=== PATIENT | male | born 1970 | race Caucasian/White ===

== ENCOUNTER 2017-06-24 19:37 | Emergency (ER) | payer BC ==
[~2017-06-24] VITALS: Ht 177.8 cm; Wt 104.3 kg
[~2017-06-24 19:37] MED LIST: ASPI81TA28 PO; CETI10TA84 PO; CYAN100T6 PO; IBUP-1050 PO; MISCCAP80 PO; MULT-610 PO
[2017-06-24 19:41] VITALS: TEMP 36.8; Ht 177.8 cm; Wt 104.3 kg
[2017-06-24 20:24] VITALS: O2SAT 98
[2017-06-24 20:47] LABS: BASO % 0.4 %; BASO ABS # 0.04 K/uL (0-0.2); EOS % 1.5 %; EOS ABS # 0.14 K/uL (0-0.5); HEMATOCRIT 44.9 % (42-52); HEMOGLOBIN 16.3 g/dL (14.0-18.0); IG# 0.03 K/uL (0.00-0.02); LYMPH % 32.8 %; LYMPH ABS # 3.09 K/uL (1.2-3.4); MEAN CORPUSCULAR HEMOGLOBIN 30.9 pg (25-34); MEAN CORPUSCULAR HGB CONC 36.3 g/dl (32-36); MEAN PLATELET VOLUME 9.1 fL (7.4-10.4); MONO ABS # 0.85 K/uL (0.11-0.59); NEUT ABS # 5.26 K/uL (1.4-6.5); PLATELET COUNT 244 K/uL (130-400); RED CELL DISTRIBUTION WIDTH CV 12.6 % (11.5-14.5); RED CELL DISTRIBUTION WIDTH SD 38.6 fL (36.4-46.3); WHITE BLOOD COUNT 9.41 K/uL (4.8-10.8)
[2017-06-24] MEDS ORDERED: MELA3TAB12 PO (20:56)
[2017-06-24 20:59] LABS: ALBUMIN 4.2 gm/dl (3.4-5.0); ALT/SGPT 43 U/L (12-78); BLOOD UREA NITROGEN 16 mg/dl (7-18); CALCIUM 9.1 mg/dl (8.5-10.1); CARBON DIOXIDE 26 mmol/L (21-32); CREATININE 1.16 mg/dl (0.60-1.40); GLUCOSE 96 mg/dl (70-99); POTASSIUM 3.6 mmol/L (3.5-5.1); SODIUM 137 mmol/L (136-145)
--- NOTE | 2017-06-24 21:04 | DIAGNOSTIC IMAGING REPORT ---
CHEST ONE VIEW PORTABLE CLINICAL HISTORY: 46 years-old Male presenting with loud murmur, dizziness, htn. TECHNIQUE: Portable upright AP view of the chest was obtained. COMPARISON: None. FINDINGS: Cardiomediastinal silhouette normal. Mildly low lung volumes with hypoventilatory changes. No focal opacity. No pleural effusion or pneumothorax. Osseous structures normal. Upper abdomen normal. IMPRESSION: 1. Mildly low lung volumes. Otherwise no acute cardiopulmonary disease. Electronically signed by: Miquel Raygoza M.D. 06/24/2017 9:03 PM Dictated Date/Time: 06/24/2017 9:02 PM
[2017-06-24 21:10] LABS: ALKALINE PHOSPHATASE 80 U/L (45-117); AST/SGOT 22 U/L (15-37); CKMB 1.5 ng/ml (0.5-3.6); TOTAL PROTEIN 8.3 gm/dl (6.4-8.2)
[2017-06-24] MEDS ORDERED: ACETAMINOPHEN 500 MG TAB PO STA (21:21)
--- NOTE | 2017-06-24 21:43 | DIAGNOSTIC IMAGING REPORT ---
HEAD WITHOUT CONTRAST (CT) CLINICAL HISTORY: 46 years-old Male presenting with headache, hypertension. TECHNIQUE: Multidetector CT imaging of the head was performed without the use of intravenous contrast. IV contrast: None. A dose lowering technique was used consistent with the principles of ALARA (as low as reasonably achievable). COMPARISON: 02/12/2015. CT DOSE (mGy.cm): The estimated cumulative dose is 537.48 mGy.cm. FINDINGS: Tire Changer Aircraft topogram: Unremarkable. Ventricles and sulci normal in size. Brain parenchyma normal in appearance with preserved bob-white differentiation. No mass effect or midline shift. No hemorrhage or acute territorial infarct. No extra-axial fluid collection. Paranasal sinuses and mastoid air cells clear. Calvarium intact. IMPRESSION: 1. No acute intracranial abnormality. Electronically signed by: Miquel Raygoza M.D. 06/24/2017 9:41 PM Dictated Date/Time: 06/24/2017 9:39 PM
[2017-06-24] MEDS ORDERED: OPTIRAY 320 IV PRN (22:15)
--- NOTE | 2017-06-24 22:21 | DIAGNOSTIC IMAGING REPORT ---
CHEST COMBO ANGIOGRAPHY CLINICAL HISTORY: 46 years-old Male presenting with ^Headache, murmur, htn, clinical concern for dissection. TECHNIQUE: Multidetector CT angiography of the chest was performed before and after the administration of intravenous contrast. 3-D volumetric and/or maximum intensity projection (MIP) images were subsequently reconstructed for review. IV contrast: 116 mL of Optiray 320. A dose lowering technique was used consistent with the principles of ALARA (as low as reasonably achievable). COMPARISON: Chest x-ray performed earlier the same day. CT DOSE (mGy.cm): The estimated cumulative dose is 1482.26 mGy.cm. FINDINGS: Medical Data Analyst topogram: Unremarkable. Vasculature: The study is adequate for assessment of the aorta. Precontrast imaging demonstrates no evidence of intramural hematoma. Postcontrast imaging demonstrates no evidence of dissection, penetrating ulcer, or aneurysm. Allowing for timing of the contrast bolus, no gross evidence of a filling defect within the pulmonary arteries to suggest embolus. Main pulmonary artery is not enlarged. No flattening of the interventricular septum. No intracardiac filling defect. No reflux of contrast into the hepatic veins. Remaining chest: On soft tissue windows, normal thyroid and thoracic inlet. No axillary, supraclavicular, hilar, or mediastinal lymphadenopathy. Normal heart size. Aortic valve calcification. No pericardial or pleural effusion. Upper abdomen normal. On lung windows, no focal infiltrate or nodule. Airways patent. On bone windows, normal osseous structures. IMPRESSION: 1. No evidence of acute aortic injury. No acute intrathoracic pathology. Electronically signed by: Miquel Raygoza M.D. 06/24/2017 10:19 PM Dictated Date/Time: 06/24/2017 10:15 PM
--- NOTE | 2017-06-24 22:59 | EMERGENCY ROOM VISIT NOTE ---
History First contact with patient: 19:47 Chief Complaint: HYPERTENSION Stated Complaint: HEADACHES,BP 183/108 History of Present Illness The patient is a 46 year old male who presents to the Emergency Room via private vehicle accompanied by female with complaints of "headaches, elevated blood pressure at 183/108". The patient states that for the past 2-3 weeks he has been experiencing headaches, intermittent palpitations, blurred vision, dizziness, and ear pressure. There is also associated weight gain, fatigue, stressors, and irritability. He has history of A. fib, 2014, but notes that nothing at that time was added to his medication regimen. He denies any eye pain or shortness of breath. No ringing in his ears, confusion, snoring or weakness. He states that sometimes there is intermittent relief with Motrin and sleep. Today he had 4 ibuprofen, and 2 Excedrin Migraine. Headache is in the frontal and temporal regions. He rates the pain as a 7/10. He was concerned because earlier today he checked his blood pressure and it was 183/ 108. Review of Systems A complete 10-point Review of Systems was discussed with the patient, with pertinent positives and negatives listed in the History of Present Illness. All remaining Review of Systems questions can be considered negative unless otherwise specified. 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 Current/Historical Medications Scheduled PRN Ibuprofen (Advil), 600-800 MG PO PRN UD PRN for Pain Melatonin-Pyridoxine (Melatonin), 5 MG PO HS PRN for Sleep Physical Exam Vital Signs Date Time Temp Pulse Resp B/P (MAP) Pulse Ox O2 Delivery O2 Flow Rate FiO2 06/24/17 23:09 50 18 148/75 96 Room Air 06/24/17 22:12 60 16 148/83 96 Room Air 06/24/17 20:59 53 16 140/79 96 Room Air 06/24/17 20:24 98 Room Air 06/24/17 20:11 67 06/24/17 19:56 62 16 156/102 98 Room Air 06/24/17 19:41 36.8 71 20 169/87 97 Room Air Physical Exam VITAL SIGNS - Vital signs and nursing notes were reviewed. Stable. Hypertensive. GENERAL - 46-year-old male appearing his stated age who is in no acute distress. Communicates well with provider and answers questions appropriately. SKIN - Without rashes. No petechial rashes. HEAD - NC/AT. EYES - PERRL with EOMI bilaterally. Sclera anicteric. EARS - No deformities of external structures noted on gross examination bilaterally. NOSE - Midline and without cyanosis. No epistaxis or purulent drainage noted. MOUTH/OROPHARYNX - Without perioral cyanosis. NECK - Neck with FROM. Supple to palpation. No nuchal rigidity. LUNGS - Chest wall symmetric without accessory muscle use, intercostals retractions, or central cyanosis. Normal vesicular breath sounds CTA B/L. No wheezes, rales, or rhonchi appreciated. CARDIAC - RRR with S1/S2. Loud systolic murmur noted. EXTREMITIES - No clubbing or peripheral cyanosis. No pretibial edema present. + 5/5 strength noted in UE/LE bilaterally. NEUROLOGIC - Cranial nerves II through XII grossly intact. Sensory intact to light touch throughout. PSYCH - A&O, and cooperates fully with examiner. Pt is very pleasant and interacts well with examiner. Medical Decision & Procedures ER Provider Diagnostic Interpretation: HEAD WITHOUT CONTRAST (CT) CLINICAL HISTORY: 46 years-old Male presenting with headache, hypertension. TECHNIQUE: Multidetector CT imaging of the head was performed without the use of intravenous contrast. IV contrast: None. A dose lowering technique was used consistent with the principles of ALARA (as low as reasonably achievable). COMPARISON: 02/12/2015. CT DOSE (mGy.cm): The estimated cumulative dose is 537.48 mGy.cm. 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 Ventricles and sulci normal in size. Brain parenchyma normal in appearance with preserved bob-white differentiation. No mass effect or midline shift. No hemorrhage or acute territorial infarct. No extra-axial fluid collection. Paranasal sinuses and mastoid air cells clear. Calvarium intact. IMPRESSION: 1. No acute intracranial abnormality. Electronically signed by: Miquel Raygoza M.D. 06/24/2017 9:41 PM Dictated Date/Time: 06/24/2017 9:39 PM CHEST ONE VIEW PORTABLE CLINICAL HISTORY: 46 years-old Male presenting with loud murmur, dizziness, htn. TECHNIQUE: Portable upright AP view of the chest was obtained. COMPARISON: None. FINDINGS: Cardiomediastinal silhouette normal. Mildly low lung volumes with hypoventilatory changes. No focal opacity. No pleural effusion or pneumothorax. Osseous structures normal. Upper abdomen normal. IMPRESSION: 1. Mildly low lung volumes. Otherwise no acute cardiopulmonary disease. Electronically signed by: Miquel Raygoza M.D. 06/24/2017 9:03 PM Dictated Date/Time: 06/24/2017 9:02 PM CHEST COMBO ANGIOGRAPHY CLINICAL HISTORY: 46 years-old Male presenting with ^Headache, murmur, htn, clinical concern for dissection. TECHNIQUE: Multidetector CT angiography of the chest was performed before and after the administration of intravenous contrast. 3-D volumetric and/or maximum intensity projection (MIP) images were subsequently reconstructed for review. IV contrast: 116 mL of Optiray 320. A dose lowering technique was used consistent with the principles of ALARA (as low as reasonably achievable). COMPARISON: Chest x-ray performed earlier the same day. CT DOSE (mGy.cm): The estimated cumulative dose is 1482.26 mGy.cm. 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 Vasculature: The study is adequate for assessment of the aorta. Precontrast imaging demonstrates no evidence of intramural hematoma. Postcontrast imaging demonstrates no evidence of dissection, penetrating ulcer, or aneurysm. Allowing for timing of the contrast bolus, no gross evidence of a filling defect within the pulmonary arteries to suggest embolus. Main pulmonary artery is not enlarged. No flattening of the interventricular septum. No intracardiac filling defect. No reflux of contrast into the hepatic veins. Remaining chest: On soft tissue windows, normal thyroid and thoracic inlet. No axillary, supraclavicular, hilar, or mediastinal lymphadenopathy. Normal heart size. Aortic valve calcification. No pericardial or pleural effusion. Upper abdomen normal. On lung windows, no focal infiltrate or nodule. Airways patent. On bone windows, normal osseous structures. IMPRESSION: 1. No evidence of acute aortic injury. No acute intrathoracic pathology. Electronically signed by: Miquel Raygoza M.D. 06/24/2017 10:19 PM Dictated Date/Time: 06/24/2017 10:15 PM Laboratory Results 06/24/17 19:50 Red Blood Count 5.28, Mean Corpuscular Volume 85.0, Mean Corpuscular Hemoglobin 30.9, Mean Corpuscular Hemoglobin Concent 36.3, Mean Platelet Volume 9.1, Neutrophils (%) (Auto) 56.0, Lymphocytes (%) (Auto) 32.8, Monocytes (%) (Auto) 9.0, Eosinophils (%) (Auto) 1.5, Basophils (%) (Auto) 0.4, Neutrophils # (Auto) 5.26, Lymphocytes # (Auto) 3.09, Monocytes # (Auto) 0.85, Eosinophils # (Auto) 0.14, Basophils # (Auto) 0.04 06/24/17 19:50 Test 06/24/17 19:50 White Blood Count 9.41 K/uL (4.8-10.8) Red Blood Count 5.28 M/uL (4.7-6.1) Hemoglobin 16.3 g/dL (14.0-18.0) Hematocrit 44.9 % (42-52) Mean Corpuscular Volume 85.0 fL (80-100) Mean Corpuscular Hemoglobin 30.9 pg (25-34) Mean Corpuscular Hemoglobin Concent 36.3 g/dl (32-36) Platelet Count 244 K/uL (130-400) Mean Platelet Volume 9.1 fL (7.4-10.4) Neutrophils (%) (Auto) 56.0 % Lymphocytes (%) (Auto) 32.8 % Monocytes (%) (Auto) 9.0 % Eosinophils (%) (Auto) 1.5 % Basophils (%) (Auto) 0.4 % Neutrophils # (Auto) 5.26 K/uL (1.4-6.5) Lymphocytes # (Auto) 3.09 K/uL (1.2-3.4) Monocytes # (Auto) 0.85 K/uL (0.11-0.59) Eosinophils # (Auto) 0.14 K/uL (0-0.5) Basophils # (Auto) 0.04 K/uL (0-0.2) RDW Standard Deviation 38.6 fL (36.4-46.3) RDW Coefficient of Variation 12.6 % (11.5-14.5) Immature Granulocyte % (Auto) 0.3 % Immature Granulocyte # (Auto) 0.03 K/uL (0.00-0.02) Anion Gap 7.0 mmol/L (3-11) Est Creatinine Clear Calc Drug Dose 95.2 ml/min Estimated GFR () 86.4 Estimated GFR (Non- 74.6 BUN/Creatinine Ratio 13.5 (10-20) Calcium Level 9.1 mg/dl (8.5-10.1) Total Bilirubin 0.6 mg/dl (0.2-1) Aspartate Amino Transf (AST/SGOT) 22 U/L (15-37) Alanine Aminotransferase (ALT/SGPT) 43 U/L (12-78) Alkaline Phosphatase 80 U/L (45-117) Total Creatine Kinase 180 U/L (39-308) Creatine Kinase MB 1.5 ng/ml (0.5-3.6) Creatine Kinase MB Ratio 0.8 (0-3.0) Troponin I < 0.015 ng/ml (0-0.045) Total Protein 8.3 gm/dl (6.4-8.2) Albumin 4.2 gm/dl (3.4-5.0) Globulin 4.1 gm/dl (2.5-4.0) Albumin/Globulin Ratio 1.0 (0.9-2) Thyroid Stimulating Hormone (TSH) 1.780 uIu/ml (0.300-4.500) Lyme Disease IgG Antibody NEG (NEG) Lyme Disease IgM Antibody NEG (NEG) Medications Administered Medications (Trade) Dose Ordered Sig/Quentin Route Start Time Stop Time Status Last Admin Dose Admin Acetaminophen (Tylenol Tab) 500 mg NOW STAT PO 06/24/17 21:21 06/24/17 21:22 DC 06/24/17 21:21 500 MG Medical Decision Patient was seen and evaluated as above. He presents to us today with headaches , elevated blood pressure. After obtaining a thorough history and physical examination the above work up was performed. Bedside EKG was performed and reveals normal sinus rhythm, rate of 60 bpm, and per my interpretation does reveal T-wave inversion in lead III, without evidence of ectopy or ischemic change. Chest x-ray reveals a questionable slightly wide mediastinum. Head CT was obtained secondary to his headache and hypertension. Without medication, the blood pressure improved. Case was discussed with the attending physician, decision was made to obtain a CTA of his chest given the chest x-ray potential widened mediastinum, as well as his presentation. There is calcification of the aortic valve, and paired with his physical exam revealing a loud systolic murmur do recommend further evaluation in the outpatient setting. I did enlist the help of our case management to help the patient get outpatient follow-up with the family doctor. I informed the patient upon hearing this murmur, which the patient notes was identified previously but not worked up. I informed him that it echo may be beneficial in the outpatient setting. It is important to note that there is no chest pain or shortness of breath. No evidence of A. fib upon my evaluation. No consent leukocytosis or anemia. No concerning metabolic abnormality. Lyme testing negative. He was given Tylenol and his headache improved. He appears stable for outpatient management and at this time I will not initiate hypertensive meds as he has improved well on his own. These may be initiated in the outpatient setting if warranted. The patient was educated upon management, had questions answered prior to discharge, and was discharged home in good condition. In the evaluation and treatment of this patient, the following differential diagnoses were considered: Migraine Headache, Intracranial Hemorrhage, Subdural Hematoma, Subarachnoid Hemorrhage, Cerebral Aneurysm, Temporal/Giant Cell Arteritis, Tension Headache, Meningitis, Encephalitis, or Hydrocephalus. Impression Primary Impression: Headache Additional Impression: Heart murmur Departure Information Dispostion Home / Self-Care Condition GOOD Referrals No Doctor, Assigned (PCP) Patient Instructions [facility] Additional Instructions You have been treated in the Emergency Department your headache, elevated blood pressure and identified heart murmur. For pain control, you can use the following [id number] medicines: - Regular strength (325mg/tab) Tylenol (acetaminophen) 1-2 tabs every 4-6 hours as needed. Do not exceed 12 tablets in a 24 hour period. Avoid taking more than 3 grams (3000 mg) of Tylenol per day. This includes any other sources of acetaminophen you may take on a regular basis. - Regular strength (200 mg/tab) Advil (ibuprofen) 1-2 tabs every 4-6 hours as needed. Do not exceed a dose of 3200 mg per day. Drink plenty of water and stay well hydrated. You should receive a phone call regarding a family doctor follow-up. If you do not receive a phone call by the end of the week please call back here at and ask for a rifle case repairer. Return to the emergency department if your symptoms persist despite treatment plan outlined above or if the following symptoms occur: increased fevers, chills , worsening nausea/vomiting, blood in your stool or urine, worsening headaches, or any new/ concerning symptoms Problem Qualifiers
[2017-06-24 23:09] VITALS: BP 148/75; PULSE 50; O2SAT 96
== END 2017-06-24 23:10 | disposition home or self-care (01) ==
LOC: C.EDB 19:39 → C.EDA 23:10
DX: R51 Headache (principal); R01.1 Cardiac murmur, unspecified; I70.0 Atherosclerosis of aorta; R00.2 Palpitations; R42 Dizziness and giddiness; H53.8 Other visual disturbances; H93.8X9 Other specified disorders of ear, unspecified ear; R03.0 Elevated blood-pressure reading, without diagnosis of hypertension; Z82.49 Family history of ischemic heart disease and other diseases of the circulatory system

== ENCOUNTER 2020-01-08 15:12 | Inpatient (IN) ==
--- OUTSIDE RECORDS SUMMARY | 2020-01-08 15:16 | External Medical Summary | Continuity of Care Document ---
:1970 Author Name Juan Jose Mueller Address Unavailable Unavailable , Care Team Providers Name Role Phone NonMNPG M.DBelle Unavailable [email or web address] Ginny DALEY M.D. Unavailable Unavailable Unavailable Unavailable Unavailable Problems Depression with anxiety (300.4) (F41.8) Chronic sinusitis (473.9) (J32.9) Allergies and Adverse Reactions Zoloft TABS (Allergy) Reaction: Headache Medications Medications not documented Procedures History of Inguinal Hernia Repair Status : Completed History of Sinus Surgery Status: Complet ed Immunizations Immunizations not documented Family History Mother Family history of myocardial infarction (V17.3) (Z82.49) Sta tus: Active Father Family history of myocardial infarction (V17.3) (Z82.49) Sta tus: Active Family history of diabetes mellitus (V18.0) (Z83.3) Status: Active Social History - Smoking Status Never smoked tobacco Plan of Treatment Planned Observations Planned Goals not documented Results No Known Results Results not documented
--- OUTSIDE RECORDS SUMMARY | 2020-01-08 15:16 | External Medical Summary | Continuity of Care Document ---
:1970 Author Name Juan Jose Mueller Address Unavailable Unavailable , Care Team Providers Name Role Phone NonMNPG M.DBelle Unavailable [email or web address] Ginny DALEY M.D. Unavailable Unavailable Unavailable Unavailable Unavailable Problems Chronic sinusitis (473.9) (J32.9) Depression with anxiety (300.4) (F41.8) Allergies and Adverse Reactions Zoloft TABS (Allergy) [...]
[2020-01-08] MEDS ORDERED: ONDANSETRON INJ 2 MG/ML 2 ML VIAL IV STA (15:41)
[2020-01-08] MEDS ORDERED: SODIUM CHLORIDE 0.9% 1000ML 1,000 ML IV SCH (15:45)
[2020-01-08] MEDS: fentaNYL citrate 100 MCG/2 ML VIAL IV PRN ×3 (16:13→20:20)
[2020-01-08] MEDS ORDERED: dilTIAZem HCl 5 MG/ML 5 ML VIAL IV STA ×2 (16:14→18:42)
[2020-01-08 16:19] LABS: Basophils # (auto) 0.03 K/uL (0-0.2); Basophils % (auto) 0.3 %; Eosinophils # (auto) 0.02 K/uL (0-0.5); Eosinophils % (auto) 0.2 %; Hematocrit (blood only) 44.2 % (42-52); Hemoglobin 15.2 g/dL (14.0-18.0); Immature Granulocytes # (auto) 0.04 K/uL (0.00-0.02); Immature Granulocytes % (auto) 0.4 %; Lymphocytes # (auto) 1.05 K/uL (1.2-3.4); Lymphocytes % (auto) 9.2 %; Mean Corpuscular Hemoglobin 30.2 pg (25-34); Mean Corpuscular Hgb Conc 34.4 g/dL (32-36); Mean Corpuscular Volume 87.9 fL (80-100); Mean Platelet Volume 9.1 fL (7.4-10.4); Monocytes # (auto) 1.16 K/uL (0.11-0.59); Monocytes % (auto) 10.2 %; Neutrophils # (auto) 9.12 K/uL (1.4-6.5); Neutrophils % (auto) 79.7 %; Platelet Count 301 K/uL (130-400); RDW Coefficient of Variation 12.9 % (11.5-14.5); Red Blood Count 5.03 M/uL (4.7-6.1); White Blood Count 11.42 K/uL (4.8-10.8)
[2020-01-08 16:30] LABS: Partial Thromboplastin Ratio 1.1; Partial Thromboplastin Time 30.2 Seconds (21.0-31.0); Prothrombin Time 10.9 Seconds (9.0-12.0)
--- NOTE | 2020-01-08 16:35 | Emergency Department Note ---
Impression & Plan Atrial fibrillation with RVR, Postoperative abscess ED Provider Note NAME: BENIGNO BERMUDEZ AGE: 49 SEX: M : 1970 ARRIVES VIA: Walk-In INFORMANT: Patient, ED PROVIDER(S): Jacobo Baron DO CHIEF COMPLAINT: Scrotal pain HPI: The patient is a 49-year-old male who is one-month status post scrotal surgery. The patient was playing softball when he had a sharp pull in his right groin. He suffered a very significant rupture of a blood vessel with resultant hematoma formation in his right groin and his right hemiscrotum. This was treated surgically at [facility]. He had a drain which was removed recently. He was having significant improvement of his symptoms until the last 48 hours when he started having very severe pain with walking. He states that he feels the pain is neurologic and feels like "a pinched nerve" in his right groin. He feels pain that goes through his perineum into his rectum. He denies any rectal bleeding or fevers. He denies having any lower extremity weakness but has significant pain with walking especially when he puts weight on his right leg. The patient denies any recent trauma. The patient denies having any dysuria or frequency. He has noticed some palpitations and has a history of paroxysmal atrial fibrillation. The patient states that he has been compliant with his outpatient medication regimen. ROS: See above HPI for pertinent positives & negatives. A total of 10 systems reviewed and were otherwise negative. PAST MEDICAL HISTORY: See Below PAST SURGICAL HISTORY: See Below FAMILY HISTORY: See Below SOCIAL HISTORY: See Below HOME MEDICATIONS: See Below ALLERGIES: See Below VITALS: See Below PHYSICAL EXAMINATION: GENERAL: The patient is awake and alert. He is very anxious appearing and appears to be in significant pain. EYES: The conjunctivae are clear. The pupils are round and reactive. EARS, NOSE, MOUTH AND THROAT: The nose is without any evidence of any deformity. Mucous membranes are moist. Tongue is midline. NECK: The neck is nontender and supple. RESPIRATORY: Normal respiratory effort is noted there is no evidence of wheezing rhonchi or rales CARDIOVASCULAR: Tachycardic and irregular rate was noted to auscultation. Systolic murmur was suggested. GASTROINTESTINAL: The abdomen is soft. Abdomen is nontender. : There is significant tenderness in the right groin as well as the right femoral vascular bundle. Pulses are symmetric in both groins. There is induration in the right inguinal region with tenderness in the right testicle. There is a postoperative drain site noted in the right hemiscrotum. No drainage or erythema was noted. Testicles appear to be descended bilaterally. Cremasteric reflex was very weak on the right side. The skin over the perineum was soft and nontender. BACK: No midline tenderness or or step-off noted range of motion in flexion extension as well as rotation no signs of muscle spasm noted MUSCULOSKELETAL/EXTREMITIES: There is no evidence of gross deformity full range of motion is noted in the hips and shoulders. SKIN: There is no obvious evidence of any rash. There are no petechiae, pallor or cyanosis noted. NEUROLOGIC: Patient is awake alert and oriented x3 strength is symmetric patellar reflexes are 2+ bilaterally MEDICAL DECISION MAKING: The patient is a 49-year-old male who presented to the emergency department for an evaluation of postoperative pain. The patient had recent surgery for evacuation of a hematoma in his right groin and right hemiscrotum. The drain was removed at the beginning of this month. He started having decreased drainage from the area last . The patient presented with severe pain especially with any ambulation. Physical exam revealed significant induration and pain at the right groin. I discussed the patient's laboratory and radiographic studies with him. He was found to be in A. fib with RVR as well as an area of possible postoperative abscess. I discussed his case with on-call urology as well as the on-call general surgical group. I also discussed his case with the [facility]ist. Likely patient require further medical management and then surgical intervention when he is medically cleared. The patient was reevaluated multiple times. Triage Nursing notes reviewed. Prior medical records reviewed Vital Signs: reviewed and remarkable for tachycardia and hypertension. Differential diagnosis: Cellulitis, abscess, MRSA infection, DVT, necrotizing fasciitis, dermatitis, drug eruption, allergic reaction, postoperative infection, postoperative pain, injury to adjacent structures as well as other pathologies. ER treatment provided: See below Diagnostics interpreted by me: ECG: EKG was obtained in the emergency department. My interpretation is atrial fibrillation at [address] depressions were noted. There were no PVCs. This was compared to a tracing from July 172018. Atrial fibrillation has replaced normal sinus rhythm compared to the earlier tracing. Cardiac Monitoring: An order was placed for continuous cardiac monitoring. The monitor shows a rate of 150 bpm with atrial fibrillation rhythm. Laboratory studies: As stated above and show below. Imaging studies: See below Consultation(s): 1919: I discussed this case with Dr. Gonzalez who is covering for urology. 1944: I discussed this case with Foreign Ortega who is on-call for general surgery. They will evaluate the patient in the emergency department for further management and disposition. 1950: [facility] hospitalist was notified about the patient ED COURSE: Procedures: none PDMP:reviewed and no issues Critical Care: I have personally spent greater than 55 minutes of critical care time in the direct management of this patient. This includes bedside care, interpretation of diagnostic studies, and testing, discussion with consultants, patient, and family members, and other required patient management activities. This 55 minutes is in excess of all separately billable procedures. Past Med/Surg History Medical History Atrial fibrillation History of deviated nasal septum Hypertension Surgical History H/O cardiac catheterization History of inguinal hernia repair Social History Smoking Status: Never smoker Hx Alcohol Use: Yes Alcohol type: beer Hx Substance Use: No Preferred Language: Burmese Communication Ability: Effective Guard Manager Required: No Beliefs That Will Affect Care: None marital status: Single Current Living Situation: Alone Other Information That Helps Us Care for You: No Feels Safe at Home: Yes Allergies Allergies Allergy/AdvReac Type Severity Reaction Status Date / Time No Known Allergies Allergy Verified 01/08/20 16:30 Home Meds Home Medications Medication Instructions Recorded Confirmed ascorbic acid (vitamin C) [Vitamin 1,000 mg PO DAILY 07/17/18 01/08/20 C] aspirin 81 mg PO DAILY 07/17/18 01/08/20 atorvastatin 20 mg PO DAILY 07/17/18 01/08/20 cholecalciferol (vitamin D3) 1,000 unit PO DAILY 07/17/18 01/08/20 [Vitamin D3] magnesium oxide 400 mg PO DAILY 07/17/18 01/08/20 metoprolol succinate 50 mg PO DAILY 07/17/18 01/08/20 multivitamin 1 tab PO DAILY 07/17/18 01/08/20 lisinopril 20 mg PO DAILY 01/08/20 01/08/20 Results & Data (ED) Vital Signs Vital Signs - 24 hr 01/08/20 15:17 01/08/20 16:15 01/08/20 16:17 Temperature 36.9 C Temperature Source Oral Pulse Rate 98 H 151 H 161 H Pulse Rate [Apical] Pulse Rate from SpO2 Sensor 170 H 143 H Respiratory Rate 18 17 21 Blood Pressure 104/84 121/95 Blood Pressure [Left Arm] Blood Pressure Mean 90 102 Blood Pressure Mean [Left Arm] Pulse Oximetry 96 95 95 Oxygen Delivery Method Room Air Sepsis Recent Fever Within 48 Hours No Sepsis New/Unexplained Change in Mental Status No Sepsis Action Taken by Nursing No Action Required 01/08/20 16:30 01/08/20 16:31 01/08/20 16:34 Temperature Temperature Source Pulse Rate 124 H 128 H 125 H Pulse Rate [Apical] Pulse Rate from SpO2 Sensor 126 H 132 H 130 H Respiratory Rate 23 30 H 27 H Blood Pressure 144/114 H 116/76 Blood Pressure [Left Arm] Blood Pressure Mean 119 87 Blood Pressure Mean [Left Arm] Pulse Oximetry 93 95 96 Oxygen Delivery Method Sepsis Recent Fever Within 48 Hours Sepsis New/Unexplained Change in Mental Status Sepsis Action Taken by Nursing 01/08/20 16:45 01/08/20 16:46 01/08/20 16:54 Temperature Temperature Source Pulse Rate 122 H 140 H Pulse Rate [Apical] 133 H Pulse Rate from SpO2 Sensor 113 H 112 H Respiratory Rate 29 H 26 H 18 Blood Pressure 110/91 Blood Pressure [Left Arm] 110/91 Blood Pressure Mean 96 Blood Pressure Mean [Left Arm] 97 Pulse Oximetry 94 95 96 Oxygen Delivery Method Sepsis Recent Fever Within 48 Hours Sepsis New/Unexplained Change in Mental Status Sepsis Action Taken by Nursing 01/08/20 17:00 01/08/20 17:01 01/08/20 17:04 Temperature Temperature Source Pulse Rate 140 H 124 H 133 H Pulse Rate [Apical] Pulse Rate from SpO2 Sensor 158 H 139 H 135 H Respiratory Rate 30 H 18 26 H Blood Pressure 85/66 L 128/108 H Blood Pressure [Left Arm] Blood Pressure Mean 79 113 Blood Pressure Mean [Left Arm] Pulse Oximetry 97 97 94 Oxygen Delivery Method Sepsis Recent Fever Within 48 Hours Sepsis New/Unexplained Change in Mental Status Sepsis Action Taken by Nursing 01/08/20 17:10 01/08/20 17:15 01/08/20 17:16 Temperature Temperature Source Pulse Rate 134 H 148 H 140 H Pulse Rate [Apical] Pulse Rate from SpO2 Sensor 137 H 166 H 126 H Respiratory Rate 18 28 H 21 Blood Pressure 130/100 130/90 Blood Pressure [Left Arm] Blood Pressure Mean 109 109 Blood Pressure Mean [Left Arm] Pulse Oximetry 96 97 97 Oxygen Delivery Method Sepsis Recent Fever Within 48 Hours Sepsis New/Unexplained Change in Mental Status Sepsis Action Taken by Nursing 01/08/20 17:55 01/08/20 17:57 01/08/20 18:00 Temperature Temperature Source Pulse Rate 165 H 154 H 167 H Pulse Rate [Apical] Pulse Rate from SpO2 Sensor 164 H 153 H Respiratory Rate 45 H 23 21 Blood Pressure 125/105 H Blood Pressure [Left Arm] Blood Pressure Mean 108 Blood Pressure Mean [Left Arm] Pulse Oximetry 98 98 Oxygen Delivery Method Sepsis Recent Fever Within 48 Hours Sepsis New/Unexplained Change in Mental Status Sepsis Action Taken by Nursing 01/08/20 18:41 01/08/20 18:42 01/08/20 18:45 Temperature Temperature Source Pulse Rate 149 H 161 H 153 H Pulse Rate [Apical] Pulse Rate from SpO2 Sensor 160 H 158 H 148 H Respiratory Rate 15 31 H 22 Blood Pressure 132/97 113/89 Blood Pressure [Left Arm] Blood Pressure Mean 122 97 Blood Pressure Mean [Left Arm] Pulse Oximetry 97 96 97 Oxygen Delivery Method Sepsis Recent Fever Within 48 Hours Sepsis New/Unexplained Change in Mental Status Sepsis Action Taken by Nursing 01/08/20 18:46 01/08/20 19:00 01/08/20 19:01 Temperature Temperature Source Pulse Rate 154 H 134 H 153 H Pulse Rate [Apical] Pulse Rate from SpO2 Sensor 138 H 143 H 150 H Respiratory Rate 17 19 22 Blood Pressure 121/86 Blood Pressure [Left Arm] Blood Pressure Mean 107 Blood Pressure Mean [Left Arm] Pulse Oximetry 96 97 97 Oxygen Delivery Method Sepsis Recent Fever Within 48 Hours Sepsis New/Unexplained Change in Mental Status Sepsis Action Taken by Nursing 01/08/20 19:15 01/08/20 19:16 01/08/20 19:30 Temperature Temperature Source Pulse Rate 125 H 128 H 147 H Pulse Rate [Apical] Pulse Rate from SpO2 Sensor 125 H 131 H 166 H Respiratory Rate 37 H 21 27 H Blood Pressure 150/100 H 123/102 H Blood Pressure [Left Arm] Blood Pressure Mean 109 106 Blood Pressure Mean [Left Arm] Pulse Oximetry 97 97 97 Oxygen Delivery Method Sepsis Recent Fever Within 48 Hours Sepsis New/Unexplained Change in Mental Status Sepsis Action Taken by Nursing 01/08/20 19:31 01/08/20 19:45 01/08/20 19:46 Temperature Temperature Source Pulse Rate 145 H 176 H 161 H Pulse Rate [Apical] Pulse Rate from SpO2 Sensor 135 H 176 H 168 H Respiratory Rate 22 23 19 Blood Pressure 132/90 Blood Pressure [Left Arm] Blood Pressure Mean 97 Blood Pressure Mean [Left Arm] Pulse Oximetry 98 96 95 Oxygen Delivery Method Sepsis Recent Fever Within 48 Hours Sepsis New/Unexplained Change in Mental Status Sepsis Action Taken by Nursing 01/08/20 20:00 01/08/20 20:01 01/08/20 20:15 Temperature Temperature Source Pulse Rate 144 H 149 H 181 H Pulse Rate [Apical] Pulse Rate from SpO2 Sensor 153 H 161 H 178 H Respiratory Rate 22 22 22 Blood Pressure 145/103 H Blood Pressure [Left Arm] Blood Pressure Mean 136 Blood Pressure Mean [Left Arm] Pulse Oximetry 97 96 97 Oxygen Delivery Method Sepsis Recent Fever Within 48 Hours Sepsis New/Unexplained Change in Mental Status Sepsis Action Taken by Nursing 01/08/20 20:16 01/08/20 20:30 01/08/20 20:31 Temperature Temperature Source Pulse Rate 149 H 144 H 125 H Pulse Rate [Apical] Pulse Rate from SpO2 Sensor 141 H 141 H 137 H Respiratory Rate 22 21 21 Blood Pressure 132/66 Blood Pressure [Left Arm] Blood Pressure Mean 113 Blood Pressure Mean [Left Arm] Pulse Oximetry 97 95 96 Oxygen Delivery Method Sepsis Recent Fever Within 48 Hours Sepsis New/Unexplained Change in Mental Status Sepsis Action Taken by Nursing 01/08/20 20:45 01/08/20 20:46 01/08/20 21:00 Temperature Temperature Source Pulse Rate 137 H 136 H 140 H Pulse Rate [Apical] Pulse Rate from SpO2 Sensor 132 H 135 H 125 H Respiratory Rate 22 19 22 Blood Pressure 133/109 H Blood Pressure [Left Arm] Blood Pressure Mean 122 Blood Pressure Mean [Left Arm] Pulse Oximetry 95 95 97 Oxygen Delivery Method Sepsis Recent Fever Within 48 Hours Sepsis New/Unexplained Change in Mental Status Sepsis Action Taken by Nursing 01/08/20 21:01 Temperature Temperature Source Pulse Rate 130 H Pulse Rate [Apical] Pulse Rate from SpO2 Sensor 137 H Respiratory Rate 19 Blood Pressure 135/75 Blood Pressure [Left Arm] Blood Pressure Mean 99 Blood Pressure Mean [Left Arm] Pulse Oximetry 95 Oxygen Delivery Method Sepsis Recent Fever Within 48 Hours Sepsis New/Unexplained Change in Mental Status Sepsis Action Taken by [facility] Medications Current Medication List: was personally reviewed by me Laboratory Data Attestation: I reviewed the patient's lab results. Result diagrams: 01/09/20 04:51 01/09/20 04:51 Lab Results 01/08/20 01/08/20 01/08/20 Range/Units 16:07 16:07 16:07 WBC 11.42 H (4.8-10.8) K/uL RBC 5.03 (4.7-6.1) M/uL Hgb 15.2 (14.0-18.0) g/dL Hct 44.2 (42-52) % MCV 87.9 (80-100) fL MCH 30.2 (25-34) pg MCHC 34.4 (32-36) g/dL RDW Std Deviation 41.0 (36.4-46.3) fL RDW Coeff of Solomon 12.9 (11.5-14.5) % Plt Count 301 (130-400) K/uL MPV 9.1 (7.4-10.4) fL Immature Gran % (Auto) 0.4 % Neut % (Auto) 79.7 % Lymph % (Auto) 9.2 % [place] % (Auto) 10.2 % Eos % (Auto) 0.2 % Baso % (Auto) 0.3 % Neut # (Auto) 9.12 H (1.4-6.5) K/uL Lymph # (Auto) 1.05 L (1.2-3.4) K/uL [place] # (Auto) 1.16 H (0.11-0.59) K/uL Eos # (Auto) 0.02 (0-0.5) K/uL Baso # (Auto) 0.03 (0-0.2) K/uL Immature Gran # (Auto) 0.04 H (0.00-0.02) K/uL ESR 47 H (0-14) mm/hr PT 10.9 (9.0-12.0) Seconds INR 1.0 (0.9-1.1) APTT 30.2 (21.0-31.0) Seconds PTT Ratio 1.1 Sodium (136-145) mmol/L Potassium (3.5-5.1) mmol/L Chloride (98-107) mmol/L Carbon Dioxide (21-32) mmol/L Anion Gap (3-11) BUN (7-18) mg/dl Creatinine (0.6-1.4) mg/dl Est Cr Clr Drug Dosing ml/min Est GFR ( Amer) Est GFR (Non-Af Amer) BUN/Creatinine Ratio (10-20) Glucose (70-99) mg/dl Lactate (0.4-2.0) mmol/L Calcium (8.5-10.1) mg/dl Magnesium (1.8-2.4) mg/dl Total Bilirubin (0.2-1) mg/dl AST (15-37) U/L ALT (12-78) U/L Alkaline Phosphatase (45-117) U/L Troponin I (0-0.045) ng/ml C-Reactive Protein (0-0.29) mg/dl Total Protein (6.4-8.2) gm/dl Albumin (3.4-5.0) gm/dl Globulin (2.5-4.0) gm/dl Albumin/Globulin Ratio (0.9-2) Lipase (73-393) U/L Procalcitonin (0-0.5) ng/ml TSH (0.300-4.500) uIu/ml Urine Color Urine Appearance (Clear) Urine pH (4.5-7.5) Ur Specific [place] (1.000-1.030) Urine Protein (Negative) Urine Glucose (UA) (Negative) Urine Ketones (Negative) Urine Blood (Negative) Urine Nitrite (Negative) Urine Bilirubin (Negative) Urine Urobilinogen (Negative) Ur Leukocyte Esterase (Negative) Urine WBC (Auto) (0-5) /hpf Urine RBC (Auto) (0-4) /hpf U Hyaline Cast (Auto) (0-5) /lpf U Epithel Cells (Auto) (0-5) /lpf Urine Bacteria (Auto) (Negative) COVID-19 Eval Order SARS-CoV-2, RNA, NAAT (NEGATIVE) 09/19/20 09/19/20 09/19/20 Range/Units 16:07 16:07 16:48 WBC (4.8-10.8) K/uL RBC (4.7-6.1) M/uL Hgb (14.0-18.0) g/dL Hct (42-52) % MCV (80-100) fL MCH (25-34) pg MCHC (32-36) g/dL RDW Std Deviation (36.4-46.3) fL RDW Coeff of Solomon (11.5-14.5) % Plt Count (130-400) K/uL MPV (7.4-10.4) fL Immature Gran % (Auto) % Neut % (Auto) % Lymph % (Auto) % [place] % (Auto) % Eos % (Auto) % Baso % (Auto) % Neut # (Auto) (1.4-6.5) K/uL Lymph # (Auto) (1.2-3.4) K/uL [place] # (Auto) (0.11-0.59) K/uL Eos # (Auto) (0-0.5) K/uL Baso # (Auto) (0-0.2) K/uL Immature Gran # (Auto) (0.00-0.02) K/uL ESR (0-14) mm/hr PT (9.0-12.0) Seconds INR (0.9-1.1) APTT (21.0-31.0) Seconds PTT Ratio Sodium 137 (136-145) mmol/L Potassium 3.9 (3.5-5.1) mmol/L Chloride 102 (98-107) mmol/L Carbon Dioxide 24 (21-32) mmol/L Anion Gap 10.0 (3-11) BUN 16 (7-18) mg/dl Creatinine 1.06 (0.6-1.4) mg/dl Est Cr Clr Drug Dosing 102.6 ml/min Est GFR ( Amer) 94.4 Est GFR (Non-Af Amer) 81.4 BUN/Creatinine Ratio 14.7 (10-20) Glucose 98 (70-99) mg/dl Lactate (0.4-2.0) mmol/L Calcium 10.0 (8.5-10.1) mg/dl Magnesium 2.1 (1.8-2.4) mg/dl Total Bilirubin 1.4 H (0.2-1) mg/dl AST 18 (15-37) U/L ALT 35 (12-78) U/L Alkaline Phosphatase 114 (45-117) U/L Troponin I < 0.015 (0-0.045) ng/ml C-Reactive Protein 9.74 H (0-0.29) mg/dl Total Protein 8.7 H (6.4-8.2) gm/dl Albumin 3.8 (3.4-5.0) gm/dl Globulin 4.9 H (2.5-4.0) gm/dl Albumin/Globulin Ratio 0.8 L (0.9-2) Lipase 53 L (73-393) U/L Procalcitonin 0.11 (0-0.5) ng/ml TSH 1.120 (0.300-4.500) uIu/ml Urine Color Urine Appearance (Clear) Urine pH (4.5-7.5) Ur Specific [place] (1.000-1.030) Urine Protein (Negative) Urine Glucose (UA) (Negative) Urine Ketones (Negative) Urine Blood (Negative) Urine Nitrite (Negative) Urine Bilirubin (Negative) Urine Urobilinogen (Negative) Ur Leukocyte Esterase (Negative) Urine WBC (Auto) (0-5) /hpf Urine RBC (Auto) (0-4) /hpf U Hyaline Cast (Auto) (0-5) /lpf U Epithel Cells (Auto) (0-5) /lpf Urine Bacteria (Auto) (Negative) COVID-19 Eval Order Covid19 IDNow [facility] SARS-CoV-2, RNA, NAAT (NEGATIVE) 01/08/20 01/08/20 01/08/20 Range/Units 16:48 16:49 19:00 WBC (4.8-10.8) K/uL RBC (4.7-6.1) M/uL Hgb (14.0-18.0) g/dL Hct (42-52) % MCV (80-100) fL MCH (25-34) pg MCHC (32-36) g/dL RDW Std Deviation (36.4-46.3) fL RDW Coeff of Solomon (11.5-14.5) % Plt Count (130-400) K/uL MPV (7.4-10.4) fL Immature Gran % (Auto) % Neut % (Auto) % Lymph % (Auto) % [place] % (Auto) % Eos % (Auto) % Baso % (Auto) % Neut # (Auto) (1.4-6.5) K/uL Lymph # (Auto) (1.2-3.4) K/uL [place] # (Auto) (0.11-0.59) K/uL Eos # (Auto) (0-0.5) K/uL Baso # (Auto) (0-0.2) K/uL Immature Gran # (Auto) (0.00-0.02) K/uL ESR (0-14) mm/hr PT (9.0-12.0) Seconds INR (0.9-1.1) APTT (21.0-31.0) Seconds PTT Ratio Sodium (136-145) mmol/L Potassium (3.5-5.1) mmol/L Chloride (98-107) mmol/L Carbon Dioxide (21-32) mmol/L Anion Gap (3-11) BUN (7-18) mg/dl Creatinine (0.6-1.4) mg/dl Est Cr Clr Drug Dosing ml/min Est GFR ( Amer) Est GFR (Non-Af Amer) BUN/Creatinine Ratio (10-20) Glucose (70-99) mg/dl Lactate 1.2 (0.4-2.0) mmol/L Calcium (8.5-10.1) mg/dl Magnesium (1.8-2.4) mg/dl Total Bilirubin (0.2-1) mg/dl AST (15-37) U/L ALT (12-78) U/L Alkaline Phosphatase (45-117) U/L Troponin I (0-0.045) ng/ml C-Reactive Protein (0-0.29) mg/dl Total Protein (6.4-8.2) gm/dl Albumin (3.4-5.0) gm/dl Globulin (2.5-4.0) gm/dl Albumin/Globulin Ratio (0.9-2) Lipase (73-393) U/L Procalcitonin (0-0.5) ng/ml TSH (0.300-4.500) uIu/ml Urine Color Yellow Urine Appearance Clear (Clear) Urine pH 6.0 (4.5-7.5) Ur Specific [place] 1.045 H (1.000-1.030) Urine Protein Negative (Negative) Urine Glucose (UA) Negative (Negative) Urine Ketones 1+ H (Negative) Urine Blood Trace H (Negative) Urine Nitrite Negative (Negative) Urine Bilirubin Negative (Negative) Urine Urobilinogen Negative (Negative) Ur Leukocyte Esterase Negative (Negative) Urine WBC (Auto) 1-5 (0-5) /hpf Urine RBC (Auto) 0-4 (0-4) /hpf U Hyaline Cast (Auto) 0 (0-5) /lpf U Epithel Cells (Auto) 0-5 (0-5) /lpf Urine Bacteria (Auto) Negative (Negative) COVID-19 Eval Order SARS-CoV-2, RNA, NAAT NEGATIVE (NEGATIVE) Administered Medications Acetaminophen (Acetaminophen 325 Mg Tab) 650 mg PO Q4H PRN PRN Reason: Pain or Fever Stop: 02/07/20 21:58 Last Admin: 01/09/20 11:08 Dose: 650 mg Documented by: [id number] Admin: 01/08/20 23:10 Dose: 650 mg Documented by: [id number] Ascorbic Acid (Ascorbic Acid 500 Mg Tab) 1,000 mg PO DAILY [facility] Stop: 02/08/20 08:59 Last Admin: 01/09/20 08:11 Dose: 1,000 mg Documented by: [id number] Aspirin (Aspirin 81 Mg Ectab) 81 mg PO DAILY [facility] Stop: 02/08/20 08:59 Last Admin: 01/09/20 08:11 Dose: 81 mg Documented by: [id number] Atorvastatin Calcium (Atorvastatin 20 Mg Tab) 20 mg PO DAILY [facility] Stop: 02/08/20 08:59 Last Admin: 01/09/20 08:11 Dose: 20 mg Documented by: [id number] Hydromorphone HCl (Hydromorphone Inj 1 Mg/Ml Syringe) 1 mg IV Q3H PRN PRN Reason: Pain Stop: 01/22/20 21:58 Last Admin: 01/09/20 06:14 Dose: 1 mg Documented by: [id number] Sodium Chloride (Nss 1000ml) 1,000 mls @ 125 mls/hr IV .Q8H [facility] Stop: 02/07/20 21:58 Last Admin: 01/09/20 11:34 Dose: 125 mls/hr Documented by: [id number] Infusion: 01/09/20 07:00 Dose: 125 mls/hr Documented by: [id number] Admin: 01/08/20 23:00 Dose: 125 mls/hr Documented by: [id number] Piperacillin Sod/Tazobactam (Sod 3.375 gm/ Dextrose) 115 mls @ 28.75 mls/hr IV Q8H [facility]; Protocol Stop: 01/19/20 05:59 Last Admin: 01/09/20 13:17 Dose: 28.8 mls/hr Documented by: [id number] Infusion: 01/09/20 10:15 Dose: 0 mls/hr Documented by: [id number] Admin: 01/09/20 06:15 Dose: 28.8 mls/hr Documented by: [id number] Magnesium Oxide (Magnesium Oxide 400 Mg Tab) 400 mg PO DAILY [facility] Stop: 02/08/20 08:59 Last Admin: 01/09/20 08:11 Dose: 400 mg Documented by: [id number] Metoprolol Tartrate (Metoprolol Tartrate 1 Mg/Ml Vial) 5 mg IV Q6 PRN PRN Reason: Tachycardia Stop: 02/07/20 21:58 Last Admin: 01/09/20 00:09 Dose: 5 mg Documented by: [id number] Multivitamins (Multivitamin Tab) 1 tab PO DAILY [facility] Stop: 02/08/20 08:59 Last Admin: 01/09/20 08:11 Dose: 1 tab Documented by: [id number] Vitamin D (Cholecalciferol 1,000 Units 25 Mcg Tab) 1,000 units PO DAILY [facility] Stop: 02/08/20 08:59 Last Admin: 01/09/20 08:12 Dose: 1,000 units Documented by: [id number] Discontinued Medications Diltiazem HCl (Diltiazem Hcl 5 Mg/Ml 5 Ml Vial) 10 mg IV NOW STA Stop: 01/08/20 16:15 Last Admin: 01/08/20 16:34 Dose: 10 mg Documented by: [id number] Cosigned by: [id number] Diltiazem HCl (Diltiazem Hcl 5 Mg/Ml 5 Ml Vial) 10 mg IV NOW STA Stop: 01/08/20 18:43 Last Admin: 01/08/20 18:45 Dose: 10 mg Documented by: [id number] Cosigned by: [id number] Diltiazem HCl (Diltiazem Hcl 5 Mg/Ml 5 Ml Vial) Confirm Administered Dose 25 mg IV .STK-MED ONE Stop: 01/08/20 18:45 Last Admin: 01/08/20 19:51 Dose: Not Given Documented by: [id number] Fentanyl Citrate (Fentanyl Citrate 100 Mcg/2 Ml Vial) 50 mcg IV Q15M PRN PRN Reason: Pain Stop: 01/22/20 15:40 Last Admin: 01/08/20 20:20 Dose: 50 mcg Documented by: [id number] Admin: 01/08/20 18:05 Dose: 50 mcg Documented by: [id number] Admin: 01/08/20 16:13 Dose: 50 mcg Documented by: [id number] Sodium Chloride (Nss 1000ml) 1,000 mls @ 999 mls/hr IV .Q1H1M [facility]NA Stop: 01/08/20 16:45 Last Infusion: 01/08/20 17:30 Dose: 0 mls/hr Documented by: [id number] Admin: 01/08/20 16:14 Dose: 999 mls/hr Documented by: [id number] Sodium Chloride (Nss 1000ml) 1,000 mls @ 999 mls/hr IV .Q1H1M ONE Stop: 01/08/20 18:23 Last Infusion: 01/08/20 18:35 Dose: 0 mls/hr Documented by: [id number] Admin: 01/08/20 17:34 Dose: 999 mls/hr Documented by: [id number] Ceftriaxone Sodium (Rocephin) 1,000 mg in 50 mls @ 100 mls/hr IV NOW STA Stop: 01/08/20 18:14 Last Infusion: 01/08/20 22:48 Dose: 0 mls/hr Documented by: [id number] Admin: 01/08/20 18:45 Dose: 100 mls/hr Documented by: [id number] Vancomycin HCl 2,250 mg/ (Sodium Chloride) 545 mls @ 200 mls/hr IV NOW ONE Stop: 01/08/20 20:28 Last Infusion: 01/08/20 22:49 Dose: 0 mls/hr Documented by: [id number] Admin: 01/08/20 19:00 Dose: 200 mls/hr Documented by: [id number] Sodium Chloride (Nss 1000ml) 1,000 mls @ 999 mls/hr IV .Q1H1M ONE Stop: 01/08/20 19:42 Last Infusion: 01/08/20 19:50 Dose: 0 mls/hr Documented by: [id number] Admin: 01/08/20 18:45 Dose: 999 mls/hr Documented by: [id number] Diltiazem HCl 125 mg/ Dextrose 125 mls @ 5 mls/hr IV .Q24H LANA; Protocol Stop: 02/07/20 19:29 Last Titration: 01/08/20 22:57 Dose: 0 mg/hr, 0 mls/hr Documented by: [id number] Cosigned by: [id number] Titration: 01/08/20 20:20 Dose: 15 mg/hr, 15 mls/hr Documented by: [id number] Cosigned by: [id number] Titration: 01/08/20 19:57 Dose: 10 mg/hr, 10 mls/hr Documented by: [id number] Cosigned by: [id number] Admin: 01/08/20 19:45 Dose: 5 mg/hr, 5 mls/hr Documented by: [id number] Cosigned by: [id number] Piperacillin Sod/Tazobactam (Sod 4.5 gm/ Dextrose) 120 mls @ 240 mls/hr IV TODAY@0000 LANA; Protocol Stop: 01/09/20 00:29 Last Infusion: 01/09/20 01:06 Dose: 0 mls/hr Documented by: [id number] Admin: 01/08/20 23:51 Dose: 240 mls/hr Documented by: [id number] Vancomycin HCl 1,500 mg/ (Sodium Chloride) 530 mls @ 200 mls/hr IV Q12H LANA Stop: 01/19/20 05:59 Last Infusion: 01/09/20 08:54 Dose: 0 mls/hr Documented by: [id number] Admin: 01/09/20 06:15 Dose: 200 mls/hr Documented by: [id number] Sodium Chloride (Nss) 500 mls @ 500 mls/hr IV .Q1H LANA Stop: 01/09/20 02:14 Last Infusion: 01/09/20 03:46 Dose: 0 mls/hr Documented by: [id number] Admin: 01/09/20 01:29 Dose: 500 mls/hr Documented by: [id number] Ioversol (Ioversol 100ml) 94 ml IV ONCE ONE Stop: 01/08/20 17:46 Last Admin: 01/08/20 17:45 Dose: 94 ml Documented by: [id number] Lidocaine HCl (Lidocaine Hcl 1% 20 Ml Vial) Confirm Administered Dose 20 ml .ROUTE .STK-MED ONE Stop: 01/09/20 10:09 Last Admin: 01/09/20 11:04 Dose: Not Given Documented by: [id number] Lisinopril (Lisinopril 20 Mg Tab) 20 mg PO DAILY LANA Stop: 02/08/20 08:59 Last Admin: 01/09/20 08:11 Dose: 20 mg Documented by: [id number] Metoprolol Succinate (Metoprolol Succ 50mg Ext Rel Tab) 50 mg PO DAILY LANA Stop: 02/08/20 08:59 Last Admin: 01/09/20 08:11 Dose: 50 mg Documented by: [id number] Metoprolol Tartrate (Metoprolol Tartrate 25 Mg Tab) 25 mg PO NOW STA Stop: 01/08/20 22:00 Last Admin: 01/08/20 23:01 Dose: 25 mg Documented by: [id number] Metoprolol Tartrate (Metoprolol Tartrate 1 Mg/Ml Vial) 2.5 mg IV NOW STA Stop: 01/09/20 01:16 Last Admin: 01/09/20 01:28 Dose: 2.5 mg Documented by: [id number] Metoprolol Tartrate (Metoprolol Tartrate 1 Mg/Ml Vial) 2.5 mg IV NOW STA Stop: 01/09/20 04:02 Last Admin: 01/09/20 04:16 Dose: 2.5 mg Documented by: [id number] Metoprolol Tartrate (Metoprolol Tartrate 25 Mg Tab) 25 mg PO NOW ONE Stop: 01/09/20 11:39 Last Admin: 01/09/20 12:09 Dose: 25 mg Documented by: [id number] Miscellaneous (Stat Iv Infusion Titration Per Protocol) 1 ea N/A NOW STA Stop: 01/08/20 19:23 Last Admin: 01/08/20 19:51 Dose: 1 ea Documented by: [id number] Ondansetron HCl (Ondansetron Inj 2 Mg/Ml 2 Ml Vial) 4 mg IV NOW STA Stop: 01/08/20 15:42 Last Admin: 01/08/20 16:13 Dose: 4 mg Documented by: [id number] Imaging Data Radiologist's Impression: CT SCAN OF THE ABDOMEN AND PELVIS WITH IV CONTRAST CLINICAL HISTORY: Pelvic and groin pain. Reported history of unspecified recent surgery. COMPARISON STUDY: No priors. TECHNIQUE: Following the IV administration of 94 cc of Optiray 320, CT scan of the abdomen and pelvis is performed from the lung bases to the proximal femora. Images are reviewed in the axial, sagittal, and coronal planes. IV contrast was administered without complication. A dose lowering technique was utilized adh ering to the principles of ALARA. CT DOSE: 1119.69 mGy.cm FINDINGS: Lung bases: The heart is normal in size and without pericardial effusion. The lung bases are clear. There is a small hiatal hernia. Liver: The contrast-enhanced liver is normal in size, contour, and attenuation. There is no intrahepatic biliary ductal dilatation. The hepatic veins and portal veins are patent. Gallbladder: Unremarkable. Spleen: Normal in size and attenuation. Pancreas: Mildly atrophic and grossly unremarkable. Adrenal glands: Unremarkable. Kidneys: The contrast enhanced kidneys demonstrate mild cortical atrophy and are without hydronephrosis. The kidneys enhance symmetrically. Abdominal vasculature: The abdominal aorta is normal in course and caliber. Bowel: There is no bowel obstruction. Scattered colonic diverticula are seen without CT evidence of acute diverticulitis. The appendix is well-visualized and normal. Peritoneum: There is no intraperitoneal free air or abdominal ascites. There is a fat-containing umbilical hernia. There is soft tissue inflammation identified in the right inguinal region extending towards the right scrotum. No deep soft tissue gas is identified in the perineum. There is an organized fluid collection identified just anterior to the right aspect of the pubic symphysis on image #442. This measures 3.3 x 3.1 x 2.6 cm. Tiny foci of gas are noted within this collection. Mild inflammatory change is suggested in the right adductor compartment. Scrotal wall thickening is noted. The testes are grossly unremarkable but not well evaluated by CT. Lymphadenopathy: None. Pelvic viscera: The bladder, prostate, and seminal vesicles are normal as visualized. Skeletal structures: There is mild lumbosacral spondylosis. No lytic or blastic lesions are seen. IMPRESSION: 1. There is inflammatory change identified in the right groin which extends towards the right hemiscrotum. Correlate clinically for evidence of cellulitis. No deep soft tissue gas is identified in the perineal tissues. 2. There is a small organized fluid collection in this region located anterior and to the right of the pubic symphysis. Small foci of gas are seen within this collection. Although this could represent a seroma or liquefied hematoma, findings are more suspicious for a small abscess. 3. Scrotal wall thickening is noted. 4. The abdominal viscera is normal in appearance. 5. Additional findings as above. ACT 112: Negative or not required by law. Electronically signed by: Earnest Benitez M.D. 01/08/2020 6:25 PM Dictated: 01/08/201810 Transcribed: 01/08/201810 SINGLE VIEW CHEST CLINICAL HISTORY: Palpitations. FINDINGS: An AP, portable, upright chest radiograph is compared to study dated 07/17/2018. Correlation is made with chest CT dated 06/24/2017. The examination is degraded by portable technique and apical lordotic positioning. The heart is enl arged. The pulmonary vasculature is noncongested. There is bibasilar atelectasis. The lungs and pleural spaces are otherwise clear. No pneumothorax is seen. The bony thorax is grossly intact. IMPRESSION: Cardiomegaly with no acute cardiopulmonary abnormality. ACT 112: Negative or not required by law. Electronically signed by: Earnest Benitez M.D. 01/08/2020 7:01 PM Dictated: 01/08/201899 Transcribed: 01/08/201899 ULTRASOUND RIGHT LOWER EXTREMITY VENOUS CLINICAL HISTORY: Right leg/groin pain. COMPARISON STUDY: No priors. TECHNIQUE: Real-time, grayscale, and color Doppler sonography of the deep veins of the right lower extremity was performed from the inguinal crease to the calf. Compression and augmentation were utilized. FINDINGS: There is no sonographic evidence of deep venous thrombosis identified in the right lower extremity. The common femoral, superficial femoral, and popliteal veins are patent and normally compressible. The greater saphenous vein and the profunda femoris vein at the junction with the common femoral vein are clear. The visualized calf veins are patent. IMPRESSION: There is no sonographic evidence of deep venous thrombosis identified in the right lower extremity. ACT 112: Negative or not required by law. Electronically signed by: Earnest Benitez M.D. 01/08/2020 6:45 PM Dictated: 01/08/201844 Transcribed: 01/08/201844 ULTRASOUND TESTES AND SCROTUM CLINICAL HISTORY: Postoperative right groin pain. COMPARISON STUDY: Pelvic CT performed the same day 01/08/2020. TECHNIQUE: Real-time, grayscale, and color Doppler sonography of the testes and scrotum is performed. Images are reviewed in the transverse and longitudinal pl anes. FINDINGS: The testes are normal in size and homogeneous in echotexture. The right testis measures 4.1 x 2.1 x 2.9 cm and the left testis measures 4.3 x 2.1 x 2.9 cm. No intratesticular mass is seen. Testicular blood flow is normal and symmetric. Normal Doppler waveforms are identified in both testes. The epididymal heads are normal in appearance. The right epididymal head measures 1.2 cm in length and the left epididymal head measures 1.0 cm in length. A 4 mm epididymal head cyst is noted on the left. No varicocele or hydrocele is seen. Scrotal wall edema is noted on the right. IMPRESSION: 1. Unremarkable sonographic appearance of the testes. 2. Scrotal wall edema is seen on the right. ACT 112: Negative or not required by law. Electronically signed by: Earnest Benitez M.D. 01/08/2020 6:49 PM Dictated: 01/08/201847 Transcribed: 01/08/201847 Blood Pressure Blood Pressure Findings: Elevated blood pressure Blood Pressure Disposition: further management by hospitalist Discharge Plan Visit Data Chief Complaint: Leg Injury/Pain Stated Complaint: POST SCROTUM SURGERY- PAIN GOING INTO LEGS ED Provider: Jacobo Baron Discharge Problem: Atrial fibrillation with RVR, Postoperative abscess Patient Disposition: Admitted As Inpatient Condition: Good Discharge Instructions Interventions: ED Discharge Assessment Last Done: 01/08/20 21:34
[2020-01-08 16:41] LABS: Alanine Aminotransferase 35 U/L (12-78); Albumin Level 3.8 gm/dl (3.4-5.0); Aspartate Aminotransferase 18 U/L (15-37); BUN Creatinine Ratio 14.7 (10-20); Blood Urea Nitrogen 16 mg/dl (7-18); C Reactive Protein 9.74 mg/dl (0-0.29); Carbon Dioxide 24 mmol/L (21-32); Chloride 102 mmol/L (98-107); Creatinine Clr Calc Pharmacy 102.6 ml/min; Est GFR (African American) 94.4; Est GFR (Non-African American) 81.4; Glucose 98 mg/dl (70-99); Lipase 53 U/L (73-393); Magnesium 2.1 mg/dl (1.8-2.4); Potassium 3.9 mmol/L (3.5-5.1); Sodium 137 mmol/L (136-145)
[2020-01-08 16:49] LABS: Albumin Globulin Ratio 0.8 (0.9-2); Alkaline Phosphatase 114 U/L (45-117); Bilirubin,Total 1.4 mg/dl (0.2-1); Globulin 4.9 gm/dl (2.5-4.0); Total Protein 8.7 gm/dl (6.4-8.2); Troponin I < 0.015 ng/ml (0-0.045)
[2020-01-08] MEDS ORDERED: SODIUM CHLORIDE 0.9% 1000ML 1,000 ML IV ONE ×2 (17:23→18:42)
[2020-01-08] MEDS ORDERED: VANCOMYCIN CONSULT ACTIVE PRN (17:45)
[2020-01-08] MEDS ORDERED: cefTRIAXone SODIUM 1,000 MG/50 ML BAG IV STA (17:45)
[2020-01-08] MEDS ORDERED: VANCOMYCIN HCL 2,250 MG in SODIUM CHLORIDE 0.9% 500 ML IV ONE (17:45)
[2020-01-08] MEDS ORDERED: IOVERSOL 100ml IV ONE (17:45)
--- NOTE | 2020-01-08 18:26 | CT Scan Report ---
CT SCAN OF THE ABDOMEN AND PELVIS WITH IV CONTRAST CLINICAL HISTORY: Pelvic and groin pain. Reported history of unspecified recent surgery. COMPARISON STUDY: No priors. TECHNIQUE: Following the IV administration of 94 cc of Optiray 320, CT scan of the abdomen and pelvi s is performed from the lung bases to the proximal femora. Images are reviewed in the axial, sagittal , and coronal planes. IV contrast was administered without complication. A dose lowering technique wa s utilized adhering to the principles of ALARA. CT DOSE: 1119.69 mGy.cm FINDINGS: Lung bases: The heart is normal in size and without pericardial effusion. The lung bases are clear. T here is a small hiatal hernia. Liver: The contrast-enhanced liver is normal in size, contour, and attenuation. There is no intrahepa tic biliary ductal dilatation. The hepatic veins and portal veins are patent. Gallbladder: Unremarkable. Spleen: Normal in size and attenuation. Pancreas: Mildly atrophic and grossly unremarkable. Adrenal glands: Unremarkable. Kidneys: The contrast enhanced kidneys demonstrate mild cortical atrophy and are without hydronephros is. The kidneys enhance symmetrically. Abdominal vasculature: The abdominal aorta is normal in course and caliber. Bowel: There is no bowel obstruction. Scattered colonic diverticula are seen without CT evidence of a cute diverticulitis. The appendix is well-visualized and normal. Peritoneum: There is no intraperitoneal free air or abdominal ascites. There is a fat-containing umbi lical hernia. There is soft tissue inflammation identified in the right inguinal region extending tow ards the right scrotum. No deep soft tissue gas is identified in the perineum. There is an organized fluid collection identified just anterior to the right aspect of the pubic symphysis on image #442. T his measures 3.3 x 3.1 x 2.6 cm. Tiny foci of gas are noted within this collection. Mild inflammatory change is suggested in the right adductor compartment. Scrotal wall thickening is noted. The testes are grossly unremarkable but not well evaluated by CT. Lymphadenopathy: None. Pelvic viscera: The bladder, prostate, and seminal vesicles are normal as visualized. Skeletal structures: There is mild lumbosacral spondylosis. No lytic or blastic lesions are seen. IMPRESSION: 1. There is inflammatory change identified in the right groin which extends towards the right hemiscr otum. Correlate clinically for evidence of cellulitis. No deep soft tissue gas is identified in the p erineal tissues. 2. There is a small organized fluid collection in this region located anterior and to the right of th e pubic symphysis. Small foci of gas are seen within this collection. Although this could represent a seroma or liquefied hematoma, findings are more suspicious for a small abscess. 3. Scrotal wall thickening is noted. 4. The abdominal viscera is normal in appearance. 5. Additional findings as above. ACT 112: Negative or not required by law. Electronically signed by: Earnest Benitez M.D. 01/08/2020 6:25 PM
[2020-01-08] MEDS ORDERED: dilTIAZem HCl 5 MG/ML 5 ML VIAL IV ONE (18:44)
--- NOTE | 2020-01-08 18:46 | Ultrasound Report ---
ULTRASOUND RIGHT LOWER EXTREMITY VENOUS CLINICAL HISTORY: Right leg/groin pain. COMPARISON STUDY: No priors. TECHNIQUE: Real-time, grayscale, and color Doppler sonography of the deep veins of the right lower ex tremity was performed from the inguinal crease to the calf. Compression and augmentation were utilize d. FINDINGS: There is no sonographic evidence of deep venous thrombosis identified in the right lower ex tremity. The common femoral, superficial femoral, and popliteal veins are patent and normally stefany sible. The greater saphenous vein and the profunda femoris vein at the junction with the common femor al vein are clear. The visualized calf veins are patent. IMPRESSION: There is no sonographic evidence of deep venous thrombosis identified in the right lower extremity. ACT 112: Negative or not required by law. Electronically signed by: Earnest Benitez M.D. 01/08/2020 6:45 PM
--- NOTE | 2020-01-08 18:51 | Ultrasound Report ---
ULTRASOUND TESTES AND SCROTUM CLINICAL HISTORY: Postoperative right groin pain. COMPARISON STUDY: Pelvic CT performed the same day 01/08/2020. TECHNIQUE: Real-time, grayscale, and color Doppler sonography of the testes and scrotum is performed. Images are reviewed in the transverse and longitudinal planes. FINDINGS: The testes are normal in size and homogeneous in echotexture. The right testis measures 4.1 x 2.1 x 2 .9 cm and the left testis measures 4.3 x 2.1 x 2.9 cm. No intratesticular mass is seen. Testicular bl ood flow is normal and symmetric. Normal Doppler waveforms are identified in both testes. The epididymal heads are normal in appearance. The right epididymal head measures 1.2 cm in length an d the left epididymal head measures 1.0 cm in length. A 4 mm epididymal head cyst is noted on the lef t. No varicocele or hydrocele is seen. Scrotal wall edema is noted on the right. IMPRESSION: 1. Unremarkable sonographic appearance of the testes. 2. Scrotal wall edema is seen on the right. ACT 112: Negative or not required by law. Electronically signed by: Earnest Benitez M.D. 01/08/2020 6:49 PM
--- NOTE | 2020-01-08 19:03 | XRay Report ---
SINGLE VIEW CHEST CLINICAL HISTORY: Palpitations. FINDINGS: An AP, portable, upright chest radiograph is compared to study dated 07/17/2018. Correlation is made with chest CT dated 06/24/2017. The examination is degraded by portable technique and apical l ordotic positioning. The heart is enlarged. The pulmonary vasculature is noncongested. There is bibas ilar atelectasis. The lungs and pleural spaces are otherwise clear. No pneumothorax is seen. The bony thorax is grossly intact. IMPRESSION: Cardiomegaly with no acute cardiopulmonary abnormality. ACT 112: Negative or not required by law. Electronically signed by: Earnest Benitez M.D. 01/08/2020 7:01 PM
[2020-01-08 19:19] LABS: Appearance Urine Clear (Clear); Bacteria Urine Automated Negative (Negative); Bilirubin Urine Negative (Negative); Blood Urine Trace (Negative); Cast Urine Automated 0 /lpf (0-5); Color Urine Yellow; Epithelial Cell Urine Auto 0-5 /lpf (0-5); Glucose Urine UA Negative (Negative); Ketones Urine 1+ (Negative); Leukocyte Esterase Urine Negative (Negative); Nitrite Urine Negative (Negative); Protein Urine Negative (Negative); RBC Urine Automated 0-4 /hpf (0-4); Specific Gravity Urine 1.045 (1.000-1.030); Urobilinogen Urine Negative (Negative)
[2020-01-08] MEDS ORDERED: STAT IV Infusion **Titration per Protocol STA (19:22)
[2020-01-08] MEDS ORDERED: dilTIAZem HCL 125 MG in DEXTROSE 5% 100 ML IV SCH (19:30)
--- NOTE | 2020-01-08 20:42 | Surgery Consultation ---
Date of Consultation January 08, 2020 Assessment & Plan (1) Postoperative abscess: -broad spectrum antibiotics have been initiated---rocephin and vancomycin -the treating ED physician has discussed case with urology who has requested general surgery evaluate as well: -urologist to discuss with general surgery attending in the AM about best course of action to drain -will make npo at midnight in the event surgery is to be performed tomorrow -will order COVID test -prior to any surgery, pt. will need his cardiac status optimized: -cardizem has been started to control afib -will defer this issue tp medical services -it would be preferable to hold any anticoagulation until after abscess is addressed History of Present Illness History of Present Illness 49 year old male presented to [facility] ED due to worsening right groin pain. The pt. notes that about 3 weeks ago he was running and felt a "pop" in his right groin. He was seen by Dr. Pineda William in [place] and had a surgical drainage of a scrotal hematoma. He notes he had a drain that was removed on . He states he was not on any antibiotics. Concerning the initial injury, he denies any cuts, abrasions, bites, or trauma to this area. He was doing well until earlier today he noted worsening pain in his right scrotum/groin region. No radiation of pain. No palliative factors. It is worse with movement. He denies fevers, shakes, chills, or dysuria. No N/V or abdominal pain. In the ED, he had a CT scan that showed a 3 x 3 x 2 cm fluid collection near the right pubic symphysis. he was afebrile and had a leukocytosis of 11K. Broad spectrum antibiotics have been started in the ED. Of note, he had a hx. of afib for which he takes metoprolol. He does not take any anticoagulants. He was noted to be rapid a-fib and had had a cardizem drip started in the ED. He notes a hx. of a congenital bicuspid aortic valve, and notes he had a cardiac cath in 2019 where he was told his aortic valve gradient was not severe, and he had no CAD. He denies exertional or resting angina or syncopal episodes. He does admit to some LARA which has been stable for several years. At the time of my exam he was in no distress. Allergies Allergy/AdvReac Type Severity Reaction Status Date / Time No Known Allergies Allergy Verified 01/08/20 16:30 Home Medications Home Medications Medication Instructions Recorded Confirmed Type ascorbic acid (vitamin C) [Vitamin 1,000 mg PO DAILY 07/17/18 01/08/20 History C] aspirin 81 mg PO DAILY 07/17/18 01/08/20 History atorvastatin 20 mg PO DAILY 07/17/18 01/08/20 History cholecalciferol (vitamin D3) 1,000 unit PO DAILY 07/17/18 01/08/20 History [Vitamin D3] magnesium oxide 400 mg PO DAILY 07/17/18 01/08/20 History metoprolol succinate 50 mg PO DAILY 07/17/18 01/08/20 History multivitamin 1 tab PO DAILY 07/17/18 01/08/20 History lisinopril 20 mg PO DAILY 01/08/20 01/08/20 History Patient History Medical History Atrial fibrillation History of deviated nasal septum Hypertension Surgical History H/O cardiac catheterization History of inguinal hernia repair Social History Smoking Status: Never smoker Preferred Language: [place] Feels Safe at Home: Yes Review of Systems Constitutional: no fever and no chills Eyes: no diplopia Ear, Nose, Mouth, Throat: no ear pain Respiratory: + dyspnea on exertion; no cough Cardiovascular: no chest pain and no syncope Gastrointestinal: no abdominal pain, no nausea and no vomiting Genitourinary: + genital pain and + scrotal swelling; no dysuria Musculoskeletal: no back pain Integumentary: no rash Neurologic: no localized weakness Physical Exam Physical Exam: scrotum/groin examined--there is some erythema of the right hemiscrotum. A healed incision is noted on the scrotum. No purulent drainage noted at the time of my exam. No extension of erythema to perineal or rectal area noted. No crepitus was palpable in the soft tissue. Constitutional: well developed and well nourished; no acute distress Eyes: no conjunctival abnormality ENMT: Ears: no hearing impairment Neck: trachea midline Respiratory: normal respiratory effort, lungs clear to auscultation Cardiovascular: Rate/Rhythm: + tachycardic and + irregularly irregular Heart Sounds: + murmur Gastrointestinal (Abdomen): Percussion/Palpation: abdomen soft; abdomen nontender Musculoskeletal: no calf pain Skin: no rashes, warm and dry Neurologic: moves all extremities Psychiatric: A+Ox3, euthymic affect Results & Data ([facility]) Vital Signs (Past 12 Hours) Vital Signs Temp Pulse Pulse Resp BP BP Pulse Ox 01/08/20 19:46 161 H 19 95 01/08/20 19:45 176 H 23 132/90 96 01/08/20 19:31 145 H 22 98 01/08/20 19:30 147 H 27 H 123/102 H 97 01/08/20 19:16 128 H 21 97 01/08/20 19:15 125 H 37 H 150/100 H 97 01/08/20 19:01 153 H 22 121/86 97 01/08/20 19:00 134 H 19 97 01/08/20 18:46 154 H 17 96 01/08/20 18:45 153 H 22 113/89 97 01/08/20 18:42 161 H 31 H 132/97 96 01/08/20 18:41 149 H 15 97 01/08/20 18:00 167 H 21 98 01/08/20 17:57 154 H 23 125/105 H 98 01/08/20 17:55 165 H 45 H 01/08/20 17:16 140 H 21 97 01/08/20 17:15 148 H 28 H 130/90 97 01/08/20 17:10 134 H 18 130/100 96 01/08/20 17:04 133 H 26 H 128/108 H 94 01/08/20 17:01 124 H 18 97 01/08/20 17:00 140 H 30 H 85/66 L 97 01/08/20 16:54 133 H 18 110/91 96 01/08/20 16:46 140 H 26 H 95 01/08/20 16:45 122 H 29 H 110/91 94 01/08/20 16:34 125 H 27 H 116/76 96 01/08/20 16:31 128 H 30 H 95 01/08/20 16:30 124 H 23 144/114 H 93 01/08/20 16:17 161 H 21 95 01/08/20 16:15 151 H 17 121/95 95 01/08/20 15:17 36.9 C 98 H 18 104/84 96 PG Care Time/CCT Total # of Minutes Spent Total Time Spent with Patient: Total time spent is greater than 50% in coordination of care (as documented) at patient's floor/unit and/or counseling patient: Coding Level of Care Code 25433 Inpt Consult Level 5 Diagnoses Postoperative abscess T81.49XA
[2020-01-08] MEDS ORDERED: ONDANSETRON INJ 2 MG/ML 2 ML VIAL IV PRN (21:59)
[2020-01-08] MEDS ORDERED: METOPROLOL TARTRATE 25 MG TAB PO STA (21:59)
[2020-01-08] MEDS ORDERED: NITROGLYCERIN SL 0.4 MG/TAB TAB SL PRN (21:59)
[2020-01-08] MEDS ORDERED: PIPERACILL/TAZOBAC CONSULT ACTIVE PRN (21:59)
[2020-01-08] MEDS ORDERED: POLYETHYLENE (MIRALAX) 17 GM PACK PO PRN (21:59)
--- NOTE | 2020-01-08 22:39 | History and Physical Report ---
DATE OF ADMISSION: 01/08/2020 CHIEF COMPLAINT: Right groin and scrotal pain. 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 The patient recently in December 12 while he was playing softball, he had a sharp pull in his right groin and a significant rupture of the blood vessels with a resultant hematoma formation on right groin and right hemiscrotum. It was surgically treated in [facility] in December 15 with a catheter in place, catheter and drain was taken out on 12/21/2019 and then he was doing good. In the last 2 weeks,his symptoms are much improved and swelling has gone down, was ambulating okay, but yesterday morning when he woke up, he had severe pain in his right groin region and when he tried to walk, and any weight on the leg, he was having severe excruciating pain shooting in the region to the rectal region and it was not getting better, so he came to the ER today. In the ER was found in rapid AFib. He has a white count 11.4. ESR of 47. His COVID test in the ER was negative and the imaging studies shows small organized fluid collection in the region located anterior and to the right of the pubic symphysis, possible seroma versus hematoma versus small abscess. ER consulted surgery and urology. The patient was initially started on Rocephin and vancomycin in the ER, urology and surgery is going to decide plan of action in the a.m. The patient was started on Cardizem drip in the ER. Currently, says when he is resting, the pain is okay, but when he moves, the pain is severe. Denies any other complaints. Denies any headache, no dizziness, no blurred vision, no earache, no runny nose, no sore throat, once in a while he gets cough, no difficulty swallowing. His appetite has been down since yesterday from the pain. Whenever he has severe pain, he feels short of breath. Denies any chest pain, no nausea, no vomiting. Last bowel movement was couple of days ago. He is micturating fine. No hematuria. No swelling in the lower extremities. ALLERGIES: POLLEN. PAST MEDICAL HISTORY: As mentioned above. PAST SURGICAL HISTORY: Left heart catheterization, recent surgery for left groin hematoma. MEDICATIONS: The patient has vitamin C 1000 mg p.o. daily, aspirin 81 mg p.o. daily, atorvastatin 20 mg p.o. daily, vitamin D 1000 units p.o. daily, lisinopril 20 mg p.o. daily, magnesium oxide 400 mg p.o. daily, Toprol-XL 50 mg p.o. daily, multivitamin 1 tablet p.o. daily. FAMILY HISTORY: Father had CAD, Mother had a fib SOCIAL HISTORY: Single. No smoking. Alcohol occasional. No drug use. REVIEW OF SYMPTOMS: As per HPI. Rest of the review of symptoms negative. PHYSICAL EXAMINATION: GENERAL: The patient is of moderate build, not in acute distress. VITAL SIGNS: Temperature 36.9, pulse 130s-160s, respiratory rate 19, blood pressure 132/90, oxygen 95% on room air. HEENT: No pallor. Pupils equal, round, and reactive to light. NECK: Supple, no neck masses. CARDIOVASCULAR: S1, S2 heard. Tachycardia, irregular rhythm. No murmurs. RESPIRATORY SYSTEM: Normal AP diameter. No accessory muscle use. No wheezing, no crackles. ABDOMEN: Soft, bowel sounds present, nontender. No distention. GENITOURINARY: Right groin and right scrotal region is swollen, erythematous and somewhat tender. CENTRAL NERVOUS SYSTEM: Cranial nerves II through XII grossly intact, nonfocal. EXTREMITIES: No edema, no erythema. LABORATORY DATA: WBC 11.4, hemoglobin 15.2, hematocrit 44.2, platelets 301, PT 10.9, INR 1, APTT 30.2. PTT 1.1. Sodium 137, potassium 3.9, chloride 102, bicarbonate 24, BUN 16, creatinine 1.06, serum glucose 98, lactate 1.2, calcium 10, magnesium 2.1, total bilirubin 1.4, AST 18, ALT 35, alkaline phosphatase 114. Troponin I less than 0.015, C-reactive protein 9.7. Lipase 53. Procalcitonin 0.1. TSH 1.1. Urinalysis, +1 ketones. COVID-19, SARS-CoV-2 RNA negative. IMAGING: CT abdomen and pelvis with IV contrast shows inflammatory changes identified in the right groin which extends towards the right hemiscrotum, no deep soft tissue gas is identified in the perineal tissues, organized fluid collection in the region located anterior and to the right of the pubic symphysis, small foci of gas was seen with this collection, although this could represent seroma or liquid hematoma, findings are most suspicious for a small abscess, scrotal wall thickening is noted. Abdominal viscera is normal in appearance. Chest x-ray: Cardiomegaly with no acute cardiopulmonary abnormalities. Venous Doppler, on the right lower extremity, no DVT. Scrotum ultrasound unremarkable sonographic appearance of the testes, scrotal wall edema seen in the right. EKG: AFib with rate of 161. ASSESSMENT AND PLAN: 1. This is a 49-year-old male who recently on 12/13/2019 while playing softball has pulled his right groin and developed a severe hematoma in the right groin region and had surgical drainage of scrotal hematoma and a drain was placed on 12/16/2019 and the drain was removed on 12/21/2019, comes back again with severe pain in the right groin and scrotal region. Imaging studies shows possible postop abscess in the anterior and to the right of the pubic symphysis. Empiric antibiotics, vancomycin and Zosyn. mild leukocytosis. Plan for procedure in a.m., n.p.o. after midnight. Surgery and Urology consulted. Pain control with IV Dilaudid p.r.n., IV fluids. Closely monitor in the tele floor. 2. Rapid atrial fibrillation. The patient has history of paroxysmal atrial fibrillation, followed with cardiology, on Toprol-XL and aspirin. CHADS2-VASc score is 1. We will hold aspirin for procedure tomorrow, was getting Cardizem in the ER. We will place him on IV Lopressor p.r.n. and will give extra dose of Lopressor 25mg po now and continue his home Toprol-XL. He is supposed to get an echocardiogram, we will order echocardiogram in the hospital. Initial troponin negative. will follow repeat troponin. Consult cardiology for further recommendations and closely monitor in the telemetry floor. 3. History of obstructive sleep apnea. cpap q hs 4. History of hyperlipidemia. Continue statin. 5. History of hypertension. Continue his lisinopril and Lopressor. We will monitor the blood pressure. 6. History of bicuspid aortic valve, moderate aortic stenosis. We will follow the repeat echo and follow with cardiology.On fluids. Will monitor for volume overload. 7. Deep venous thrombosis prophylaxis, sequential compression devices for now. 8. Disposition: Closely monitor in the tele floor. Level 1 full code. Expect to discharge home and follow with his family doctor. MAR
[2020-01-08] MEDS: SODIUM CHLORIDE 0.9% 1000ML 1,000 ML IV SCH (23:00)
[2020-01-08] MEDS: ACETAMINOPHEN 325 MG TAB PO PRN (23:10)
[2020-01-09] MEDS ORDERED: PIPERACILLIN/TAZOBACTAM 4.5 GM in DEXTROSE 5% 100 ML IV SCH
[2020-01-09] MEDS: METOPROLOL TARTRATE 1 MG/ML VIAL IV PRN ×2 (00:09→22:57)
[2020-01-09] MEDS ORDERED: METOPROLOL TARTRATE 1 MG/ML VIAL IV STA ×2 (01:15→04:01)
[2020-01-09] MEDS ORDERED: SODIUM CHLORIDE 0.9% 500 ML IV SCH (01:15)
[2020-01-09 05:20] LABS: Basophils # (auto) 0.03 K/uL (0-0.2); Basophils % (auto) 0.4 %; Eosinophils # (auto) 0.01 K/uL (0-0.5); Eosinophils % (auto) 0.1 %; Hematocrit (blood only) 38.3 % (42-52); Hemoglobin 12.9 g/dL (14.0-18.0); Immature Granulocytes # (auto) 0.02 K/uL (0.00-0.02); Immature Granulocytes % (auto) 0.3 %; Lymphocytes # (auto) 1.46 K/uL (1.2-3.4); Lymphocytes % (auto) 19.3 %; Mean Corpuscular Hemoglobin 30.1 pg (25-34); Mean Corpuscular Hgb Conc 33.7 g/dL (32-36); Mean Corpuscular Volume 89.3 fL (80-100); Mean Platelet Volume 9.1 fL (7.4-10.4); Monocytes % (auto) 11.9 %; Neutrophils # (auto) 5.15 K/uL (1.4-6.5); Platelet Count 250 K/uL (130-400); RDW Coefficient of Variation 13.1 % (11.5-14.5); RDW Standard Deviation 42.4 fL (36.4-46.3); Red Blood Count 4.29 M/uL (4.7-6.1); White Blood Count 7.57 K/uL (4.8-10.8)
[2020-01-09 05:49] LABS: BUN Creatinine Ratio 13.5 (10-20); Blood Urea Nitrogen 12 mg/dl (7-18); Calcium 8.4 mg/dl (8.5-10.1); Carbon Dioxide 25 mmol/L (21-32); Chloride 109 mmol/L (98-107); Creatinine Clr Calc Pharmacy 119.5 ml/min; Est GFR (African American) 113.5; Est GFR (Non-African American) 97.9; Glucose 101 mg/dl (70-99); Sodium 139 mmol/L (136-145)
[2020-01-09 05:56] LABS: Troponin I < 0.015 ng/ml (0-0.045)
[2020-01-09] MEDS ORDERED: VANCOMYCIN HCL 1,500 MG in SODIUM CHLORIDE 0.9% 500 ML IV SCH (06:00)
[2020-01-09] MEDS: HYDROmorphone INJ 1 MG/ML SYRINGE IV PRN ×2 (06:14→19:48)
[2020-01-09] MEDS: PIPERACILLIN/TAZOBACTAM 3.375 GM in DEXTROSE 5% 100 ML IV SCH ×3 (06:15→21:40)
[2020-01-09] MEDS: MAGNESIUM OXIDE 400 MG TAB PO SCH (08:11)
[2020-01-09] MEDS: ATORVASTATIN 20 MG TAB PO SCH (08:11)
[2020-01-09] MEDS: ASCORBIC ACID 500 MG TAB PO SCH (08:11)
[2020-01-09] MEDS: MULTIVITAMIN TAB PO SCH (08:11)
[2020-01-09] MEDS: CHOLECALCIFEROL 1,000 UNITS 25 MCG TAB PO SCH (08:12)
[2020-01-09] MEDS ORDERED: lisinopriL 20 MG TAB PO SCH (09:00)
[2020-01-09] MEDS ORDERED: METOPROLOL SUCC 50MG EXT REL TAB PO SCH (09:00)
[2020-01-09] MEDS ORDERED: ASPIRIN 81 MG ECTAB PO SCH (09:00)
--- NOTE | 2020-01-09 09:15 | Surgery Progress Note ---
Date of Service January 09, 2020 Assessment & Plan (1) Postoperative abscess: The small fluid collection seen on imaging probably is a very small abscess. I think primarily it is a cellulitis of the scrotum. Some of that fluid is also probably residual blood from his original hematoma. My opinion would be IV antibiotics converted to oral prior to discharge. I will defer to urology regarding the need for a take back to the operating room however my opinion for now would be IV antibiotics for a period to see how he does. His white blood cell count and clinical symptoms are already improving and there is some external drainage already. Admission and Anticipated Discharge Date Admission Date: January 08, 2020 Subjective Patient seen. He is already starting to feel better. He feels as though he had a fever break last night in the middle the night. Still having right sided scrotal pain but this appears to have improved for him. Physical Exam Physical Exam: Alert no acute distress Abdomen is soft nontender. There is no erythema or tenderness in his right groin On the right side of the scrotum there is a fair amount of soft tissue edema. There is mild erythema. There is a small amount of serosanguineous type of drainage. There is mild tenderness over the right side of his scrotum although his right testicle itself does not appear to be tender. Results & Data ([facility]) Vital Signs (Past 12 Hours) Vital Signs Temp Pulse Pulse Pulse Resp BP BP 01/09/20 07:40 37.2 C 114 H 22 111/65 01/09/20 04:29 37 C 118 H 18 115/79 01/09/20 04:16 128 H 01/09/20 01:28 137 H 01/09/20 00:09 125 H 106/72 01/08/20 23:16 38.6 C H 114 H 18 124/77 01/08/20 22:05 111 H 18 01/08/20 22:01 39.4 C H 137 H 134/83 01/08/20 21:31 123 H 22 01/08/20 21:30 137 H 20 124/85 01/08/20 21:16 136 H 22 01/08/20 21:15 149 H 20 137/95 Pulse Ox 01/09/20 07:40 94 01/09/20 04:29 96 01/09/20 04:16 01/09/20 01:28 01/09/20 00:09 01/08/20 23:16 94 01/08/20 22:05 97 01/08/20 22:01 97 01/08/20 21:31 94 01/08/20 21:30 95 01/08/20 21:16 95 01/08/20 21:15 95 PG Care Time/CCT Total # of Minutes Spent Total Time Spent with Patient: Total time spent is greater than 50% in coordination of care (as documented) at patient's floor/unit and/or counseling patient: Coding Level of Care Code 42650 Subseq Hosp Care Lvl 2 Diagnoses Postoperative abscess T81.49XA
--- NOTE | 2020-01-09 09:25 | Pharmacy Report ---
Pharmacy Abx Initial Consult - Date of Service January 09, 2020 - Pharmacy Dosing Scope Date of Consult: 01/07: Dr. Haley Pharmacy is consulted to initiate vancomycin/zosyn IV/PO dosing therapy, order appropriate labs and adjust drug dose/frequency. - Subjective The patient is a 49 year old M admitted on 01/08/20 21:02. - Objective Height: 5 ft 10 in Weight: 110.7 kg Vital Signs (Past 12hrs): Vital Signs Temp Pulse Pulse Pulse Resp BP BP 01/09/20 07:40 37.2 C 114 H 22 111/65 01/09/20 04:29 37 C 118 H 18 115/79 01/09/20 04:16 128 H 01/09/20 01:28 137 H 01/09/20 00:09 125 H 106/72 01/08/20 23:16 38.6 C H 114 H 18 124/77 01/08/20 22:05 111 H 18 01/08/20 22:01 39.4 C H 137 H 134/83 01/08/20 21:31 123 H 22 01/08/20 21:30 137 H 20 124/85 01/08/20 21:16 136 H 22 Pulse Ox 01/09/20 07:40 94 01/09/20 04:29 96 01/09/20 04:16 01/09/20 01:28 01/09/20 00:09 01/08/20 23:16 94 01/08/20 22:05 97 01/08/20 22:01 97 01/08/20 21:31 94 01/08/20 21:30 95 01/08/20 21:16 95 Lab Results (24hrs): Laboratory Tests (24 Hours) 01/09/20 01/09/20 01/08/20 04:51 04:51 16:07 WBC 7.57 Neut # (Auto) 5.15 ESR Creatinine 0.91 Est Cr Clr Drug Dosing 119.5 C-Reactive Protein Procalcitonin 0.11 01/08/20 01/08/20 01/08/20 16:07 16:07 16:07 WBC 11.42 H Neut # (Auto) 9.12 H ESR 47 H Creatinine 1.06 Est Cr Clr Drug Dosing 102.6 C-Reactive Protein 9.74 H Procalcitonin Micro Results: 01/08/20 16:07 Aerobic Blood Culture - Pending Blood Anaerobic Blood Culture - Pending 01/08/20 16:49 Aerobic Blood Culture - Pending Blood Anaerobic Blood Culture - Pending - Assessment & Plan Assessment 49 year old male admitted with postop abscess. Hx of right groin injury resulting in hematoma (11/2019) which was surgically treated. Presenting to ED with severe pain in groin. CT had shown fluid collection in pubic area. Surgery/urology consulted to discuss possible drainage. Plan Vancomycin IV * Received loading dose of 2250 mg x 1 (~20 mg/kg) * Started on vancomycin 1500 mg (~14 mg/kg) iv q 12 hrs - Scr continuing to improve further today therefore adjusted frequency to Q10hr based upon kinetics. Patient is not candidate for AUC vancomycin nomogram dosing d/t weight >100 kg, therefore will utilize estimated kinetics to establish dosing * Estimated kinetics: t1/2 ~8 hrs, ke~0.09, CrCl >100 ml/min * Will plan to obtain level prior to the 1200 dose on 01/09 to ensure therapeutic. Could target level ~10-15 mcg/ml if successful with drainage of area Piperacillin/tazobactam * 3.375 gm iv q 8 hrs - appropriate / patient's BMI borderline for dosage increase, continue same dosing for now. Pharmacy will continue to follow and will adjust dose/frequency as necessary. Thank you.
[2020-01-09] MEDS ORDERED: XYLOCAINE 1%/SOD BICARB 20 ML VIAL INFIL ONE (10:07)
[2020-01-09] MEDS ORDERED: LIDOCAINE HCL 1% 20 ML VIAL ONE (10:08)
[2020-01-09] MEDS ORDERED: LIDOCAINE HCL 1% 20 ML VIAL INFIL ONE (10:25)
--- NOTE | 2020-01-09 10:36 | Urology Consultation ---
Date of Consultation January 09, 2020 Assessment & Plan (1) Postoperative abscess: Patient with an area of drainage in the right groin/scrotum. I expressed some cloudy drainage from the area with pressure. Based on the CT I felt that I should explore the area. Because of his current cardiac condition, I felt that a bedside drainage would be better than undergoing general anesthetic. I explained the risks of bleeding, infection, and damage to structure as well as the risk of needing a larger procedure in the future. I injected the area with 1% lidocaine. I then maybe a small stab incision at the small hole which was already draining. He has a very large open cavity -- I could pass the entire Q-tip up to the pubic area. There was no loculation or further drainage. I completed this x 2. I then passed a culture swab. I packed the small incision with a 1/4" packing to keep it open. Continue abx. Wound culture pending. Urology to examine again tomorrow. Present on Admission?: Yes History of Present Illness Reason for Consultation: Patient who has a recent history of surgery at the end of November for a scrotal hematoma. He had an evacauation and a drain placed. The drain was removed on 12/21/19. He reports that he was doing well until Friday he can some pain and swelling. He also had some drainage from the prior drain site. He had a CT today showing a small abscess at the right pubic symphsis. There was a small amount of air on the CT. He has been on IV abx overnight and feels a bit better. No fevers. No SOB, CP. He has been in rapid a fib since admission. Cardiology is seeing him and will likely start anticoagulation at some point pending our plans. General surgery had seen him this AM and recommended IV abx as the area began to spontaneously drain. Attending Physician: Nahum Hillman MD Allergies Allergy/AdvReac Type Severity Reaction Status Date / Time No Known Allergies Allergy Verified 01/08/20 16:30 Home Medications Home Medications Medication Instructions Recorded Confirmed Type ascorbic acid (vitamin C) [Vitamin 1,000 mg PO DAILY 07/17/18 01/08/20 History C] aspirin 81 mg PO DAILY 07/17/18 01/08/20 History atorvastatin 20 mg PO DAILY 07/17/18 01/08/20 History cholecalciferol (vitamin D3) 1,000 unit PO DAILY 07/17/18 01/08/20 History [Vitamin D3] magnesium oxide 400 mg PO DAILY 07/17/18 01/08/20 History metoprolol succinate 50 mg PO DAILY 07/17/18 01/08/20 History multivitamin 1 tab PO DAILY 07/17/18 01/08/20 History lisinopril 20 mg PO DAILY 01/08/20 01/08/20 History Patient History Medical History Atrial fibrillation History of deviated nasal septum Hypertension Surgical History H/O cardiac catheterization History of inguinal hernia repair Social History Smoking Status: Never smoker Hx Alcohol Use: Yes Alcohol type: beer Hx Substance Use: No Preferred Language: French Communication Ability: Effective Compliance Attorney Required: No Beliefs That Will Affect Care: None Current Living Situation: Alone Other Information That Helps Us Care for You: No Feels Safe at Home: Yes Review of Systems Review of Systems: All systems reviewed & are unremarkable except as noted in HPI & below Physical Exam Physical Exam: soft NT, ND right scrotum with skin thickening drainage from upper scrotum on the right/groin - cloudy. Not peggy pus firmness over the cord and pubic area ext without edema nonlabored breathing Results & Data ([facility]) Vital Signs (Past 12 Hours) Vital Signs Temp Pulse Pulse Pulse Resp BP BP 01/09/20 07:40 37.2 C 114 H 22 111/65 01/09/20 04:29 37 C 118 H 18 115/79 01/09/20 04:16 128 H 01/09/20 01:28 137 H 01/09/20 00:09 125 H 106/72 01/08/20 23:16 38.6 C H 114 H 18 124/77 Pulse Ox 01/09/20 07:40 94 01/09/20 04:29 96 01/09/20 04:16 01/09/20 01:28 01/09/20 00:09 01/08/20 23:16 94 PG Care Time/CCT Total # of Minutes Spent Total Time Spent with Patient: Total time spent is greater than 50% in coordination of care (as documented) at patient's floor/unit and/or counseling patient: Coding Level of Care Code 62473 Inpt Consult Level 5 History Detailed Exam Expanded Problem Focused Medical Decision Making High Complexity Diagnoses Postoperative abscess T81.49XA Time Spent (min) 20
--- NOTE | 2020-01-09 11:06 | Electrocardiogram Report ---
Test Reason : Blood Pressure : / mmHG Vent. Rate : 129 BPM Atrial Rate : 156 BPM P-R Int : 000 ms QRS Dur : 088 ms QT Int : 268 ms P-R-T Axes : 000 016 004 degrees QTc Int : 392 ms Atrial fibrillation with rapid ventricular response Abnormal ECG When compared with ECG of 08-JAN-2020 16:08, (unconfirmed) No significant change was found Confirmed by Vance Enriquez ([id number]) on 01/09/2020 11:05:49 AM Referred By: REFERRED SELF Confirmed By:Tapan Enriquez
[2020-01-09] MEDS: ACETAMINOPHEN 325 MG TAB PO PRN (11:08)
--- NOTE | 2020-01-09 11:11 | Electrocardiogram Report ---
Test Reason : Blood Pressure : / mmHG Vent. Rate : 161 BPM Atrial Rate : 127 BPM P-R Int : 000 ms QRS Dur : 086 ms QT Int : 300 ms P-R-T Axes : 000 -08 -04 degrees QTc Int : 491 ms Poor data quality, interpretation may be adversely affected Atrial fibrillation vs atrial flutter with rapid ventricular response Abnormal ECG When compared with ECG of 17-JUL-2018 22:55, Atrial fibrillation has replaced Sinus rhythm Vent. rate has increased BY 92 BPM Confirmed by Vance Enriquez ([id number]) on 01/09/2020 11:11:08 AM Referred By: REFERRED SELF Confirmed By:Tapan Enriquez
--- NOTE | 2020-01-09 11:24 | Cardiology Consultation ---
Date of Consultation January 09, 2020 Assessment & Plan (1) Atrial fibrillation with RVR: Patient is a 49-year-old male with history as outlined with notable congenitally bicuspid aortic valve with moderate to borderline severe aortic stenosis, past paroxysmal atrial fibrillation presents now with severe pain and discomfort in association with recent surgical abscess. On examination patient unaware of is found to be in atrial fibrillation with elevated ventricular spots likely being driven by underlying pain and illness. Patient's chads vas 2 score of 1 with contraindications to anticoagulation currently. Normal coronaries by prior cardiac catheterization and preserved LV systolic function Patient asymptomatic other than with presenting issues right groin pain and discomfort likely driving recurrence of atrial fibrillation and elevated rates Recommendations: Increase beta-sherin therapy. Will increase metoprolol succinate to 50 mg twice daily with an additional 25 mg metoprolol tartrate now. Will reduce lisinopril to 10 mg p.o. per day to allow changes Would not initiate anticoagulation No contraindications to surgery if needed (2) Congenital bicuspid aortic valve: Echocardiogram confirms findings this morning as well as evidence of moderate to borderline severe aortic stenosis though limited by rapid rate Agree with blood cultures and treatment as above. No contraindications to surgery. Was playing softball 1 month ago (3) Postoperative abscess: (4) Hypertension: History of Present Illness Reason for Consultation: Atrial fibrillation with elevated ventricular response rate Requesting Physician: Dr. Hillman Attending Physician: Nahum Hillman MD History of Present Illness 49-year-old male whose ongoing and past cardiac issues include 1. Paroxysmal atrial fibrillation identified March 2018 2. Congenitally bicuspid aortic valve with moderate to borderline severe aortic stenosis 3. Hypertension 4. Obstructive sleep apnea on CPAP 5. Normal coronary arteries by coronary angiography 06/01/2018 Patient presents now with recent complicated clinical course. He suffered a traumatic right inguinal hematoma and underwent surgical drainage on 12/16/2019. Was noted to be in atrial fibrillation during the procedure but spontaneously converted to sinus rhythm when seen in examination date post procedure Patient presents now complaining of severe right groin pain with evidence of possible abscess. On presentation was found to be in atrial fibrillation with elevated ventricular response rate. Patient clinically unaware. He denies any chest pains worsening shortness of breath orthopnea. Patient was febrile last night. Has been taking medications as prescribed. No bleeding issues except for drainage at site of surgical site Patient febrile overnight and currently on antibiotics, blood cultures pending Allergies Allergy/AdvReac Type Severity Reaction Status Date / Time No Known Allergies Allergy Verified 01/08/20 16:30 Home Medications Home Medications Medication Instructions Recorded Confirmed Type ascorbic acid (vitamin C) [Vitamin 1,000 mg PO DAILY 07/17/18 01/08/20 History C] aspirin 81 mg PO DAILY 07/17/18 01/08/20 History atorvastatin 20 mg PO DAILY 07/17/18 01/08/20 History cholecalciferol (vitamin D3) 1,000 unit PO DAILY 07/17/18 01/08/20 History [Vitamin D3] magnesium oxide 400 mg PO DAILY 07/17/18 01/08/20 History metoprolol succinate 50 mg PO DAILY 07/17/18 01/08/20 History multivitamin 1 tab PO DAILY 07/17/18 01/08/20 History lisinopril 20 mg PO DAILY 01/08/20 01/08/20 History Patient History Medical History Atrial fibrillation History of deviated nasal septum Hypertension Surgical History H/O cardiac catheterization History of inguinal hernia repair Social History Smoking Status: Never smoker Hx Alcohol Use: Yes Alcohol type: beer Hx Substance Use: No Preferred Language: [place]an Communication Ability: Effective Cafeteria Supervisor Required: No Beliefs That Will Affect Care: None Current Living Situation: Alone Other Information That Helps Us Care for You: No Feels Safe at Home: Yes Review of Systems Review of Systems: All systems reviewed & are unremarkable except as noted in HPI & below Physical Exam Constitutional: WD/WN, vitals as above Eyes: PERRL, conjunctivae normal, anicteric sclerae ENMT: external ear and nose normal, oropharynx normal Neck: trachea midline, no thyromegaly Respiratory: normal respiratory effort, lungs clear to auscultation Cardiovascular: Rate/Rhythm: + tachycardic and + irregularly irregular Heart Sounds: normal S1 and + murmur (Grade 2/6 to 3/6 harsh systolic murmur, no diastolic murmur); + abnormal S2 (Diminished S2) and no gallop Palpation: normal PMI Vessels: normal carotid upstroke and radial pulses present; no JVD and no carotid bruit Extremities: no edema Gastrointestinal (Abdomen): normal bowel sounds, soft, nontender, no hepatosplenomegaly Musculoskeletal: no cyanosis or clubbing, extremities motor strength 5/5 Skin: no rashes, warm and dry Neurologic: PERRL, EOMI, accommodation nl, no face palsy, no dysarthria Psychiatric: A+Ox3, euthymic affect Genitourinary: + edema Results & Data ([facility]) Vital Signs (Past 12 Hours) Vital Signs Temp Pulse Pulse Pulse Resp BP BP 01/09/20 07:40 37.2 C 114 H 22 111/65 01/09/20 04:29 37 C 118 H 18 115/79 01/09/20 04:16 128 H 01/09/20 01:28 137 H 01/09/20 00:09 125 H 106/72 Pulse Ox 01/09/20 07:40 94 01/09/20 04:29 96 01/09/20 04:16 01/09/20 01:28 01/09/20 00:09
[2020-01-09] MEDS: SODIUM CHLORIDE 0.9% 1000ML 1,000 ML IV SCH ×2 (11:34→19:49)
[2020-01-09] MEDS ORDERED: METOPROLOL TARTRATE 25 MG TAB PO ONE (11:38)
--- NOTE | 2020-01-09 14:34 | Hospitalist Progress Note ---
Date of Service January 09, 2020 Assessment & Plan (1) Atrial fibrillation with RVR: History of PAF. [id number] = 1. Managed with aspirin + metoprolol. Presented with recurrent AF with RVR. Cardiology consulted. (2) Congenital bicuspid aortic valve: Follow-up per Cardiology. (3) Hypertension: Continue metoprolol and lisinopril. Follow and titrate Rx. (4) Postoperative abscess: Seen by Urology; bedside I&D performed. Wound culture pending. Continue IV antibiotic therapy with vancomycin and piperacillin / tazobactam. (5) DVT prophylaxis: SCD's. Ambulate. (6) Discharge planning issues: Anticipated discharge to home. Family Medicine follow-up with Dr. Armenta. Cardiology follow-up with Dr. Chávez. Surgical follow-up with Dr. William in [place]. Admission and Anticipated Discharge Date Admission Date: January 08, 2020 Subjective Recheck for inguinal fluid collection and PAF. Patient seen in their room around 1400. Urology performed I&D of fluid collection right groin at bedside. Having some postop discomfort. Experiencing fever and sweats. Persistent AF with rapid rate. No chest pain or SOB. Review of Systems: Constitutional- + fever. Cardiac- no chest pain. Pulmonary- no cough or SOB. GI- constipated; no nausea, vomiting, diarrhea, melena, hematochezia. - no urinary symptoms. Otherwise, as noted above. Physical Exam Constitutional: no acute distress Respiratory: no respiratory distress Auscultation: lungs clear to auscultation bilaterally Cardiovascular: Rate/Rhythm: + irregularly irregular Heart Sounds: + murmur (III/ systolic murmur at base) Vessels: no JVD Extremities: no calf tenderness and no edema Gastrointestinal (Abdomen): normal bowel sounds, soft, nontender, no hepatosplenomegaly Skin: diaphoretic Psychiatric: Orientation: alert and oriented x 3 Results & Data Results & Data ([facility]) Vital Signs (Past 12 Hours) Vital Signs Temp Pulse Pulse Pulse Resp BP Pulse Ox 01/09/20 13:59 123 H 01/09/20 10:58 39.3 C H 120 H 17 135/83 94 01/09/20 07:40 37.2 C 114 H 22 111/65 94 01/09/20 04:29 37 C 118 H 18 115/79 96 01/09/20 04:16 128 H Laboratory Results Laboratory Results - last 24 hr 01/08/20 01/08/20 01/08/20 16:07 16:07 16:07 WBC 11.42 H RBC 5.03 Hgb 15.2 Hct 44.2 MCV 87.9 MCH 30.2 MCHC 34.4 RDW Std Deviation 41.0 RDW Coeff of Solomon 12.9 Plt Count 301 MPV 9.1 Immature Gran % (Auto) 0.4 Neut % (Auto) 79.7 Lymph % (Auto) 9.2 [place] % (Auto) 10.2 Eos % (Auto) 0.2 Baso % (Auto) 0.3 Neut # (Auto) 9.12 H Lymph # (Auto) 1.05 L [place] # (Auto) 1.16 H Eos # (Auto) 0.02 Baso # (Auto) 0.03 Immature Gran # (Auto) 0.04 H ESR 47 H PT 10.9 INR 1.0 APTT 30.2 PTT Ratio 1.1 Sodium Potassium Chloride Carbon Dioxide Anion Gap BUN Creatinine Est Cr Clr Drug Dosing Est GFR ( Amer) Est GFR (Non-Af Amer) BUN/Creatinine Ratio Glucose Lactate Calcium Magnesium Total Bilirubin AST ALT Alkaline Phosphatase Troponin I C-Reactive Protein Total Protein Albumin Globulin Albumin/Globulin Ratio Lipase Procalcitonin TSH Urine Color Urine Appearance Urine pH Ur Specific [place] Urine Protein Urine Glucose (UA) Urine Ketones Urine Blood Urine Nitrite Urine Bilirubin Urine Urobilinogen Ur Leukocyte Esterase Urine WBC (Auto) Urine RBC (Auto) U Hyaline Cast (Auto) U Epithel Cells (Auto) Urine Bacteria (Auto) COVID-19 Eval Order SARS-CoV-2, RNA, NAAT 01/08/20 01/08/20 01/08/20 16:07 16:07 16:48 WBC RBC Hgb Hct MCV MCH MCHC RDW Std Deviation RDW Coeff of Solomon Plt Count MPV Immature Gran % (Auto) Neut % (Auto) Lymph % (Auto) [place] % (Auto) Eos % (Auto) Baso % (Auto) Neut # (Auto) Lymph # (Auto) [place] # (Auto) Eos # (Auto) Baso # (Auto) Immature Gran # (Auto) ESR PT INR APTT PTT Ratio Sodium 137 Potassium 3.9 Chloride 102 Carbon Dioxide 24 Anion Gap 10.0 BUN 16 Creatinine 1.06 Est Cr Clr Drug Dosing 102.6 Est GFR ( Amer) 94.4 Est GFR (Non-Af Amer) 81.4 BUN/Creatinine Ratio 14.7 Glucose 98 Lactate Calcium 10.0 Magnesium 2.1 Total Bilirubin 1.4 H AST 18 ALT 35 Alkaline Phosphatase 114 Troponin I < 0.015 C-Reactive Protein 9.74 H Total Protein 8.7 H Albumin 3.8 Globulin 4.9 H Albumin/Globulin Ratio 0.8 L Lipase 53 L Procalcitonin 0.11 TSH 1.120 Urine Color Urine Appearance Urine pH Ur Specific [place] Urine Protein Urine Glucose (UA) Urine Ketones Urine Blood Urine Nitrite Urine Bilirubin Urine Urobilinogen Ur Leukocyte Esterase Urine WBC (Auto) Urine RBC (Auto) U Hyaline Cast (Auto) U Epithel Cells (Auto) Urine Bacteria (Auto) COVID-19 Eval Order Covid19 [facility]Now [facility] SARS-CoV-2, RNA, NAAT 01/08/20 01/08/20 01/08/20 16:48 16:49 19:00 WBC RBC Hgb Hct MCV MCH MCHC RDW Std Deviation RDW Coeff of Solomon Plt Count MPV Immature Gran % (Auto) Neut % (Auto) Lymph % (Auto) [place] % (Auto) Eos % (Auto) Baso % (Auto) Neut # (Auto) Lymph # (Auto) [place] # (Auto) Eos # (Auto) Baso # (Auto) Immature Gran # (Auto) ESR PT INR APTT PTT Ratio Sodium Potassium Chloride Carbon Dioxide Anion Gap BUN Creatinine Est Cr Clr Drug Dosing Est GFR ( Amer) Est GFR (Non-Af Amer) BUN/Creatinine Ratio Glucose Lactate 1.2 Calcium Magnesium Total Bilirubin AST ALT Alkaline Phosphatase Troponin I C-Reactive Protein Total Protein Albumin Globulin Albumin/Globulin Ratio Lipase Procalcitonin TSH Urine Color Yellow Urine Appearance Clear Urine pH 6.0 Ur Specific [place] 1.045 H Urine Protein Negative Urine Glucose (UA) Negative Urine Ketones 1+ H Urine Blood Trace H Urine Nitrite Negative Urine Bilirubin Negative Urine Urobilinogen Negative Ur Leukocyte Esterase Negative Urine WBC (Auto) 1-5 Urine RBC (Auto) 0-4 U Hyaline Cast (Auto) 0 U Epithel Cells (Auto) 0-5 Urine Bacteria (Auto) Negative COVID-19 Eval Order SARS-CoV-2, RNA, NAAT NEGATIVE 01/09/20 01/09/20 04:51 04:51 WBC 7.57 RBC 4.29 L Hgb 12.9 L Hct 38.3 L MCV 89.3 MCH 30.1 MCHC 33.7 RDW Std Deviation 42.4 RDW Coeff of Solomon 13.1 Plt Count 250 MPV 9.1 Immature Gran % (Auto) 0.3 Neut % (Auto) 68.0 Lymph % (Auto) 19.3 [place] % (Auto) 11.9 Eos % (Auto) 0.1 Baso % (Auto) 0.4 Neut # (Auto) 5.15 Lymph # (Auto) 1.46 [place] # (Auto) 0.90 H Eos # (Auto) 0.01 Baso # (Auto) 0.03 Immature Gran # (Auto) 0.02 ESR PT INR APTT PTT Ratio Sodium 139 Potassium 4.0 Chloride 109 H Carbon Dioxide 25 Anion Gap 5.0 BUN 12 Creatinine 0.91 Est Cr Clr Drug Dosing 119.5 Est GFR ( Amer) 113.5 Est GFR (Non-Af Amer) 97.9 BUN/Creatinine Ratio 13.5 Glucose 101 H Lactate Calcium 8.4 L D Magnesium 2.0 Total Bilirubin AST ALT Alkaline Phosphatase Troponin I < 0.015 C-Reactive Protein Total Protein Albumin Globulin Albumin/Globulin Ratio Lipase Procalcitonin TSH Urine Color Urine Appearance Urine pH Ur Specific [place] Urine Protein Urine Glucose (UA) Urine Ketones Urine Blood Urine Nitrite Urine Bilirubin Urine Urobilinogen Ur Leukocyte Esterase Urine WBC (Auto) Urine RBC (Auto) U Hyaline Cast (Auto) U Epithel Cells (Auto) Urine Bacteria (Auto) COVID-19 Eval Order SARS-CoV-2, RNA, NAAT
[2020-01-09] MEDS ORDERED: POLYETHYLENE (MIRALAX) 17 GM PACK PO ONE (14:35)
[2020-01-09] MEDS ORDERED: POLYETHYLENE (MIRALAX) 17 GM PACK PO PRN ×2 (14:35)
[2020-01-09] MEDS: VANCOMYCIN HCL 1,500 MG in SODIUM CHLORIDE 0.9% 500 ML IV SCH (16:52)
[2020-01-09] MEDS: ACETAMINOPHEN 500 MG TAB PO PRN (19:48)
[2020-01-09] MEDS: METOPROLOL SUCC 50MG EXT REL TAB PO SCH (19:49)
[2020-01-10] MEDS: VANCOMYCIN HCL 1,500 MG in SODIUM CHLORIDE 0.9% 500 ML IV SCH ×3 (02:24→21:45)
[2020-01-10] MEDS: METOPROLOL TARTRATE 1 MG/ML VIAL IV PRN (04:58)
[2020-01-10] MEDS: PIPERACILLIN/TAZOBACTAM 3.375 GM in DEXTROSE 5% 100 ML IV SCH ×3 (05:48→21:46)
[2020-01-10] MEDS: HYDROmorphone INJ 1 MG/ML SYRINGE IV PRN ×2 (07:53→17:32)
[2020-01-10] MEDS: SODIUM CHLORIDE 0.9% 1000ML 1,000 ML IV SCH ×3 (07:54→13:00)
[2020-01-10] MEDS: ATORVASTATIN 20 MG TAB PO SCH (07:55)
[2020-01-10] MEDS: MAGNESIUM OXIDE 400 MG TAB PO SCH (07:56)
[2020-01-10] MEDS: CHOLECALCIFEROL 1,000 UNITS 25 MCG TAB PO SCH (07:56)
[2020-01-10] MEDS: MULTIVITAMIN TAB PO SCH (07:56)
[2020-01-10] MEDS: ASCORBIC ACID 500 MG TAB PO SCH (07:57)
[2020-01-10] MEDS: lisinopriL 10 MG TAB PO SCH (07:58)
[2020-01-10] MEDS: METOPROLOL SUCC 50MG EXT REL TAB PO SCH (07:59)
--- NOTE | 2020-01-10 08:38 | Surgery Progress Note ---
Date of Service January 10, 2020 Assessment & Plan (1) Postoperative abscess: doing well continue current treatment. wound probed by urology yesterday. will sign off. please call if any questions/concerns. Admission and Anticipated Discharge Date Admission Date: January 08, 2020 Subjective pt seen. feeling better. no new complaints. Physical Exam Physical Exam: alert. nad wound looks about the same. some increased drainage. Results & Data ([facility]) Vital Signs (Past 12 Hours) Vital Signs Temp Pulse Pulse Resp BP BP Pulse Ox 01/10/20 07:50 37.2 C 125 H 18 122/79 96 01/10/20 04:58 151 H 113/83 01/10/20 03:48 37.1 C 110 H 16 133/93 97 01/10/20 03:28 107 H 20 95 01/10/20 00:02 36.9 C 114 H 18 120/76 97 01/09/20 22:57 130 H 108/61 01/09/20 21:20 110 H PG Care Time/CCT Total # of Minutes Spent Total Time Spent with Patient: Total time spent is greater than 50% in coordination of care (as documented) at patient's floor/unit and/or counseling patient: Coding Level of Care Code 15068 Subseq Hosp Care Lvl 2 Diagnoses Postoperative abscess T81.49XA
--- NOTE | 2020-01-10 09:36 | Electrocardiogram Report ---
Test Reason : Blood Pressure : / mmHG Vent. Rate : 132 BPM Atrial Rate : 000 BPM P-R Int : 000 ms QRS Dur : 084 ms QT Int : 268 ms P-R-T Axes : 000 015 009 degrees QTc Int : 397 ms Atrial fibrillation with rapid ventricular response Abnormal ECG When compared with ECG of 09-JAN-2020 06:26, No significant change was found Confirmed by Roberth Solomon ([id number]) on 01/10/2020 9:35:31 AM Referred By: REFERRED SELF Confirmed By:Roberth Solomon
--- NOTE | 2020-01-10 11:17 | Cardiology Progress Note ---
Date of Service January 10, 2020 Assessment & Plan (1) Atrial fibrillation with RVR: Patient is a 49-year-old male with history as outlined with notable congenitally bicuspid aortic valve with moderate to borderline severe aortic stenosis, past paroxysmal atrial fibrillation presents now with severe pain and discomfort in association with recent surgical abscess. On examination patient unaware of is found to be in atrial fibrillation with elevated ventricular spots likely being driven by underlying pain and illness. Patient's chads vas 2 score of 1 with contraindications to anticoagulation currently. Normal coronaries by prior cardiac catheterization and preserved LV systolic function Patient asymptomatic other than with presenting issues right groin pain and discomfort likely driving recurrence of atrial fibrillation and elevated rates Recommendations: As patient is expected to be in hospital for at least additional days we will add sotalol to her regimen discontinuing metoprolol with hopes of better rate control and possible conversion to sinus rhythm. Atrial fibrillation in the past has been paroxysmal and may potentially convert versus aid in management in the future. Daily EKGs will be ordered Would avoid any antibiotics/medications that prolong QT interval (2) Congenital bicuspid aortic valve: Echocardiogram confirms findings this morning as well as evidence of moderate to borderline severe aortic stenosis though limited by rapid rate Agree with blood cultures and treatment as above. No contraindications to surgery. Was playing softball 1 month ago (3) Postoperative abscess: (4) Hypertension: Admission and Anticipated Discharge Date Admission Date: January 08, 2020 Subjective Patient seen and examined, chart, medications, telemetry reviewed Mild right groin pain. Patient not aware of atrial fibrillation though rates remain persistently elevated. No dizziness or lightheadedness. No chest pains or shortness of breath. No orthopnea. Blood cultures negative to date Physical Exam Constitutional: WD/WN, vitals as above Eyes: PERRL, conjunctivae normal, anicteric sclerae ENMT: external ear and nose normal, oropharynx normal Neck: trachea midline, no thyromegaly Respiratory: normal respiratory effort, lungs clear to auscultation Cardiovascular: Rate/Rhythm: + tachycardic and + irregularly irregular Heart Sounds: normal S1 and + murmur (Grade 2/6 to 3/6 harsh systolic murmur, no diastolic murmur); + abnormal S2 (Diminished S2) and no gallop Palpation: normal PMI Vessels: normal carotid upstroke and radial pulses present; no JVD and no carotid bruit Extremities: no edema Gastrointestinal (Abdomen): normal bowel sounds, soft, nontender, no hepato splenomegaly Musculoskeletal: no cyanosis or clubbing, extremities motor strength 5/5 Skin: no rashes, warm and dry Neurologic: PERRL, EOMI, accommodation nl, no face palsy, no dysarthria Psychiatric: A+Ox3, euthymic affect Genitourinary: + edema Results & Data ([facility]) Vital Signs (Past 12 Hours) Vital Signs Temp Pulse Pulse Resp BP BP Pulse Ox 01/10/20 07:50 37.2 C 125 H 18 122/79 96 01/10/20 04:58 151 H 113/83 01/10/20 03:48 37.1 C 110 H 16 133/93 97 01/10/20 03:28 107 H 20 95 01/10/20 00:02 36.9 C 114 H 18 120/76 97
[2020-01-10] MEDS ORDERED: VANCOMYCIN TROUGH ONE (11:30)
[2020-01-10 11:39] LABS: Basophils # (auto) 0.04 K/uL (0-0.2); Basophils % (auto) 0.5 %; Eosinophils # (auto) 0.13 K/uL (0-0.5); Eosinophils % (auto) 1.6 %; Hematocrit (blood only) 39.7 % (42-52); Hemoglobin 13.2 g/dL (14.0-18.0); Immature Granulocytes # (auto) 0.01 K/uL (0.00-0.02); Immature Granulocytes % (auto) 0.1 %; Lymphocytes # (auto) 1.57 K/uL (1.2-3.4); Lymphocytes % (auto) 19.9 %; Mean Corpuscular Hemoglobin 29.5 pg (25-34); Mean Corpuscular Hgb Conc 33.2 g/dL (32-36); Mean Corpuscular Volume 88.8 fL (80-100); Mean Platelet Volume 9.2 fL (7.4-10.4); Monocytes # (auto) 1.24 K/uL (0.11-0.59); Monocytes % (auto) 15.7 %; Neutrophils % (auto) 62.2 %; Platelet Count 229 K/uL (130-400); RDW Standard Deviation 42.1 fL (36.4-46.3); Red Blood Count 4.47 M/uL (4.7-6.1); White Blood Count 7.89 K/uL (4.8-10.8)
[2020-01-10 12:04] LABS: BUN Creatinine Ratio 12.1 (10-20); Calcium 8.6 mg/dl (8.5-10.1); Creatinine Clr Calc Pharmacy 122.5 ml/min; Est GFR (Non-African American) 99.2; Potassium 3.9 mmol/L (3.5-5.1)
[2020-01-10] MEDS: SOTALOL HCL 80 MG TAB PO SCH ×2 (12:32→21:45)
[2020-01-10] MEDS: ACETAMINOPHEN 500 MG TAB PO PRN (12:54)
[2020-01-10] MEDS ORDERED: POTASSIUM CHLORIDE 20 MEQ TABCR PO ONE (16:10)
--- NOTE | 2020-01-10 22:55 | Hospitalist Progress Note ---
Date of Service January 10, 2020 Assessment & Plan (1) Atrial fibrillation with RVR: History of PAF. [id number] = 1. Managed with aspirin + metoprolol. Presented with recurrent AF with RVR. Cardiology consulted. Being started on sotalol. Avoid meds that may cause QT prolongation, including quinolones. (2) Congenital bicuspid aortic valve: Follow-up per Cardiology. (3) Hypertension: Being transitioned from metoprolol to sotalol for AF. Continue lisinopril. Follow and titrate Rx. (4) Postoperative abscess: Seen by Urology; bedside I&D performed. Receiving IV antibiotic therapy with vancomycin and piperacillin / tazobactam. Wound culture growing few group B beta strep and few gram neg bacilli. Should be able to DC vancomycin. Need to avoid quinolones because of sotalol therapy. Continue piperacillin / tazo pending ID of gram neg bacilli. (5) DVT prophylaxis: SCD's. Ambulate. (6) Discharge planning issues: Anticipated discharge to home. Family Medicine follow-up with Dr. Armenta. Cardiology follow-up with Dr. Chávez. Surgical follow-up with Dr. William in [place]. Admission and Anticipated Discharge Date Admission Date: January 08, 2020 Subjective Recheck for inguinal fluid collection and PAF. Patient seen in their room around 1140. Persistent AF with rapid rate. No chest pain or SOB. Less groin discomfort. T max 38.4 last evening. Review of Systems: Constitutional- + fever. Cardiac- no chest pain. Pulmonary- no cough or SOB. GI- constipated; no nausea, vomiting, diarrhea, melena, hematochezia. - no urinary symptoms. Otherwise, as noted above. Physical Exam Constitutional: no acute distress Respiratory: no respiratory distress Auscultation: lungs clear to auscultation bilaterally Cardiovascular: Rate/Rhythm: + irregularly irregular Heart Sounds: + murmur (III/ systolic murmur at base) Vessels: no JVD Extremities: no calf tenderness and no edema Gastrointestinal (Abdomen): normal bowel sounds, soft, nontender, no hepatosplenomegaly Psychiatric: Orientation: alert and oriented x 3 Results & Data Results & Data ([facility]) Vital Signs (Past 12 Hours) Vital Signs Temp Pulse Resp BP Pulse Ox 01/10/20 19:27 37.0 C 114 H 21 111/74 97 09/21/20 15:16 36.8 C 101 H 130/90 96 01/10/20 11:33 36.6 C 143 H 18 120/85 97 Laboratory Results 01/10/20 11:21 01/10/20 11:21 Microbiology 01/08/20 16:49 Blood Aerobic Blood Culture - Preliminary No growth in Aerobic bottle after 48 hours. 01/08/20 16:49 Blood Anaerobic Blood Culture - Final 01/08/20 16:07 Blood Aerobic Blood Culture - Preliminary No growth in Aerobic bottle after 48 hours. 01/08/20 16:07 Blood Anaerobic Blood Culture - Preliminary No growth in Anaerobic bottle after 48 hours. 01/09/20 10:20 Groin Gram Stain - Final 01/09/20 10:20 Groin Deep Wound Culture - Preliminary Gram negative bacilli Group B Beta Strep
[2020-01-11] MEDS: PIPERACILLIN/TAZOBACTAM 3.375 GM in DEXTROSE 5% 100 ML IV SCH ×3 (05:38→23:20)
[2020-01-11] MEDS: HYDROmorphone INJ 1 MG/ML SYRINGE IV PRN (05:38)
[2020-01-11 06:20] LABS: Creatinine Clr Calc Pharmacy 122.5 ml/min; Est GFR (Non-African American) 99.2
[2020-01-11] MEDS: MULTIVITAMIN TAB PO SCH (08:48)
[2020-01-11] MEDS: ASCORBIC ACID 500 MG TAB PO SCH (08:48)
[2020-01-11] MEDS: SOTALOL HCL 80 MG TAB PO SCH ×2 (08:48→20:22)
[2020-01-11] MEDS: lisinopriL 10 MG TAB PO SCH (08:49)
[2020-01-11] MEDS: ATORVASTATIN 20 MG TAB PO SCH (08:49)
[2020-01-11] MEDS: MAGNESIUM OXIDE 400 MG TAB PO SCH (08:49)
[2020-01-11] MEDS: ACETAMINOPHEN 500 MG TAB PO PRN ×2 (08:54→23:37)
[2020-01-11] MEDS: CHOLECALCIFEROL 1,000 UNITS 25 MCG TAB PO SCH (10:37)
--- NOTE | 2020-01-11 11:27 | Cardiology Progress Note ---
Date of Service January 11, 2020 Assessment & Plan (1) Atrial fibrillation with RVR: Patient is a 49-year-old male with history as outlined with notable congenitally bicuspid aortic valve with moderate to borderline severe aortic stenosis, past paroxysmal atrial fibrillation presents now with severe pain and discomfort in association with recent surgical abscess. On examination patient unaware of is found to be in atrial fibrillation with elevated ventricular spots likely being driven by underlying pain and illness. Patient's chads vas 2 score of 1 with contraindications to anticoagulation currently. Normal coronaries by prior cardiac catheterization and preserved LV systolic function Patient asymptomatic other than with presenting issues right groin pain and discomfort likely driving recurrence of atrial fibrillation and elevated rates Recommendations: Continue sotalol as ordered. QT without prolongation. Patient clinically improving after treatment of underlying infectious process. Maintain telemetry at least additional 24-hour (2) Congenital bicuspid aortic valve: Echocardiogram confirms findings this morning as well as evidence of moderate to borderline severe aortic stenosis though limited by rapid rate Agree with blood cultures and treatment as above. No contraindications to surgery. Was playing softball 1 month ago (3) Postoperative abscess: (4) Hypertension: Admission and Anticipated Discharge Date Admission Date: January 08, 2020 Subjective Patient seen and examined, chart, medications, telemetry reviewed. Patient feels improved this morning. Afebrile over the last 24 hours. No chest pains or discomfort. Heart rates are elevated but trending towards better rate control. No QT prolongation on EKG. Fluid resuscitation stopped and patient now spontaneously diuresis Physical Exam Constitutional: WD/WN, vitals as above Eyes: PERRL, conjunctivae normal, anicteric sclerae ENMT: external ear and nose normal, oropharynx normal Neck: trachea midline, no thyromegaly Respiratory: normal respiratory effort, lungs clear to auscultation Cardiovascular: Rate/Rhythm: + tachycardic and + irregularly irregular Heart Sounds: normal S1 and + murmur (Grade 2/6 to 3/6 harsh systolic murmur, no diastolic murmur); + abnormal S2 (Diminished S2) and no gallop Palpation: normal PMI Vessels: normal carotid upstroke and radial pulses present; no JVD and no carotid bruit Extremities: no edema Gastrointestinal (Abdomen): normal bowel sounds, soft, nontender, no hepatos plenomegaly Musculoskeletal: no cyanosis or clubbing, extremities motor strength 5/5 Skin: no rashes, warm and dry Neurologic: PERRL, EOMI, accommodation nl, no face palsy, no dysarthria Psychiatric: A+Ox3, euthymic affect Genitourinary: + edema Results & Data ([facility]) Vital Signs (Past 12 Hours) Vital Signs Temp Pulse Pulse Resp BP Pulse Ox 01/11/20 08:48 66 124/66 01/11/20 07:42 36.6 C 120 H 86 18 93/57 L 96 01/11/20 03:46 37 C 120 H 18 129/85 96 01/11/20 01:03 112 H 01/10/20 23:28 36.7 C 109 H 18 128/71 98 Laboratory Results Laboratory Results - last 24 hr 01/10/20 01/10/20 01/10/20 11:21 11:21 11:21 WBC 7.89 RBC 4.47 L Hgb 13.2 L Hct 39.7 L MCV 88.8 MCH 29.5 MCHC 33.2 RDW Std Deviation 42.1 RDW Coeff of Solomon 13.0 Plt Count 229 MPV 9.2 Immature Gran % (Auto) 0.1 Neut % (Auto) 62.2 Lymph % (Auto) 19.9 [place] % (Auto) 15.7 Eos % (Auto) 1.6 Baso % (Auto) 0.5 Neut # (Auto) 4.90 Lymph # (Auto) 1.57 [place] # (Auto) 1.24 H Eos # (Auto) 0.13 Baso # (Auto) 0.04 Immature Gran # (Auto) 0.01 Sodium 139 Potassium 3.9 Chloride 105 Carbon Dioxide 27 Anion Gap 7.0 BUN 11 Creatinine 0.90 Est Cr Clr Drug Dosing 122.5 Est GFR ( Amer) 115.0 Est GFR (Non-Af Amer) 99.2 BUN/Creatinine Ratio 12.1 Glucose 98 Calcium 8.6 Vancomycin Trough 9.5 01/11/20 05:42 WBC RBC Hgb Hct MCV MCH MCHC RDW Std Deviation RDW Coeff of Solomon Plt Count MPV Immature Gran % (Auto) Neut % (Auto) Lymph % (Auto) [place] % (Auto) Eos % (Auto) Baso % (Auto) Neut # (Auto) Lymph # (Auto) [place] # (Auto) Eos # (Auto) Baso # (Auto) Immature Gran # (Auto) Sodium Potassium Chloride Carbon Dioxide Anion Gap BUN Creatinine 0.90 Est Cr Clr Drug Dosing 122.5 Est GFR ( Amer) 115.0 Est GFR (Non-Af Amer) 99.2 BUN/Creatinine Ratio Glucose Calcium Vancomycin Trough
--- NOTE | 2020-01-11 12:52 | Urology Progress Note ---
Date of Service January 11, 2020 Assessment & Plan (1) Scrotal abscess: Small scrotal abscess after evacuation of a large scrotal hematoma several weeks ago Gradually making progress Currently afebrile, heart rate gradually improving Packing replaced today, wound appears healthy and clean We will consult wound care service to begin wound care teaching Likely stable for discharge home when he feels comfortable with wound care and he is hemodynamically stable Admission and Anticipated Discharge Date Admission Date: January 08, 2020 Subjective 49-year-old gentleman who underwent a scrotal/inguinal exploration for hematoma in [place] several weeks ago He presented back to the emergency room about that knee this weekend and was found to have a small scrotal abscess He underwent I&D at the bedside over the weekend with a packing left in place He reports that he subjectively is improving but gradually He is still not particularly ambulatory secondary to discomfort He has been having diarrhea secondary to the antibiotics He has been hemodynamically stable without fevers now for 2 days Review of Systems Review of Systems: All systems reviewed & are unremarkable except as noted in HPI & below Physical Exam Physical Exam: Scrotal wall without erythema, minimal induration, no warmth No discharge from the incision A iodoform gauze packing was in place, I removed this packing and replaced it with a simple gauze wet-to-dry dressing soaked in a dilute Betadine and saline solution Inspection after removal of the packing revealed a healthy-appearing wound Depth of this wound is approximately 2 cm Constitutional: well developed and well nourished Respiratory: no respiratory distress Cardiovascular: Extremities: no pedal edema Gastrointestinal (Abdomen): Inspection/Auscultation: abdomen normal to inspection Results & Data ([facility]) Vital Signs (Past 12 Hours) Vital Signs Temp Pulse Pulse Resp BP Pulse Ox 01/11/20 11:36 36.5 C 100 H 18 96/71 L 97 01/11/20 08:48 66 124/66 01/11/20 07:42 36.6 C 120 H 86 18 93/57 L 96 01/11/20 03:46 37 C 120 H 18 129/85 96 01/11/20 01:03 112 H PG Care Time/CCT Total # of Minutes Spent Total Time Spent with Patient: Total time spent is greater than 50% in coordination of care (as documented) at patient's floor/unit and/or counseling patient: Coding Level of Care Code 46538 Subseq Hosp Care Lvl 2 Diagnoses Scrotal abscess N49.2
--- NOTE | 2020-01-11 14:50 | Hospitalist Progress Note ---
Date of Service January 11, 2020 Assessment & Plan (1) Atrial fibrillation with RVR: Atrial fibrillation with RVR History of paroxysmal atrial fibrillation H/O congenital bicuspid aortic valve--moderate to severe aortic stenosis [id number] = 1. Previously on Aspirin and Metoprolol. Appreciate Cardiology Input Continue Sotalol Avoid other QT prolonging medications. Needs follow-up with cardiology upon discharge (2) Congenital bicuspid aortic valve: Follows with Cardiology (3) Hypertension: Continue lisinopril Also on Sotalol Monitor (4) Postoperative abscess: Scrotal Abscess Recent evacuation of large scrotal hematoma S/P I&D Wound Culture: E.Coli, Group B beta Strep Blood Culture: No growth to date Appreciate Urology Input Continue IV Zosyn Titrate Abx as able Continue wound care (5) DVT prophylaxis: SCD's Ambulate. (6) Discharge planning issues: Anticipated discharge to home. Family Medicine follow-up with Dr. Armenta. Cardiology follow-up with Dr. Chávez. Surgical follow-up with Dr. William in [place]. Admission and Anticipated Discharge Date Admission Date: January 08, 2020 Subjective Patient is seen and examined at bedside Right groin wound pain is better Denies chest pain, shortness of breath, dizziness, nausea, abdominal pain Heart rate is better Offers no other complaints Review of Systems Review of Systems: All systems reviewed & are unremarkable except as noted in HPI & below Physical Exam Physical Exam: Physical Exam: Vitals signs as noted above General Appearance:Moderately built and nourished, no apparent distress Head: normocephalic, Atraumatic Eyes: normal inspection, EOMI Neck: supple, Trachea midline Respiratory/Chest: Normal breath sounds, CTA Cardiovascular: Irregularly Irregular, + systolic murmur Abdomen/GI:Soft, Non tender, Bowel sounds present : Right groin/scrotal wound Extremities/Musculoskelatal:normal inspection, no edema Neurologic/Psych:AAOX3, grossly no focal neurological deficits Skin: normal color, warm Results & Data Results & Data ([facility]) Vital Signs (Past 12 Hours) Vital Signs Temp Pulse Pulse Resp BP Pulse Ox 01/11/20 11:36 36.5 C 100 H 18 96/71 L 97 01/11/20 08:48 66 124/66 01/11/20 07:42 36.6 C 120 H 86 18 93/57 L 96 01/11/20 03:46 37 C 120 H 18 129/85 96 Laboratory Results [facility] 01/11/20 05:42 Creatinine 0.90
[2020-01-11] MEDS: LACTOBACILLUS ACIDOPHILUS (FLORANEX) TAB PO SCH ×2 (17:19→20:22)
[2020-01-11] MEDS ORDERED: POTASSIUM CHLORIDE 20 MEQ TABCR PO ONE (17:33)
[2020-01-11] MEDS: METOPROLOL TARTRATE 1 MG/ML VIAL IV PRN (18:00)
[2020-01-11] MEDS ORDERED: MoRPHine SULFATE 2 MG/ML CARP IV PRN (18:31)
[2020-01-11] MEDS: OXYCODONE/ACETAMINOPHEN 5mg/325mg TAB PO PRN (18:40)
[2020-01-12] MEDS: OXYCODONE/ACETAMINOPHEN 5mg/325mg TAB PO PRN ×2 (05:01→09:29)
[2020-01-12] MEDS: PIPERACILLIN/TAZOBACTAM 3.375 GM in DEXTROSE 5% 100 ML IV SCH (05:58)
[2020-01-12 08:14] LABS: BUN Creatinine Ratio 17.5 (10-20); Calcium 8.8 mg/dl (8.5-10.1); Creatinine Clr Calc Pharmacy 114.9 ml/min; Est GFR (African American) 105.1; Est GFR (Non-African American) 90.7; Potassium 3.8 mmol/L (3.5-5.1)
[2020-01-12 08:15] LABS: Magnesium 2.2 mg/dl (1.8-2.4)
[2020-01-12] MEDS: LACTOBACILLUS ACIDOPHILUS (FLORANEX) TAB PO SCH ×4 (08:43→20:46)
[2020-01-12] MEDS: MAGNESIUM OXIDE 400 MG TAB PO SCH (08:43)
[2020-01-12] MEDS: ATORVASTATIN 20 MG TAB PO SCH (08:43)
[2020-01-12] MEDS: CHOLECALCIFEROL 1,000 UNITS 25 MCG TAB PO SCH (08:43)
[2020-01-12] MEDS: ASCORBIC ACID 500 MG TAB PO SCH (08:43)
[2020-01-12] MEDS: MULTIVITAMIN TAB PO SCH (08:44)
[2020-01-12] MEDS: lisinopriL 10 MG TAB PO SCH (08:44)
[2020-01-12] MEDS: SOTALOL HCL 80 MG TAB PO SCH ×2 (09:29→20:47)
[2020-01-12] MEDS: CEFDINIR 300 MG CAP PO SCH ×2 (09:29→20:45)
--- NOTE | 2020-01-12 13:46 | Electrocardiogram Report ---
Test Reason : Blood Pressure : / mmHG Vent. Rate : 120 BPM Atrial Rate : 000 BPM P-R Int : 000 ms QRS Dur : 086 ms QT Int : 290 ms P-R-T Axes : 000 010 010 degrees QTc Int : 409 ms Atrial fibrillation with rapid ventricular response Abnormal ECG When compared with ECG of 10-JAN-2020 06:27, No significant change was found Confirmed by Roberth Solomon ([id number]) on 01/12/2020 1:46:41 PM Referred By: REFERRED SELF Confirmed By:Roberth Solomon
--- NOTE | 2020-01-12 14:05 | Electrocardiogram Report ---
Test Reason : Blood Pressure : / mmHG Vent. Rate : 110 BPM Atrial Rate : 000 BPM P-R Int : 000 ms QRS Dur : 078 ms QT Int : 350 ms P-R-T Axes : 000 -05 -08 degrees QTc Int : 473 ms Atrial fibrillation with rapid ventricular response Abnormal ECG When compared with ECG of 10-JAN-2020 15:08, (unconfirmed) No significant change Confirmed by Roberth Solomon ([id number]) on 01/12/2020 2:05:21 PM Referred By: REFERRED SELF Confirmed By:Roberth Solomon
--- NOTE | 2020-01-12 15:24 | Cardiology Progress Note ---
Date of Service January 12, 2020 Assessment & Plan (1) Atrial fibrillation with RVR: Patient is a 49-year-old male with history as outlined with notable congenitally bicuspid aortic valve with moderate to borderline severe aortic stenosis, past paroxysmal atrial fibrillation presents now with severe pain and discomfort in association with recent surgical abscess. On examination patient unaware of is found to be in atrial fibrillation with elevated ventricular spots likely being driven by underlying pain and illness. Patient's chads vas 2 score of 1 with contraindications to anticoagulation currently. Normal coronaries by prior cardiac catheterization and preserved LV systolic function Patient asymptomatic other than with presenting issues right groin pain and discomfort likely driving recurrence of atrial fibrillation and elevated rates Recommendations: Continue sotalol as ordered. QT without prolongation. Patient with spontaneous conversion to sinus rhythm without further rhythm breaks. We will continue current medications on discharge stable from cardiac standpoint at this point time though underlying other issues need to be addressed. Will need to continue to avoid QT prolonging medications. (2) Congenital bicuspid aortic valve: Blood cultures negative. We will repeat echocardiogram now that heart rate is controlled to reassess aortic valve velocity (3) Postoperative abscess: (4) Hypertension: Admission and Anticipated Discharge Date Admission Date: January 08, 2020 Subjective Patient seen and examined, chart, medications, telemetry reviewed. Patient ambulatory in the hallway today though using walker due to hip discomfort and right groin pain. No dizziness or lightheadedness. Spontaneously converted to sinus rhythm last evening and has remained in sinus since. Tolerating sotalol well with no QT prolongation Physical Exam Constitutional: WD/WN, vitals as above Eyes: PERRL, conjunctivae normal, anicteric sclerae ENMT: external ear and nose normal, oropharynx normal Neck: trachea midline, no thyromegaly Respiratory: normal respiratory effort, lungs clear to auscultation Cardiovascular: Rate/Rhythm: + tachycardic and + irregularly irregular Heart Sounds: normal S1 and + murmur (Grade 2/6 to 3/6 harsh systolic murmur, no diastolic murmur); + abnormal S2 (Diminished S2) and no gallop Palpation: normal PMI Vessels: normal carotid upstroke and radial pulses present; no JVD and no carotid bruit Extremities: no edema Gastrointestinal (Abdomen): normal bowel sounds, soft, nontender, no hepatosplenomegaly Musculoskeletal: no cyanosis or clubbing, extremities motor strength 5/5 Skin: no rashes, warm and dry Neurologic: PERRL, EOMI, accommodation nl, no face palsy, no dysarthria Psychiatric: A+Ox3, euthymic affect Genitourinary: + edema Results & Data ([facility]) Vital Signs (Past 12 Hours) Vital Signs Temp Pulse Pulse Resp BP Pulse Ox 01/12/20 11:01 36.6 C 66 20 110/69 96 01/12/20 09:30 68 108/70 01/12/20 08:45 59 L 01/12/20 07:17 36.4 C L 59 L 18 102/61 96 01/12/20 03:49 36.4 C L 57 L 16 89/53 L 95
--- NOTE | 2020-01-12 16:41 | Hospitalist Progress Note ---
Date of Service January 12, 2020 Assessment & Plan (1) Atrial fibrillation with RVR: Atrial fibrillation with RVR History of paroxysmal atrial fibrillation H/O congenital bicuspid aortic valve--moderate to severe aortic stenosis [id number] = 1. Previously on Aspirin and Metoprolol. Spontaneously converted to sinus Appreciate Cardiology Input Continue Sotalol Avoid other QT prolonging medications. Needs follow-up with cardiology upon discharge Monitor daily EKG for QTC Continue current medications For repeat echo to reassess aortic valve velocity today (2) Congenital bicuspid aortic valve: Follows with Cardiology (3) Hypertension: Continue lisinopril Also on Sotalol Monitor (4) Postoperative abscess: Scrotal Abscess Recent evacuation of large scrotal hematoma S/P I&D Wound Culture: E.Coli, Group B beta Strep Blood Culture: No growth to date Appreciate Urology Input Continue IV Zosyn>>>Transition to Omnicef Continue wound care (5) DVT prophylaxis: SCD's Ambulate. (6) Discharge planning issues: Anticipated discharge to home. Family Medicine follow-up with Dr. Armenta. Cardiology follow-up with Dr. Chávez. Surgical follow-up with Dr. William in [place]. Admission and Anticipated Discharge Date Admission Date: January 08, 2020 Subjective Patient is seen and examined at bedside Converted to sinus yesterday Reports right groin pain predominantly with ambulation Denies chest pain, shortness of breath, dizziness, nausea, abdominal pain Offers no other complaints Plan for repeat echo today Review of Systems Review of Systems: All systems reviewed & are unremarkable except as noted in HPI & below Physical Exam Physical Exam: Physical Exam: Vitals signs as noted above General Appearance:Moderately built and nourished, no apparent distress Head: normocephalic, Atraumatic Eyes: normal inspection, EOMI Neck: supple, Trachea midline Respiratory/Chest: Normal breath sounds, CTA Cardiovascular: S1, S2, + systolic murmur Abdomen/GI:Soft, Non tender, Bowel sounds present : Right groin/scrotal wound Extremities/Musculoskelatal:normal inspection, no edema Neurologic/Psych:AAOX3, grossly no focal neurological deficits Skin: normal color, warm Results & Data Results & Data ([facility]) Vital Signs (Past 12 Hours) Vital Signs Temp Pulse Pulse Resp BP BP Pulse Ox 01/12/20 15:53 36.6 C 65 18 112/73 100 01/12/20 15:46 67 01/12/20 11:01 36.6 C 66 20 110/69 96 01/12/20 09:30 68 108/70 01/12/20 08:45 59 L 01/12/20 07:17 36.4 C L 59 L 18 102/61 96 Laboratory Results [facility] 01/12/20 07:01 Sodium 140 Potassium 3.8 Chloride 107 Carbon Dioxide 27 BUN 17 D Creatinine 0.97 Glucose 98 Calcium 8.8
[2020-01-12] MEDS: ACETAMINOPHEN 500 MG TAB PO PRN (18:16)
[2020-01-13] MEDS: ACETAMINOPHEN 500 MG TAB PO PRN ×2 (05:56→12:38)
[2020-01-13 07:22] LABS: BUN Creatinine Ratio 16.3 (10-20); Creatinine Clr Calc Pharmacy 127.6 ml/min; Est GFR (African American) 117.2; Est GFR (Non-African American) 101.1; Magnesium 2.1 mg/dl (1.8-2.4); Potassium 3.9 mmol/L (3.5-5.1)
[2020-01-13] MEDS: SOTALOL HCL 80 MG TAB PO SCH (08:25)
[2020-01-13] MEDS: LACTOBACILLUS ACIDOPHILUS (FLORANEX) TAB PO SCH ×2 (08:26→12:31)
[2020-01-13] MEDS: ASCORBIC ACID 500 MG TAB PO SCH (08:26)
[2020-01-13] MEDS: MULTIVITAMIN TAB PO SCH (08:26)
[2020-01-13] MEDS: CEFDINIR 300 MG CAP PO SCH (08:26)
[2020-01-13] MEDS: MAGNESIUM OXIDE 400 MG TAB PO SCH (08:26)
[2020-01-13] MEDS: CHOLECALCIFEROL 1,000 UNITS 25 MCG TAB PO SCH (08:26)
[2020-01-13] MEDS: lisinopriL 10 MG TAB PO SCH (08:27)
[2020-01-13] MEDS: ATORVASTATIN 20 MG TAB PO SCH (08:27)
--- NOTE | 2020-01-13 13:21 | Urology Progress Note ---
Date of Service January 13, 2020 Assessment & Plan (1) Scrotal abscess: Overall, his wound seems to be healing appropriately He has home nursing arranged alreadyI think this is more than adequate from a wound care standpoint I anticipate continued recovery of his mobility over the next 1 to 2 weeks as inflammation decreases Overall I think is doing well enough for discharge home Admission and Anticipated Discharge Date Admission Date: January 08, 2020 Subjective Continues to make progress from a scrotal standpoint He is more ambulatory although still moving slowly He was seen by wound care yesterday who started the process of teaching about a pack his wound He also has home nursing arranged for after discharge Afebrile, vital signs stable Review of Systems Review of Systems: All systems reviewed & are unremarkable except as noted in HPI & below Physical Exam Physical Exam: Scrotal incision is clean, no discharge, no erythema, minimal edema Dressing came out last night after a shower and I replaced the dressing and packed it todayapproximately 1/2 cm in depth, packed with an iodoform gauze strip Constitutional: well developed and well nourished Respiratory: no respiratory distress Cardiovascular: Extremities: no pedal edema Gastrointestinal (Abdomen): Inspection/Auscultation: abdomen normal to inspection Results & Data ([facility]) Vital Signs (Past 12 Hours) Vital Signs Temp Pulse Resp BP Pulse Ox 01/13/20 11:16 37.0 C 61 19 121/79 97 01/13/20 07:22 36.7 C 62 18 124/78 95 01/13/20 03:30 36.8 C 67 16 120/77 96 PG Care Time/CCT Total # of Minutes Spent Total Time Spent with Patient: Total time spent is greater than 50% in coordination of care (as documented) at patient's floor/unit and/or counseling patient: Coding Level of Care Code 10412 Subseq Hosp Care Lvl 2 Diagnoses Scrotal abscess N49.2
--- NOTE | 2020-01-13 13:36 | Hospitalist Progress Note ---
Date of Service January 13, 2020 Assessment & Plan (1) Atrial fibrillation with RVR: Atrial fibrillation with RVR History of paroxysmal atrial fibrillation H/O congenital bicuspid aortic valve--moderate to severe aortic stenosis [id number] = 1. Previously on Aspirin and Metoprolol. Spontaneously converted to sinus Appreciate Cardiology Input Continue Sotalol 80 mg BID Avoid other QT prolonging medications. Needs follow-up with cardiology upon discharge Monitor daily EKG for QTC No plan to restart aspirin upon discharge Needs follow-up with cardiology upon discharge (2) Congenital bicuspid aortic valve: Follows with Cardiology (3) Hypertension: Continue lisinopril Also on Sotalol Monitor (4) Postoperative abscess: Scrotal Abscess Recent evacuation of large scrotal hematoma S/P I&D Wound Culture: E.Coli, Group B beta Strep Blood Culture: No growth to date Appreciate Urology Input Continue IV Zosyn>>>Transition to Omnicef Continue wound care (5) DVT prophylaxis: SCD's Ambulate. (6) Discharge planning issues: Anticipated discharge to home. Family Medicine follow-up with Dr. Armenta. Cardiology follow-up with Dr. Chávez. Surgical follow-up with Dr. William in [place]. Admission and Anticipated Discharge Date Admission Date: January 08, 2020 Subjective Patient is seen and examined at bedside Continues to be in sinus rhythm Discussed with cardiology today No new complaints Right groin pain continues to improve Denies chest pain, SOB, dizziness, nausea, abdominal pain Offers no other complaints Review of Systems Review of Systems: All systems reviewed & are unremarkable except as noted in HPI & below Physical Exam Physical Exam: Physical Exam: Vitals signs as noted above General Appearance:Moderately built and nourished, no apparent distress Head: normocephalic, Atraumatic Eyes: normal inspection, EOMI Neck: supple, Trachea midline Respiratory/Chest: Normal breath sounds, CTA Cardiovascular: S1, S2, + systolic murmur Abdomen/GI:Soft, Non tender, Bowel sounds present : Right groin/scrotal wound Extremities/Musculoskelatal:normal inspection, no edema Neurologic/Psych:AAOX3, grossly no focal neurological deficits Skin: normal color, warm Results & Data Results & Data ([facility]) Vital Signs (Past 12 Hours) Vital Signs Temp Pulse Resp BP Pulse Ox 01/13/20 11:16 37.0 C 61 19 121/79 97 01/13/20 07:22 36.7 C 62 18 124/78 95 01/13/20 03:30 36.8 C 67 16 120/77 96 Laboratory Results [facility] 01/13/20 06:39 Sodium 139 Potassium 3.9 Chloride 107 Carbon Dioxide 26 BUN 14 Creatinine 0.86 Glucose 97 Calcium 9.0
--- NOTE | 2020-01-13 13:55 | Discharge Summary ---
Date of Service January 13, 2020 Admission HPI Per Admitting Provider CHIEF COMPLAINT: Right groin and scrotal pain. 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 The patient recently in December 12 while he was playing softball, he had a sharp pull in his right groin and a significant rupture of the blood vessels with a resultant hematoma formation on right groin and right hemiscrotum. It was surgically treated in [facility] in December 15 with a catheter in place, catheter and drain was taken out on 12/21/2019 and then he was doing good. In the last 2 weeks,his symptoms are much improved and swelling has gone down, was ambulating okay, but yesterday morning when he woke up, he had severe pain in his right groin region and when he tried to walk, and any weight on the leg, he was having severe excruciating pain shooting in the region to the rectal region and it was not getting better, so he came to the ER today. In the ER was found in rapid AFib. He has a white count 11.4. ESR of 47. His COVID test in the ER was negative and the imaging studies shows small organized fluid collection in the region located anterior and to the right of the pubic symphysis, possible seroma versus hematoma versus small abscess. ER consulted surgery and urology. The patient was initially started on Rocephin and vancomycin in the ER, urology and surgery is going to decide plan of action in the a.m. The patient was started on Cardizem drip in the ER. Currently, says when he is resting, the pain is okay, but when he moves, the pain is severe. Denies any other complaints. Denies any headache, no dizziness, no blurred vision, no earache, no runny nose, no sore throat, once in a while he gets cough, no difficulty swallowing. His appetite has been down since yesterday from the pain. Whenever he has severe pain, he feels short of breath. Denies any chest pain, no nausea, no vomiting. Last bowel movement was couple of days ago. He is micturating fine. No hematuria. No swelling in the lower extremities. Admission Exam Per Admitting Provider PHYSICAL EXAMINATION: GENERAL: The patient is of moderate build, not in acute distress. VITAL SIGNS: Temperature 36.9, pulse 130s-160s, respiratory rate 19, blood pressure 132/90, oxygen 95% on room air. HEENT: No pallor. Pupils equal, round, and reactive to light. NECK: Supple, no neck masses. CARDIOVASCULAR: S1, S2 heard. Tachycardia, irregular rhythm. No murmurs. RESPIRATORY SYSTEM: Normal AP diameter. No accessory muscle use. No wheezing, no crackles. ABDOMEN: Soft, bowel sounds present, nontender. No distention. GENITOURINARY: Right groin and right scrotal region is swollen, erythematous and somewhat tender. CENTRAL NERVOUS SYSTEM: Cranial nerves II through XII grossly intact, nonfocal. EXTREMITIES: No edema, no erythema. Principal Diagnosis Atrial fibrillation with RVR Scrotal Abscess Discharge Data Allergies Allergy/AdvReac Type Severity Reaction Status Date / Time No Known Allergies Allergy Verified 01/08/20 16:30 Consultations 01/08/20 19:40 Consult General Surgery Stat Consult Urology Stat ED Decision to Admit Stat 01/08/20 21:59 Consult Case Management - Discharge Planning Routine 01/09/20 08:00 Consult Cardiology Routine Procedures Performed CT ABD: Lung bases: The heart is normal in size and without pericardial effusion. The lung bases are clear. There is a small hiatal hernia. Liver: The contrast-enhanced liver is normal in size, contour, and attenuation. There is no intrahepatic biliary ductal dilatation. The hepatic veins and portal veins are patent. Gallbladder: Unremarkable. Spleen: Normal in size and attenuation. Pancreas: Mildly atrophic and grossly unremarkable. Adrenal glands: Unremarkable. Kidneys: The contrast enhanced kidneys demonstrate mild cortical atrophy and are without hydronephrosis. The kidneys enhance symmetrically. Abdominal vasculature: The abdominal aorta is normal in course and caliber. Bowel: There is no bowel obstruction. Scattered colonic diverticula are seen without CT evidence of acute diverticulitis. The appendix is well-visualized and normal. Peritoneum: There is no intraperitoneal free air or abdominal ascites. There is a fat-containing umbilical hernia. There is soft tissue inflammation identified in the right inguinal region extending towards the right scrotum. No deep soft tissue gas is identified in the perineum. There is an organized fluid collection identified just anterior to the right aspect of the pubic symphysis on image #[id number]. This measures 3.3 x 3.1 x 2.6 cm. Tiny foci of gas are noted within this collection. Mild inflammatory change is suggested in the right adductor compartment. Scrotal wall thickening is noted. The testes are grossly unremarkable but not well evaluated by CT. Lymphadenopathy: None. Pelvic viscera: The bladder, prostate, and seminal vesicles are normal as visualized. Skeletal structures: There is mild lumbosacral spondylosis. No lytic or blastic lesions are seen. CXR: Cardiomegaly with no acute cardiopulmonary abnormality. Venous Doppler: There is no sonographic evidence of deep venous thrombosis identified in the right lower extremity. Scrotal USD: Unremarkable sonographic appearance of the testes. Scrotal wall edema is seen on the right. Ordered Studies 01/08/20 15:41 US scrotum/testicle Stat US venous doppler LE RT Stat 01/08/20 17:21 CT abd pelvis IV con only Stat Hospital Course (1) Atrial fibrillation with RVR: Atrial fibrillation with RVR History of paroxysmal atrial fibrillation H/O congenital bicuspid aortic valve--moderate to severe aortic stenosis [id number] = 1. Previously on Aspirin and Metoprolol. Spontaneously converted to sinus Appreciate Cardiology Input Continue Sotalol 80 mg BID Avoid other QT prolonging medications. Needs follow-up with cardiology upon discharge Monitor daily EKG for QTC No plan to restart aspirin upon discharge Needs follow-up with cardiology upon discharge (2) Congenital bicuspid aortic valve: Follows with Cardiology (3) Hypertension: Continue lisinopril Also on Sotalol Monitor (4) Postoperative abscess: Scrotal Abscess Recent evacuation of large scrotal hematoma S/P I&D Wound Culture: E.Coli, Group B beta Strep Blood Culture: No growth to date Appreciate Urology Input Continue IV Zosyn>>>Transition to Omnicef Continue wound care (5) DVT prophylaxis: SCD's Ambulate. (6) Discharge planning issues: Anticipated discharge to home. Family Medicine follow-up with Dr. Armenta. Cardiology follow-up with Dr. Chávez. Surgical follow-up with Dr. William in [place]. Total Time Total Time Spent Total Time Spent (In Minutes): 41 minutes Total Time Includes: Examination of the Patient, Discharge Planning, Medication Reconciliation, Communication With Other Providers and Other Discharge Plan Discharge Items Patient Disposition: Home - Home Health Services Reason For Visit: RIGHT GROIN PAIN Discharge Diagnosis: Atrial fibrillation with RVR Scrotal Abscess Condition on Discharge: Good Activity: Per Instructions section Exercise/Sports: Gradually increase as tolerated Non-emergency contact: Primary Care Provider, Surgeon and Insurance Territory Manager Call non-emergency contact if: you have any medication questions, your symptoms worsen, your pain is not controlled, your pain is worsening, your pain is unusual for you, your pain is concerning for you, you have a fever, your wound has increased redness, your wound has increased drainage and your wound pain has increased Follow-up/Referrals: Jeff Armenta MD [Primary Care Provider] - 01/18/20 11:20 am (Date & Time 01/18/2020 11:20 AM Provider Jeff Armenta MD [facility] ) Diet: Heart Healthy Addtl Attending Provider Instructions: Follow-up with your primary care physician Dr. Armenta on January 18, 2020 at 11:20 AM Follow-up with your office engineer Dr. Chávez in 2 weeks Follow up with your Surgeon as recommended by your surgeon Complete the antibiotic course (Omnicef) for 7 more days Your final blood cultures are pending at the time of discharge. Follow-up with your physician for results. Seek immediate medical attention if your symptoms reoccur or worsen Pending Studies at Discharge: Yes Studies:: Blood Cultures Stand-Alone Forms: My [facility], Work/School Release (Inpt), Smoking Cessation Medications and DC Order Prescriptions: New sotalol 80 mg Tablet 80 mg PO BID 30 Days Qty: 60 RF: 0 oxycodone-acetaminophen [Percocet] 5-325 mg Tablet 1 tab PO Q8H PRN (Reason: pain) Qty: 10 RF: 0 cefdinir 300 mg Capsule 300 mg PO BID Qty: 14 RF: 0 Lactobacillus acidoph-L.bulgar [Floranex] 1 million cell Tablet 4 tab PO QIDM Qty: 80 RF: 0 Continued atorvastatin 20 mg Tablet 20 mg PO DAILY RF: 0 multivitamin Tablet 1 tab PO DAILY RF: 0 magnesium oxide 400 mg magnesium Tablet 400 mg PO DAILY RF: 0 cholecalciferol (vitamin D3) [Vitamin D3] 1,000 unit Tablet,Chewable 1,000 unit PO DAILY RF: 0 ascorbic acid (vitamin C) [Vitamin C] 500 mg Tablet,Chewable 1,000 mg PO DAILY RF: 0 Changed lisinopril 20 mg tablet 10 mg PO DAILY Qty: 0 RF: 0 Discontinued aspirin 81 mg Tablet,Delayed Release (Dr/Ec) 81 mg PO DAILY RF: 0 metoprolol succinate 50 mg Tablet Extended Release 24 Hr 50 mg PO DAILY RF: 0 Discharge Orders: Discharge Order (Routine); Ordered 01/13/20 Ordered By: Jaime Vale/Other Patient Handouts: AFL/Afib, Stroke Prevent Live W Atrial Fib, Understanding Atrial Fibrillation Admission Data Admit Date/Time: 01/08/20 21:02 Attending Provider: Jaime Herrera Admit Provider: Seth Haley Primary Care Provider: Jeff Armenta Other Providers: Michael Conti ; Josiane Gonzalez ; Seth Haley ; Melo Fulton ; [facility] Other Interventions: Discharge Summary Assessment (RN) Last Done: 01/13/20 14:04
--- NOTE | 2020-01-13 14:57 | Cardiology Progress Note ---
Date of Service January 13, 2020 Assessment & Plan (1) Paroxysmal atrial fibrillation: Maintaining sinus rhythm on sotalol. Would continue sotalol (2) Scrotal abscess: Blood cultures negative this admission (3) Congenital bicuspid aortic valve: Echocardiogram reflects borderline severe to severe aortic stenosis. Lisinopril decreased to 10 mg/day this admission. Outpatient cardiology follow-up to be arranged Admission and Anticipated Discharge Date Admission Date: January 08, 2020 Subjective Patient seen and examined, chart, medications, telemetry reviewed. Feels well overnight. No worsening shortness of breath chest pains or dizziness. Remains in sinus rhythm Physical Exam Constitutional: WD/WN, vitals as above Eyes: PERRL, conjunctivae normal, anicteric sclerae ENMT: external ear and nose normal, oropharynx normal Neck: trachea midline, no thyromegaly Respiratory: normal respiratory effort, lungs clear to auscultation Cardiovascular: Rate/Rhythm: regular rate and regular rhythm Heart Sounds: normal S1 and + murmur (Harsh grade 3/6 systolic murmur no diastolic murmur); + abnormal S2 (Diminished S2) and no gallop Palpation: normal PMI Vessels: normal carotid upstroke and radial pulses present; no JVD and no carotid bruit Extremities: no edema Gastrointestinal (Abdomen): normal bowel sounds, soft, nontender, no hepatosplenomegaly Musculoskeletal: no cyanosis or clubbing, extremities motor strength 5/5 Skin: no rashes, warm and dry Neurologic: PERRL, EOMI, accommodation nl, no face palsy, no dysarthria Psychiatric: A+Ox3, euthymic affect Results & Data ([facility]) Vital Signs (Past 12 Hours) Vital Signs Temp Pulse Resp BP Pulse Ox 01/13/20 11:16 37.0 C 61 19 121/79 97 01/13/20 07:22 36.7 C 62 18 124/78 95 01/13/20 03:30 36.8 C 67 16 120/77 96 Laboratory Results Laboratory Results - last 24 hr 01/13/20 06:39 Sodium 139 Potassium 3.9 Chloride 107 Carbon Dioxide 26 Anion Gap 6.0 BUN 14 Creatinine 0.86 Est Cr Clr Drug Dosing 127.6 Est GFR ( Amer) 117.2 Est GFR (Non-Af Amer) 101.1 BUN/Creatinine Ratio 16.3 Glucose 97 Calcium 9.0 Magnesium 2.1
--- NOTE | 2020-01-14 12:09 | Electrocardiogram Report ---
Test Reason : Blood Pressure : / mmHG Vent. Rate : 058 BPM Atrial Rate : 058 BPM P-R Int : 150 ms QRS Dur : 088 ms QT Int : 454 ms P-R-T Axes : 040 023 026 degrees QTc Int : 445 ms Sinus bradycardia Otherwise normal ECG When compared with ECG of 11-JAN-2020 08:06, (unconfirmed) Sinus rhythm has replaced Atrial fibrillation Vent. rate has decreased BY 52 BPM Nonspecific T wave abnormality has replaced inverted T waves in Inferior leads Confirmed by Roberth Solomon ([id number]) on 01/14/2020 12:09:05 PM Referred By: REFERRED SELF Confirmed By:Roberth Solomon
--- NOTE | 2020-01-14 12:36 | Electrocardiogram Report ---
Test Reason : Blood Pressure : / mmHG Vent. Rate : 066 BPM Atrial Rate : 066 BPM P-R Int : 148 ms QRS Dur : 084 ms QT Int : 426 ms P-R-T Axes : 037 030 042 degrees QTc Int : 446 ms Normal sinus rhythm Normal ECG When compared with ECG of 12-JAN-2020 11:45, (unconfirmed) No significant change was found Confirmed by Roberth Solomon ([id number]) on 01/14/2020 12:36:23 PM Referred By: REFERRED SELF Confirmed By:Roberth Solomon
== END 2020-01-13 15:19 | disposition home health service (06) | DRG 857 ==
LOC: ED 15:12 → SUATTDRO 21:02 → 2S 21:02
DX: I10 Essential (primary) hypertension; Z79.82 Long term (current) use of aspirin; Q23.1 Congenital insufficiency of aortic valve; N49.2 Inflammatory disorders of scrotum; T81.49XA Infection following a procedure, other surgical site, initial encounter; E78.5 Hyperlipidemia, unspecified; I48.0 Paroxysmal atrial fibrillation; G47.33 Obstructive sleep apnea (adult) (pediatric)

== ENCOUNTER 2023-10-09 13:07 | Inpatient (IN) ==
--- NOTE | 2023-10-09 13:50 | Emergency Department Note ---
History of Present Illness General Chief complaint: Leg Injury/Pain Stated complaint: PAIN IN L LEG, WORSENED SINCE FRIDAY Time Seen by Provider: 10/09/23 13:28 History of Present Illness This is a 53-year-old male that presents to the emergency department via private vehicle with complaints of "left thigh pain". The patient states that late July of this year he was seen at [facility] for evaluation of left leg pain that ultimately was from an arterial clot. Patient notes he was admitted for 4 days receiving IV heparin and discharged home on oral Eliquis. Not long after he began with pain on the other side, being out in the right ankle. He states that he then return for further assessment and was found to have a DVT on the right side. He states that he was then transitioned to Lovenox x 39 days and then back to Eliquis. He has been Eliquis now for a few weeks and the doing well. Then, he notes that this past Friday, he developed left thigh pain. He notes that his just below the left groin area. He denies any known trauma or injury but perhaps thought it was secondary to some yard work. He was seen here on Friday for evaluation of the left thigh pain. Then yesterday while working outside he developed some shortness of breath and pain in his chest. He took some pain medicine and noted some improvement. The pain in the left leg continues today. No chest pain or shortness of breath today. Left leg pain made worse by standing from a sitting position and with certain movement. Home Medications Medication Instructions Recorded Confirmed Type Golry Probiotic 1 tab PO DAILY 10/09/23 10/09/23 History acetaminophen 500 mg tablet 1,000 mg PO Q6H PRN Pain 10/09/23 10/09/23 History (Tylenol Extra Strength) amoxicillin 500 mg capsule 2,000 mg PO UD 10/09/23 10/09/23 History apixaban 5 mg tablet (Eliquis) 5 mg PO BID 10/09/23 10/09/23 History ascorbic acid (vitamin C) 500 mg 1,000 mg PO 2XWK 10/09/23 10/09/23 History tablet (Vitamin C) aspirin 81 mg tablet,delayed 81 mg PO DAILY 10/09/23 10/09/23 History release atorvastatin 40 mg tablet 40 mg PO HS 10/09/23 10/09/23 History metoprolol succinate 100 mg 100 mg PO DAILY 10/09/23 10/09/23 History tablet,extended release 24 hr multivitamin 1 tab PO DAILY 10/09/23 10/09/23 History Allergies Allergy/AdvReac Type Severity Reaction Status Date / Time No Known Allergies Allergy Verified 10/09/23 17:36 Past Med/Surg History Problem List (Updated 10/10/23 @ 07:37 by Zoltan Iniguez PA-C) History of heart valve replacement (Acute) AVR w/ 25mm Anglin Inspiris valve, Ligation left atrial appendage with clip on 06/21/20 @ [facility] Arterial occlusion (Acute) DVT of leg (deep venous thrombosis) Elevated troponin (Acute) Acute pain of left thigh (Acute) Scrotal abscess Postoperative abscess (Acute) Atrial fibrillation with RVR (Acute) Wrist fracture (Acute) Radial head fracture (Acute) Nasal bone fractures (Acute) Paroxysmal atrial fibrillation s/p sync. DCCV (failed to convert on 07/24/20 ... startedon Amiodarone Congenital bicuspid aortic valve s/p AVR and RAUL clip 07/18/2020 Hypertension Medical History DVT of leg (deep venous thrombosis) Arterial embolism and thrombosis of lower extremity History of deviated nasal septum Atrial fibrillation Surgical History History of heart valve replacement AVR w/ 25mm Anglin Inspiris valve, Ligation left atrial appendage with clip on 06/21/20 @ [facility] H/O cardiac catheterization History of inguinal hernia repair Family History Other No pertinent family history Social History Smoking Status: Never smoker Second Hand Exposure: No; Do You Dip or Chew Tobacco: No; Tobacco Cessation Education Requested by Patient: No Hx Alcohol Use: Yes Alcohol type: beer Hx Substance Use: No Preferred Language: Dominican Communication Ability: Effective Tailor Fitter Required: No Beliefs That Will Affect Care: None marital status: Single Current Living Situation: Significant Other 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 Other Information That Helps Us Care for You: No Feels Safe at Home: Yes Safety Concerns: Feels Safe At This Time Assistive Devices: Glasses Review of Systems A total of 10 systems reviewed and were otherwise negative Physical Exam Vital Signs Vital Signs - 24 hr 10/09/23 13:19 10/09/23 14:45 10/09/23 15:07 Temperature 36.9 C Temperature Source Temporal Artery Scan Pulse Rate 87 79 Pulse Rate from SpO2 Sensor 79 Pulse Rhythm Regular Pulse Strength Normal Respiratory Rate 18 20 Respiratory Effort / Characteristics Non-Labored Respiratory Depth Normal Respiratory Pattern Regular Blood Pressure 147/100 H 121/73 Blood Pressure Mean 115 89 Blood Pressure Position Sitting Pulse Oximetry 98 95 98 Oxygen Delivery Method Room Air Room Air Sepsis Recent Fever Within 48 Hours No Sepsis New/Unexplained Change in Mental Status No Sepsis Action Taken by Nursing No Action Required 10/09/23 16:18 10/09/23 17:24 10/09/23 18:03 Temperature Temperature Source Pulse Rate 74 71 70 Pulse Rate from SpO2 Sensor 74 71 71 Pulse Rhythm Pulse Strength Respiratory Rate 16 24 21 Respiratory Effort / Characteristics Respiratory Depth Respiratory Pattern Blood Pressure 117/75 128/79 Blood Pressure Mean 89 95 Blood Pressure Position Pulse Oximetry 96 95 96 Oxygen Delivery Method Sepsis Recent Fever Within 48 Hours Sepsis New/Unexplained Change in Mental Status Sepsis Action Taken by Nursing 10/09/23 18:30 Temperature Temperature Source Pulse Rate 69 Pulse Rate from SpO2 Sensor 68 Pulse Rhythm Pulse Strength Respiratory Rate 17 Respiratory Effort / Characteristics Respiratory Depth Respiratory Pattern Blood Pressure Blood Pressure Mean Blood Pressure Position Pulse Oximetry 96 Oxygen Delivery Method Sepsis Recent Fever Within 48 Hours Sepsis New/Unexplained Change in Mental Status Sepsis Action Taken by Nursing VITAL SIGNS - Vital signs and nursing notes were reviewed. Stable and afebrile. GENERAL -53-year-old male appearing his stated age who is in no acute distress. Communicates well with provider and answers questions appropriately. SKIN - Without rashes. No meningeal or petechial rash. Skin overlying the left leg is unremarkable. HEAD - NC/AT. EYES - PERRL with EOMI bilaterally. Sclera anicteric. MOUTH/OROPHARYNX - Without perioral cyanosis. Buccal mucosa pink and moist and without leukoplakia. Tongue midline with equal elevation of palate bilaterally. No tonsillar hypertrophy, erythema, or exudates noted. Good dentition noted. NECK - Neck with FROM. No nuchal rigidity. LUNGS - Chest wall symmetric without accessory muscle use, intercostals retractions, or central cyanosis. Normal vesicular breath sounds CTA B/L. No wheezes, rales, or rhonchi appreciated. CARDIAC - RRR ABDOMEN - Abdominal contour normal without pulsations or visible masses. BS normoactive all four quadrants. No tenderness, palpable masses, hepatosplenomegaly, or ascites noted. EXTREMITIES - No clubbing or peripheral cyanosis. Bilateral lower extremities are appropriately warm and well-perfused. Bilateral dorsalis pedis pulses within normal limits bilat. +5/5 strength noted in UE/LE bilaterally. No mottling or discoloration. No coolness appreciated or abnormal temperature to the lower extremities. Lower extremities are without abnormality to inspection. Patient is able to stand and axial load. Full active range of motion of the lower extremities. NEUROLOGIC - Cranial nerves grossly intact. PSYCH - A&O, and cooperates fully with examiner. Pt is very pleasant and interacts well with examiner. Course Administered Medications Atorvastatin Calcium (Atorvastatin 40 Mg Tab) 40 mg PO HS LANA Stop: 11/08/23 21:11 Last Admin: 10/09/23 22:00 Dose: 40 mg Documented By: NORMAN Heparin Sodium/Dextrose (Heparin Sodium/Dextrose) 25,000 units in 500 mls @ 28 mls/hr IV .[id number] LANA; Protocol Stop: 11/08/23 18:59 Last Titration: 10/10/23 04:10 Dose: 1,400 units/hr, 28 mls/hr Documented By: NORMAN Co-signed By: DANIEL Titration: 10/10/23 03:10 Dose: 0 units/hr, 0 mls/hr Documented By: NORMAN Co-signed By: DANIEL Admin: 10/09/23 19:55 Dose: 1,600 units/hr, 32 mls/hr Documented By: Co-signed By: NRB Discontinued Medications Acetaminophen (Acetaminophen 325 Mg Tab) 650 mg PO NOW STA Stop: 10/09/23 14:40 Last Admin: 10/09/23 15:32 Dose: 650 mg Documented By: HS Acetaminophen (Acetaminophen 500 Mg Tab) Confirm Administered Dose 1,000 mg .ROUTE .STK-MED ONE Stop: 10/09/23 21:18 Last Admin: 10/09/23 21:18 Dose: 1,000 mg Documented By: NORMAN Ioversol (Optiray 320 125ml) 119 ml IV ONCE ONE Stop: 10/09/23 15:11 Last Admin: 10/09/23 15:04 Dose: 119 ml Documented By: ALDO Medical Decision Making Laboratory Data 10/10/23 02:05 10/10/23 02:05 Lab Results 10/09/23 10/09/23 10/09/23 Range/Units 14:00 14:05 16:14 WBC 11.56 H (4.8-10.8) K/ul RBC 4.51 L (4.70-6.10) M/uL Hgb 13.0 L (14.0-18.0) g/dl Hct 38.7 L (42.0-52.0) % MCV 85.8 (80.0-100.0) fL MCH 28.8 (25.0-34.0) pg MCHC 33.6 (32.0-36.0) g/dL RDW Std Deviation 41.0 (36.4-46.3) fL RDW Coeff of Solomon 13.2 (11.5-14.5) % Plt Count 251 (130-400) K/uL MPV 8.9 L (9.4-12.4) fL Immature Gran % (Auto) 0.4 % Neut % (Auto) 70.8 % Lymph % (Auto) 19.2 % [place] % (Auto) 8.6 % Eos % (Auto) 0.6 % Baso % (Auto) 0.4 % Neut # (Auto) 8.18 H (1.40-6.50) K/uL Lymph # (Auto) 2.22 (1.20-3.40) K/uL [place] # (Auto) 0.99 H (0.11-0.59) K/uL Eos # (Auto) 0.07 (0.00-0.50) K/uL Baso # (Auto) 0.05 (0.00-0.20) K/uL Immature Gran # (Auto) 0.05 (0.01-0.20) K/uL PT 10.9 (9.0-12.0) Seconds INR 1.0 (0.9-1.1) APTT 31 (21-31) Seconds PTT Ratio 1.2 Sodium 135 L (136-145) mmol/L Potassium 3.7 (3.5-5.1) mmol/L Chloride 102 (98-107) mmol/L Carbon Dioxide 26 (21-32) mmol/L Anion Gap 7 (3-11) BUN 16 (6-23) mg/dl Creatinine 0.94 (0.6-1.4) mg/dl Est Cr Clr Drug Dosing Not Reportable Est GFR ( Amer) 106.1 ml/min Est GFR (Non-Af Amer) 91.6 ml/min BUN/Creatinine Ratio 17.0 (10-20) Glucose 121 H (70-99(Fasting)) mg/dl Lactate 1.0 (0.4-2.0) mmol/L Calcium 9.7 (8.6-10.3) mg/dl Magnesium 2.0 (1.7-2.4) mg/dl Total Bilirubin 1.0 (0.2-1.0) mg/dl AST 17 (13-39) U/L ALT 17 (7-52) U/L Alkaline Phosphatase 85 (34-104) U/L Total Creatine Kinase 93 (30-223) U/L Troponin I High Sens 242.5 H* 321.7 H* D (0-20) pg/ml Total Protein 7.8 (6.0-8.3) gm/dl Albumin 4.1 (3.4-5.0) gm/dl Globulin 3.7 (2.5-4.0) gm/dl Albumin/Globulin Ratio 1.1 (0.9-2) Procalcitonin 0.08 (0-0.5) ng/ml TSH 1.230 (0.300-4.500) uIu/ml 10/09/23 Range/Units 18:13 WBC (4.8-10.8) K/ul RBC (4.70-6.10) M/uL Hgb (14.0-18.0) g/dl Hct (42.0-52.0) % MCV (80.0-100.0) fL MCH (25.0-34.0) pg MCHC (32.0-36.0) g/dL RDW Std Deviation (36.4-46.3) fL RDW Coeff of Solomon (11.5-14.5) % Plt Count (130-400) K/uL MPV (9.4-12.4) fL Immature Gran % (Auto) % Neut % (Auto) % Lymph % (Auto) % [place] % (Auto) % Eos % (Auto) % Baso % (Auto) % Neut # (Auto) (1.40-6.50) K/uL Lymph # (Auto) (1.20-3.40) K/uL [place] # (Auto) (0.11-0.59) K/uL Eos # (Auto) (0.00-0.50) K/uL Baso # (Auto) (0.00-0.20) K/uL Immature Gran # (Auto) (0.01-0.20) K/uL PT (9.0-12.0) Seconds INR (0.9-1.1) APTT (21-31) Seconds PTT Ratio Sodium (136-145) mmol/L Potassium (3.5-5.1) mmol/L Chloride (98-107) mmol/L Carbon Dioxide (21-32) mmol/L Anion Gap (3-11) BUN (6-23) mg/dl Creatinine (0.6-1.4) mg/dl Est Cr Clr Drug Dosing Est GFR ( Amer) ml/min Est GFR (Non-Af Amer) ml/min BUN/Creatinine Ratio (10-20) Glucose (70-99(Fasting)) mg/dl Lactate (0.4-2.0) mmol/L Calcium (8.6-10.3) mg/dl Magnesium (1.7-2.4) mg/dl Total Bilirubin (0.2-1.0) mg/dl AST (13-39) U/L ALT (7-52) U/L Alkaline Phosphatase (34-104) U/L Total Creatine Kinase (30-223) U/L Troponin I High Sens 344.3 H* (0-20) pg/ml Total Protein (6.0-8.3) gm/dl Albumin (3.4-5.0) gm/dl Globulin (2.5-4.0) gm/dl Albumin/Globulin Ratio (0.9-2) Procalcitonin (0-0.5) ng/ml TSH (0.300-4.500) uIu/ml Imaging Data Radiologist's Impression: Chest CTA 10/09/23 13:45 CT angio chest PE protocol CT DOSE: 2392.47 mGy.cm HISTORY: 53 years-old Male with chest pain, hx of DVT. Acute chest pain TECHNIQUE: Multiple CTA images of the chest were obtained after the intravenous administration of 119 ml Optiray. Coronal and sagittal MIPS were obtained from the axial data set and were submitted for review. All measurements were obtained according to NASCET criteria. A dose lowering technique was utilized adhering to the principles of ALARA. COMPARISON: CT abdomen and pelvis of same day, CTA chest 06/24/2017 FINDINGS: CTA: Mild cardiomegaly. Median sternotomy. Atrial appendage occlusion device. Aortic valvular prosthesis. No thoracic aortic aneurysm or dissection. No pulmonary emboli identified. The segmental and subsegmental branches are suboptimally evaluated secondary to respiratory motion. CT CHEST: Unremarkable thyroid. No lymphadenopathy. No pneumothorax, pleural effusion, airspace consolidation or pulmonary edema. No suspicious pulmonary nodules or masses. No acute upper abdominal abnormality. Central airways are patent. Likely benign 2 mm fissural nodule at the right lung on image 120. Unremarkable soft tissues. No acute fracture. IMPRESSION: 1. Unremarkable CTA of the chest. No pulmonary emboli identified. 2. No pleural effusion or airspace consolidation. ACT 112: Negative or not required by law. The above report was generated using voice recognition software. It may contain grammatical, syntax or spelling errors. Electronically signed by: Jovon Hirsch M.D. 10/09/2023 3:46 PM Duplex Scan Lower Extremity Artery 10/09/23 13:48 ULTRASOUND LEFT LOWER EXTREMITY ARTERIAL CLINICAL HISTORY: Left leg pain. History of arterial clot. COMPARISON STUDY: No priors. TECHNIQUE: Real-time grayscale and color Doppler sonography of the arteries of the left lower extremity is performed from the inguinal crease to the foot. FINDINGS: No significant atherosclerotic plaque is identified throughout the arteries of the left lower extremity. There are triphasic arterial waveforms in the common femoral artery with velocities measuring up to 130 cm/s. The profunda femoris artery is patent with velocities measuring up to 69 cm/s. There are triphasic waveforms throughout the superficial, femoral and popliteal arteries. Velocities in the superficial femoral artery measure up to 119 cm/s and velocities in the popliteal artery measure up to 61 cm per second. The anterior tibial artery is patent with triphasic arterial waveforms and velocities measuring up to 102 cm/s. The dorsalis pedis artery is patent with velocities measuring up to 120 cm/s. There are blunted arterial waveforms in the peroneal and posterior tibial arteries. Velocities in the posterior tibial artery measure up to 25 cm per second and velocities in the peroneal artery measure up to 26 cm per second. There may be a focal vessel occlusion within the left peroneal artery. IMPRESSION: 1. There are significantly dampened arterial waveforms in the calf within the posterior tibial and peroneal arteries, likely representing vascular compromise. There may be focal occlusion within the mid left peroneal artery. 2. The remaining arteries of the left lower extremity are patent with normal arterial waveforms. Dictated: 10/09/2023 5:34 PM Transcribed: 10/09/2023 5:46 PM Serg [id number] [email or web address] Electronically signed by: Earnest Benitez M.D. 10/09/2023 6:00 PM Venous Doppler Study 10/09/23 13:48 ULTRASOUND LEFT LOWER EXTREMITY VENOUS CLINICAL HISTORY: Left leg pain. History of recent DVT. COMPARISON STUDY: Left lower extremity venous ultrasound dated 10/07/2023. TECHNIQUE: Real-time, grayscale, and color Doppler sonography of the deep veins of the left lower extremity was performed from the inguinal crease to the calf. Compression and augmentation were utilized. FINDINGS: There is no sonographic evidence of deep venous thrombosis identified in the left lower extremity. The common femoral, superficial femoral, and popliteal veins are patent and normally compressible. The greater saphenous vein and the profunda femoris vein at the junction with the common femoral vein are clear. The visualized calf veins are patent. IMPRESSION: There is no sonographic evidence of deep venous thrombosis identified in the left lower extremity. ACT 112: Negative or not required by law. Electronically signed by: Earnest Benitez M.D. 10/09/2023 5:[address] 10/09/23 14:17 CT VENOGRAM OF THE ABDOMEN AND PELVIS CLINICAL HISTORY: Atypical chest pain. Dyspnea. The venous thrombosis. Groin/thigh pain. COMPARISON STUDY: Abdominal CT dated 01/08/2020. TECHNIQUE: Following the IV administration of 119 cc of Optiray 320, CT venogram of the abdomen and pelvis is performed from the lung bases to the proximal femora. Images are reviewed in the axial, sagittal, and coronal planes. IV contrast was administered without complication. A dose lowering technique was utilized adhering to the principles of ALARA. FINDINGS: Lung bases: The patient is status post midline sternotomy and aortic valve surgery. The heart is enlarged and without pericardial effusion. The lung bases are clear. A small hiatal hernia is noted. Liver: The contrast-enhanced liver is normal in size, contour, and attenuation. There is no intrahepatic biliary ductal dilatation. The hepatic veins and portal veins are patent. Gallbladder: Unremarkable. Spleen: Normal in size and attenuation. Pancreas: Unremarkable. Adrenal glands: Unremarkable. Kidneys: The contrast enhanced kidneys are normal in size and without hydronephrosis. The kidneys enhance and excrete symmetrically. Abdominal vasculature: The abdominal aorta is normal in course and caliber. The inferior vena cava and iliac veins are patent. There is no evidence of deep venous thrombosis in the abdomen or pelvis. Bowel: The small bowel and colon are normal in course and caliber. The appendix is well-visualized and normal. Peritoneum: There is no intraperitoneal free air or abdominal ascites. There is a fat-containing umbilical hernia. Lymphadenopathy: None. Pelvic viscera: The bladder, prostate, and seminal vesicles are normal as visualized. Skeletal structures: No lytic or blastic lesions are seen. IMPRESSION: 1. No acute infectious or inflammatory findings are identified in the abdomen or pelvis. 2. There is no evidence of deep venous thrombosis in the inferior vena cava or iliac veins. 3. Cardiomegaly. 4. Additional findings as above. ACT 112: Negative or not required by law. Electronically signed by: Earnest Benitez M.D. 10/09/2023 3:31 PM MDM Narrative Patient was seen and evaluated as above in room b12. Review was performed of nursing notes and vital signs. I did review pertinent previous visits and patient history. After obtaining a thorough history and physical examination the above work up was performed. Patient presents to us today for evaluation of left medial upper leg pain as well as chest pain/shortness of breath that occurred yesterday. The chest pain and shortness of breath has not occurred at all today and was only yesterday. However the left leg pain does persist. Patient's medical history has been recently complicated by diagnosis of arterial clot in the left leg as well as DVT in the right leg. Currently on oral Eliquis and has not missed any doses. Options of care were discussed with the patient. IV access was established and labs were drawn. EKG was performed. This reveals sinus rhythm with first- degree AV block at a rate of 77 bpm. QTc 436. QRS 94. No ST elevation. CT angio of the chest was performed as well as CT abdomen/pelvis as a venogram. These were ordered after reviewing patient's symptoms and desired imaging with radiologist. Labs reveal leukocytosis 11.56. Minor anemia noted with hemoglobin at 13.0. Coags normal. Mild hyponatremia 135. No evidence of kidney or liver failure. Hyperglycemia 121. Troponin initially elevated at to 42.5. TSH reveals euthyroid state. Procalcitonin 0.08. Lactate is within normal limits. CPK within normal limits. Second troponin returned and was elevated at 321. Patient again denies any active chest pain or any chest pain/shortness of breath since his time here in the ED. Blood culture pending. Ultrasound venous and arterial study currently pending of the left leg at this time. I do believe that further evaluation and management is warranted in the inpatient setting. Case discussed with the hospitalist service, Cheyenne Walsh PA-C. I also discussed the presentation noting the troponin elevation with the on-call jira administrator, Dr. Fleming at 5:34 recommendation is to also have hematology weigh in on recommendations in regard anticoagulation noting the patient's rather complicated course recently with arterial clot, DVT and now elevated troponin. Cardiology will also be consulted by the medicine service and see the patient during his stay. I did speak with Cheyenne Walsh PA-C of the [facility] hospitalist service to update on cardiology recommendations. She notes that her team will facilitate hematology consultation. Please refer to further documentation regarding his stay. Ultrasounds resulted. DVT negative. US arterial study on LLE is with significant dampened arterial waveforms in the calf within the posterior tibial and peroneal arteries, likely representing vascular compromise. There may be focal occlusion within the mid left peroneal artery. Patient upon repeat assessment is with a clinically well-perfused left and right lower extremity. He denies any calf pain that initially caused him to present to [facility] when he was initially diagnosed with the left lower extremity occlusion in early July. This arterial US finding of the LLE appears quite similar to the study performed in [place] in late July and noting absence of pain in the L calf, normal lactate, and similar US finding, I suspect this is not acute. No evidence of ischemic limb acutely at this time. I discussed today's findings with the patient. I answered all of his questions. Case was discussed with the attending physician. GCS: 15 In the evaluation and treatment of this patient the following differential diagnoses were entertained: Cellulitis, DVT, arterial clot, dissection, rhabdomyolysis, hernia, IVC clot, ND, PE, among others Impression & Plan Elevated troponin, History of heart valve replacement, Acute pain of left thigh, Arterial occlusion Discharge Plan Visit Data Chief Complaint: Leg Injury/Pain Stated Complaint: PAIN IN L LEG, WORSENED SINCE FRIDAY ED Provider: Randi Minaya ED Midlevel Provider: Zoltan Iniguez Discharge Problem: Elevated troponin, History of heart valve replacement, Acute pain of left thigh, Arterial occlusion Patient Disposition: Admitted As Inpatient Condition: Good Discharge Instructions Interventions: ED Discharge Assessment Last Done: 10/09/23 20:46
[2023-10-09 14:23] LABS: Basophils # (auto) 0.05 K/uL (0.00-0.20); Basophils % (auto) 0.4 %; Eosinophils # (auto) 0.07 K/uL (0.00-0.50); Eosinophils % (auto) 0.6 %; Hematocrit (blood only) 38.7 % (42.0-52.0); Immature Granulocytes # (auto) 0.05 K/uL (0.01-0.20); Immature Granulocytes % (auto) 0.4 %; Lymphocytes # (auto) 2.22 K/uL (1.20-3.40); Lymphocytes % (auto) 19.2 %; Mean Corpuscular Hemoglobin 28.8 pg (25.0-34.0); Mean Corpuscular Hgb Conc 33.6 g/dL (32.0-36.0); Mean Corpuscular Volume 85.8 fL (80.0-100.0); Mean Platelet Volume 8.9 fL (9.4-12.4); Monocytes # (auto) 0.99 K/uL (0.11-0.59); Monocytes % (auto) 8.6 %; Neutrophils # (auto) 8.18 K/uL (1.40-6.50); Neutrophils % (auto) 70.8 %; Platelet Count 251 K/uL (130-400); RDW Coefficient of Variation 13.2 % (11.5-14.5); Red Blood Count 4.51 M/uL (4.70-6.10); White Blood Count 11.56 K/ul (4.8-10.8)
[2023-10-09 14:41] LABS: Alanine Aminotransferase 17 U/L (7-52); Albumin Globulin Ratio 1.1 (0.9-2); Albumin Level 4.1 gm/dl (3.4-5.0); Alkaline Phosphatase 85 U/L (34-104); Anion Gap 7 (3-11); Aspartate Aminotransferase 17 U/L (13-39); Blood Urea Nitrogen 16 mg/dl (6-23); Calcium 9.7 mg/dl (8.6-10.3); Carbon Dioxide 26 mmol/L (21-32); Chloride 102 mmol/L (98-107); Creatine Kinase 93 U/L (30-223); Est GFR (African American) 106.1 ml/min; Est GFR (Non-African American) 91.6 ml/min; Globulin 3.7 gm/dl (2.5-4.0); Glucose 121 mg/dl (70-99(Fasting)); Potassium 3.7 mmol/L (3.5-5.1); Sodium 135 mmol/L (136-145); Total Protein 7.8 gm/dl (6.0-8.3)
[2023-10-09 14:51] LABS: Troponin I High Sensitivity 242.5 pg/ml (0-20)
[2023-10-09 14:53] LABS: Partial Thromboplastin Ratio 1.2; Partial Thromboplastin Time 31 Seconds (21-31); Prothrombin Time 10.9 Seconds (9.0-12.0)
[2023-10-09] MEDS: OPTIRAY 320 125ml IV ONE (15:04)
[2023-10-09] MEDS: ACETAMINOPHEN 325 MG TAB PO STA (15:32)
--- NOTE | 2023-10-09 15:32 | CT Scan Report ---
CT VENOGRAM OF THE ABDOMEN AND PELVIS CLINICAL HISTORY: Atypical chest pain. Dyspnea. The venous thrombosis. Groin/thigh pain. COMPARISON STUDY: Abdominal CT dated 01/08/2020. TECHNIQUE: Following the IV administration of 119 cc of Optiray 320, CT venogram of the abdomen and pelvis is performed from the lung bases to the proximal femora. Images are reviewed in the axial, sag ittal, and coronal planes. IV contrast was administered without complication. A dose lowering techniq ue was utilized adhering to the principles of ALARA. FINDINGS: Lung bases: The patient is status post midline sternotomy and aortic valve surgery. The heart is enla rged and without pericardial effusion. The lung bases are clear. A small hiatal hernia is noted. Liver: The contrast-enhanced liver is normal in size, contour, and attenuation. There is no intrahepa tic biliary ductal dilatation. The hepatic veins and portal veins are patent. Gallbladder: Unremarkable. Spleen: Normal in size and attenuation. Pancreas: Unremarkable. Adrenal glands: Unremarkable. Kidneys: The contrast enhanced kidneys are normal in size and without hydronephrosis. The kidneys enh ance and excrete symmetrically. Abdominal vasculature: The abdominal aorta is normal in course and caliber. The inferior vena cava an d iliac veins are patent. There is no evidence of deep venous thrombosis in the abdomen or pelvis. Bowel: The small bowel and colon are normal in course and caliber. The appendix is well-visualized a nd normal. Peritoneum: There is no intraperitoneal free air or abdominal ascites. There is a fat-containing umbi lical hernia. Lymphadenopathy: None. Pelvic viscera: The bladder, prostate, and seminal vesicles are normal as visualized. Skeletal structures: No lytic or blastic lesions are seen. IMPRESSION: 1. No acute infectious or inflammatory findings are identified in the abdomen or pelvis. 2. There is no evidence of deep venous thrombosis in the inferior vena cava or iliac veins. 3. Cardiomegaly. 4. Additional findings as above. ACT 112: Negative or not required by law. Electronically signed by: Earnest Benitez M.D. 10/09/2023 3:31 PM
--- NOTE | 2023-10-09 15:47 | CT Scan Report ---
CT angio chest PE protocol CT DOSE: 2392.47 mGy.cm HISTORY: 53 years-old Male with chest pain, hx of DVT. Acute chest pain TECHNIQUE: Multiple CTA images of the chest were obtained after the intravenous administration of 119 ml Optiray. Coronal and sagittal MIPS were obtained from the axial data set and were submitted for review. All measurements were obtained according to NASCET criteria. A dose lowering technique was u tilized adhering to the principles of ALARA. COMPARISON: CT abdomen and pelvis of same day, CTA chest 06/24/2017 FINDINGS: CTA: Mild cardiomegaly. Median sternotomy. Atrial appendage occlusion device. Aortic valvular prosthesis. No thoracic aortic aneurysm or dissection. No pulmonary emboli identified. The segmental and subsegme ntal branches are suboptimally evaluated secondary to respiratory motion. CT CHEST: Unremarkable thyroid. No lymphadenopathy. No pneumothorax, pleural effusion, airspace consolidation o r pulmonary edema. No suspicious pulmonary nodules or masses. No acute upper abdominal abnormality. C entral airways are patent. Likely benign 2 mm fissural nodule at the right lung on image 120. Unremar kable soft tissues. No acute fracture. IMPRESSION: 1. Unremarkable CTA of the chest. No pulmonary emboli identified. 2. No pleural effusion or airspace consolidation. ACT 112: Negative or not required by law. The above report was generated using voice recognition software. It may contain grammatical, syntax o r spelling errors. Electronically signed by: Jovon Hirsch M.D. 10/09/2023 3:46 PM
--- NOTE | 2023-10-09 17:10 | History & Physical Report ---
Date of Service October 09, 2023 Assessment & Plan (1) Acute pain of left thigh: (2) Arterial occlusion: (3) DVT of leg (deep venous thrombosis): (4) Elevated troponin: (5) Paroxysmal atrial fibrillation: (6) Hypertension: (7) History of heart valve replacement: Plan This is a 53yo M with a PMH of persistent atrial fibrillation s/p ablation, history of bicuspid aortic valve replacement at [facility] 2020, HTN, HLD, recent hospitalizations at [facility] for LLE arterial clot and RLE DVT in July of this year presents with L groin/medical thigh pain x 5 days. 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 ? Eliquis treatment failure so transitioned to SQ Lovenox by heme, vasc surgery Transitioned back to Eliquis on 09/21 by [facility] vascular service Presenting today with L medial thigh pain - LLE well perfused, pulses intact, lactate WNL, no signs of infection or acute ischemic limb LLE venous doppler without evidence of DVT LLE arterial doppler with significantly dampened arterial waveforms in the calf within the posterior tibial and peroneal arteries, likely representing vascular compromise. There may be focal occlusion within the mid left peroneal artery Per discussion with ED, faxed records from [facility] with similar read from July admission (will have copy uploaded into EMR) CT venogram with no acute infectious or inflammatory findings are identified in the abdomen or pelvis.There is no evidence of deep venous thrombosis in the inferior vena cava or iliac veins Transitioned to IV heparin in case intervention needed or Eliquis failure Consulted vacular surgery - attempted to discuss Consult [facility] anticoagulation recs given complicated hx of arterial clot, DVT on eliquis and now elevated troponin Pain control, vascular checks Elevated troponin Chest pain Episode of CP yesterday that has not recurred, no acute EKG changes HS troponin 242.5 -> 321.7 -> 344.3 Holding eliquis, transitioned to IV heparin Considered PE- unremarkable CTA of the chest. No pulmonary emboli identified Trend troponin, tele Continue aspirin, statin, Toprol History of bicuspid aortic valve replacement at [facility] 2020 Atrial fibrillation S/p ablation, surgical clipping of left atrial appendage Continue Toprol DVT Ppx: IV heparin Code status: FULL PCP: Geovany Dispo: Admitted to PCU Patient seen in collaboration with Dr. Herrera. Please see addendum. I spent a total of 80 minutes coordinating, documenting, and providing care for this patient excluding time spent in the performance of separately billed services. History of Present Illness Chief Complaint: leg pain Primary Care Provider: Jeff Armenta MD This is a 53yo M with a PMH of persistent atrial fibrillation s/p ablation, history of bicuspid aortic valve replacement at [facility] 2020, HTN, HLD, GASTON, recent hospitalizations at [facility] for LLE arterial clot and RLE DVT in July of this year presents with L groin/medical thigh pain x 5 days. Does not have pain at rest but with any exertion or bending, he feels a jolt of pain to that area. No numbness or tingling. Low grade fever last night. Feels similar to the aching, jolt-like pain of L arterial clot in calf diagnosed during July 2023 admission to [facility] discharged on Eliquis. Five days later, patient developed pain and swelling in R ankle and had an outpatient venous doppler that showed RLE DVT and was readmitted to [facility]. Was transitioned from Eliquis to SQ Lovenox, which he continued for 39 days until he was transitioned back to Eliquis on 09/21. In addition to L groin/thigh pain, developed chest tightness and SOB yesterday when staining his deck that lasted for a few minutes and then resolved with rest. Has not recurred since. No chills, headache, palpitations, N/V, and pain, dysuria, diarrhea or constipation. History of cracked tooth at the end of last month awaiting dental implant surgery. Was seen in ED on 2 days ago and had a negative venous doppler. Concern for muscular etiology and has been icing without any relief. 2D echo from July 2023 with EF 60 to 65%, mildly increased LV wall thickness, no LV thrombus detected. Allergies Allergy/AdvReac Type Severity Reaction Status Date / Time No Known Allergies Allergy Verified 10/09/23 17:36 Home Medications Medication Instructions Recorded Confirmed Type Glory Probiotic 1 tab PO DAILY 10/09/23 10/09/23 History acetaminophen 500 mg tablet 1,000 mg PO Q6H PRN Pain 10/09/23 10/09/23 History (Tylenol Extra Strength) amoxicillin 500 mg capsule 2,000 mg PO UD 10/09/23 10/09/23 History apixaban 5 mg tablet (Eliquis) 5 mg PO BID 10/09/23 10/09/23 History ascorbic acid (vitamin C) 500 mg 1,000 mg PO 2XWK 10/09/23 10/09/23 History tablet (Vitamin C) aspirin 81 mg tablet,delayed 81 mg PO DAILY 10/09/23 10/09/23 History release atorvastatin 40 mg tablet 40 mg PO HS 10/09/23 10/09/23 History metoprolol succinate 100 mg 100 mg PO DAILY 10/09/23 10/09/23 History tablet,extended release 24 hr multivitamin 1 tab PO DAILY 10/09/23 10/09/23 History Past Med/Surg History Problem List (Updated 10/09/23 @ 19:55 by Cheyenne Walsh PA-C) History of heart valve replacement AVR w/ 25mm Anglin Inspiris valve, Ligation left atrial appendage with clip on 06/21/20 @ [facility] Arterial occlusion DVT of leg (deep venous thrombosis) Acute pain of left lower extremity (Acute) Elevated troponin (Acute) Acute pain of left thigh (Acute) Scrotal abscess Postoperative abscess (Acute) Atrial fibrillation with RVR (Acute) Wrist fracture (Acute) Radial head fracture (Acute) Nasal bone fractures (Acute) Paroxysmal atrial fibrillation s/p sync. DCCV (failed to convert on 07/24/20 ... startedon Amiodarone Congenital bicuspid aortic valve s/p AVR and RAUL clip 07/18/2020 Hypertension Medical History DVT of leg (deep venous thrombosis) Arterial embolism and thrombosis of lower extremity History of deviated nasal septum Atrial fibrillation Surgical History History of heart valve replacement AVR w/ 25mm Anglin Inspiris valve, Ligation left atrial appendage with clip on 06/21/20 @ [facility] H/O cardiac catheterization History of inguinal hernia repair Family History Other No pertinent family history Social History Smoking Status: Never smoker Second Hand Exposure: No; Do You Dip or Chew Tobacco: No; Hx Alcohol Use: Yes Alcohol type: beer Hx Substance Use: No Preferred Language: Romanian Communication Ability: Effective Master Electrician Required: No Beliefs That Will Affect Care: None marital status: Single Current Living Situation: Alone 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 Physical Exam Physical Exam: Please see Dr. Herrera's addendum for physical exam. Results & Data Results & Data Vital Signs (Past 12 Hours) Vital Signs Temp Pulse Resp BP Pulse Ox O2 Del Method 10/09/23 15:07 98 Room Air 10/09/23 14:45 79 20 121/73 95 10/09/23 13:19 36.9 C 87 18 147/100 H 98 Room Air Laboratory Results Short CBC 10/09/23 Range/Units 14:00 WBC 11.56 H (4.8-10.8) K/ul Hgb 13.0 L (14.0-18.0) g/dl Hct 38.7 L (42.0-52.0) % Plt Count 251 (130-400) K/uL BMP 10/09/23 14:00 Sodium 135 L Potassium 3.7 Chloride 102 Carbon Dioxide 26 BUN 16 Creatinine 0.94 Glucose 121 H Calcium 9.7 Cardiac Enzymes 10/09/23 Range/Units 14:00 Total Creatine Kinase 93 (30-223) U/L Liver Function 10/09/23 Range/Units 14:00 Total Bilirubin 1.0 (0.2-1.0) mg/dl AST 17 (13-39) U/L ALT 17 (7-52) U/L Alkaline Phosphatase 85 (34-104) U/L Albumin 4.1 (3.4-5.0) gm/dl Diagnostic Findings Chest CTA 10/09/23 13:45 CT angio chest PE protocol CT DOSE: 2392.47 mGy.cm HISTORY: 53 years-old Male with chest pain, hx of DVT. Acute chest pain TECHNIQUE: Multiple CTA images of the chest were obtained after the intravenous administration of 119 ml Optiray. Coronal and sagittal MIPS were obtained from the axial data set and were submitted for review. All measurements were obtained according to NASCET criteria. A dose lowering technique was utilized adhering to the principles of ALARA. COMPARISON: CT abdomen and pelvis of same day, CTA chest 06/24/2017 FINDINGS: CTA: Mild cardiomegaly. Median sternotomy. Atrial appendage occlusion device. Aortic valvular prosthesis. No thoracic aortic aneurysm or dissection. No pulmonary emboli identified. The segmental and subsegmental branches are suboptimally evaluated secondary to respiratory motion. CT CHEST: Unremarkable thyroid. No lymphadenopathy. No pneumothorax, pleural effusion, airspace consolidation or pulmonary edema. No suspicious pulmonary nodules or masses. No acute upper abdominal abnormality. Central airways are patent. Likely benign 2 mm fissural nodule at the right lung on image 120. Unremarkable soft tissues. No acute fracture. IMPRESSION: 1. Unremarkable CTA of the chest. No pulmonary emboli identified. 2. No pleural effusion or airspace consolidation. ACT 112: Negative or not required by law. The above report was generated using voice recognition software. It may contain grammatical, syntax or spelling errors. Electronically signed by: Jovon Hirsch M.D. 10/09/2023 3:46 PM Duplex Scan Lower Extremity Artery 10/09/23 13:48 ULTRASOUND LEFT LOWER EXTREMITY ARTERIAL CLINICAL HISTORY: Left leg pain. History of arterial clot. COMPARISON STUDY: No priors. TECHNIQUE: Real-time grayscale and color Doppler sonography of the arteries of the left lower extremity is performed from the inguinal crease to the foot. FINDINGS: No significant atherosclerotic plaque is identified throughout the arteries of the left lower extremity. There are triphasic arterial waveforms in the common femoral artery with velocities measuring up to 130 cm/s. The profunda femoris artery is patent with velocities measuring up to 69 cm/s. There are triphasic waveforms throughout the superficial, femoral and popliteal arteries. Velocities in the superficial femoral artery measure up to 119 cm/s and velocities in the popliteal artery measure up to 61 cm per second. The anterior tibial artery is patent with triphasic arterial waveforms and velocities measuring up to 102 cm/s. The dorsalis pedis artery is patent with velocities measuring up to 120 cm/s. There are blunted arterial waveforms in the peroneal and posterior tibial arteries. Velocities in the posterior tibial artery measure up to 25 cm per second and velocities in the peroneal artery measure up to 26 cm per second. There may be a focal vessel occlusion within the left peroneal artery. IMPRESSION: 1. There are significantly dampened arterial waveforms in the calf within the posterior tibial and peroneal arteries, likely representing vascular compromise. There may be focal occlusion within the mid left peroneal artery. 2. The remaining arteries of the left lower extremity are patent with normal arterial waveforms. Dictated: 10/09/2023 5:34 PM Transcribed: 10/09/2023 5:46 PM Serg [id number] Electronically signed by: Earnest Benitez M.D. 10/09/2023 6:00 PM Venous Doppler Study 10/09/23 13:48 ULTRASOUND LEFT LOWER EXTREMITY VENOUS CLINICAL HISTORY: Left leg pain. History of recent DVT. COMPARISON STUDY: Left lower extremity venous ultrasound dated 10/07/2023. TECHNIQUE: Real-time, grayscale, and color Doppler sonography of the deep veins of the left lower extremity was performed from the inguinal crease to the calf. Compression and augmentation were utilized. FINDINGS: There is no sonographic evidence of deep venous thrombosis identified in the left lower extremity. The common femoral, superficial femoral, and popliteal veins are patent and normally compressible. The greater saphenous vein and the profunda femoris vein at the junction with the common femoral vein are clear. The visualized calf veins are patent. IMPRESSION: There is no sonographic evidence of deep venous thrombosis identified in the left lower extremity. ACT 112: Negative or not required by law. Electronically signed by: Earnest Benitez M.D. 10/09/2023 5:[address] 10/09/23 14:17 CT VENOGRAM OF THE ABDOMEN AND PELVIS CLINICAL HISTORY: Atypical chest pain. Dyspnea. The venous thrombosis. Groin/thigh pain. COMPARISON STUDY: Abdominal CT dated 01/08/2020. TECHNIQUE: Following the IV administration of 119 cc of Optiray 320, CT venogram of the abdomen and pelvis is performed from the lung bases to the proximal femora. Images are reviewed in the axial, sagittal, and coronal planes. IV contrast was administered without complication. A dose lowering technique was utilized adhering to the principles of ALARA. FINDINGS: Lung bases: The patient is status post midline sternotomy and aortic valve surgery. The heart is enlarged and without pericardial effusion. The lung bases are clear. A small hiatal hernia is noted. Liver: The contrast-enhanced liver is normal in size, contour, and attenuation. There is no intrahepatic biliary ductal dilatation. The hepatic veins and portal veins are patent. Gallbladder: Unremarkable. Spleen: Normal in size and attenuation. Pancreas: Unremarkable. Adrenal glands: Unremarkable. Kidneys: The contrast enhanced kidneys are normal in size and without hydronephrosis. The kidneys enhance and excrete symmetrically. Abdominal vasculature: The abdominal aorta is normal in course and caliber. The inferior vena cava and iliac veins are patent. There is no evidence of deep venous thrombosis in the abdomen or pelvis. Bowel: The small bowel and colon are normal in course and caliber. The appendix is well-visualized and normal. Peritoneum: There is no intraperitoneal free air or abdominal ascites. There is a fat-containing umbilical hernia. Lymphadenopathy: None. Pelvic viscera: The bladder, prostate, and seminal vesicles are normal as visualized. Skeletal structures: No lytic or blastic lesions are seen. IMPRESSION: 1. No acute infectious or inflammatory findings are identified in the abdomen or pelvis. 2. There is no evidence of deep venous thrombosis in the inferior vena cava or iliac veins. 3. Cardiomegaly. 4. Additional findings as above. ACT 112: Negative or not required by law. Electronically signed by: Earnest Benitez M.D. 10/09/2023 3:31 PM ECG Additional Comments: EKG reviewed- sinus rhythm with first-degree AV block at a rate of 77 bpm Supervising Physician Co-Signing Physician Notes Patient is a 53-year-old male with history of paroxysmal atrial fibrillation S/P ablation, hypertension, bicuspid aortic valve S/P replacement in 2020, hyperlipidemia, GASTON, H/O DVT, left lower extremity arterial clot on anticoagulation with Eliquis and other medical problems presents with history of worsening left medial thigh pain associated with difficulty with ambulation since 5 days duration. Denies any trauma, numbness or tingling, weakness. He has been taking Eliquis regularly. He also reports transient chest pain associated with dyspnea yesterday and currently his chest pain-free. Please review HPI for complete details of presentation. I personally reviewed blood work and imaging studies. EKG showed no signs of acute ischemia. CTA showed no PE, unremarkable. Physical Exam: Vitals signs as noted above General Appearance:Well built and nourished, no apparent distress Head: normocephalic, Atraumatic Eyes: normal inspection, EOMI Neck: supple, Trachea midline Respiratory/Chest: Normal breath sounds, CTA, No accessory muscle use Cardiovascular: S1, S2, No murmur Abdomen/GI:Soft, Non tender, Bowel sounds present Extremities/Musculoskeletal:normal inspection, no edema, Left medial thigh tender, no erythema, no swelling Neurologic/Psych:AAOX3, grossly no focal neurological deficits Skin: normal color, warm Left thigh pain ambulatory dysfunction Suspicious focal occlusion of mid left peroneal artery H/O DVT, left posterior tibial and peroneal artery occlusion in July 2023 Mild leukocytosis, hyponatremia Elevated troponin--rule out ACS Given valvular heart disease, ? Embolic phenomenon Hold Eliquis, start on IV heparin Obtain records from [facility] Check blood cultures Obtain resting echo Cardiology, vascular surgery consulted Will consider antibiotics if develops any signs of infection Obtain CT leg to rule out any musculoskeletal etiology If patient notes any signs of acute ischemia, will likely need thrombectomy ED physician discussed with [facility], imaging studies similar to ones in July Continue aspirin, statin, metoprolol Update lipid panel Fall precautions I personally interviewed and examined at bedside. Patient's care is coordinated with Cheyenne Walsh PA-C. I have reviewed the advanced practitioner's documentation, and I agree with plan of care. Please refer to the documentation above for details of patient's presentation and for discussion of other issues. I spent a total of45 minutes coordinating, documenting, and providing care for this patient excluding time spent in the performance of separately billed services.
--- NOTE | 2023-10-09 17:35 | Ultrasound Report ---
ULTRASOUND LEFT LOWER EXTREMITY VENOUS CLINICAL HISTORY: Left leg pain. History of recent DVT. COMPARISON STUDY: Left lower extremity venous ultrasound dated 10/07/2023. TECHNIQUE: Real-time, grayscale, and color Doppler sonography of the deep veins of the left lower ext remity was performed from the inguinal crease to the calf. Compression and augmentation were utilized . FINDINGS: There is no sonographic evidence of deep venous thrombosis identified in the left lower ext remity. The common femoral, superficial femoral, and popliteal veins are patent and normally compress ible. The greater saphenous vein and the profunda femoris vein at the junction with the common femora l vein are clear. The visualized calf veins are patent. IMPRESSION: There is no sonographic evidence of deep venous thrombosis identified in the left lower e xtremity. ACT 112: Negative or not required by law. Electronically signed by: Earnest Benitez M.D. 10/09/2023 5:33 PM
--- NOTE | 2023-10-09 18:02 | Ultrasound Report ---
ULTRASOUND LEFT LOWER EXTREMITY ARTERIAL CLINICAL HISTORY: Left leg pain. History of arterial clot. COMPARISON STUDY: No priors. TECHNIQUE: Real-time grayscale and color Doppler sonography of the arteries of the left lower extremi ty is performed from the inguinal crease to the foot. FINDINGS: No significant atherosclerotic plaque is identified throughout the arteries of the left low er extremity. There are triphasic arterial waveforms in the common femoral artery with velocities tianna suring up to 130 cm/s. The profunda femoris artery is patent with velocities measuring up to 69 cm/s. There are triphasic waveforms throughout the superficial, femoral and popliteal arteries. Velocities in the superficial femoral artery measure up to 119 cm/s and velocities in the popliteal artery analilia ure up to 61 cm per second. The anterior tibial artery is patent with triphasic arterial waveforms an d velocities measuring up to 102 cm/s. The dorsalis pedis artery is patent with velocities measuring up to 120 cm/s. There are blunted arterial waveforms in the peroneal and posterior tibial arteries. V elocities in the posterior tibial artery measure up to 25 cm per second and velocities in the peronea l artery measure up to 26 cm per second. There may be a focal vessel occlusion within the left perone al artery. IMPRESSION: 1. There are significantly dampened arterial waveforms in the calf within the posterior tibial and pe roneal arteries, likely representing vascular compromise. There may be focal occlusion within the mid left peroneal artery. 2. The remaining arteries of the left lower extremity are patent with normal arterial waveforms. Dictated: 10/09/2023 5:34 PM Transcribed: 10/09/2023 5:46 PM Serg [id number] [email or web address] Electronically signed by: Earnest Benitez M.D. 10/09/2023 6:00 PM
[2023-10-09] MEDS ORDERED: Heparin IV Adult Wt-Based Standard *NO* INITIAL Bolus Protocol IV SCH (18:46)
[2023-10-09] MEDS: HEPARIN SODIUM/DEXTROSE 25,000 UNITS/500 ML BAG IV SCH (19:55)
[2023-10-09] MEDS ORDERED: ACETAMINOPHEN 500 MG TAB PO PRN (21:12)
[2023-10-09] MEDS ORDERED: ONDANSETRON INJ 2 MG/ML 2 ML VIAL IV PRN (21:12)
[2023-10-09] MEDS ORDERED: POLYETHYLENE (MIRALAX) 17 GM PACK PO PRN (21:12)
[2023-10-09] MEDS: ACETAMINOPHEN 500 MG TAB ONE (21:18)
[2023-10-09] MEDS: ATORVASTATIN 40 MG TAB PO SCH (22:00)
--- NOTE | 2023-10-10 00:14 | CT Scan Report ---
Exam(s): CT EXTREMITY LEFT LOWER Without Contrast EXAM: CT Left Lower Extremity Without Intravenous Contrast CLINICAL HISTORY: Reason for exam: medial thigh pain. TECHNIQUE: Axial computed tomography images of the left lower extremity without intravenous contrast. CTDI is 24.91 mGy and DLP is 1218.08 mGy-cm. Automated exposure control was utilized for the study. A dose lowering technique was utilized adhering to the principles of ALARA. COMPARISON: No relevant prior studies available. FINDINGS: Bones/joints: The osseous structures appear intact and normally aligned. No acute fracture or dislocation is seen. Minimal narrowing and osteophytosis of the hip joints consistent with early osteoarthritic changes. Soft tissues: Unremarkable. Vasculature: Mild diffuse arterial calcification. Small amount of edema in the medial upper thigh. This is most closely associated with the adductor musculature and deep femoral artery and vein but is nonspecific. IMPRESSION: Small amount of edema in the medial upper thigh. This is most closely associated with the adductor musculature and deep femoral artery and vein but is nonspecific. No abnormal fluid collection is seen. Electronically signed by: Rudolph Walsh MD 10/10/23 00:13 AM
[2023-10-10 02:28] LABS: Hematocrit (blood only) 38.1 % (42.0-52.0); Hemoglobin 12.6 g/dl (14.0-18.0); Mean Corpuscular Hemoglobin 28.8 pg (25.0-34.0); Mean Corpuscular Hgb Conc 33.1 g/dL (32.0-36.0); Mean Corpuscular Volume 87.2 fL (80.0-100.0); Mean Platelet Volume 8.7 fL (9.4-12.4); Platelet Count 226 K/uL (130-400); RDW Coefficient of Variation 13.1 % (11.5-14.5); RDW Standard Deviation 41.7 fL (36.4-46.3); Red Blood Count 4.37 M/uL (4.70-6.10)
[2023-10-10 02:44] LABS: Calcium 9.1 mg/dl (8.6-10.3); Chol HDL Ratio 4.4 (0-5); Est GFR (African American) 114.5 ml/min; Est GFR (Non-African American) 98.8 ml/min; Magnesium 2.1 mg/dl (1.7-2.4); Potassium 3.6 mmol/L (3.5-5.1)
[2023-10-10 03:11] LABS: ANTI-Xa, UFH(UnfractionatedHep 0.88 IU/ml (0.3-0.7)
[2023-10-10 08:03] LABS: Estimated Average Glucose 111 mg/dl; Hemoglobin A1C 5.5 % (4.5-5.6)
[2023-10-10] MEDS: ASPIRIN 81 MG ECTAB PO SCH (08:19)
[2023-10-10] MEDS: METOPROLOL SUCC 50MG EXT REL TAB PO SCH (08:19)
[2023-10-10] MEDS: MULTIVITAMIN TAB PO SCH (08:20)
[2023-10-10] MEDS: ACETAMINOPHEN 500 MG TAB PO PRN (08:29)
--- NOTE | 2023-10-10 08:44 | Cardiology Consultation ---
Date of Consultation October 10, 2023 Assessment & Plan (1) Arterial occlusion: (2) DVT of leg (deep venous thrombosis): (3) Paroxysmal atrial fibrillation: (4) Hypertension: (5) Congenital bicuspid aortic valve: Plan Assessment: 53 year-old male with recent hospitalization x2 to [facility] for both arterial occlusion and DVT presents to the ED fro 5 days or worsening groin/thigh pain. Cardiology asked to see in regards to his prior cardiac history of elevated troponin. Plan: 1. Acute pain of left thigh 2.Arterial occlusion -Unchanged when compared with prior vascular study from [facility]. patient has remained compliant on his Eliquis. -No signs of circulatory compromise at this time as extremity is warm to the touch. Positive pulses and motor sensation. Concerns over his ongoing pain. -Vascular is on consult, will await their assessment and recommendations. -Continue Heparin gtt at this time. -Discussed with patient concern of his recurrent clotting process and possible etiologies. He is following with Hematology with no significant findings thus far in his testing. -Patient does endorse recent broken tooth with some mild discomfort. He also endorses history of intermittent fevers/chills in the absence of any acute URI symptoms, recent negative lyme testing and no overt signs of infection. -Concern given his history of aortic valve replacement and unexplained fevers. blood cultures pending -Will plan for MARLENA today to exclude any vegetation or concern for embolic process. 3. DVT of leg -Endorses recent travel just following hospitalization with recent start of Eliquis which may have been a contributing factor. -Continue heparin gtt at this time 4. Elevated troponin -In the setting of a clotting process. -EKG with no acute ST-T wave changes. -No chest pain or angina-like symptoms. -Resting 2D echo show normal LVEF and no wall motion abnormalities 5. Paroxysmal A-fib -s/p PVI ablation. Remains SR with 1st degree AVB on telemetry -Continue Toprol xl -Eliquis on hold in favor or staring heparin gtt 6. Hypertension -Controlled. -Continue Toprol xl 7. History of bicuspid aortic valve 8. History of bioprosthetic AVR -Echo demonstrates normal function of valve -Concern for patients ongoing clotting concerns. -Also of note is his recent broken tooth, awaiting intervention -Unexplained recurrent fevers and chills. -NPO for MARLENA today, further recommendations as appropriate Case has been discussed with Dr. Fleming. Further recommendations regarding plan of care as per his assessment. I spent a total of 40 minutes on the date of service in preparation, delivery, documentation of the care provided to the patient excluding any time spent in the performance of separately billed services. LE Thomas [facility] Cardiology [facility] Supervising Physician Co-Signing Physician Notes I have personally performed a history and physical examination on the patient. I have reviewed the advance practitioner's documentation, and I agree with, and take responsibility for the plan of care. 53-year-old male present to the emergency department with acute right lower extremity groin discomfort. History of lower extremity arterial and venous thrombosis previously treated with subcutaneous Lovenox and Eliquis. Reports episode of chest discomfort on Friday while performing yard work. High- sensitivity troponin mildly elevated on admission. No ischemic ECG changes or regional wall motion abnormalities on echocardiogram. No recurrent thrombosis per repeat imaging. I discussed my concerns regarding possible valvular thrombosis/embolization given history of lower extremity arterial thrombosis. Patient notes intermittent dental issues (cracked molar and dental pain) since April 2023. Also reports intermittent fevers. Recommend blood cultures x 2 and transesophageal echocardiogram to exclude vegetation/valvular thrombus. Patient agreeable to proceed. With recent exertional chest discomfort and elevated troponin I have concerns regarding possible coronary thrombosis/acute coronary syndrome. Recommend cardiac catheterization on 10/14/2023. Patient agreeable. Await input from vascular surgery and hematology. I spent a total of 50 minutes on the date of service in preparation, delivery, and documentation of the care provided to this patient, excluding any time spent in the performance of separately billed services. History of Present Illness Reason for Consultation: Elevated troponin, recent arterial clot Requesting Physician: Cindi hospitalist Attending Physician: Guerrero West MD History of Present Illness HPI: Patient is a 53 year-old male with PMHx significant for severe congenital bicuspid aortic valve stenosis s/p aortic valve replacement (bioprothetic valve), Atrial fibrillation s/p pulmonary vein isolation, HTN, dyslipidemia, Recent hospitalization at [facility] for LLE arterial clot and RLE DVT in July 2023 that presented to the ED with Left groin/medial thigh herrmann x5 days Patient had been hospitalized for a Left posterior and peroneal artery occlusion in July 2023, discharged on Eliquis only to return 5 days later for a RLE DVT. This was considered an eliquis treatment failure and he was initially transitioned to SQ Lovenox, and now back to Eliquis on 09/21 as per [facility] Vascular service. Initial assessment of LLE demonstrates that it is well perfused, +pulses/motor sensation, Lactate level normal, No obvious signs of infection or acute ischemic limb. LLE venous doppler without evidence of DVT LLE arterial doppler with significantly dampened arterial waveforms in the calf within the posterior tibial and peroneal arteries, likely representing vascular compromise. There may be focal occlusion within the mid left peroneal artery. Records from July from [facility] demonstrate a similar read. CT venogram with no acute infectious or inflammatory findings are identified in the abdomen or pelvis.There is no evidence of deep venous thrombosis in the inferior vena cava or iliac veins Vascular surgery consulted Hematology consulted. Current on Heparin gtt. EKG demonstrates SR with 1st degree AVB Rate 77bpm Chest CTA IMPRESSION: 1. Unremarkable CTA of the chest. No pulmonary emboli identified. 2. No pleural effusion or airspace consolidation. HS Troponin 242.5/321/7/344.3/173.7 Blood cultures pending Currently NPO Patient is resting comfortably in bed at time of my exam. Endorses a dull deep thigh ache of his left upper thigh/groin area. Denies any chest pain, pressure, palpitations, no shortness of breath, no PND, no presyncope or syncope. patient denies any recent acute illnesses; however, reports that he has been having intermittent fevers for the past few months. Most recent was 2 days ago, which he woke in a pool of sweat. patient also endorses a recent broken tooth (left molar) and has been evaluated by oral surgery. Unfortunately, given his recent clotting issues, they have asked to hold off until things are stabilized due to use of the blood thinners. Allergies Allergy/AdvReac Type Severity Reaction Status Date / Time No Known Allergies Allergy Verified 10/09/23 17:36 Home Medications Medication Instructions Recorded Confirmed Type Glory Probiotic 1 tab PO DAILY 10/09/23 10/09/23 History acetaminophen 500 mg tablet 1,000 mg PO Q6H PRN Pain 10/09/23 10/09/23 History (Tylenol Extra Strength) amoxicillin 500 mg capsule 2,000 mg PO UD 10/09/23 10/09/23 History apixaban 5 mg tablet (Eliquis) 5 mg PO BID 10/09/23 10/09/23 History ascorbic acid (vitamin C) 500 mg 1,000 mg PO 2XWK 10/09/23 10/09/23 History tablet (Vitamin C) aspirin 81 mg tablet,delayed 81 mg PO DAILY 10/09/23 10/09/23 History release atorvastatin 40 mg tablet 40 mg PO HS 10/09/23 10/09/23 History metoprolol succinate 100 mg 100 mg PO DAILY 10/09/23 10/09/23 History tablet,extended release 24 hr multivitamin 1 tab PO DAILY 10/09/23 10/09/23 History Patient History Medical History (Updated 10/10/23 @ 10:53 by Robert Nogueira MD) Encounter for pre-operative examination Obesity Elevated troponin Acute pain of left thigh DVT of leg (deep venous thrombosis) Arterial embolism and thrombosis of lower extremity History of deviated nasal septum Atrial fibrillation Surgical History History of heart valve replacement AVR w/ 25mm Anglin Inspiris valve, Ligation left atrial appendage with clip on 06/21/20 @ [facility] [place] H/O cardiac catheterization History of inguinal hernia repair Family History Other No pertinent family history Social History Smoking Status: Never smoker Second Hand Exposure: No; Do You Dip or Chew Tobacco: No; Tobacco Cessation Education Requested by Patient: No Hx Alcohol Use: Yes Alcohol type: beer Hx Substance Use: No Preferred Language: Sri Lankan Communication Ability: Effective Feed Crusher Operator Required: No Beliefs That Will Affect Care: None marital status: Single Current Living Situation: Significant 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 Other Information That Helps Us Care for You: No Feels Safe at Home: Yes Safety Concerns: Feels Safe At This Time Assistive Devices: CPAP Review of Systems Review of Systems: All systems reviewed & are unremarkable except as noted in HPI & below Physical Exam Constitutional: well developed and well nourished; no acute distress and not ill appearing Neck: normal visual inspection and trachea midline Respiratory: normal respiratory effort, lungs clear to auscultation no cough Auscultation: no crackles, no rales, no rhonchi and no wheezes Cardiovascular: Rate/Rhythm: regular rate and regular rhythm Heart Sounds: normal S1, normal S2 and + murmur (+I/ systolic) Vessels: no JVD Extremities: no edema Skin: no rashes, warm and dry Psychiatric: A+Ox3, euthymic affect Results & Data Vital Signs (Past 12 Hours) Vital Signs Temp Pulse Pulse Resp BP BP Pulse Ox 10/10/23 08:25 36.3 C L 74 20 145/91 H 96 10/10/23 03:00 36.9 C 66 18 117/56 L 96 10/09/23 22:09 36.9 C 73 18 139/80 95 10/09/23 21:58 72 10/09/23 21:05 80 10/09/23 21:00 10/09/23 21:00 36.9 C 77 18 139/80 97 O2 Del Method 10/10/23 08:25 Room Air 10/10/23 03:00 Room Air 10/09/23 22:09 Room Air 10/09/23 21:58 10/09/23 21:05 10/09/23 21:00 Room Air 10/09/23 21:00 Room Air Laboratory Results Cardiac Enzymes 10/09/23 10/09/23 10/09/23 Range/Units 14:00 16:14 18:13 AST 17 (13-39) U/L Troponin I High Sens 242.5 H* 321.7 H* D 344.3 H* (0-20) pg/ml 10/10/23 Range/Units 08:04 AST (13-39) U/L Troponin I High Sens 173.7 H* D (0-20) pg/ml Coagulation 10/09/23 Range/Units 14:00 PT 10.9 (9.0-12.0) Seconds APTT 31 (21-31) Seconds Lipids 10/10/23 Range/Units 02:05 Triglycerides 134 (0-150) mg/dl Cholesterol 145 (0-200) mg/dl HDL Cholesterol 33 mg/dl Cholesterol/HDL Ratio 4.4 (0-5) CBC 10/09/23 10/10/23 Range/Units 14:00 02:05 WBC 11.56 H 10.10 (4.8-10.8) K/ul RBC 4.51 L 4.37 L (4.70-6.10) M/uL Hgb 13.0 L 12.6 L (14.0-18.0) g/dl Hct 38.7 L 38.1 L (42.0-52.0) % Plt Count 251 226 (130-400) K/uL Neut # (Auto) 8.18 H (1.40-6.50) K/uL Lymph # (Auto) 2.22 (1.20-3.40) K/uL [place] # (Auto) 0.99 H (0.11-0.59) K/uL Eos # (Auto) 0.07 (0.00-0.50) K/uL Baso # (Auto) 0.05 (0.00-0.20) K/uL Comprehensive Metabolic Panel 10/09/23 10/10/23 Range/Units 14:00 02:05 Sodium 135 L 135 L (136-145) mmol/L Potassium 3.7 3.6 (3.5-5.1) mmol/L Chloride 102 103 (98-107) mmol/L Carbon Dioxide 26 25 (21-32) mmol/L BUN 16 17 (6-23) mg/dl Creatinine 0.94 0.85 (0.6-1.4) mg/dl Glucose 121 H 115 H (70-99(Fasting)) mg/dl Calcium 9.7 9.1 (8.6-10.3) mg/dl AST 17 (13-39) U/L ALT 17 (7-52) U/L Alkaline Phosphatase 85 (34-104) U/L Total Protein 7.8 (6.0-8.3) gm/dl Albumin 4.1 (3.4-5.0) gm/dl Intake and Output 10/09/23 10/10/23 10/10/23 22:59 06:59 14:59 Intake Total 232 / 232 240.333 / 240.333 Balance 232 / 232 240.333 / 240.333 Intake: IV 232 / 232 240.333 / 240.333 Heparin Sodium/Dextrose 25,000 232 / 232 240.333 / 240.333 units In 500 ml @ 1,400 UNITS/ HR 28 mls/hr IV .[id number] [facility] Rx #:[id number] Other: Other Intake Source NPO # Unmeasured Voids 1 Weight 109.316 kg 109.316 kg Weight Measurement Method Built in [facility] Patient Weight 10/11/23 06:59 Weight 109.316 kg Diagnostic Findings Echocardiogram 10/10/23 LVEF systolic function normal LVEF 60-65% bioprosthetic aortic valve normal gradient Mild mitral regurgitation
[2023-10-10 09:05] LABS: Troponin I High Sensitivity 173.7 pg/ml (0-20)
[2023-10-10 09:18] LABS: C Reactive Protein 8.25 mg/dl (0-0.5)
--- NOTE | 2023-10-10 09:24 | Oncology Consultation ---
Date of Consultation October 10, 2023 Assessment & Plan (1) Arterial occlusion: (2) DVT of leg (deep venous thrombosis): (3) Acute pain of left thigh: (4) Atrial fibrillation with RVR: Plan -Discussed my thoughts with him. Although LLE US was negative for DVT, recommend switching to Coumadin for multiple reasons. He has complicated history of venous and arterial clots and presented with symptoms despite being on Eliquis, also initial VTE diagnosis was made while he was on Eliquis which would also indicate eliquis failure. Recommend switching to Coumadin. Patent agreed with this plan I will plan to see him outpatient if he has not had hypercoagulable workup. Thanks for this consult. Will sign off at this time. Please feel free to call if you have any questions History of Present Illness Reason for Consultation: Anticoagulation recommendations Attending Physician: Guerrero West MD History of Present Illness 53 year old with atrial fibrillation s/p ablation, history of bicuspid aortic valve replacement at [facility] 2020, HTN, HLD, GASTON, recent hospitalizations at [facility] for LLE arterial clot and RLE DVT in on anticoagulation with eliquis presented with L groin/thigh pain for 5 days. Pain similar to when he was diagnosed with Left arterial clot in July 2023 .At that time he was discharged on Eliquis. Five days later, patient developed pain and swelling in R ankle and had an outpatient venous doppler that showed RLE DVT and was readmitted to [facility]. Was transitioned from Eliquis to SQ Lovenox, which he continued for 39 days until he was transitioned back to Eliquis on 09/22/2023. Presented to the ER with L thigh pain, chest pain and SOB. CTA Chest was negative for PE, LLE US doppler negative for DVT and left arterial US revealed significantly dampened arterial waveforms in the calf within the posterior tibial and peroneal arteries, likely representing vascular compromise, There may be focal occlusion within the mid left peroneal artery. I did not see patient in person but discussed with him over the phone. States that he is feeling better since he was started on therapeutic heparin. Pain seems to have improved. No family history of thrombophilia. Not sure if he has had thrombophilia workup Allergies Allergy/AdvReac Type Severity Reaction Status Date / Time No Known Allergies Allergy Verified 10/09/23 17:36 Home Medications Medication Instructions Recorded Confirmed Type Glory Probiotic 1 tab PO DAILY 10/09/23 10/09/23 History acetaminophen 500 mg tablet 1,000 mg PO Q6H PRN Pain 10/09/23 10/09/23 History (Tylenol Extra Strength) amoxicillin 500 mg capsule 2,000 mg PO UD 10/09/23 10/09/23 History apixaban 5 mg tablet (Eliquis) 5 mg PO BID 10/09/23 10/09/23 History ascorbic acid (vitamin C) 500 mg 1,000 mg PO 2XWK 10/09/23 10/09/23 History tablet (Vitamin C) aspirin 81 mg tablet,delayed 81 mg PO DAILY 10/09/23 10/09/23 History release atorvastatin 40 mg tablet 40 mg PO HS 10/09/23 10/09/23 History metoprolol succinate 100 mg 100 mg PO DAILY 10/09/23 10/09/23 History tablet,extended release 24 hr multivitamin 1 tab PO DAILY 10/09/23 10/09/23 History Patient History Medical History DVT of leg (deep venous thrombosis) Arterial embolism and thrombosis of lower extremity History of deviated nasal septum Atrial fibrillation Surgical History History of heart valve replacement AVR w/ 25mm Anglin Inspiris valve, Ligation left atrial appendage with clip on 06/21/20 @ [facility] H/O cardiac catheterization History of inguinal hernia repair Family History Other No pertinent family history Social History Smoking Status: Never smoker Second Hand Exposure: No; Do You Dip or Chew Tobacco: No; Tobacco Cessation Education Requested by Patient: No Hx Alcohol Use: Yes Alcohol type: beer Hx Substance Use: No Preferred Language: [place] Islander Communication Ability: Effective Die Maintenance Required: No Beliefs That Will Affect Care: None marital status: Single Current Living Situation: Significant Other current occupation: [employer] Other Information That Helps Us Care for You: No Feels Safe at Home: Yes Safety Concerns: Feels Safe At This Time Assistive Devices: Glasses Results & Data Vital Signs (Past 12 Hours) Vital Signs Temp Pulse Pulse Resp BP BP Pulse Ox 10/10/23 08:25 36.3 C L 74 20 145/91 H 96 10/10/23 03:00 36.9 C 66 18 117/56 L 96 10/09/23 22:09 36.9 C 73 18 139/80 95 10/09/23 21:58 72 O2 Del Method 10/10/23 08:25 Room Air 10/10/23 03:00 Room Air 10/09/23 22:09 Room Air 10/09/23 21:58
[2023-10-10] MEDS: ASCORBIC ACID 500 MG TAB PO SCH (09:55)
--- NOTE | 2023-10-10 10:22 | Hospitalist Progress Note ---
Date of Service October 10, 2023 Assessment & Plan (1) Acute pain of left thigh: (2) Arterial occlusion: (3) DVT of leg (deep venous thrombosis): (4) Elevated troponin: (5) Paroxysmal atrial fibrillation: (6) Hypertension: (7) History of heart valve replacement: Plan This is a 53yo M with a PMH of persistent atrial fibrillation s/p ablation, history of bicuspid aortic valve replacement at [facility] 2020, HTN, HLD, recent hospitalizations at [facility] for LLE arterial clot and RLE DVT in July of this year presents with L groin/medical thigh pain x 5 days. 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 for 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 ? Eliquis treatment failure so transitioned to SQ Lovenox by heme, vasc surgery Transitioned back to Eliquis on 09/21 by [facility] vascular service Presenting today with L medial thigh pain - LLE well perfused, pulses intact, lactate WNL, no signs of infection or acute ischemic limb LLE venous doppler without evidence of DVT LLE arterial doppler with significantly dampened arterial waveforms in the calf within the posterior tibial and peroneal arteries, likely representing vascular compromise. There may be focal occlusion within the mid left peroneal artery Per discussion with ED, faxed records from [facility] with similar read from July admission (will have copy uploaded into EMR) CT venogram with no acute infectious or inflammatory findings are identified in the abdomen or pelvis.There is no evidence of deep venous thrombosis in the inferior vena cava or iliac veins Transitioned to IV heparin in case intervention needed or Eliquis failure Consulted vacular surgery - attempted to discuss Consult [facility] for fci anticoagulation recs given complicated hx of arterial clot, DVT on eliquis and now elevated troponin -> per hematology - failed eliquis and so recommend coumadin Pain control, vascular checks Elevated troponin Chest pain Episode of CP yesterday that has not recurred, no acute EKG changes HS troponin 242.5 -> 321.7 -> 344.3 Holding eliquis, transitioned to IV heparin Considered PE- unremarkable CTA of the chest. No pulmonary emboli identified Trend troponin, tele Continue aspirin, statin, Toprol Cardiology consulted - echo obtained , as below LV systolic function is normal. LVEF 60 to 65%. LV wall motion is abnormal. There is a bioprosthetic aortic valve. The gradient is normal for this prosthetic aortic valve. Bioprosthetic leaflets are not well-visualized. There is mild mitral regurg. Plan for MARLENA History of bicuspid aortic valve replacement at [facility] 2020 Atrial fibrillation S/p ablation, surgical clipping of left atrial appendage Continue Toprol DVT Ppx: IV heparin Code status: FULL PCP: Dr. Armenta Dispo: PCU Admission and Anticipated Discharge Date Admission Date: October 09, 2023 Subjective Pt seen in follow up of L thigh pain, hx of arterial clot Currently on IV heparin (seem pt has failed Eliquis) Cardiology, hematology and vasc. surgery consulted Currently laying in bed in NAD, continues to have left upper thigh discomfort Currently no fever, chills, chest pain, shortness of breath but reportedly had fevers prior per heme - plan to switch to coumadin per cardiology - plan for MARLENA Review of Systems Review of Systems: All systems reviewed & are unremarkable except as noted in Subjective Physical Exam Physical Exam: General Appearance:Well built and nourished, no apparent distress Head: normocephalic, Atraumatic Eyes: normal inspection, EOMI Neck: supple Respiratory/Chest: Normal breath sounds, CTA, No accessory muscle use Cardiovascular: S1, S2, No murmur Abdomen/GI:Soft, Non tender, Bowel sounds present Extremities/Musculoskeletal:normal inspection, no edema, Left medial thigh tender, no erythema, no swelling Neurologic/Psych:AAOX3, grossly no focal neurological deficits Skin: normal color, warm Results & Data Results & Data Vital Signs (Past 12 Hours) Vital Signs Temp Pulse Resp BP BP Pulse Ox O2 Del Method 10/10/23 08:25 36.3 C L 74 20 145/91 H 96 Room Air 10/10/23 03:00 36.9 C 66 18 117/56 L 96 Room Air Laboratory Results 10/10/23 10/10/23 10/09/23 Range/Units 08:04 02:05 18:13 WBC 10.10 (4.8-10.8) K/ul RBC 4.37 L (4.70-6.10) M/uL Hgb 12.6 L (14.0-18.0) g/dl Hct 38.1 L (42.0-52.0) % MCV 87.2 (80.0-100.0) fL MCH 28.8 (25.0-34.0) pg MCHC 33.1 (32.0-36.0) g/dL RDW Std Deviation 41.7 (36.4-46.3) fL RDW Coeff of Solomon 13.1 (11.5-14.5) % Plt Count 226 (130-400) K/uL MPV 8.7 L (9.4-12.4) fL Immature Gran % (Auto) % Neut % (Auto) % Lymph % (Auto) % [place] % (Auto) % Eos % (Auto) % Baso % (Auto) % Neut # (Auto) (1.40-6.50) K/uL Lymph # (Auto) (1.20-3.40) K/uL [place] # (Auto) (0.11-0.59) K/uL Eos # (Auto) (0.00-0.50) K/uL Baso # (Auto) (0.00-0.20) K/uL Immature Gran # (Auto) (0.01-0.20) K/uL PT (9.0-12.0) Seconds INR (0.9-1.1) APTT (21-31) Seconds PTT Ratio Heparin Anti-Xa, Unfract 0.88 H* (0.3-0.7) IU/ml Sodium 135 L (136-145) mmol/L Potassium 3.6 (3.5-5.1) mmol/L Chloride 103 (98-107) mmol/L Carbon Dioxide 25 (21-32) mmol/L Anion Gap 7 (3-11) BUN 17 (6-23) mg/dl Creatinine 0.85 (0.6-1.4) mg/dl Est Cr Clr Drug Dosing 123.0 Est GFR ( Amer) 114.5 ml/min Est GFR (Non-Af Amer) 98.8 ml/min BUN/Creatinine Ratio 20.0 (10-20) Glucose 115 H (70-99(Fasting)) mg/dl Estimat Average Glucose 111 mg/dl Hemoglobin A1c 5.5 (4.5-5.6) % Lactate (0.4-2.0) mmol/L Calcium 9.1 (8.6-10.3) mg/dl Magnesium 2.1 (1.7-2.4) mg/dl Total Bilirubin (0.2-1.0) mg/dl AST (13-39) U/L ALT (7-52) U/L Alkaline Phosphatase (34-104) U/L Total Creatine Kinase (30-223) U/L Troponin I High Sens 173.7 H* D 344.3 H* (0-20) pg/ml C-Reactive Protein 8.25 H (0-0.5) mg/dl Total Protein (6.0-8.3) gm/dl Albumin (3.4-5.0) gm/dl Globulin (2.5-4.0) gm/dl Albumin/Globulin Ratio (0.9-2) Triglycerides 134 (0-150) mg/dl Cholesterol 145 (0-200) mg/dl LDL Cholesterol, Calc 85 mg/dl VLDL Cholesterol, Calc 27 (0-30) mg/dl HDL Cholesterol 33 mg/dl Cholesterol/HDL Ratio 4.4 (0-5) Procalcitonin (0-0.5) ng/ml TSH (0.300-4.500) uIu/ml 10/09/23 10/09/23 10/09/23 Range/Units 16:14 14:05 14:00 WBC 11.56 H (4.8-10.8) K/ul RBC 4.51 L (4.70-6.10) M/uL Hgb 13.0 L (14.0-18.0) g/dl Hct 38.7 L (42.0-52.0) % MCV 85.8 (80.0-100.0) fL MCH 28.8 (25.0-34.0) pg MCHC 33.6 (32.0-36.0) g/dL RDW Std Deviation 41.0 (36.4-46.3) fL RDW Coeff of Solomon 13.2 (11.5-14.5) % Plt Count 251 (130-400) K/uL MPV 8.9 L (9.4-12.4) fL Immature Gran % (Auto) 0.4 % Neut % (Auto) 70.8 % Lymph % (Auto) 19.2 % [place] % (Auto) 8.6 % Eos % (Auto) 0.6 % Baso % (Auto) 0.4 % Neut # (Auto) 8.18 H (1.40-6.50) K/uL Lymph # (Auto) 2.22 (1.20-3.40) K/uL [place] # (Auto) 0.99 H (0.11-0.59) K/uL Eos # (Auto) 0.07 (0.00-0.50) K/uL Baso # (Auto) 0.05 (0.00-0.20) K/uL Immature Gran # (Auto) 0.05 (0.01-0.20) K/uL PT 10.9 (9.0-12.0) Seconds INR 1.0 (0.9-1.1) APTT 31 (21-31) Seconds PTT Ratio 1.2 Heparin Anti-Xa, Unfract (0.3-0.7) IU/ml Sodium 135 L (136-145) mmol/L Potassium 3.7 (3.5-5.1) mmol/L Chloride 102 (98-107) mmol/L Carbon Dioxide 26 (21-32) mmol/L Anion Gap 7 (3-11) BUN 16 (6-23) mg/dl Creatinine 0.94 (0.6-1.4) mg/dl Est Cr Clr Drug Dosing Not Reportable Est GFR ( Amer) 106.1 ml/min Est GFR (Non-Af Amer) 91.6 ml/min BUN/Creatinine Ratio 17.0 (10-20) Glucose 121 H (70-99(Fasting)) mg/dl Estimat Average Glucose mg/dl Hemoglobin A1c (4.5-5.6) % Lactate 1.0 (0.4-2.0) mmol/L Calcium 9.7 (8.6-10.3) mg/dl Magnesium 2.0 (1.7-2.4) mg/dl Total Bilirubin 1.0 (0.2-1.0) mg/dl AST 17 (13-39) U/L ALT 17 (7-52) U/L Alkaline Phosphatase 85 (34-104) U/L Total Creatine Kinase 93 (30-223) U/L Troponin I High Sens 321.7 H* D 242.5 H* (0-20) pg/ml C-Reactive Protein (0-0.5) mg/dl Total Protein 7.8 (6.0-8.3) gm/dl Albumin 4.1 (3.4-5.0) gm/dl Globulin 3.7 (2.5-4.0) gm/dl Albumin/Globulin Ratio 1.1 (0.9-2) Triglycerides (0-150) mg/dl Cholesterol (0-200) mg/dl LDL Cholesterol, Calc mg/dl VLDL Cholesterol, Calc (0-30) mg/dl HDL Cholesterol mg/dl Cholesterol/HDL Ratio (0-5) Procalcitonin 0.08 (0-0.5) ng/ml TSH 1.230 (0.300-4.500) uIu/ml Medications Administered Current Inpatient Medications Acetaminophen (Acetaminophen 500 Mg Tab) 1,000 mg PO Q6H PRN PRN Reason: Pain Stop: 11/08/23 21:11 Last Admin: 10/10/23 08:29 Dose: 1,000 mg Ascorbic Acid (Ascorbic Acid 500 Mg Tab) 1,000 mg PO MoFr@0900 [facility] Stop: 11/09/23 08:59 Last Admin: 10/10/23 09:55 Dose: Not Given Aspirin (Aspirin 81 Mg Ectab) 81 mg PO DAILY [facility] Stop: 11/09/23 08:59 Last Admin: 10/10/23 08:19 Dose: 81 mg Atorvastatin Calcium (Atorvastatin 40 Mg Tab) 40 mg PO HS [facility] Stop: 11/08/23 21:11 Last Admin: 10/09/23 22:00 Dose: 40 mg Heparin Sodium/Dextrose (Heparin Sodium/Dextrose) 25,000 units in 500 mls @ 28 mls/hr IV .[id number] [facility]; Protocol Stop: 11/08/23 18:59 Last Titration: 10/10/23 08:07 Dose: 1,400 units/hr, 28 mls/hr Metoprolol Succinate (Metoprolol Succ 50mg Ext Rel Tab) 100 mg PO DAILY [facility] Stop: 11/09/23 08:59 Last Admin: 10/10/23 08:19 Dose: 100 mg Multivitamins (Multivitamin Tab) 1 tab PO DAILY [facility] Stop: 11/09/23 08:59 Last Admin: 10/10/23 08:20 Dose: 1 tab Ondansetron HCl (Ondansetron Inj 2 Mg/Ml 2 Ml Vial) 4 mg IV Q6H PRN PRN Reason: Nausea Stop: 11/08/23 21:11 Oxycodone HCl (Oxycodone Hcl Ir 5 Mg Tab (Immediate Release)) 5 mg PO Q6H PRN PRN Reason: Severe Pain (Scale 7, 8, 9,10) Stop: 10/23/23 18:47 Polyethylene Glycol (Polyethylene (Miralax) 17 Gm Pack) 17 gm PO DAILY PRN PRN Reason: Constipation Stop: 11/08/23 21:11
--- NOTE | 2023-10-10 10:53 | Anesthesiology Consultation ---
Date of Service October 10, 2023 Assessment & Plan (1) Encounter for pre-operative examination: Chart Review Chart Review: Acceptable Risk for Surgery and Patient NOT seen in Pre Admission Testing Consults Requested none History Surgery Operation Date: 10/10/23 11:15 Proposed Procedures p Trans-Esophageal Echo - Ilya Fleming DO Height/Weight Height: 5 ft 10 in Weight: 109.316 kg Allergies Allergy/AdvReac Type Severity Reaction Status Date / Time No Known Allergies Allergy Verified 10/09/23 17:36 Medications Home Medications Medication Instructions Recorded Confirmed Last Taken Glory Probiotic 1 tab PO DAILY 10/09/23 10/09/23 Unknown acetaminophen 500 mg tablet 1,000 mg PO Q6H PRN Pain 10/09/23 10/09/23 Unknown (Tylenol Extra Strength) amoxicillin 500 mg capsule 2,000 mg PO UD 10/09/23 10/09/23 Unknown apixaban 5 mg tablet (Eliquis) 5 mg PO BID 10/09/23 10/09/23 Unknown ascorbic acid (vitamin C) 500 mg 1,000 mg PO 2XWK 10/09/23 10/09/23 Unknown tablet (Vitamin C) aspirin 81 mg tablet,delayed 81 mg PO DAILY 10/09/23 10/09/23 Unknown release atorvastatin 40 mg tablet 40 mg PO HS 10/09/23 10/09/23 Unknown metoprolol succinate 100 mg 100 mg PO DAILY 10/09/23 10/09/23 Unknown tablet,extended release 24 hr multivitamin 1 tab PO DAILY 10/09/23 10/09/23 Unknown Active Medications Generic Name Dose Route Start Last Admin Trade Name Freq PRN Reason Stop Dose Admin Acetaminophen 1,000 mg 10/09/23 21:12 10/10/23 08:29 Acetaminophen 500 Mg Tab PO 11/08/23 21:11 1,000 mg Q6H PRN Administration Pain Ascorbic Acid 1,000 mg 10/10/23 09:00 10/10/23 09:55 Ascorbic Acid 500 Mg Tab PO 11/09/23 08:59 Not Given MoFr@0900 [facility] Aspirin 81 mg 10/10/23 09:00 10/10/23 08:19 Aspirin 81 Mg Ectab PO 11/09/23 08:59 81 mg DAILY [facility] Administration Atorvastatin Calcium 40 mg 10/09/23 21:12 10/09/23 22:00 Atorvastatin 40 Mg Tab PO 11/08/23 21:11 40 mg HS LANA Administration Heparin Sodium/Dextrose 25,000 units in 500 mls @ 28 mls/hr 10/09/23 19:00 10/10/23 08:07 Heparin Sodium/Dextrose IV 11/08/23 18:59 1,400 units/hr .[id number] LANA 28 mls/hr Titration Protocol 1,400 UNITS/HR Metoprolol Succinate 100 mg 10/10/23 09:00 10/10/23 08:19 Metoprolol Succ 50mg Ext Rel Tab PO 11/09/23 08:59 100 mg DAILY [facility]NA Administration Multivitamins 1 tab 10/10/23 09:00 10/10/23 08:20 Multivitamin Tab PO 11/09/23 08:59 1 tab DAILY [facility]NA Administration Past Medical History Medical History (Updated 10/10/23 @ 10:53 by Robert Nogueira MD) Encounter for pre-operative examination Obesity Elevated troponin Acute pain of left thigh DVT of leg (deep venous thrombosis) Arterial embolism and thrombosis of lower extremity History of deviated nasal septum Atrial fibrillation Past Family History Family History Other No pertinent family history Past Surgical History Surgical History History of heart valve replacement AVR w/ 25mm Anglin Inspiris valve, Ligation left atrial appendage with clip on 06/21/20 @ [facility] [place] H/O cardiac catheterization History of inguinal hernia repair Social History Smoking Status: Never smoker Do You Dip or Chew Tobacco: No Hx Alcohol Use: Yes Alcohol type: beer alcohol intake frequency: holidays/special occasions only Hx Substance Use: No substance use type: does not use Physical Exam Vital Signs Last Vital Signs Temp 36.3 C L 10/10/23 08:25 Pulse 74 10/10/23 08:25 Resp 20 10/10/23 08:25 BP 145/91 H 10/10/23 08:25 Pulse Ox 96 10/10/23 08:25 O2 Del Method Room Air 10/10/23 08:25 Testing Laboratory Results 10/10/23 02:05 10/10/23 02:05 PT 10.9 Seconds (9.0-12.0) 10/09/23 14:00 INR 1.0 (0.9-1.1) 10/09/23 14:00 APTT 31 Seconds (21-31) 10/09/23 14:00 Hemoglobin A1c 5.5 % (4.5-5.6) 10/10/23 02:05 Electrocardiogram Date: 10/09/23 HR 77. Sinus rhythm with 1st degree A-V block Otherwise normal ECG When compared with ECG of 13-JAN-2020 06:52, OH interval has increased Echocardiogram Date: 10/10/23 TTE. LV systolic function is normal. LV EF 60-65% LV wall motion is normal. There is a bioprosthetic aortic valve. Gradient is normal for this prosthetic aortic valve. Bioprosthetic leaflets are not well visualized. Mild Mitral regurg
--- NOTE | 2023-10-10 10:53 | Electrocardiogram Report ---
Test Reason : Blood Pressure : / mmHG Vent. Rate : 077 BPM Atrial Rate : 077 BPM P-R Int : 236 ms QRS Dur : 094 ms QT Int : 386 ms P-R-T Axes : 022 004 021 degrees QTc Int : 436 ms Sinus rhythm with 1st degree A-V block Otherwise normal ECG When compared with ECG of 13-JAN-2020 06:52, ID interval has increased Confirmed by Jacobo Lopes ([id number]) on 10/10/2023 10:52:52 AM Referred By: REFERRED SELF Confirmed By:Jacobo Lopes
[2023-10-10 11:39] LABS: ANTI-Xa, UFH(UnfractionatedHep 0.55 IU/ml (0.3-0.7)
--- NOTE | 2023-10-10 11:59 | Anesthesiology Progress Note ---
Date of Service October 10, 2023 Anesthesia Post Procedure Vital Signs Vital Signs: Temp Pulse Pulse Resp BP BP BP 10/10/23 11:10 73 14 144/95 H 10/10/23 08:25 36.3 C L 74 20 145/91 H 10/10/23 08:00 70 10/10/23 03:00 36.9 C 66 18 117/56 L 10/09/23 22:09 36.9 C 73 18 139/80 10/09/23 21:58 72 10/09/23 21:05 80 10/09/23 21:00 10/09/23 21:00 36.9 C 77 18 139/80 10/09/23 19:59 80 20 123/74 10/09/23 18:30 69 17 10/09/23 18:03 70 21 128/79 10/09/23 17:24 71 24 10/09/23 16:18 74 16 117/75 10/09/23 15:07 10/09/23 14:45 79 20 121/73 10/09/23 13:19 36.9 C 87 18 147/100 H Pulse Ox O2 Del Method 10/10/23 11:10 98 Room Air 10/10/23 08:25 96 Room Air 10/10/23 08:00 10/10/23 03:00 96 Room Air 10/09/23 22:09 95 Room Air 10/09/23 21:58 10/09/23 21:05 10/09/23 21:00 Room Air 10/09/23 21:00 97 Room Air 10/09/23 19:59 97 Room Air 10/09/23 18:30 96 10/09/23 18:03 96 10/09/23 17:24 95 10/09/23 16:18 96 10/09/23 15:07 98 Room Air 10/09/23 14:45 95 10/09/23 13:19 98 Room Air Pain Intensity Left Groin: Pain Intensity: 8 Transfer of Care Handoff Completed per policy Notes Mental Status: alert / awake / arousable and participated in evaluation Patient Amnestic to Procedure: Yes Nausea / Vomiting: adequately controlled Pain: adequately controlled Airway Patency, RR, SpO2: stable & adequate BP & HR: stable & adequate Hydration State: stable & adequate Anesthetic Complications: no major complications apparent and Pt Satisfied with anesthetic care
[2023-10-10] MEDS: PROPOFOL IV EMULSION 10 MG/ML 20 ML VIAL IV ONE ×3 (12:51→12:54)
[2023-10-10] MEDS: BENZOCAINE/TETRACAIN/BUTAM 50 APPLN/5 GM CAN EXT ONE (12:52)
[2023-10-11 03:04] LABS: A calco-baum cmplx NotReported Not Detected (NotDetected); Bact fragilis Not Reported Not Detected (NotDetected); Blood Culture Id Panel See PCR Comment (NotDetected); C auris Not Reported Not Detected (NotDetected); Calbicans Not Reported Not Detected (NotDetected); Candida glabrata Not Reported Not Detected (NotDetected); Candida krusei Not Reported Not Detected (NotDetected); Cneoformans/gatti Not Reported Not Detected (NotDetected); Cparapsilosis Not Reported Not Detected (NotDetected); E cloacae compx Not Reported Not Detected (NotDetected); Efaecalis Not Reported Not Detected (NotDetected); Efaecium Not Reported Not Detected (NotDetected); Enterobacterales Not Reported Not Detected (NotDetected); Escherichia coli Not Reported Not Detected (NotDetected); H influenzae Not Reported Not Detected (NotDetected); K aerogenes Not Reported Not Detected (NotDetected); Koxytoca Not Reported Not Detected (NotDetected); Kpneumoniae grp Not Reported Not Detected (NotDetected); Lmonocyt Not Reported Not Detected (NotDetected); N meningitidis Not Reported Not Detected (NotDetected); P aeruginosa Not Reported Not Detected (NotDetected); Proteus spp Not Reported Not Detected (NotDetected); Salmonella spp Not Reported Not Detected (NotDetected); Smarcescens Not Reported Not Detected (NotDetected); Staph lugdunensis Not Reported Not Detected (NotDetected); Staph spp. Not Reported DETECTED (NotDetected); Staphaureus Not Reported Not Detected (NotDetected); Staphepi Not Reported DETECTED (NotDetected); Staphylococcus spp. DETECTED (NotDetected); Stenmaltophilia Not Reported Not Detected (NotDetected); Strep agal(GrpB) Not Reported Not Detected (NotDetected); Strep pneum Not Reported Not Detected (NotDetected); Strep pyog (GrpA) Not Reported Not Detected (NotDetected); Strep spp Not Reported Not Detected (NotDetected); mecAC Resistant Gene Not Detected (NotDetected)
[2023-10-11 03:37] LABS: Staphylococcus epidermidis DETECTED (NotDetected)
--- NOTE | 2023-10-11 04:10 | Communication Note ---
Date of Service: October 11, 2023 Made aware by RN of abnormal blood cultures result Gram-negative bacilli, Gram-positive cocci clusters 2 bottles (PCR MRSA not detected; staph species, staff epidermidis detected) AP Gram-negative bacteremia/Gram-positive bacteremia History of bioprosthetic AVR Follow final cultures Cefepime ID consult
[2023-10-11] MEDS: CEFEPIME 2,000 MG in SYRINGE 0 ML IV SCH (04:22)
[2023-10-11 04:58] LABS: Appearance Urine Clear (Clear); Bilirubin Urine Negative (Negative); Blood Urine Negative (Negative); Color Urine Yellow; Glucose Urine UA Negative (Negative); Ketones Urine Negative (Negative); Leukocyte Esterase Urine Negative (Negative); Nitrite Urine Negative (Negative); Protein Urine Negative (Negative); Urobilinogen Urine Negative (Negative); pH Urine 5.5 (4.5-7.5)
[2023-10-11 06:22] LABS: Hematocrit (blood only) 37.8 % (42.0-52.0); Hemoglobin 12.7 g/dl (14.0-18.0); Mean Corpuscular Hemoglobin 28.8 pg (25.0-34.0); Mean Corpuscular Hgb Conc 33.6 g/dL (32.0-36.0); Mean Corpuscular Volume 85.7 fL (80.0-100.0); Platelet Count 250 K/uL (130-400); RDW Standard Deviation 40.3 fL (36.4-46.3); Red Blood Count 4.41 M/uL (4.70-6.10); White Blood Count 8.92 K/ul (4.8-10.8)
[2023-10-11 06:36] LABS: Calcium 9.5 mg/dl (8.6-10.3); Creatinine Clr Calc Pharmacy 123.7 ml/min; Est GFR (African American) 114.5 ml/min; Est GFR (Non-African American) 98.8 ml/min; Phosphorus 4.1 mg/dl (2.5-4.9)
[2023-10-11 06:38] LABS: ANTI-Xa, UFH(UnfractionatedHep 0.49 IU/ml (0.3-0.7)
[2023-10-11] MEDS ORDERED: VANCOMYCIN CONSULT ACTIVE PRN (07:40)
--- NOTE | 2023-10-11 07:48 | Hospitalist Progress Note ---
Date of Service October 11, 2023 Assessment & Plan (1) Acute pain of left thigh: (2) Arterial occlusion: (3) DVT of leg (deep venous thrombosis): (4) Elevated troponin: (5) Paroxysmal atrial fibrillation: (6) Hypertension: (7) History of heart valve replacement: Plan This is a 53yo M with a PMH of persistent atrial fibrillation s/p ablation, history of bicuspid aortic valve replacement at [facility] 2020, HTN, HLD, recent hospitalizations at [facility] for LLE arterial clot and RLE DVT in July of this year presents with L groin/medical thigh pain x 5 days. Bacteremia History of bicuspid aortic valve replacement at [facility] 2020 Acute pain of left thigh Blood cultx (10/08) - posit for GNB and GP cocci in clusters received 1 dose of cefepime overnight will cont. w/ vanco + zosyn for now repeat blood cultx hx of cracked molar (tooth)- since end of 2022 and hx of intermittent fevers also hx of post-op abscess R groin in 2019 MARLENA obtained by cardiology (10/09) -LV systolic function is normal. LVEF 60 to 65%. There is a bioprosthetic aortic valve. Bioprosthetic leaflets are thin and move normally. No prosthetic valve stenosis or regurg. There is no aortic valvular vegetation. The mitral valve anatomy is normal. There is mild mitral regurg. There is mild tricuspid regurg. Doppler findings do not suggest pulmonary hypertension. 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 ? Eliquis treatment failure so transitioned to SQ Lovenox by heme, vasc surgery Transitioned back to Eliquis on 09/21 by [facility] vascular [facility] Presenting now with L medial thigh pain - LLE well perfused, pulses intact, lactate WNL, no signs of infection or acute ischemic limb LLE venous doppler without evidence of DVT LLE arterial doppler with significantly dampened arterial waveforms in the calf within the posterior tibial and peroneal arteries, likely representing vascular compromise. There may be focal occlusion within the mid left peroneal artery ED faxed records from [facility] with similar read from July admission (will have copy uploaded into EMR) CT venogram with no acute infectious or inflammatory findings are identified in the abdomen or pelvis.There is no evidence of deep venous thrombosis in the inferior vena cava or iliac veins Transitioned to IV heparin in case intervention needed or Eliquis failure Consulted vacular surgery - not available until Friday -> Yesterday I contacted [facility] vascular - they did not have all the images to review but they had arterial doppler - from that they don't believe pt's thigh pain is due to arterial compromise Pt is now found bacteremic, has hx of R groin hematoma and post op abscess in 2019 - no other recent surgeries or interventions Consult heme for intermediate anticoagulation recs given complicated hx of arterial clot, DVT on eliquis and now elevated troponin -> per hematology - failed eliquis and so recommend coumadin Pain control, vascular checks Elevated troponin Chest pain Episode of CP yesterday that has not recurred, no acute EKG changes HS troponin 242.5 -> 321.7 -> 344.3 Holding eliquis, transitioned to IV heparin Considered PE- unremarkable CTA of the chest. No pulmonary emboli identified Trend troponin, tele Continue aspirin, statin, Toprol Cardiology consulted - echo obtained , as below LV systolic function is normal. LVEF 60 to 65%. LV wall motion is abnormal. There is a bioprosthetic aortic valve. The gradient is normal for this prosthetic aortic valve. Bioprosthetic leaflets are not well-visualized. There is mild mitral regurg. MARLENA also obtained , as above - seems without vegetation Planned for possible LHC on Friday - as pt is now found bacteremic, may need to postpone the procedure Atrial fibrillation S/p ablation, surgical clipping of left atrial appendage Continue Toprol DVT Ppx: IV heparin Code status: FULL PCP: Dr. Armenta Dispo: PCU Admission and Anticipated Discharge Date Admission Date: October 09, 2023 Subjective Pt seen in follow up of L thigh pain, hx of arterial clot Currently on IV heparin (seem pt has failed Eliquis) Cardiology, hematology and vasc. surgery consulted Overnight blood cultx posit for GNB and GP cocci in clusters - abx started and blood cultx repeated MARLENA obtained yesterday - seems to be without vegetation Yesterday I contacted [facility] vascular - they did not have all the images to review but they had arterial doppler - from that they don't believe pt's thigh pain is due to arterial compromise Currently laying in bed in NAD, continues to have left upper thigh discomfort Currently no fever, chills, chest pain, shortness of breath but reportedly had fevers prior per heme - plan to switch to coumadin per cardiology - poss. plan for LHC, however as pt is now bacteremic - will likely postpone ID consulted Review of Systems Review of Systems: All systems reviewed & are unremarkable except as noted in Subjective Physical Exam Physical Exam: General Appearance:Well built and nourished, no apparent distress Head: normocephalic, Atraumatic Eyes: normal inspection, EOMI Neck: supple Respiratory/Chest: Normal breath sounds, CTA, No accessory muscle use Cardiovascular: S1, S2, No murmur Abdomen/GI:Soft, Non tender, Bowel sounds present Extremities/Musculoskeletal:normal inspection, no edema, Left medial thigh tender, no erythema, no swelling Neurologic/Psych:AAOX3, grossly no focal neurological deficits Skin: normal color, warm Results & Data Results & Data Vital Signs (Past 12 Hours) Vital Signs Temp Pulse Pulse Resp BP Pulse Ox Pulse Ox 10/11/23 07:16 36.3 C L 82 17 125/79 95 10/11/23 04:06 36.5 C 67 18 130/81 97 10/11/23 00:11 36.7 C 73 18 134/82 93 10/10/23 22:00 75 10/10/23 21:12 97 10/10/23 19:50 37.1 C 76 18 149/95 H 96 O2 Del Method O2 Del Method 10/11/23 07:16 Room Air 10/11/23 04:06 Room Air 10/11/23 00:11 Room Air 10/10/23 22:00 10/10/23 21:12 Room Air 10/10/23 19:50 Room Air Laboratory Results 10/11/23 10/11/23 10/10/23 Range/Units 05:52 04:15 09:57 WBC 8.92 (4.8-10.8) K/ul RBC 4.41 L (4.70-6.10) M/uL Hgb 12.7 L (14.0-18.0) g/dl Hct 37.8 L (42.0-52.0) % MCV 85.7 (80.0-100.0) fL MCH 28.8 (25.0-34.0) pg MCHC 33.6 (32.0-36.0) g/dL RDW Std Deviation 40.3 (36.4-46.3) fL RDW Coeff of Solomon 13.0 (11.5-14.5) % Plt Count 250 (130-400) K/uL MPV 9.0 L (9.4-12.4) fL Heparin Anti-Xa, Unfract 0.49 0.55 (0.3-0.7) IU/ml Sodium 137 (136-145) mmol/L Potassium 4.0 (3.5-5.1) mmol/L Chloride 105 (98-107) mmol/L Carbon Dioxide 25 (21-32) mmol/L Anion Gap 7 (3-11) BUN 17 (6-23) mg/dl Creatinine 0.85 (0.6-1.4) mg/dl Est Cr Clr Drug Dosing 123.7 ml/min Est GFR ( Amer) 114.5 ml/min Est GFR (Non-Af Amer) 98.8 ml/min BUN/Creatinine Ratio 20.0 (10-20) Glucose 114 H (70-99(Fasting)) mg/dl Estimat Average Glucose mg/dl Hemoglobin A1c (4.5-5.6) % Calcium 9.5 (8.6-10.3) mg/dl Phosphorus 4.1 (2.5-4.9) mg/dl Magnesium 2.0 (1.7-2.4) mg/dl Troponin I High Sens (0-20) pg/ml C-Reactive Protein (0-0.5) mg/dl Urine Color Yellow Urine Appearance Clear (Clear) Urine pH 5.5 (4.5-7.5) Ur Specific Pennington 1.020 (1.000-1.030) Urine Protein Negative (Negative) Urine Glucose (UA) Negative (Negative) Urine Ketones Negative (Negative) Urine Blood Negative (Negative) Urine Nitrite Negative (Negative) Urine Bilirubin Negative (Negative) Urine Urobilinogen Negative (Negative) Ur Leukocyte Esterase Negative (Negative) Staphylococcus sp PCR (NotDetected) mecA/C-Methicil Resis Gene (NotDetected) Staph epidermidis (PCR) (NotDetected) Bld Cult ID Panel PCR (NotDetected) 10/10/23 10/10/23 10/09/23 Range/Units 08:04 02:05 16:14 WBC (4.8-10.8) K/ul RBC (4.70-6.10) M/uL Hgb (14.0-18.0) g/dl Hct (42.0-52.0) % MCV (80.0-100.0) fL MCH (25.0-34.0) pg MCHC (32.0-36.0) g/dL RDW Std Deviation (36.4-46.3) fL RDW Coeff of Solomon (11.5-14.5) % Plt Count (130-400) K/uL MPV (9.4-12.4) fL Heparin Anti-Xa, Unfract (0.3-0.7) IU/ml Sodium (136-145) mmol/L Potassium (3.5-5.1) mmol/L Chloride (98-107) mmol/L Carbon Dioxide (21-32) mmol/L Anion Gap (3-11) BUN (6-23) mg/dl Creatinine (0.6-1.4) mg/dl Est Cr Clr Drug Dosing ml/min Est GFR ( Amer) ml/min Est GFR (Non-Af Amer) ml/min BUN/Creatinine Ratio (10-20) Glucose (70-99(Fasting)) mg/dl Estimat Average Glucose 111 mg/dl Hemoglobin A1c 5.5 (4.5-5.6) % Calcium (8.6-10.3) mg/dl Phosphorus (2.5-4.9) mg/dl Magnesium (1.7-2.4) mg/dl Troponin I High Sens 173.7 H* D (0-20) pg/ml C-Reactive Protein 8.25 H (0-0.5) mg/dl Urine Color Urine Appearance (Clear) Urine pH (4.5-7.5) Ur Specific [place] (1.000-1.030) Urine Protein (Negative) Urine Glucose (UA) (Negative) Urine Ketones (Negative) Urine Blood (Negative) Urine Nitrite (Negative) Urine Bilirubin (Negative) Urine Urobilinogen (Negative) Ur Leukocyte Esterase (Negative) Staphylococcus sp PCR DETECTED A (NotDetected) mecA/C-Methicil Resis Gene Not Detected (NotDetected) Staph epidermidis (PCR) DETECTED A (NotDetected) Bld Cult ID Panel PCR See PCR Comment (NotDetected) Medications Administered Current Inpatient Medications Acetaminophen (Acetaminophen 500 Mg Tab) 1,000 mg PO Q6H PRN PRN Reason: Pain Stop: 11/08/23 21:11 Last Admin: 10/10/23 18:37 Dose: 1,000 mg Ascorbic Acid (Ascorbic Acid 500 Mg Tab) 1,000 mg PO MoFr@0900 LANA Stop: 11/09/23 08:59 Last Admin: 10/10/23 09:55 Dose: Not Given Aspirin (Aspirin 81 Mg Ectab) 81 mg PO DAILY [facility] Stop: 11/09/23 08:59 Last Admin: 10/10/23 08:19 Dose: 81 mg Atorvastatin Calcium (Atorvastatin 40 Mg Tab) 40 mg PO HS [facility] Stop: 11/08/23 21:11 Last Admin: 10/10/23 19:53 Dose: 40 mg Heparin Sodium/Dextrose (Heparin Sodium/Dextrose) 25,000 units in 500 mls @ 28 mls/hr IV .[id number] [facility]; Protocol Stop: 11/08/23 18:59 Last Titration: 10/11/23 07:02 Dose: 1,400 units/hr, 28 mls/hr Vancomycin HCl 2,500 mg/ (Sodium Chloride) 550 mls @ 180 mls/hr IV ONE STA Stop: 10/11/23 10:43 Piperacillin Sod/Tazobactam (Sod 4.5 gm/ Dextrose) 100 mls @ 200 mls/hr IV NOW ONE; Protocol Stop: 10/11/23 08:14 Metoprolol Succinate (Metoprolol Succ 50mg Ext Rel Tab) 100 mg PO DAILY [facility] Stop: 11/09/23 08:59 Last Admin: 10/10/23 08:19 Dose: 100 mg Miscellaneous (Stop Order - Heparin Drip) 1 each N/A 0600 ONE Stop: 10/13/23 06:01 Miscellaneous Information (Vancomycin Consult Active) 1 each N/A UD PRN PRN Reason: Consult Stop: 11/10/23 07:39 Multivitamins (Multivitamin Tab) 1 tab PO DAILY [facility] Stop: 11/09/23 08:59 Last Admin: 10/10/23 08:20 Dose: 1 tab Ondansetron HCl (Ondansetron Inj 2 Mg/Ml 2 Ml Vial) 4 mg IV Q6H PRN PRN Reason: Nausea Stop: 11/08/23 21:11 Oxycodone HCl (Oxycodone Hcl Ir 5 Mg Tab (Immediate Release)) 5 mg PO Q6H PRN PRN Reason: Severe Pain (Scale 7, 8, 9,10) Stop: 10/23/23 18:47 Polyethylene Glycol (Polyethylene (Miralax) 17 Gm Pack) 17 gm PO DAILY PRN PRN Reason: Constipation Stop: 11/08/23 21:11
[2023-10-11] MEDS: PIPER/TAZO 4.5g in D5W MINI-B 100 ML IV ONE (08:30)
--- NOTE | 2023-10-11 08:46 | Cardiology Progress Note ---
Date of Service October 11, 2023 Assessment & Plan (1) Arterial occlusion: (2) Paroxysmal atrial fibrillation: (3) Congenital bicuspid aortic valve: (4) History of heart valve replacement: (5) Acute pain of left thigh: (6) Elevated troponin: (7) DVT of leg (deep venous thrombosis): Plan 1. Bacteremia 2. L thigh pain 3. Elevated troponin 4. DVT 5. Bicuspid aortic valve -s/p bioprosthetic AVR 2020 6. Paroxysmal AFIB -failed DCCV, s/p PVI ablation 7. Hx arterial occlusion 8. HTN 9. Broken tooth/poor dentition -Patient with newly found bacteremia per cultures today with gram negative and gram positive cocci in clusters. -Started broad spectrum ABX. ID consulted. -History of recent arterial occlusion/DVT -Vasc studies unchanged. Vascular consulted. -Continue heparin drip -Hematology recommends OP hypercoagulable work-up. Transition to coumadin. -Further work-up of L thigh pain per primary team -Elevated troponin -Troponin has trended down. EKG without acute changes -Patient remains chest pain free -Scheduled for cardiac catheterization on 10/13/2023 to evaluate for coronary thrombosis. -In light of recently positive blood cultures, may need to hold off until adequately treated with ABX. -Bioprosthetic AVR -MARLENA negative yesterday for vegetation or embolic process Case discussed with Dr. Aguilar. I spent a total of 38 minutes on the date of service in preparation, delivery, and documentation of the care provided to this patient, excluding any time spent in the performance of separately billed services. Joan Bill PA-C Department of Cardiology, [facility] This chart was completed in part utilizing Speech Voice Recognition Software. Grammatical errors, random word insertions, pronoun errors, and incomplete sentences are an occasional consequence of this system due to software limitations, ambient noise, and hardware issues. Any formal questions or concerns about the content, text, or information contained within the body of this dictation should be directly addressed to the provider for clarification. Admission and Anticipated Discharge Date Admission Date: October 09, 2023 Supervising Physician Co-Signing Physician Notes I have personally performed a history and physical examination on the patient. I have reviewed the advance practitioner's documentation, and I agree with, and take responsibility for the plan of care. 53 year old male with past medical bioprosthetic AVR, paroxysmal atrial fibrillation (s/p PVI ablation) history of left arterial thrombus in his calf diagnosed back in 07/2023 where he presented to [facility] and was sent home with Eliquis. A few days later he developed a DVT in his right leg. His Eliquis was switched to Lovenox. He took Lovenox for about a month and was then switched back to Eliquis. Patient does tell me after his AVR he had bouts of atrial fibrillation and had a PVI. He states that was taken off his Eliquis after his ablation. He then had a bout of COVID back in April. He presented back with left groin pain. Arterial Duplex showed "significantly dampened arterial waveforms in the calf within the posterior tibial and peroneal arteries, likely representing vascular compromise. There may be focal occlusion within the mid left peroneal artery". MARLENA done yesterday showed preserved LVEF, normal functioning bioprosthetic AV, and mild MR and TR. No vegetations seen. His blood cultures today are positibe for gram negative bacilli and gram positive cocci in clusters. His troponins were elevated and peaked at 344 and trending down to 173. He has been started on IV antibiotics. He is tentatively schedule for a LHC on Friday but since his blood cultures are positive may need to wait till they are cleared. Continue Heparin gtt. I spent a total of 35 minutes on the date of service in preparation, delivery, and documentation of the care provided to this patient, excluding any time spent in the performance of separately billed services. Subjective Victor Manuel Umanzor is a 53 year old male with PMHx biscuspid aortic valve s/p b ioprosthetic AVR 2020, atrial fibrillation with hx of failed DCCV s/p PVI ablation, recent LLE arterial and venous thrombosis at [facility] treated with subQ lovenox and Eliquis. Patient presented to [facility] 10/09/2023 with RLE/groin discomfort. Patient reports recent extended travel. No acute occlusion on imaging. Arterial doppler reviewed by [facility] vascular, unable to view CT venogram or venous doppler.. [facility] vascular not available until Friday. Hematology recommends switching to coumadin as failed Eliquis. Plan for outpatient hypercoagulable work-up. Patient did note broken tooth and intermittent fevers/chills. Previously had plans for removal with bone grafts at [facility] maxillofacial surgery. This was on hold with recent arterial occlusion. Blood cultures initially negative. Lyme testing negative. No overt signs of infection. MARLENA completed yesterday with no evidence of vegetation or embolic process. Also reported episode of chest discomfort wile performing yard work on Friday. Troponin elevated upon admission 344 trended down to 173 yesterday. No ischemic EKG changes. In light of recent thrombotic events there is concern for possible coronary thrombosis; therefore cardiac catheterization is planned for 10/14/2023. Blood cultures positive today with gram negative bacteria and gram positive bacteria in clusters. Plan for repeat blood cultures today. Started on broad spectrum ABX. ID consulted Patient reports feeling well. Continues to have mild, deep L groin pain. Small scratch proximal to knee otherwise no sign of infection. Has been ambulating without chest pain or shortness of breath. Denies palpitations. Review of Systems Review of Systems: All systems reviewed & are unremarkable except as noted in HPI & below Musculoskeletal: L thigh pain Physical Exam Constitutional: WD/WN, vitals as above Eyes: PERRL, conjunctivae normal, anicteric sclerae Respiratory: normal respiratory effort, lungs clear to auscultation Cardiovascular: Rate/Rhythm: regular rate and regular rhythm Heart Sounds: normal S1, normal S2 and + murmur Extremities: no edema Musculoskeletal: no cyanosis or clubbing, extremities motor strength 5/5 Skin: no rashes, warm and dry Results & Data Vital Signs (Past 12 Hours) Vital Signs Temp Pulse Pulse Resp BP Pulse Ox Pulse Ox 10/11/23 07:16 36.3 C L 82 17 125/79 95 10/11/23 04:06 36.5 C 67 18 130/81 97 10/11/23 00:11 36.7 C 73 18 134/82 93 10/10/23 22:00 75 10/10/23 21:12 97 O2 Del Method O2 Del Method 10/11/23 07:16 Room Air 10/11/23 04:06 Room Air 10/11/23 00:11 Room Air 10/10/23 22:00 10/10/23 21:12 Room Air Laboratory Results Cardiac Enzymes 10/10/23 Range/Units 08:04 Troponin I High Sens 173.7 H* D (0-20) pg/ml CBC 10/11/23 Range/Units 05:52 WBC 8.92 (4.8-10.8) K/ul RBC 4.41 L (4.70-6.10) M/uL Hgb 12.7 L (14.0-18.0) g/dl Hct 37.8 L (42.0-52.0) % Plt Count 250 (130-400) K/uL Comprehensive Metabolic Panel 10/11/23 Range/Units 05:52 Sodium 137 (136-145) mmol/L Potassium 4.0 (3.5-5.1) mmol/L Chloride 105 (98-107) mmol/L Carbon Dioxide 25 (21-32) mmol/L BUN 17 (6-23) mg/dl Creatinine 0.85 (0.6-1.4) mg/dl Glucose 114 H (70-99(Fasting)) mg/dl Calcium 9.5 (8.6-10.3) mg/dl Intake and Output 10/10/23 10/11/23 10/11/23 22:59 06:59 14:59 Intake Total 780.2 / 1020.533 31.733 / 31.733 Output Total 200 / 200 Balance 580.2 / 820.533 31.733 / 31.733 Intake: IV 480.2 / 720.533 31.733 / 31.733 Heparin Sodium/Dextrose 25,000 480.2 / 720.533 31.733 / 31.733 units In 500 ml @ 1,400 UNITS/ HR 28 mls/hr IV .[id number] [facility] Rx #:[id number] Oral 300 / 300 Output: Urine 200 / 200 Other: # Unmeasured Voids 1 3 Weight 110.54 kg Weight Measurement Method Built in [facility] Diagnostic Findings MARLENA 10/10/2023 Left ventricular systolic function is normal LVEF 60-65% there is a bioprosthetic aortic valve bioprosthetic leaflets are thin and move normally there is no aortic valvular vegetation the mitral valve anatomy is normal There is mild mitral regurgitation doppler findings do not suggest pulmonar HTN
[2023-10-11] MEDS: VANCOMYCIN HCL 2,500 MG in SODIUM CHLORIDE 0.9% 500 ML IV STA (09:46)
--- NOTE | 2023-10-11 11:52 | Pharmacy Report ---
Pharmacy PK ABX Note - Date of Service October 11, 2023 - Assessment and Plan Assessment 53 year old M receiving Vancomycin and Zosyn for treatment of bacteremia. * Day #1 of antimicrobial therapy. * Afebrile. SCr stable. Leukocytosis resolved. Lactate and procal negative. * Blood cultures from 10/09/23 growing gram negative bacilli and gram positive cocci in clusters. GPCs identified by BCID2 PCR as Staph epidermidis without Mec A/C gene present. * This indicates that the Staph epi is methicillin sensitive and Zosyn should provide empiric coverage for both organisms. Provider wants to continue Vancomycin as well. ID consulted. Plan Vancomycin * Loading dose: 2500 mg IV x 1 * Maintenance dose: 1500 mg IV every 12 hours * Regimen is predicted to achieve target AUC/JOHN of 400-600 mg/L.hr * Random level ordered for: 10/13/23 Zosyn * 4.5 g IV every 8 hours Pharmacy will continue to follow and will adjust dose/frequency as necessary. Thank you. Pharmacy has transitioned to AUC monitoring for vancomycin. AUC/JOHN is the preferred PK/PD target and is associated with decreased risk of nephrotoxicity compared to traditional trough targets.
[2023-10-11] MEDS: PIPER/TAZO 4.5g in D5W MINI-B 100 ML IV SCH (14:30)
[2023-10-11] MEDS: ADVANCED PROBIOTIC 625 MG CAPSULE PO SCH (18:27)
[2023-10-11] MEDS: VANCOMYCIN HCL 1,500 MG in SODIUM CHLORIDE 0.9% 500 ML IV SCH (21:25)
[2023-10-12 06:30] LABS: Hematocrit (blood only) 35.8 % (42.0-52.0); Hemoglobin 11.9 g/dl (14.0-18.0); Mean Corpuscular Hemoglobin 28.3 pg (25.0-34.0); Mean Corpuscular Hgb Conc 33.2 g/dL (32.0-36.0); Mean Corpuscular Volume 85.2 fL (80.0-100.0); Mean Platelet Volume 8.9 fL (9.4-12.4); Platelet Count 253 K/uL (130-400); RDW Standard Deviation 39.8 fL (36.4-46.3); White Blood Count 8.13 K/ul (4.8-10.8)
[2023-10-12 06:48] LABS: BUN Creatinine Ratio 13.3 (10-20); Calcium 9.3 mg/dl (8.6-10.3); Creatinine Clr Calc Pharmacy 116.6 ml/min; Est GFR (African American) 111.8 ml/min; Est GFR (Non-African American) 96.5 ml/min; Magnesium 1.9 mg/dl (1.7-2.4); Phosphorus 3.9 mg/dl (2.5-4.9); Potassium 3.8 mmol/L (3.5-5.1)
--- NOTE | 2023-10-12 07:36 | Hospitalist Progress Note ---
Date of Service October 12, 2023 Assessment & Plan (1) Acute pain of left thigh: (2) Arterial occlusion: (3) DVT of leg (deep venous thrombosis): (4) Elevated troponin: (5) Paroxysmal atrial fibrillation: (6) Hypertension: (7) History of heart valve replacement: Plan This is a 53yo M with a PMH of persistent atrial fibrillation s/p ablation, [place] [facility] [place], HTN, HLD, recent hospitalizations at [facility] for LLE arterial clot and RLE DVT in July of this year presents with L groin/medical thigh pain x 5 days. Bacteremia History of bicuspid aortic valve [place] [facility] [place] pain of left thigh Blood cultx (10/08) - posit for GNB and GP cocci in clusters received 1 dose of cefepime overnight will cont. w/ vanco + zosyn for now repeat blood cultx hx of cracked molar (tooth)- since end of 2022 and hx of intermittent fevers also hx of post-op abscess R groin in 2019 MARLENA obtained by cardiology (10/09) -LV systolic function is normal. LVEF 60 to 65%. There is a bioprosthetic aortic valve. Bioprosthetic leaflets are thin and move normally. No prosthetic valve stenosis or regurg. There is no aortic valvular vegetation. The mitral valve anatomy is normal. There is mild mitral regurg. There is mild tricuspid regurg. Doppler findings do not suggest pulmonary hypertension. 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 ? Eliquis treatment failure so transitioned to SQ Lovenox by heme, vasc surgery Transitioned back to Eliquis on 09/21 by [facility] vascular service Presenting now with L medial thigh pain - LLE well perfused, pulses intact, lactate WNL, no signs of infection or acute ischemic limb LLE venous doppler without evidence of DVT LLE arterial doppler with significantly dampened arterial waveforms in the calf within the posterior tibial and peroneal arteries, likely representing vascular compromise. There may be focal occlusion within the mid left peroneal artery ED faxed records from [facility] with similar read from July admission (will have copy uploaded into EMR) CT venogram with no acute infectious or inflammatory findings are identified in the abdomen or pelvis.There is no evidence of deep venous thrombosis in the inferior vena cava or iliac veins Transitioned to IV heparin in case intervention needed or Eliquis failure Consulted vacular surgery - not available until Friday -> Yesterday I contacted [facility] vascular - they did not have all the images to review but they had arterial doppler - from that they don't believe pt's thigh pain is due to arterial compromise Pt is now found bacteremic, has hx of R groin hematoma and post op abscess in 2019 - no other recent surgeries or interventions Consult heme for [facility] anticoagulation recs given complicated hx of arterial clot, DVT on eliquis and now elevated troponin -> per hematology - failed eliquis and so recommend coumadin Pain control, vascular checks Elevated troponin Chest pain Episode of CP yesterday that has not recurred, no acute EKG changes HS troponin 242.5 -> 321.7 -> 344.3 Holding eliquis, transitioned to IV heparin Considered PE- unremarkable CTA of the chest. No pulmonary emboli identified Trend troponin, tele Continue aspirin, statin, Toprol Cardiology consulted - echo obtained , as below LV systolic function is normal. LVEF 60 to 65%. LV wall motion is abnormal. There is a bioprosthetic aortic valve. The gradient is normal for this prosthetic aortic valve. Bioprosthetic leaflets are not well-visualized. There is mild mitral regurg. MARLENA also obtained , as above - seems without vegetation Planned for possible LHC on Friday - as pt is now found bacteremic, may need to postpone the procedure Atrial fibrillation S/p ablation, surgical clipping of left atrial appendage Continue Toprol DVT Ppx: IV heparin Code status: FULL PCP: Dr. Armenta Dispo: PCU Admission and Anticipated Discharge Date Admission Date: October 09, 2023 Subjective Pt seen in follow up of L thigh pain, hx of arterial clot Currently on IV heparin (seem pt has failed Eliquis) Cardiology, hematology and vasc. surgery consulted Blood cultx posit for GNB and GP cocci in clusters - abx started and blood cultx repeated MARLENA obtained - seems to be without vegetation I contacted [facility] vascular - they did not have all the images to review but they had arterial doppler - from that they don't believe pt's thigh pain is due to arterial compromise Currently sitting up in chair in NAD, continues to have left upper thigh discomfort however seems somewhat improved now Currently no fever, chills, chest pain, shortness of breath but reportedly had fevers prior per heme - plan to switch to coumadin per cardiology - poss. plan for LHC, however as pt is now bacteremic - will likely postpone ID consulted family at the bedside today and updated Review of Systems Review of Systems: All systems reviewed & are unremarkable except as noted in Subjective Physical Exam Physical Exam: General Appearance:Well built and nourished, no apparent distress Head: normocephalic, Atraumatic Eyes: normal inspection, EOMI Neck: supple Respiratory/Chest: Normal breath sounds, CTA, No accessory muscle use Cardiovascular: S1, S2, No murmur Abdomen/GI:Soft, Non tender, Bowel sounds present Extremities/Musculoskeletal:normal inspection, no edema, Left medial thigh tender, no erythema, no swelling Neurologic/Psych:AAOX3, grossly no focal neurological deficits Skin: normal color, warm Results & Data Results & Data Vital Signs (Past 12 Hours) Vital Signs Temp Pulse Pulse Resp BP Pulse Ox Pulse Ox 10/12/23 03:21 36.4 C L 66 18 135/85 97 10/11/23 22:40 37.0 C 72 18 136/85 95 10/11/23 22:00 69 10/11/23 21:00 98 10/11/23 19:40 37.2 C 73 18 144/93 H 93 O2 Del Method O2 Del Method 10/12/23 03:21 Room Air 10/11/23 22:40 Room Air 10/11/23 22:00 10/11/23 21:00 Room Air 10/11/23 19:40 Room Air Laboratory Results 10/12/23 Range/Units 05:59 WBC 8.13 (4.8-10.8) K/ul RBC 4.20 L (4.70-6.10) M/uL Hgb 11.9 L (14.0-18.0) g/dl Hct 35.8 L (42.0-52.0) % MCV 85.2 (80.0-100.0) fL MCH 28.3 (25.0-34.0) pg MCHC 33.2 (32.0-36.0) g/dL RDW Std Deviation 39.8 (36.4-46.3) fL RDW Coeff of Solomon 13.0 (11.5-14.5) % Plt Count 253 (130-400) K/uL MPV 8.9 L (9.4-12.4) fL Heparin Anti-Xa, Unfract 0.40 (0.3-0.7) IU/ml Sodium 136 (136-145) mmol/L Potassium 3.8 (3.5-5.1) mmol/L Chloride 104 (98-107) mmol/L Carbon Dioxide 26 (21-32) mmol/L Anion Gap 6 (3-11) BUN 12 (6-23) mg/dl Creatinine 0.90 (0.6-1.4) mg/dl Est Cr Clr Drug Dosing 116.6 ml/min Est GFR ( Amer) 111.8 ml/min Est GFR (Non-Af Amer) 96.5 ml/min BUN/Creatinine Ratio 13.3 (10-20) Glucose 110 H (70-99(Fasting)) mg/dl Calcium 9.3 (8.6-10.3) mg/dl Phosphorus 3.9 (2.5-4.9) mg/dl Magnesium 1.9 (1.7-2.4) mg/dl Medications Administered Current Inpatient Medications Acetaminophen (Acetaminophen 500 Mg Tab) 1,000 mg PO Q6H PRN PRN Reason: Pain Stop: 11/08/23 21:11 Last Admin: 10/10/23 18:37 Dose: 1,000 mg Ascorbic Acid (Ascorbic Acid 500 Mg Tab) 1,000 mg PO MoFr@0900 [facility] Stop: 11/09/23 08:59 Last Admin: 10/10/23 09:55 Dose: Not Given Aspirin (Aspirin 81 Mg Ectab) 81 mg PO DAILY [facility] Stop: 11/09/23 08:59 Last Admin: 10/11/23 08:29 Dose: 81 mg Atorvastatin Calcium (Atorvastatin 40 Mg Tab) 40 mg PO HS [facility] Stop: 11/08/23 21:11 Last Admin: 10/11/23 21:25 Dose: 40 mg Heparin Sodium/Dextrose (Heparin Sodium/Dextrose) 25,000 units in 500 mls @ 28 mls/hr IV .[id number] [facility]; Protocol Stop: 11/08/23 18:59 Last Admin: 10/11/23 23:50 Dose: 1,400 units/hr, 28 mls/hr Piperacillin Sod/Tazobactam (Sod 4.5 gm/ Dextrose) 100 mls @ 25 mls/hr IV Q8H [facility]; Protocol Stop: 10/25/23 12:59 Last Admin: 10/12/23 05:14 Dose: 25 mls/hr Vancomycin HCl 1,500 mg/ (Sodium Chloride) 530 mls @ 200 mls/hr IV Q12H [facility] Stop: 10/25/23 21:59 Last Infusion: 10/12/23 02:01 Dose: Infused Lactobacillus Acidophilus (Advanced Probiotic 625 Mg Capsule) 1,250 mg PO DAILY [facility] Stop: 11/10/23 17:14 Last Admin: 10/11/23 18:27 Dose: 1,250 mg Metoprolol Succinate (Metoprolol Succ 50mg Ext Rel Tab) 100 mg PO DAILY [facility] Stop: 11/09/23 08:59 Last Admin: 10/11/23 08:29 Dose: 100 mg Miscellaneous (Stop Order - Heparin Drip) 1 each N/A 0600 ONE Stop: 10/13/23 06:01 Miscellaneous Information (Vancomycin Consult Active) 1 each N/A UD PRN PRN Reason: Consult Stop: 11/10/23 07:39 Multivitamins (Multivitamin Tab) 1 tab PO DAILY [facility] Stop: 11/09/23 08:59 Last Admin: 10/11/23 08:29 Dose: 1 tab Ondansetron HCl (Ondansetron Inj 2 Mg/Ml 2 Ml Vial) 4 mg IV Q6H PRN PRN Reason: Nausea Stop: 11/08/23 21:11 Oxycodone HCl (Oxycodone Hcl Ir 5 Mg Tab (Immediate Release)) 5 mg PO Q6H PRN PRN Reason: Severe Pain (Scale 7, 8, 9,10) Stop: 10/23/23 18:47 Polyethylene Glycol (Polyethylene (Miralax) 17 Gm Pack) 17 gm PO DAILY PRN PRN Reason: Constipation Stop: 11/08/23 21:11
--- NOTE | 2023-10-12 08:30 | Cardiology Progress Note ---
Date of Service October 12, 2023 Assessment & Plan (1) Arterial occlusion: (2) Paroxysmal atrial fibrillation: (3) Congenital bicuspid aortic valve: (4) History of heart valve replacement: (5) DVT of leg (deep venous thrombosis): (6) Elevated troponin: Plan 1. Bacteremia 2. L thigh pain 3. elevated troponin 4. DVT 5. Bicuspid aortic valve -s/p bioprosthetic AVR 2020 6. Paroxysmal AFIB -failed DCCV, s/p PVI ablation 7. Hx arterial occlusion 8. HTN 9. Broken molar/poor dentition -Patient with positive blood cultures for gram negative and positive cocci in clusters. -Blood cultures repeated -ID consulted -Elevated troponin -Troponin trended down. EKG without acute changes -Patient remains chest pain free -Continue heparin drip -Scheduled for [facility] 10/13/2023. In light of positive blood cxs, considering waiting until infection cleared. -Bioprosthetic valve/cracked molar -MARLENA negative for vegetation or embolic process Case discussed with Dr. Aguilar. I spent a total of 32 minutes on the date of service in preparation, delivery, and documentation of the care provided to this patient, excluding any time spent in the performance of separately billed services. Joan Bill PA-C Department of Cardiology, [facility] This chart was completed in part utilizing Speech Voice Recognition Software. Grammatical errors, random word insertions, pronoun errors, and incomplete sentences are an occasional consequence of this system due to software limitations, ambient noise, and hardware issues. Any formal questions or concerns about the content, text, or information contained within the body of this dictation should be directly addressed to the provider for clarification. Admission and Anticipated Discharge Date Admission Date: October 09, 2023 Supervising Physician Co-Signing Physician Notes I have personally performed a history and physical examination on the patient. I have reviewed the advance practitioner's documentation, and I agree with, and take responsibility for the plan of care. 53 year old male with past medical bioprosthetic AVR, paroxysmal atrial fibrillation (s/p PVI ablation) history of left arterial thrombus in his calf diagnosed back in 07/2023 where he presented to [facility] [place] and was sent home with Eliquis. A few days later he developed a DVT in his right leg. His Eliquis was switched to Lovenox. He took Lovenox for about a month and was then switched back to Eliquis. Patient does tell me after his AVR he had bouts of atrial fibrillation and had a PVI. He states that was taken off his Eliquis after his ablation. He then had a bout of COVID back in April. He presented back with left groin pain. Arterial Duplex showed "significantly dampened arterial waveforms in the calf within the posterior tibial and peroneal arteries, likely representing vascular compromise. There may be focal occlusion within the mid left peroneal artery". MARLENA done yesterday showed preserved LVEF, normal functioning bioprosthetic AV, and mild MR and TR. No vegetations seen. His blood cultures today are positibe for gram negative bacilli and gram positive cocci in clusters. His troponins were elevated and peaked at 344 and trending down to 173. He has been started on IV antibiotics. He is tentatively schedule for a LHC tomorrow but since his blood cultures are positive may need to wait till they are cleared. Continue Heparin gtt. I spent a total of 35 minutes on the date of service in preparation, delivery, and documentation of the care provided to this patient, excluding any time spent in the performance of separately billed services. Subjective Victor Manuel Umanzor is a 53 year old male who presented to [facility] for evaluation of L thigh pain 10/09/2023. Found to have cracked molar with intermittent fevers/chills. MARLENA negative for vegetation/embolic process. Blood cultures positive for gram negative bacteria and gram positive cocci in clusters. Started broad spectrum abx. Patient continues with mild, deep L groin pain. No overt signs of infection or abnormality Continues to ambulate without chest pain or shortness of breath. Continues to have mild thigh pain. Not worsening in severity. Review of Systems Review of Systems: All systems reviewed & are unremarkable except as noted in HPI & below Physical Exam Constitutional: WD/WN, vitals as above Eyes: PERRL, conjunctivae normal, anicteric sclerae Respiratory: normal respiratory effort, lungs clear to auscultation Cardiovascular: Rate/Rhythm: regular rate and regular rhythm Heart Sounds: normal S1, normal S2 and + murmur Vessels: no JVD Extremities: no edema Musculoskeletal: no cyanosis or clubbing, extremities motor strength 5/5 Skin: no rashes, warm and dry Results & Data Vital Signs (Past 12 Hours) Vital Signs Temp Pulse Pulse Resp BP Pulse Ox Pulse Ox 10/12/23 08:00 36.4 C L 66 18 159/98 H 94 10/12/23 03:21 36.4 C L 66 18 135/85 97 10/11/23 22:40 37.0 C 72 18 136/85 95 10/11/23 22:00 69 10/11/23 21:00 98 O2 Del Method O2 Del Method 10/12/23 08:00 Room Air 10/12/23 03:21 Room Air 10/11/23 22:40 Room Air 10/11/23 22:00 10/11/23 21:00 Room Air Laboratory Results CBC 10/12/23 Range/Units 05:59 WBC 8.13 (4.8-10.8) K/ul RBC 4.20 L (4.70-6.10) M/uL Hgb 11.9 L (14.0-18.0) g/dl Hct 35.8 L (42.0-52.0) % Plt Count 253 (130-400) K/uL Comprehensive Metabolic Panel 10/12/23 Range/Units 05:59 Sodium 136 (136-145) mmol/L Potassium 3.8 (3.5-5.1) mmol/L Chloride 104 (98-107) mmol/L Carbon Dioxide 26 (21-32) mmol/L BUN 12 (6-23) mg/dl Creatinine 0.90 (0.6-1.4) mg/dl Glucose 110 H (70-99(Fasting)) mg/dl Calcium 9.3 (8.6-10.3) mg/dl Intake and Output 10/11/23 10/12/23 10/12/23 22:59 06:59 14:59 Intake Total 100 / 4481.161 5618.267 / 1771.000 Balance 100 / 6752.878 1648.267 / 1771.000 Intake: IV 100 / 4303.685 7906.267 / 1531.000 Heparin Sodium/Dextrose 25,000 468.267 / 500.000 units In 500 ml @ 1,400 UNITS/ HR 28 mls/hr IV .[id number] [facility] Rx #:[id number] Piperacillin/Tazobactam 4.5 gm 100 / 200 100 / 200 In Dextrose 5% Mini-B 100 ml @ 25 mls/hr IV Q8H [facility] Rx#: [id number] Vancomycin HCl 1,500 mg In 530 / 530 Sodium Chloride 0.9% 500 ml @ 200 mls/hr IV Q12H [facility] Rx#: [id number] Other: # Unmeasured Voids 2 2 Weight 110.22 kg Weight Measurement Method Built in [facility] Diagnostic Findings MARLENA 10/10/2023 Left ventricular systolic function is normal LVEF 60-65% There is bioprosthetic aortic valve No aortic valvular regurgitation Mitral valve anatomy is normal Mild MR doppler findings do not suggest pulmonary HTN
[2023-10-12] MEDS ORDERED: Nursing to Pharmacy Communication SCH (18:30)
[2023-10-13 06:58] LABS: ANTI-Xa, UFH(UnfractionatedHep 0.36 IU/ml (0.3-0.7)
[2023-10-13 07:05] LABS: Creatinine Clr Calc Pharmacy 113.5 ml/min; Est GFR (African American) 108.9 ml/min
--- NOTE | 2023-10-13 07:41 | Electrocardiogram Report ---
Test Reason : Blood Pressure : / mmHG Vent. Rate : 070 BPM Atrial Rate : 070 BPM P-R Int : 236 ms QRS Dur : 092 ms QT Int : 418 ms P-R-T Axes : 025 027 029 degrees QTc Int : 451 ms Sinus rhythm with 1st degree A-V block Otherwise normal ECG When compared with ECG of 09-OCT-2023 14:36, No significant change was found Confirmed by Tito Mireles ([id number]) on 10/13/2023 7:41:07 AM Referred By: REFERRED SELF Confirmed By:Tito Mireles
--- NOTE | 2023-10-13 07:59 | Hospitalist Progress Note ---
Date of Service October 13, 2023 Assessment & Plan (1) Acute pain of left thigh: (2) Arterial occlusion: (3) DVT of leg (deep venous thrombosis): (4) Elevated troponin: (5) Paroxysmal atrial fibrillation: (6) Hypertension: (7) History of heart valve replacement: Plan This is a 53yo M with a PMH of persistent atrial fibrillation s/p ablation, history of bicuspid aortic valve replacement [place] [facility] [place], HTN, HLD, recent hospitalizations at [facility] for LLE arterial clot and RLE DVT in July of this year presents with L groin/medical thigh pain x 5 days. Bacteremia History of bicuspid aortic valve replacement at [facility] [place] Acute pain of left thigh Blood cultx (10/08) - posit for GNB and GP cocci in clusters received 1 dose of cefepime overnight will cont. w/ vanco + zosyn for now repeat blood cultx hx of cracked molar (tooth)- since end of 2022 and hx of intermittent fevers also hx of post-op abscess R groin in 2019 MARLENA obtained by cardiology (10/09) -LV systolic function is normal. LVEF 60 to 65%. There is a bioprosthetic aortic valve. Bioprosthetic leaflets are thin and move normally. No prosthetic valve stenosis or regurg. There is no aortic valvular vegetation. The mitral valve anatomy is normal. There is mild mitral regurg. There is mild tricuspid regurg. Doppler findings do not suggest pulmonary hypertension. ID consulted, appreciate their recommendations Discussed w/ cardiology as well - plan to consult w/ dental surg. for broken molar removal - to obtain poss. 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 ? Eliquis treatment failure so transitioned to SQ Lovenox by [facility], vasc surgery Transitioned back to Eliquis on 09/21 by [facility] vascular service Presenting now with L medial thigh pain - LLE well perfused, pulses intact, lactate WNL, no signs of infection or acute ischemic limb LLE venous doppler without evidence of DVT LLE arterial doppler with significantly dampened arterial waveforms in the calf within the posterior tibial and peroneal arteries, likely representing vascular compromise. There may be focal occlusion within the mid left peroneal artery ED faxed records from [facility] with similar read from July admission (will have copy uploaded into EMR) CT venogram with no acute infectious or inflammatory findings are identified in the abdomen or pelvis.There is no evidence of deep venous thrombosis in the inferior vena cava or iliac veins Transitioned to IV heparin in case intervention needed or Eliquis failure Consulted vacular surgery - not available until Friday -> Yesterday I contacted [facility] vascular - they did not have all the images to review but they had arterial doppler - from that they don't believe pt's thigh pain is due to arterial compromise. Pt seen today (10/12) by [place] vasc. surg. - no need for vasc. intervention at this time Pt is now found bacteremic, has hx of R groin hematoma and post op abscess in 2019 - no other recent surgeries or interventions Consult heme for reservations and ticketing agent anticoagulation recs given complicated hx of arterial clot, DVT on eliquis and now elevated troponin -> per hematology - failed eliquis and so recommend coumadin Pain control, vascular checks Elevated troponin Chest pain Episode of CP yesterday that has not recurred, no acute EKG changes HS troponin 242.5 -> 321.7 -> 344.3 Holding eliquis, transitioned to IV heparin Considered PE- unremarkable CTA of the chest. No pulmonary emboli identified Trend troponin, tele Continue aspirin, statin, Toprol Cardiology consulted - echo obtained , as below LV systolic function is normal. LVEF 60 to 65%. LV wall motion is abnormal. There is a bioprosthetic aortic valve. The gradient is normal for this prosthetic aortic valve. Bioprosthetic leaflets are not well-visualized. There is mild mitral regurg. MARLENA also obtained , as above - seems without vegetation Planned for possible LHC - as pt is now found bacteremic, will postpone the procedure Atrial fibrillation S/p ablation, surgical clipping of left atrial appendage Continue Toprol DVT Ppx: IV heparin Code status: FULL PCP: Dr. Armenta Dispo: PCU Admission and Anticipated Discharge Date Admission Date: October 09, 2023 Subjective Pt seen in follow up of L thigh pain, hx of arterial clot Currently on IV heparin (seem pt has failed Eliquis), per Hematology - plan to switch to coumadin Cardiology, hematology and vasc. surgery consulted Blood cultx posit for GNB and GP cocci in clusters - abx started and blood cultx repeated, MARLENA obtained - seems to be without vegetation. ID consulted and pt seen today by ID I contacted [facility] vascular - they did not have all the images to review but they had arterial doppler - from that they don't believe pt's thigh pain is due to arterial compromise. Vascular at [facility] today saw the pt as well - no need for any intervention at this time Pt is currently sitting up in chair in [facility], continues to have left upper thigh discomfort however seems improved now Currently no fever, chills, chest pain, shortness of breath but reportedly had fevers prior to admission Discussed with cardiology and the pt - plan to consult dental surg. given broken tooth for source control of bacteremia Review of Systems Review of Systems: All systems reviewed & are unremarkable except as noted in Subjective Physical Exam Physical Exam: General Appearance:Well built and nourished, no apparent distress Head: normocephalic, Atraumatic Eyes: normal inspection, EOMI Neck: supple Respiratory/Chest: Normal breath sounds, CTA, No accessory muscle use Cardiovascular: S1, S2, No murmur Abdomen/GI:Soft, Non tender, Bowel sounds present Extremities/Musculoskeletal:normal inspection, no edema, Left medial thigh tender, no erythema, no swelling Neurologic/Psych:AAOX3, grossly no focal neurological deficits Skin: normal color, warm Results & Data Results & Data Vital Signs (Past 12 Hours) Vital Signs Temp Pulse Pulse Resp BP Pulse Ox O2 Del Method 10/13/23 07:43 36.6 C 65 18 124/79 97 Room Air 10/13/23 07:21 63 10/13/23 02:53 36.4 C L 70 18 126/67 95 Room Air 10/12/23 22:59 36.9 C 67 18 134/85 95 Room Air Laboratory Results 10/13/23 10/13/23 10/13/23 Range/Units 05:25 05:25 05:25 WBC (4.8-10.8) K/ul RBC (4.70-6.10) M/uL Hgb (14.0-18.0) g/dl Hct (42.0-52.0) % MCV (80.0-100.0) fL MCH (25.0-34.0) pg MCHC (32.0-36.0) g/dL RDW Std Deviation (36.4-46.3) fL RDW Coeff of Solomon (11.5-14.5) % Plt Count (130-400) K/uL MPV (9.4-12.4) fL Heparin Anti-Xa, Unfract (0.3-0.7) IU/ml Sodium (136-145) mmol/L Potassium (3.5-5.1) mmol/L Chloride (98-107) mmol/L Carbon Dioxide (21-32) mmol/L Anion Gap (3-11) BUN (6-23) mg/dl Creatinine (0.6-1.4) mg/dl Est Cr Clr Drug Dosing 114.8 ml/min Est GFR ( Amer) 110.3 108.9 ml/min Est GFR (Non-Af Amer) 95.2 94.0 ml/min BUN/Creatinine Ratio 13.2 (10-20) Glucose 104 H (70-99(Fasting)) mg/dl Calcium 9.4 (8.6-10.3) mg/dl Phosphorus 4.1 (2.5-4.9) mg/dl Magnesium 1.9 (1.7-2.4) mg/dl Random Vancomycin (10-20) mcg/ml 10/13/23 10/13/23 10/13/23 Range/Units 05:25 05:25 05:24 WBC 7.74 (4.8-10.8) K/ul RBC 4.19 L (4.70-6.10) M/uL Hgb 11.9 L (14.0-18.0) g/dl Hct 36.0 L (42.0-52.0) % MCV 85.9 (80.0-100.0) fL MCH 28.4 (25.0-34.0) pg MCHC 33.1 (32.0-36.0) g/dL RDW Std Deviation 40.4 (36.4-46.3) fL RDW Coeff of Solomon 13.1 (11.5-14.5) % Plt Count 286 (130-400) K/uL MPV 9.5 (9.4-12.4) fL Heparin Anti-Xa, Unfract 0.36 (0.3-0.7) IU/ml Sodium 136 (136-145) mmol/L Potassium 4.1 (3.5-5.1) mmol/L Chloride 104 (98-107) mmol/L Carbon Dioxide 24 (21-32) mmol/L Anion Gap 8 (3-11) BUN 12 (6-23) mg/dl Creatinine 0.91 0.92 (0.6-1.4) mg/dl Est Cr Clr Drug Dosing 113.5 ml/min Est GFR ( Amer) ml/min Est GFR (Non-Af Amer) ml/min BUN/Creatinine Ratio (10-20) Glucose (70-99(Fasting)) mg/dl Calcium (8.6-10.3) mg/dl Phosphorus (2.5-4.9) mg/dl Magnesium (1.7-2.4) mg/dl Random Vancomycin 12.1 (10-20) mcg/ml Medications Administered Current Inpatient Medications Acetaminophen (Acetaminophen 500 Mg Tab) 1,000 mg PO Q6H PRN PRN Reason: Pain Stop: 11/08/23 21:11 Last Admin: 10/10/23 18:37 Dose: 1,000 mg Ascorbic Acid (Ascorbic Acid 500 Mg Tab) 1,000 mg PO MoFr@0900 LANA Stop: 11/09/23 08:59 Last Admin: 10/10/23 09:55 Dose: Not Given Aspirin (Aspirin 81 Mg Ectab) 81 mg PO DAILY [facility] Stop: 11/09/23 08:59 Last Admin: 10/12/23 08:31 Dose: 81 mg Atorvastatin Calcium (Atorvastatin 40 Mg Tab) 40 mg PO HS LANA Stop: 11/08/23 21:11 Last Admin: 10/12/23 21:33 Dose: 40 mg Heparin Sodium/Dextrose (Heparin Sodium/Dextrose) 25,000 units in 500 mls @ 28 mls/hr IV .[id number] [facility]; Protocol Stop: 11/08/23 18:59 Last Titration: 10/13/23 07:26 Dose: 1,400 units/hr, 28 mls/hr Piperacillin Sod/Tazobactam (Sod 4.5 gm/ Dextrose) 100 mls @ 25 mls/hr IV Q8H [facility]; Protocol Stop: 10/25/23 12:59 Last Admin: 10/13/23 05:27 Dose: 25 mls/hr Vancomycin HCl 1,500 mg/ (Sodium Chloride) 530 mls @ 200 mls/hr IV Q12H [facility] Stop: 10/25/23 21:59 Last Infusion: 10/13/23 00:29 Dose: Infused Lactobacillus Acidophilus (Advanced Probiotic 625 Mg Capsule) 1,250 mg PO DAILY [facility] Stop: 11/10/23 17:14 Last Admin: 10/12/23 08:31 Dose: 1,250 mg Metoprolol Succinate (Metoprolol Succ 50mg Ext Rel Tab) 100 mg PO DAILY [facility] Stop: 11/09/23 08:59 Last Admin: 10/12/23 08:31 Dose: 100 mg Miscellaneous Information (Vancomycin Consult Active) 1 each N/A UD PRN PRN Reason: Consult Stop: 11/10/23 07:39 Multivitamins (Multivitamin Tab) 1 tab PO DAILY [facility] Stop: 11/09/23 08:59 Last Admin: 10/12/23 08:31 Dose: 1 tab Ondansetron HCl (Ondansetron Inj 2 Mg/Ml 2 Ml Vial) 4 mg IV Q6H PRN PRN Reason: Nausea Stop: 11/08/23 21:11 Oxycodone HCl (Oxycodone Hcl Ir 5 Mg Tab (Immediate Release)) 5 mg PO Q6H PRN PRN Reason: Severe Pain (Scale 7, 8, 9,10) Stop: 10/23/23 18:47 Polyethylene Glycol (Polyethylene (Miralax) 17 Gm Pack) 17 gm PO DAILY PRN PRN Reason: Constipation Stop: 11/08/23 21:11
[2023-10-13 08:36] LABS: Hemoglobin 11.9 g/dl (14.0-18.0); Mean Corpuscular Hemoglobin 28.4 pg (25.0-34.0); Mean Corpuscular Hgb Conc 33.1 g/dL (32.0-36.0); Mean Corpuscular Volume 85.9 fL (80.0-100.0); Mean Platelet Volume 9.5 fL (9.4-12.4); Platelet Count 286 K/uL (130-400); RDW Coefficient of Variation 13.1 % (11.5-14.5); RDW Standard Deviation 40.4 fL (36.4-46.3); Red Blood Count 4.19 M/uL (4.70-6.10); White Blood Count 7.74 K/ul (4.8-10.8)
[2023-10-13 09:03] LABS: BUN Creatinine Ratio 13.2 (10-20); Calcium 9.4 mg/dl (8.6-10.3); Creatinine Clr Calc Pharmacy 114.8 ml/min; Est GFR (African American) 110.3 ml/min; Est GFR (Non-African American) 95.2 ml/min; Magnesium 1.9 mg/dl (1.7-2.4); Phosphorus 4.1 mg/dl (2.5-4.9); Potassium 4.1 mmol/L (3.5-5.1)
--- NOTE | 2023-10-13 09:34 | Pharmacy Report ---
Pharmacy PK ABX Note - Date of Service October 13, 2023 - Assessment and Plan Assessment 10/12: * Random vancomycin level this AM came back at ~12 mcg/ml - current vancomycin dosing associated with AUC/JOHN lower end of range of 400-600. Plan to increase dosing d/t severity of infection to target higher AUC. Will increase to 1750 mg iv q 12 hours. Blood cultures with staph epi - mecA/C not detected - ID consulted, will follow for recommendations and plan for vancomycin. Continues on zosyn which will provide coverage for cultures. Lab reports Gm neg in blood could potentially be organism not picked up on biofire therefore did not reflex and plan to follow culture to determine if any further growth of the Gm neg. 10/10: 53 year old M receiving Vancomycin and Zosyn for treatment of bacteremia. * Day #1 of antimicrobial therapy. * Afebrile. SCr stable. Leukocytosis resolved. Lactate and procal negative. * Blood cultures from 10/09/23 growing gram negative bacilli and gram positive cocci in clusters. GPCs identified by BCID2 PCR as Staph epidermidis without Mec A/C gene present. * This indicates that the Staph epi is methicillin sensitive and Zosyn should provide empiric coverage for both organisms. Provider wants to continue Vancomycin as well. ID consulted. Plan Vancomycin * Increase to 1750 mg iv q 12 hr to maintain AUC/JOHN 400-600 Zosyn * 4.5 g IV every 8 hours Pharmacy will continue to follow and will adjust dose/frequency as necessary. Thank you. Pharmacy has transitioned to AUC monitoring for vancomycin. AUC/JOHN is the preferred PK/PD target and is associated with decreased risk of nephrotoxicity compared to traditional trough targets.
[2023-10-13] MEDS: VANCOMYCIN HCL 1,750 MG in SODIUM CHLORIDE 0.9% 500 ML IV SCH (09:46)
--- NOTE | 2023-10-13 10:47 | Consultation ---
Date of Consultation October 13, 2023 Assessment & Plan (1) Thigh pain: Pt with L thigh discomfort for about 1 week, improving since beginning IV abx. Arterial and venous US demonstrate no changes, pulses palpable. No indications for vascular surgical intervention at this time. Please call if needed. Pt to follow up with vascular at [facility] as scheduled. Pt aware and agreeable. History of Present Illness Reason for Consultation: L thigh pain Attending Physician: Guerrero West MD History of Present Illness 53 yo m with hx of bicuspid AV s/p bioprosthetic valve replacement, PAF, DVT, HTN, hypercholesterolemia, admitted with L thigh pain and found to have elevated troponin and bacteremia, seen in consultation today for thigh pain. Pt was previously seen at [facility] vascular in July 2023 and found to have acute occlusion of L peroneal and post tib arteries. He was started on eliquis and then found to have a RLE DVT 4 days after d/c. He was transitioned to lovenox d/t possible failure of eliquis, then transitioned back to eliquis September 19. Pt states he was doing fine until about 1 week ago, when he noted L medial proximal thigh pain, worse with activity, that did not appear to be improving. States it felt similar to when he had his arterial thrombus, so was eval at ED, but no DVT or arterial thrombus was noted. Denies any associated swelling, discoloration, noted trauma. States may have pulled a muscle, but did not remember doing so. No open wounds or ulcers. States felt somewhat feverish and tired, but this is improved. Leg pain is improved. Denies SULTANA, chest pain, abd herrmann, SOB, N/V, rest pain, claudication, other complaints. Arterial US demonstrates L peroneal and post tib occlusion Venous doppler unremarkable. Allergies Allergy/AdvReac Type Severity Reaction Status Date / Time No Known Allergies Allergy Verified 10/09/23 17:36 Home Medications Medication Instructions Recorded Confirmed Type Glory Probiotic 1 tab PO DAILY 10/09/23 10/09/23 History acetaminophen 500 mg tablet 1,000 mg PO Q6H PRN Pain 10/09/23 10/09/23 History (Tylenol Extra Strength) amoxicillin 500 mg capsule 2,000 mg PO UD 10/09/23 10/09/23 History apixaban 5 mg tablet (Eliquis) 5 mg PO BID 10/09/23 10/09/23 History ascorbic acid (vitamin C) 500 mg 1,000 mg PO 2XWK 10/09/23 10/09/23 History tablet (Vitamin C) aspirin 81 mg tablet,delayed 81 mg PO DAILY 10/09/23 10/09/23 History release atorvastatin 40 mg tablet 40 mg PO HS 10/09/23 10/09/23 History metoprolol succinate 100 mg 100 mg PO DAILY 10/09/23 10/09/23 History tablet,extended release 24 hr multivitamin 1 tab PO DAILY 10/09/23 10/09/23 History Patient History Medical History Encounter for pre-operative examination Obesity Elevated troponin Acute pain of left thigh DVT of leg (deep venous thrombosis) Arterial embolism and thrombosis of lower extremity History of deviated nasal septum Atrial fibrillation Surgical History History of heart valve replacement AVR w/ 25mm Anglin Inspiris valve, [place] [facility] [place] History of inguinal hernia repair Family History Other No pertinent family history Social History Smoking Status: Never smoker Second Hand Exposure: No; Do You Dip or Chew Tobacco: No; Tobacco Cessation Education Requested by Patient: No Hx Alcohol Use: Yes Alcohol type: beer Hx Substance Use: No Preferred Language: Ivorian Communication Ability: Effective Rock Wool Insulator Required: No Beliefs That Will Affect Care: None marital status: Single Current Living Situation: Significant Other current occupation: [employer] Other Information That Helps Us Care for You: No Feels Safe at Home: Yes Safety Concerns: Feels Safe At This Time Assistive Devices: CPAP Review of Systems Review of Systems: All systems reviewed & are unremarkable except as noted in HPI & below Physical Exam Constitutional: WD/WN, vitals as above cooperative and comfortable; not in distress ENMT: Ears: no hearing impairment Neck: trachea midline Respiratory: normal respiratory effort, lungs clear to auscultation Cardiovascular: Rate/Rhythm: regular rate and regular rhythm Vessels: femoral pulses present, posterior tibial pulses present (L nonpalpable, R +2) and dorsalis pedis pulses present; + abnormal peripheral pulses Extremities: normal capillary refill; no edema Gastrointestinal (Abdomen): Inspection/Auscultation: abdomen normal to inspection and normal bowel sounds Percussion/Palpation: abdomen soft; abdomen nontender Musculoskeletal: no cyanosis or clubbing, extremities motor strength 5/5 L medial proximal thigh mildly tender, no edema/erythema/ecchymosis Skin: no rashes, warm and dry Neurologic: moves all extremities and awake; no focal motor deficits and not confused Psychiatric: A+Ox3, euthymic affect Results & Data Vital Signs (Past 12 Hours) Vital Signs Temp Pulse Pulse Resp BP Pulse Ox O2 Del Method 10/13/23 07:43 36.6 C 65 18 124/79 97 Room Air 10/13/23 07:21 63 10/13/23 02:53 36.4 C L 70 18 126/67 95 Room Air 10/12/23 22:59 36.9 C 67 18 134/85 95 Room Air
--- NOTE | 2023-10-13 13:06 | Infectious Disease Consult ---
Date of Service October 13, 2023 Telehealth Information I performed this visit using a real-time telehealth connection between my location and the patients location ([facility]). After connecting through interactive tele-video, patient was identified by name and date of and/or wristband check.Patient (or authorized healthcare wire rope sales representative) was informed that this was a telemedicine visit and it was being conducted confidentially over secure lines. My office door was closed and no one else was present in the room with me.Patient (or authorized healthcare wire rope sales representative) provided consent to proceed with the visit, expressed an understanding of privacy and security of the telemedicine visit, and gave permission to have a hospital wire rope sales representative in the room in order to assist with the visit and to conduct portions of the visit, as needed. I informed the patient (or authorized healthcare wire rope sales representative) that I reviewed their record and presented the opportunity for them to ask any questions regarding the visit today. The patient agreed to participate. Assessment & Plan (1) Bacteremia: Plan: The high-grade Staph epi bacteremia is highly suggestive of an underlying endocarditis. The MARLENA is negative, but I would still consider it possible. The anaerobic GNR may be similarly suggestive and could have originated from his broken tooth. ID has yet to be finalized however. (2) Thigh pain: Plan: The link between the pain and his infection is less clear, though an undefined cellulitis may be possible. Examination by telemed is limited in this capacity. Plan We need to ensure his bacteremia clears before finalizing hi s plan. Right now I would continue IV vancomycin and pip-tazo while the cultures from yesterday remain pending. If they stay negative and we can identify the anerobic GNR, we can hopefully simplify his therapy to just one drug. If they turn positive again, I would assume endocarditis and plan a 6 week course of therapy. Final abx plans remain pending for now. History of Present Illness History of Present Illness Mr. Umanzor is a 53yo male with a h/o recent DVT, Afib S/P ablation, and AVR in 2020. He was admitted with worsening left medial thigh pain, elevated troponins, and imaging showing tibial and peroneal arterial occlusion. He was started on IV heparin and was noted to have positive blood cultures. Although he was afebrile, he did note chills and sweats at home recently. He also notes a chronic tooth fracture that is pending repair. His last evaluation by dentistry was in July. He denies any rash or joint pain/swelling. No N/V or diarrhea. Since admission he has been feeling better. Allergies Allergy/AdvReac Type Severity Reaction Status Date / Time No Known Allergies Allergy Verified 10/09/23 17:36 Home Medications Medication Instructions Recorded Confirmed Type Glory Probiotic 1 tab PO DAILY 10/09/23 10/09/23 History acetaminophen 500 mg tablet 1,000 mg PO Q6H PRN Pain 10/09/23 10/09/23 History (Tylenol Extra Strength) amoxicillin 500 mg capsule 2,000 mg PO UD 10/09/23 10/09/23 History apixaban 5 mg tablet (Eliquis) 5 mg PO BID 10/09/23 10/09/23 History ascorbic acid (vitamin C) 500 mg 1,000 mg PO 2XWK 10/09/23 10/09/23 History tablet (Vitamin C) aspirin 81 mg tablet,delayed 81 mg PO DAILY 10/09/23 10/09/23 History release atorvastatin 40 mg tablet 40 mg PO HS 10/09/23 10/09/23 History metoprolol succinate 100 mg 100 mg PO DAILY 10/09/23 10/09/23 History tablet,extended release 24 hr multivitamin 1 tab PO DAILY 10/09/23 10/09/23 History Patient History Medical History Encounter for pre-operative examination Obesity Elevated troponin Acute pain of left thigh DVT of leg (deep venous thrombosis) Arterial embolism and thrombosis of lower extremity History of deviated nasal septum Atrial fibrillation Surgical History History of heart valve replacement AVR w/ 25mm Anglin Inspiris valve, [place] [facility] [place] History of inguinal hernia repair Family History Other No pertinent family history Social History Smoking Status: Never smoker Second Hand Exposure: No; Do You Dip or Chew Tobacco: No; Tobacco Cessation Education Requested by Patient: No Hx Alcohol Use: Yes Alcohol type: beer Hx Substance Use: No Preferred Language: Korean Communication Ability: Effective Leaded Glass Installer Required: No Beliefs That Will Affect Care: None marital status: Single Current Living Situation: Significant Other current occupation: [employer] Other Information That Helps Us Care for You: No Feels Safe at Home: Yes Safety Concerns: Feels Safe At This Time Assistive Devices: CPAP Review of Systems Gen- Chills and sweats HEENT- No SULTANA, sore throat CV- No chest pain Resp - No SOB or cough GI- No N/V or diarrhea - No dysuria SKin- No rash MSK- Left medial thigh pain Neuro- No focal deficits Physical Exam Gen- NAD, sitting up in chair HEENT- NC AT Neck- Normal ROM Resp- Normal breathing on RA Skin- No rash MSK- No joint swelling or erythema Neuro- Alert, oriented Results & Data Vital Signs (Past 12 Hours) Vital Signs Temp Pulse Pulse Resp BP Pulse Ox O2 Del Method 10/13/23 11:04 36.5 C 69 17 139/90 95 Room Air 10/13/23 07:43 36.6 C 65 18 124/79 97 Room Air 10/13/23 07:21 63 10/13/23 02:53 36.4 C L 70 18 126/67 95 Room Air Laboratory Results WBC 11.56 -> 7.74 Hgb 11.9 Platelets 286 Na 136 Creatinine 0.9 BUN 12 UA WNL Diagnostic Findings Blood cultures 10/08 with 4 of 4 bottles Staph epi (mec A negative) and 1 of 4 GNR (anaerobic) Blood cultures 10/10 with 1 of 4 bottles Staph epi and 1 of 4 GNR (anaerobic Chest CTA from 10/09/23 reviewed by me and negative CT Left femur from 10/09/23 reviewed by me-- shows edema of left medial thigh, no abscess
--- NOTE | 2023-10-13 16:46 | Cardiology Progress Note ---
Date of Service October 13, 2023 Assessment & Plan (1) Bacteremia: (2) Thigh pain: (3) Arterial occlusion: Plan 53-year-old male with past medical history of severe symptomatic bicuspid aortic valve stenosis for which he underwent surgical aortic valve replacement with a 25 mm Anglin Inspira's prosthesis 07/26/2020 with surgical clipping of the left atrial appendage with a 45 mm atrial clip. He subsequently underwent EP study/pulmonary vein isolation 10/10/2020. Transesophageal echocardiogram at that time revealed successful occlusion of the left atrial appendage with no residual flow. Transesophageal echocardiogram performed this admission due to concerns of endocarditis and embolism revealed no valvular vegetation. The left atrial appendage was not interrogated given past history. Patient has remained in sinus rhythm while on telemetry this hospital stay. 3/6 blood cultures positive for noted gram-positive cocci in clusters and gram- negative bacilli. Infectious disease input noted and appreciated. Endocarditis is certainly consideration despite negative MARLENA. Continue antibiotic therapy with vancomycin and piperacillin/tazobactam pending identification of the bacteria in the cultures. Consult oral surgery with regards to concerned about a cracked molar tooth which could be the source of the infection. Continue anticoagulation with heparin, with consideration of transitioning to warfarin after his procedural course is determined. Admission and Anticipated Discharge Date Admission Date: October 09, 2023 Subjective Patient seen in cardiology follow-up. Remains afebrile since admission. States that he has felt daily improvement since initiation of antibiotic therapy. In retrospect he feels that he has had intermittent chills and malaise dating back to about June of this year prior to the diagnosis of his left lower extremity arterial thrombus and right lower extremity venous thrombus. Physical Exam Constitutional: WD/WN, vitals as above Eyes: PERRL, conjunctivae normal, anicteric sclerae Respiratory: normal respiratory effort, lungs clear to auscultation Cardiovascular: RRR, no murmur, no edema Gastrointestinal (Abdomen): normal bowel sounds, soft, nontender, no hepatosplenomegaly Skin: no rashes, warm and dry Neurologic: PERRL, EOMI, accommodation nl, no face palsy, no dysarthria Results & Data Vital Signs (Past 12 Hours) Vital Signs Temp Pulse Pulse Resp BP BP Pulse Ox 10/13/23 15:24 70 10/13/23 15:04 36.5 C 65 18 138/90 98 10/13/23 11:04 36.5 C 69 17 139/90 95 10/13/23 07:43 36.6 C 65 18 124/79 97 10/13/23 07:21 63 O2 Del Method 10/13/23 15:24 10/13/23 15:04 Room Air 10/13/23 11:04 Room Air 10/13/23 07:43 Room Air 10/13/23 07:21 Laboratory Results CBC 10/13/23 Range/Units 05:25 WBC 7.74 (4.8-10.8) K/ul RBC 4.19 L (4.70-6.10) M/uL Hgb 11.9 L (14.0-18.0) g/dl Hct 36.0 L (42.0-52.0) % Plt Count 286 (130-400) K/uL Comprehensive Metabolic Panel 10/13/23 10/13/23 Range/Units 05:25 05:25 Sodium 136 (136-145) mmol/L Potassium 4.1 (3.5-5.1) mmol/L Chloride 104 (98-107) mmol/L Carbon Dioxide 24 (21-32) mmol/L BUN 12 (6-23) mg/dl Creatinine 0.92 0.91 (0.6-1.4) mg/dl Glucose 104 H (70-99(Fasting)) mg/dl Calcium 9.4 (8.6-10.3) mg/dl Intake and Output 10/13/23 10/13/23 10/13/23 06:59 14:59 22:59 Intake Total 920.733 / 2699.733 1090.067 / 1090.067 Balance 920.733 / 2699.733 1090.067 / 1090.067 Intake: IV 920.733 / 2189.733 690.067 / 690.067 Heparin Sodium/Dextrose 25,000 290.733 / 829.733 55.067 / 55.067 units In 500 ml @ 1,400 UNITS/ HR 28 mls/hr IV .[id number] [facility] Rx #:[id number] Piperacillin/Tazobactam 4.5 gm 100 / 300 100 / 100 In Dextrose 5% Mini-B 100 ml @ 25 mls/hr IV Q8H [facility] Rx#: [id number] Vancomycin HCl 1,750 mg In 530 / 1060 535 / 535 Sodium Chloride 0.9% 500 ml @ 200 mls/hr IV Q12H [facility] Rx#: [id number] Oral 400 / 400 Other: # Unmeasured Voids 2 Weight 109.089 kg Weight Measurement Method Built in [facility]
[2023-10-14 06:23] LABS: Hematocrit (blood only) 36.2 % (42.0-52.0); Hemoglobin 12.1 g/dl (14.0-18.0); Mean Corpuscular Hemoglobin 28.5 pg (25.0-34.0); Mean Corpuscular Hgb Conc 33.4 g/dL (32.0-36.0); Mean Corpuscular Volume 85.4 fL (80.0-100.0); Mean Platelet Volume 8.6 fL (9.4-12.4); Platelet Count 268 K/uL (130-400); RDW Coefficient of Variation 13.1 % (11.5-14.5); RDW Standard Deviation 40.2 fL (36.4-46.3); Red Blood Count 4.24 M/uL (4.70-6.10); White Blood Count 7.66 K/ul (4.8-10.8)
[2023-10-14 06:36] LABS: BUN Creatinine Ratio 13.2 (10-20); Calcium 9.3 mg/dl (8.6-10.3); Creatinine Clr Calc Pharmacy 114.7 ml/min; Est GFR (African American) 110.3 ml/min; Est GFR (Non-African American) 95.2 ml/min; Potassium 4.1 mmol/L (3.5-5.1)
[2023-10-14 06:48] LABS: ANTI-Xa, UFH(UnfractionatedHep 0.34 IU/ml (0.3-0.7)
--- NOTE | 2023-10-14 10:11 | Hospitalist Progress Note ---
Date of Service October 14, 2023 Assessment & Plan (1) Acute pain of left thigh: (2) Arterial occlusion: (3) DVT of leg (deep venous thrombosis): (4) Elevated troponin: (5) Paroxysmal atrial fibrillation: (6) Hypertension: (7) History of heart valve replacement: Plan This is a 53yo M with a PMH of persistent atrial fibrillation s/p ablation, [place] [facility] [place], HTN, HLD, recent hospitalizations at [facility] [place] for LLE arterial clot and RLE DVT in July of this year presents with L groin/medical thigh pain x 5 days. Bacteremia History of bicuspid aortic valve [place] [facility] [place] Acute pain of left thigh Blood cultx (10/08) - posit for GNB and GP cocci in clusters received 1 dose of cefepime overnight will cont. w/ vanco + zosyn for now repeat blood cultx hx of cracked molar (tooth)- since end of 2022 and hx of intermittent fevers also hx of post-op abscess R groin in 2019 MARLENA obtained by cardiology (10/09) -LV systolic function is normal. LVEF 60 to 65%. There is a bioprosthetic aortic valve. Bioprosthetic leaflets are thin and move normally. No prosthetic valve stenosis or regurg. There is no aortic valvular vegetation. The mitral valve anatomy is normal. There is mild mitral regurg. There is mild tricuspid regurg. Doppler findings do not suggest pulmonary hypertension. ID consulted, appreciate their recommendations Oral/dental surg. (Dr. Villeda) consulted for broken molar removal - to obtain poss. source control of bacteremia, likely procedure on 10/15 Discussed w/ cardiology at the bedside - cont. 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 ? Eliquis treatment failure so transitioned to SQ Lovenox by [facility], vasc surgery Transitioned back to Eliquis on 09/21 by [facility] vascular service Presenting now with L medial thigh pain - LLE well perfused, pulses intact, lactate WNL, no signs of infection or acute ischemic limb LLE venous doppler without evidence of DVT LLE arterial doppler with significantly dampened arterial waveforms in the calf within the posterior tibial and peroneal arteries, likely representing vascular compromise. There may be focal occlusion within the mid left peroneal artery ED faxed records from [facility] with similar read from July admission (will have copy uploaded into EMR) CT venogram with no acute infectious or inflammatory findings are identified in the abdomen or pelvis.There is no evidence of deep venous thrombosis in the inferior vena cava or iliac veins Transitioned to IV heparin in case intervention needed or Eliquis failure Consulted vacular surgery - not available until Friday -> Yesterday I contacted [facility] vascular - they did not have all the images to review but they had arterial doppler - from that they don't believe pt's thigh pain is due to arterial compromise. Pt seen today (10/12) by [facility] vasc. surg. - no need for vasc. intervention at this time Pt is now found bacteremic, has hx of R groin hematoma and post op abscess in 2019 - no other recent surgeries or interventions Consult heme for custodial anticoagulation recs given complicated hx of arterial clot, DVT on eliquis and now elevated troponin -> per hematology - failed eliquis and so recommend coumadin Pain control, vascular checks Elevated troponin Chest pain Episode of CP yesterday that has not recurred, no acute EKG changes HS troponin 242.5 -> 321.7 -> 344.3 Holding eliquis, transitioned to IV heparin Considered PE- unremarkable CTA of the chest. No pulmonary emboli identified Trend troponin, tele Continue aspirin, statin, Toprol Cardiology consulted - echo obtained , as below LV systolic function is normal. LVEF 60 to 65%. LV wall motion is abnormal. There is a bioprosthetic aortic valve. The gradient is normal for this prosthetic aortic valve. Bioprosthetic leaflets are not well-visualized. There is mild mitral regurg. MARLENA also obtained , as above - seems without vegetation Planned for possible LHC - as pt is now found bacteremic, will postpone the procedure Atrial fibrillation S/p ablation, surgical clipping of left atrial appendage Continue Toprol DVT Ppx: IV heparin Code status: FULL PCP: Dr. Armenta Dispo: PCU Admission and Anticipated Discharge Date Admission Date: October 09, 2023 Subjective Pt seen in follow up of L thigh pain, hx of arterial clot Currently on IV heparin (seem pt has failed Eliquis), per Hematology - plan to switch to coumadin Cardiology, hematology and vasc. surgery consulted Blood cultx posit for GNB and GP cocci in clusters - abx started and blood cultx repeated, MARLENA obtained - seems to be without vegetation. ID consulted. Today seems like GNB was an error per microbiology - will await final results Pt is currently sitting up in chair in NAD, left upper thigh discomfort is much improved Currently no fever, chills, chest pain, shortness of breath but reportedly had fevers prior to admission Oral/ dental surgery consulted given broken tooth poss. source of infection - procedure likely on 10/15 Discussed with cardiology at the bedside. Cont. abx. May need follow up MARLENA in the future. Review of Systems Review of Systems: All systems reviewed & are unremarkable except as noted in Subjective Physical Exam Physical Exam: General Appearance:Well built and nourished, no apparent distress Head: normocephalic, Atraumatic Eyes: normal inspection, EOMI Neck: supple Respiratory/Chest: Normal breath sounds, CTA, No accessory muscle use Cardiovascular: S1, S2, No murmur Abdomen/GI:Soft, Non tender, Bowel sounds present Extremities/Musculoskeletal:normal inspection, no edema, Left medial thigh mildly tender, no erythema, no swelling (much improved) Neurologic/Psych:AAOX3, grossly no focal neurological deficits Skin: normal color, warm Results & Data Results & Data Vital Signs (Past 12 Hours) Vital Signs Temp Pulse Pulse Resp BP BP Pulse Ox 10/14/23 08:00 36.6 C 63 16 120/73 97 10/14/23 07:21 58 L 10/14/23 02:27 36.4 C L 63 18 128/78 95 10/13/23 23:00 36.6 C 63 18 119/76 96 O2 Del Method 10/14/23 08:00 Room Air 10/14/23 07:21 10/14/23 02:27 Room Air 10/13/23 23:00 Room Air Laboratory Results 10/14/23 Range/Units 05:52 WBC 7.66 (4.8-10.8) K/ul RBC 4.24 L (4.70-6.10) M/uL Hgb 12.1 L (14.0-18.0) g/dl Hct 36.2 L (42.0-52.0) % MCV 85.4 (80.0-100.0) fL MCH 28.5 (25.0-34.0) pg MCHC 33.4 (32.0-36.0) g/dL RDW Std Deviation 40.2 (36.4-46.3) fL RDW Coeff of Solomon 13.1 (11.5-14.5) % Plt Count 268 (130-400) K/uL MPV 8.6 L (9.4-12.4) fL Heparin Anti-Xa, Unfract 0.34 (0.3-0.7) IU/ml Sodium 135 L (136-145) mmol/L Potassium 4.1 (3.5-5.1) mmol/L Chloride 104 (98-107) mmol/L Carbon Dioxide 25 (21-32) mmol/L Anion Gap 6 (3-11) BUN 12 (6-23) mg/dl Creatinine 0.91 (0.6-1.4) mg/dl Est Cr Clr Drug Dosing 114.7 ml/min Est GFR ( Amer) 110.3 ml/min Est GFR (Non-Af Amer) 95.2 ml/min BUN/Creatinine Ratio 13.2 (10-20) Glucose 114 H (70-99(Fasting)) mg/dl Calcium 9.3 (8.6-10.3) mg/dl Phosphorus 4.0 (2.5-4.9) mg/dl Magnesium 2.0 (1.7-2.4) mg/dl Medications Administered Current Inpatient Medications Acetaminophen (Acetaminophen 500 Mg Tab) 1,000 mg PO Q6H PRN PRN Reason: Pain Stop: 11/08/23 21:11 Last Admin: 10/10/23 18:37 Dose: 1,000 mg Ascorbic Acid (Ascorbic Acid 500 Mg Tab) 1,000 mg PO MoFr@0900 [facility] Stop: 11/09/23 08:59 Last Admin: 10/13/23 09:47 Dose: 1,000 mg Aspirin (Aspirin 81 Mg Ectab) 81 mg PO DAILY [facility] Stop: 11/09/23 08:59 Last Admin: 10/14/23 08:29 Dose: 81 mg Atorvastatin Calcium (Atorvastatin 40 Mg Tab) 40 mg PO HS [facility] Stop: 11/08/23 21:11 Last Admin: 10/13/23 20:23 Dose: 40 mg Heparin Sodium/Dextrose (Heparin Sodium/Dextrose) 25,000 units in 500 mls @ 28 mls/hr IV .[id number] [facility]; Protocol Stop: 11/08/23 18:59 Last Titration: 10/14/23 07:03 Dose: 1,400 units/hr, 28 mls/hr Piperacillin Sod/Tazobactam (Sod 4.5 gm/ Dextrose) 100 mls @ 25 mls/hr IV Q8H [facility]; Protocol Stop: 10/25/23 12:59 Last Infusion: 10/14/23 10:09 Dose: Infused Vancomycin HCl 1,750 mg/ (Sodium Chloride) 535 mls @ 200 mls/hr IV Q12H [facility] Stop: 10/25/23 09:59 Last Infusion: 10/14/23 01:22 Dose: Infused Lactobacillus Acidophilus (Advanced Probiotic 625 Mg Capsule) 1,250 mg PO DAILY [facility] Stop: 11/10/23 17:14 Last Admin: 10/14/23 08:29 Dose: 1,250 mg Metoprolol Succinate (Metoprolol Succ 50mg Ext Rel Tab) 100 mg PO DAILY [facility] Stop: 11/09/23 08:59 Last Admin: 10/14/23 08:28 Dose: 100 mg Miscellaneous Information (Vancomycin Consult Active) 1 each N/A UD PRN PRN Reason: Consult Stop: 11/10/23 07:39 Multivitamins (Multivitamin Tab) 1 tab PO DAILY [facility] Stop: 11/09/23 08:59 Last Admin: 10/14/23 08:29 Dose: 1 tab Ondansetron HCl (Ondansetron Inj 2 Mg/Ml 2 Ml Vial) 4 mg IV Q6H PRN PRN Reason: Nausea Stop: 11/08/23 21:11 Oxycodone HCl (Oxycodone Hcl Ir 5 Mg Tab (Immediate Release)) 5 mg PO Q6H PRN PRN Reason: Severe Pain (Scale 7, 8, 9,10) Stop: 10/23/23 18:47 Polyethylene Glycol (Polyethylene (Miralax) 17 Gm Pack) 17 gm PO DAILY PRN PRN Reason: Constipation Stop: 11/08/23 21:11
--- NOTE | 2023-10-14 13:47 | Oral/Maxillofacial Consult ---
Date of Consultation October 14, 2023 Assessment & Plan (1) Bacteremia: (2) Atrial fibrillation with RVR: (3) Congenital bicuspid aortic valve: (4) Fractured tooth: (5) Failing root canal: (6) Sinus mucosal thickening: History of Present Illness Attending Physician: Guerrero West MD History of Present Illness Oral Maxillofacial Surgery Exam Present Complaint: I have had on and off pain from my upper left fractured tooth Symptoms have been ongoing for a while. Was seen by oral surgeon in [place] but was not set up due to current medical issues Oral Exam: Finding-- tender gingival tissue with deep pocket formation.The upper molar is fractured to the gum line with infected soft tissue overlying the fractured roots -- removal is clinical indicated. Imaging: Panorex: The Panorex X Ray was reviewed. The #14 tooth is fractured to the bone and the roots are projecting into the maxillary sinus. Given that he has experienced sinus pressure in the past a CT scan is needed to insure that the sinus is not infected secondary to the roots of # 14 . Soft tissue: The floor of the mouth, tongue, hard/soft palate, posterior pharyngeal area all with in normal limits, no pathology or abnormal findings noted. Oral Care: Overall oral care is good Occlusion: Class I TMJ exam: No pop, clicking, pain, good ROM, No history of TMJ injury or dysfunction Periodontal exam: Healthy gingival tissue without evidence of periodontal pathology. Head/Neck exam: Neck is supple, FROM, Able to extend and flex neck w/o difficulty, no masses, no abnormalities, no airway issues, no evidence of sleep apnea. Treatment Plan: Obtain Panorex from [facility] in [place]--I reviewed the Panorex and noted that the roots are involved with the left sinus. Set up for OR after medical clearance and stop Heparin to get INR and Aptt to normal range. Set up with general anesthesia in hospital due to complexity of the procedure I reviewed the treatment plan and consent with the patient Understanding was expressed. He understands the need for a CT scan Time was given for questions regarding the surgery, risks and post op care. Discussed alternative to treatment--procedure as planned, Do not do surgery The following teeth are decayed and fractured and removal is indicated ELIUD # 14 (upper right first molar) Risks discussed: Bleeding,Pain,swelling,infection, dry socket, delayed healing, nerve injury to face,lips,tongue,chin area which could be permanent (rare). TMJ, jaw stiffness, change in bite (rare), ear pain (referred). Sinus problems like fistula or infection. Need to leave a small root fragment in place to avoid injury to nerve or sinus. Relationship of wisdom teeth to nerve/sinus and risk of jaw fracture. Home care reviewed: tooth brushing, rinsing, follow up care with Dr Villeda. diet=[id number] dental. Discussed activity level, driving/work while on Rx pain Meds. Surgery to be set up once medical clearance is obtained and INR/APPT adjusted to at least 1.3 Allergies Allergy/AdvReac Type Severity Reaction Status Date / Time No Known Allergies Allergy Verified 10/09/23 17:36 Home Medications Medication Instructions Recorded Confirmed Type Glory Probiotic 1 tab PO DAILY 10/09/23 10/09/23 History acetaminophen 500 mg tablet 1,000 mg PO Q6H PRN Pain 10/09/23 10/09/23 History (Tylenol Extra Strength) amoxicillin 500 mg capsule 2,000 mg PO UD 10/09/23 10/09/23 History apixaban 5 mg tablet (Eliquis) 5 mg PO BID 10/09/23 10/09/23 History ascorbic acid (vitamin C) 500 mg 1,000 mg PO 2XWK 10/09/23 10/09/23 History tablet (Vitamin C) aspirin 81 mg tablet,delayed 81 mg PO DAILY 10/09/23 10/09/23 History release atorvastatin 40 mg tablet 40 mg PO HS 10/09/23 10/09/23 History metoprolol succinate 100 mg 100 mg PO DAILY 10/09/23 10/09/23 History tablet,extended release 24 hr multivitamin 1 tab PO DAILY 10/09/23 10/09/23 History Patient History Medical History Encounter for pre-operative examination Obesity Elevated troponin Acute pain of left thigh DVT of leg (deep venous thrombosis) Arterial embolism and thrombosis of lower extremity History of deviated nasal septum Atrial fibrillation Surgical History History of heart valve replacement AVR w/ 25mm Anglin Inspiris valve, Ligation left atrial appendage with clip on 06/21/20 @ [facility] [place] H/O cardiac catheterization History of inguinal hernia repair Family History Other No pertinent family history Social History Smoking Status: Never smoker Second Hand Exposure: No; Do You Dip or Chew Tobacco: No; Tobacco Cessation Education Requested by Patient: No Hx Alcohol Use: Yes Alcohol type: beer Hx Substance Use: No Preferred Language: Guyanese Communication Ability: Effective Outside Sales Representative Required: No Beliefs That Will Affect Care: None marital status: Single Current Living Situation: Significant Other current occupation: [employer] Other Information That Helps Us Care for You: No Feels Safe at Home: Yes Safety Concerns: Feels Safe At This Time Assistive Devices: CPAP Results & Data Vital Signs (Past 12 Hours) Vital Signs Temp Pulse Pulse Pulse Resp BP BP 10/14/23 10:55 36.7 C 64 18 116/78 10/14/23 08:00 36.6 C 63 16 120/73 10/14/23 07:21 58 L 10/14/23 02:27 36.4 C L 63 18 128/78 Pulse Ox O2 Del Method 10/14/23 10:55 97 Room Air 10/14/23 08:00 97 Room Air 10/14/23 07:21 10/14/23 02:27 95 Room Air PG Care Time/CCT Total # of Minutes Spent Total Time Spent with Patient: Total time spent is greater than 50% in coordination of care (as documented) at patient's floor/unit and/or counseling patient: Coding Level of Care Code 01829 IN/OBS CONSULT LVL 2,35M Diagnoses Bacteremia R78.81 Atrial fibrillation with RVR I48.91 Congenital bicuspid aortic valve Q23.1 Fractured tooth S02.5XXA Failing root canal M27.59 Sinus mucosal thickening J34.89
--- NOTE | 2023-10-14 14:38 | Infectious Disease Progress Nt ---
Date of Service October 14, 2023 Subjective Patient not seen today. Blood culture results now amended. GNR NOT IDENTIFIED. Cultures from 10/12/23 remain negative. I would suggest the followin. D/C pip-tazo 2. Continue IV vancomycin Assuming the cultures from 10/12/23 remain negative, I would plan on treating him with a 6 week course of vancomycin through 11/22/23. While on vancomycin, he should have weekly CBC, BMP, and vanco levels checked. If cultures from 10/12/23 turn positive, he should have a repeat MARLENA. Results & Data Vital Signs (Past 12 Hours) Vital Signs Temp Pulse Pulse Pulse Resp BP Pulse Ox 10/14/23 14:32 66 10/14/23 10:55 36.7 C 64 18 116/78 97 10/14/23 08:00 36.6 C 63 16 120/73 97 10/14/23 07:21 58 L O2 Del Method 10/14/23 14:32 10/14/23 10:55 Room Air 10/14/23 08:00 Room Air 10/14/23 07:21
--- NOTE | 2023-10-14 15:28 | Cardiology Progress Note ---
Date of Service October 14, 2023 Assessment & Plan (1) Bacteremia: (2) Thigh pain: (3) Arterial occlusion: Plan 53-year-old male with past medical history of severe symptomatic bicuspid aortic valve stenosis for which he underwent surgical aortic valve replacement with a 25 mm Anglin Inspira's prosthesis 07/26/2020 with surgical clipping of the left atrial appendage with a 45 mm atrial clip. He subsequently underwent EP study/pulmonary vein isolation 10/10/2020. Transesophageal echocardiogram at that time revealed successful occlusion of the left atrial appendage with no residual flow. Transesophageal echocardiogram performed this admission due to concerns of endocarditis and embolism revealed no valvular vegetation. The left atrial appendage was not interrogated given past history. Patient has remained in sinus rhythm while on telemetry this hospital stay. / blood cultures positive for Kain positive cocci in clusters/Staphylococcus species. No longer concern for gram-negative bacteria per most recent updates from the microbiology lab. Endocarditis is certainly consideration despite negative MARLENA.Clinically however looks great and patient describes feeling subjectively improved on IV antibiotics and heparin. Infectious disease input noted and appreciated, case also discussed with Dr. West. Oral surgery tentatively planned this week on 10/15. Will continue Zosyn for coverage until after the procedure completed in addition to the vancomycin. Will plan to hold heparin for 6 hours prior to oral surgery. Continue anticoagulation with heparin, with consideration of transitioning to warfarin given what is felt to be unsuccessful therapy with Eliquis. Admission and Anticipated Discharge Date Admission Date: October 09, 2023 Subjective Patient feeling well. States the left thigh discomfort improved. No subjective fevers or chills. Afebrile and vital signs. Telemetry reveals sinus rhythm in the 60s. Review of Systems Review of Systems: All systems reviewed & are unremarkable except as noted in HPI & below Physical Exam Constitutional: WD/WN, vitals as above Eyes: PERRL, conjunctivae normal, anicteric sclerae Respiratory: normal respiratory effort, lungs clear to auscultation Cardiovascular: RRR, no murmur, no edema Gastrointestinal (Abdomen): normal bowel sounds, soft, nontender, no hepatosplenomegaly Skin: no rashes, warm and dry Neurologic: PERRL, EOMI, accommodation nl, no face palsy, no dysarthria Results & Data Vital Signs (Past 12 Hours) Vital Signs Temp Pulse Pulse Pulse Resp BP Pulse Ox 10/14/23 15:09 36.7 C 65 19 132/89 97 10/14/23 14:32 66 10/14/23 10:55 36.7 C 64 18 116/78 97 10/14/23 08:00 36.6 C 63 16 120/73 97 10/14/23 07:21 58 L O2 Del Method 10/14/23 15:09 Room Air 10/14/23 14:32 10/14/23 10:55 Room Air 10/14/23 08:00 Room Air 10/14/23 07:21 Laboratory Results CBC 10/14/23 Range/Units 05:52 WBC 7.66 (4.8-10.8) K/ul RBC 4.24 L (4.70-6.10) M/uL Hgb 12.1 L (14.0-18.0) g/dl Hct 36.2 L (42.0-52.0) % Plt Count 268 (130-400) K/uL Comprehensive Metabolic Panel 10/14/23 Range/Units 05:52 Sodium 135 L (136-145) mmol/L Potassium 4.1 (3.5-5.1) mmol/L Chloride 104 (98-107) mmol/L Carbon Dioxide 25 (21-32) mmol/L BUN 12 (6-23) mg/dl Creatinine 0.91 (0.6-1.4) mg/dl Glucose 114 H (70-99(Fasting)) mg/dl Calcium 9.3 (8.6-10.3) mg/dl Intake and Output 10/14/23 10/14/23 10/14/23 06:59 14:59 22:59 Intake Total 635 / 2240.401 1180.933 / 1180.933 Balance 635 / 2240.401 1180.933 / 1180.933 Intake: IV 635 / 1840.401 880.933 / 880.933 Heparin Sodium/Dextrose 25,000 245.933 / 245.933 units In 500 ml @ 1,400 UNITS/ HR 28 mls/hr IV .[id number] [facility] Rx #:[id number] Piperacillin/Tazobactam 4.5 gm 100 / 300 100 / 100 In Dextrose 5% Mini-B 100 ml @ 25 mls/hr IV Q8H [facility] Rx#: [id number] Vancomycin HCl 1,750 mg In 535 / 1070 535 / 535 Sodium Chloride 0.9% 500 ml @ 200 mls/hr IV Q12H [facility] Rx#: [id number] Oral 300 / 300 Other: # Unmeasured Voids 2 Weight 108.908 kg Weight Measurement Method Built in [facility]
--- NOTE | 2023-10-14 19:24 | CT Scan Report ---
CT facial bones wo con CLINICAL HISTORY: Infected tooth with roots in left maxillar sinus - TECHNIQUE: Multidetector row helical CT of the maxillofacial bones was performed without administrati on of intravenous contrast, and processed with bone and soft tissue algorithms. Coronal and sagittal reformations were obtained. Automated dose lowering techniques and/or adjustment according to patient size were utilized for this exam. Comparison: None available at the time of this dictation. FINDINGS: Nasal bones are normal. The mandible is intact. The temporomandibular joints are anatomically aligned . Pterygoid plates are intact. Zygomatic arches are intact. The roots of the left maxillary first mo lar about the left maxillary sinus. There is a small amount of sinus thickening. The globes are normal and symmetric, without proptosis, obvious disruption or lens dislocation. Ther e is no orbital radiopaque foreign body. The orbital higgins are intact. The retrobulbar fat is without evidence of disruption. Extraocular muscles are normal and symmetric. Optic nerve sheath complexes are normal in course and caliber. Imaged portions of the paranasal sinuses and mastoid air cells are clear. IMPRESSION: Roots of the left maxillary first molar about the left maxillary sinus with mild sinus thickening. ACT 112: Negative or not required by law. Electronically signed by: Onel Palomares M.D. 10/14/2023 7:21 PM
--- NOTE | 2023-10-14 20:42 | Oral/Maxillofacial Progress Nt ---
Date of Service October 14, 2023 Assessment & Plan Admission and Anticipated Discharge Date Admission Date: October 09, 2023 Subjective I requested the Panorex for Victor Manuel and noted that the roots of # 14 are ass ociated with the maxillary sinus. A ordered a CT scan to determine the anatomic relationship of the roots to the sinus. CT facial bones wo con CLINICAL HISTORY: Infected tooth with roots in left maxillary sinus - FINDINGS: Nasal bones are normal. The mandible is intact. The temporomandibular joints are anatomically aligned. Pterygoid plates are intact. Zygomatic arches are intact. The roots of the left maxillary first molar about the left maxillary sinus. There is a small amount of sinus thickening. The globes are normal and symmetric, without proptosis, obvious disruption or lens dislocation. There is no orbital radiopaque foreign body. The orbital higgins are intact. The retrobulbar fat is without evidence of disruption. Extraocular muscles are normal and symmetric. Optic nerve sheath complexes are normal in course and caliber. Imaged portions of the paranasal sinuses and mastoid air cells are clear. IMPRESSION: Roots of the left maxillary first molar about the left maxillary sinus with mild sinus thickening. I reviewed the CT and as expected the roots are indeed associated with the sinus lining. The risk of a post surgical perforation is great. To mitigate a sinus perforation I will plan to section the roots in to 3 segments and carefully remove each root separately. I will also plan of placing a collagen plug to obtain closure of any potential sinus perforation and induce socket healing at the time of surgery. If the opening is large or if pus drainage occurs upon removing the infected roots-- I will use a buccal fat flap to close the sinus and irrigate the sinus via a Tenorio Jose C procedure. I will call the OR on October 14 to see about obtaining OR time for October 15. Holding the Heparin and NPO for Friday night will be needed. I will update tomorrow after I discuss with the OR. Results & Data Vital Signs (Past 12 Hours) Vital Signs Temp Pulse Pulse Resp BP Pulse Ox O2 Del Method 10/14/23 15:09 36.7 C 65 19 132/89 97 Room Air 10/14/23 14:32 66 10/14/23 10:55 36.7 C 64 18 116/78 97 Room Air PG Care Time/CCT Total # of Minutes Spent Total Time Spent with Patient: Total time spent is greater than 50% in coordination of care (as documented) at patient's floor/unit and/or counseling patient: Coding Level of Care Code None
[2023-10-15 06:47] LABS: Hematocrit (blood only) 39.3 % (42.0-52.0); Hemoglobin 12.8 g/dl (14.0-18.0); Mean Corpuscular Hgb Conc 32.6 g/dL (32.0-36.0); Mean Platelet Volume 8.5 fL (9.4-12.4); Platelet Count 298 K/uL (130-400); RDW Coefficient of Variation 13.2 % (11.5-14.5); RDW Standard Deviation 40.6 fL (36.4-46.3); Red Blood Count 4.57 M/uL (4.70-6.10); White Blood Count 8.47 K/ul (4.8-10.8)
[2023-10-15 06:59] LABS: BUN Creatinine Ratio 12.8 (10-20); Calcium 9.5 mg/dl (8.6-10.3); Creatinine Clr Calc Pharmacy 110.8 ml/min; Est GFR (African American) 106.1 ml/min; Est GFR (Non-African American) 91.6 ml/min; Phosphorus 3.9 mg/dl (2.5-4.9); Potassium 4.1 mmol/L (3.5-5.1)
[2023-10-15 07:17] LABS: ANTI-Xa, UFH(UnfractionatedHep 0.36 IU/ml (0.3-0.7)
--- NOTE | 2023-10-15 10:24 | Pharmacy Report ---
Pharmacy PK ABX Note - Date of Service October 15, 2023 - Assessment and Plan Assessment 10/14: * Random vancomycin level this AM 15.8 mcg/ml- associated with AUC/JOHN of 501. Blood cultures from 10/11 are negative at 48 hours. Previous culture from 10/08 were reporting as GNB but reports have been corrected to no GNB. ID recommended discontinuing zosyn 10/13 afternoon. 10/12: * Random vancomycin level this AM came back at ~12 mcg/ml - current vancomycin dosing associated with AUC/JOHN lower end of range of 400-600. Plan to increase dosing d/t severity of infection to target higher AUC. Will increase to 1750 mg iv q 12 hours. Blood cultures with staph epi - mecA/C not detected - ID consulted, will follow for recommendations and plan for vancomycin. Continues on zosyn which will provide coverage for cultures. Lab reports Gm neg in blood could potentially be organism not picked up on biofire therefore did not reflex and plan to follow culture to determine if any further growth of the Gm neg. 10/10: 53 year old M receiving Vancomycin and Zosyn for treatment of bacteremia. * Day #1 of antimicrobial therapy. * Afebrile. SCr stable. Leukocytosis resolved. Lactate and procal negative. * Blood cultures from 10/09/23 growing gram negative bacilli and gram positive cocci in clusters. GPCs identified by BCID2 PCR as Staph epidermidis without Mec A/C gene present. * This indicates that the Staph epi is methicillin sensitive and Zosyn should provide empiric coverage for both organisms. Provider wants to continue Vancomycin as well. ID consulted. Plan Vancomycin * Increase to 1750 mg iv q 12 hr to maintain AUC/JOHN 400-600 Zosyn * 4.5 g IV every 8 hours Pharmacy will continue to follow and will adjust dose/frequency as necessary. Thank you. Pharmacy has transitioned to AUC monitoring for vancomycin. AUC/JOHN is the preferred PK/PD target and is associated with decreased risk of nephrotoxicity compared to traditional trough targets.
[2023-10-15] MEDS: VANCOMYCIN LEVEL ONE (10:30)
--- NOTE | 2023-10-15 13:40 | Cardiology Progress Note ---
Date of Service October 15, 2023 Assessment & Plan (1) Bacteremia: (2) Thigh pain: (3) Arterial occlusion: Plan 53-year-old male with past medical history of severe symptomatic bicuspid aortic valve stenosis for which he underwent surgical aortic valve replacement with a 25 mm Anglin Inspira's prosthesis 07/26/2020 with surgical clipping of the left atrial appendage with a 45 mm atrial clip. He subsequently underwent EP study/pulmonary vein isolation 10/10/2020. Transesophageal echocardiogram at that time revealed successful occlusion of the left atrial appendage with no residual flow. Transesophageal echocardiogram performed this admission due to concerns of endocarditis and embolism revealed no valvular vegetation. The left atrial appendage was not interrogated given past history. Patient has remained in sinus rhythm while on telemetry this hospital stay. 5/6 blood cultures positive for sensitive gram positive cocci in clusters/Staphylococcus species, coag negative staph not lugdunesis. 1/2 cultures obtained 10/12/23 now positive. Will obtain another set of cultures. Endocarditis is certainly consideration despite negative MARLENA. Clinically however patient appears well and patient describes feeling subjectively improved on IV antibiotics and heparin. Oral surgery tentatively planned this week on 10/15. Will continue Zosyn for coverage until after the procedure completed in addition to the vancomycin. Will plan to hold heparin tonight at midnight for oral surgery on 10/15. Continue anticoagulation with heparin, with consideration of transitioning to warfarin given what is felt to be unsuccessful therapy with Eliquis. Admission and Anticipated Discharge Date Admission Date: October 09, 2023 Physical Exam Constitutional: WD/WN, vitals as above Eyes: PERRL, conjunctivae normal, anicteric sclerae Respiratory: normal respiratory effort, lungs clear to auscultation Cardiovascular: RRR, no murmur, no edema Gastrointestinal (Abdomen): normal bowel sounds, soft, nontender, no hepatosplenomegaly Skin: no rashes, warm and dry Neurologic: PERRL, EOMI, accommodation nl, no face palsy, no dysarthria Results & Data Vital Signs (Past 12 Hours) Vital Signs Temp Pulse Pulse Resp BP Pulse Ox O2 Del Method 10/15/23 10:47 36.8 C 65 18 120/80 97 Room Air 10/15/23 09:52 66 10/15/23 07:17 36.5 C 32 L 18 115/76 97 Room Air 10/15/23 03:27 36.5 C 60 18 126/74 95 Room Air
--- NOTE | 2023-10-15 17:09 | Hospitalist Progress Note ---
Date of Service October 15, 2023 Assessment & Plan (1) Acute pain of left thigh: (2) Arterial occlusion: (3) DVT of leg (deep venous thrombosis): (4) Elevated troponin: (5) Paroxysmal atrial fibrillation: (6) Hypertension: (7) History of heart valve replacement: Plan per previous hospitalist notes with addendum: This is a 53yo M with a PMH of persistent atrial fibrillation s/p ablation, history of bicuspid aortic valve replacement at [facility] 2020, HTN, HLD, recent hospitalizations at [facility] for LLE arterial clot and RLE DVT in July of this year presents with L groin/medical thigh pain x 5 days. Bacteremia History of bicuspid aortic valve replacement at [facility] 2020 Acute pain of left thigh Blood cultx (10/08) - posit for GNB and GP cocci in clusters received 1 dose of cefepime overnight will cont. w/ vanco + zosyn for now repeat blood cultx hx of cracked molar (tooth)- since end of 2022 and hx of intermittent fevers also hx of post-op abscess R groin in 2019 MARLENA obtained by cardiology (10/09) -LV systolic function is normal. LVEF 60 to 65%. There is a bioprosthetic aortic valve. Bioprosthetic leaflets are thin and move normally. No prosthetic valve stenosis or regurg. There is no aortic valvular vegetation. The mitral valve anatomy is normal. There is mild mitral regurg. There is mild tricuspid regurg. Doppler findings do not suggest pulmonary hypertension. ID consulted, appreciate their recommendations Oral/dental surg. (Dr. Villeda) consulted for broken molar removal - to obtain poss. source control of bacteremia, likely procedure on 10/15 Discussed w/ cardiology at the bedside - cont. 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 ? Eliquis treatment failure so transitioned to SQ Lovenox by heme, vasc surgery Transitioned back to Eliquis on 09/21 by [facility] vascular service Presenting now with L medial thigh pain - LLE well perfused, pulses intact, lactate WNL, no signs of infection or acute ischemic limb LLE venous doppler without evidence of DVT LLE arterial doppler with significantly dampened arterial waveforms in the calf within the posterior tibial and peroneal arteries, likely representing vascular compromise. There may be focal occlusion within the mid left peroneal artery ED faxed records from [facility] with similar read from July admission (will have copy uploaded into EMR) CT venogram with no acute infectious or inflammatory findings are identified in the abdomen or pelvis.There is no evidence of deep venous thrombosis in the inferior vena cava or iliac veins Transitioned to IV heparin in case intervention needed or Eliquis failure Consulted vacular surgery - not available until Friday -> Yesterday I contacted [facility] vascular - they did not have all the images to review but they had arterial doppler - from that they don't believe pt's thigh pain is due to arterial compromise. Pt seen today (10/12) by [place] vasc. surg. - no need for vasc. intervention at this time Pt is now found bacteremic, has hx of R groin hematoma and post op abscess in 2019 - no other recent surgeries or interventions Consult [facility] anticoagulation recs given complicated hx of arterial clot, DVT on eliquis and now elevated troponin -> per hematology - failed eliquis and so recommend coumadin Pain control, vascular checks 10/14 Continue heparin drip for now Elevated troponin Chest pain Episode of CP yesterday that has not recurred, no acute EKG changes HS troponin 242.5 -> 321.7 -> 344.3 Holding eliquis, transitioned to IV heparin Considered PE- unremarkable CTA of the chest. No pulmonary emboli identified Trend troponin, tele Continue aspirin, statin, Toprol Cardiology consulted - echo obtained , as below LV systolic function is normal. LVEF 60 to 65%. LV wall motion is abnormal. There is a bioprosthetic aortic valve. The gradient is normal for this prosthetic aortic valve. Bioprosthetic leaflets are not well-visualized. There is mild mitral regurg. MARLENA also obtained , as above - seems without vegetation Planned for possible LHC - as pt is now found bacteremic, will postpone the procedure Atrial fibrillation S/p ablation, surgical clipping of left atrial appendage Continue Toprol DVT Ppx: IV heparin Code status: FULL PCP: Dr. Armenta Dispo: Lives at home Anticipate discharge to home medically stable Admission and Anticipated Discharge Date Admission Date: October 09, 2023 Subjective Follow-up for bacteremia, etc. Seen sitting up in bed, comfortable, not in distress States he feels fine overall Has some left upper molar sensitivity No fevers or chills No chest pain, shortness of breath, palpitations, dizziness No other new symptoms Review of Systems Review of Systems: all noted and negative except for above Physical Exam Physical Exam: General- oriented x 3, not in distress, speaks in sentences with no effort or accessory muscle use Eyes- anicteric Neck- no JVD Lungs- clear breath sounds bilaterally, no rales/wheezes Heart- normal rate, regular rhythm; no murmurs Abdomen- normal bowel sounds, nondistended, soft, no tenderness Extremities- no pretibial edema, no calf tenderness Neuro- alert, oriented x 3; no gross focal neurologic deficits Skin- warm & dry Results & Data Results & Data Vital Signs (Past 12 Hours) Vital Signs Temp Pulse Pulse Resp BP Pulse Ox O2 Del Method 10/15/23 15:03 36.8 C 70 18 117/73 96 Room Air 10/15/23 14:23 66 10/15/23 10:47 36.8 C 65 18 120/80 97 Room Air 10/15/23 09:52 66 10/15/23 07:17 36.5 C 32 L 18 115/76 97 Room Air all noted and reviewed including below
[2023-10-16] MEDS ORDERED: ACETAMINOPHEN 1000 MG/100 ML IV IV ONE (06:33)
[2023-10-16 06:40] LABS: Hemoglobin 12.1 g/dl (14.0-18.0); Mean Corpuscular Hemoglobin 28.3 pg (25.0-34.0); Mean Corpuscular Hgb Conc 32.7 g/dL (32.0-36.0); Mean Corpuscular Volume 86.7 fL (80.0-100.0); Mean Platelet Volume 8.6 fL (9.4-12.4); Platelet Count 292 K/uL (130-400); RDW Coefficient of Variation 13.2 % (11.5-14.5); RDW Standard Deviation 41.5 fL (36.4-46.3); Red Blood Count 4.27 M/uL (4.70-6.10); White Blood Count 7.87 K/ul (4.8-10.8)
[2023-10-16 06:51] LABS: BUN Creatinine Ratio 15.2 (10-20); Calcium 9.3 mg/dl (8.6-10.3); Creatinine Clr Calc Pharmacy 113.3 ml/min; Est GFR (African American) 108.9 ml/min; Potassium 4.2 mmol/L (3.5-5.1)
[2023-10-16 06:59] LABS: ANTI-Xa, UFH(UnfractionatedHep < 0.10 IU/ml (0.3-0.7)
--- NOTE | 2023-10-16 07:51 | Anesthesiology Consultation ---
Date of Service October 16, 2023 Assessment & Plan (1) Encounter for pre-operative examination: Chart Review Chart Review: Acceptable Risk for Surgery History Surgery Operation Date: 10/10/23 08:00 Proposed Procedures p Cardiac Cath Procedure - Brody Johnson MD, PhD Operation Date: 10/10/23 11:15 Proposed Procedures p Trans-Esophageal Echo - Ilya Fleming DO Operation Date: 10/13/23 08:00 Proposed Procedures p Cardiac Cath Procedure - Brody Johnson MD, PhD Operation Date: 10/16/23 08:30 Proposed Procedures p Extraction Tooth #14, Sinus Drainage - Mitul Villeda, SIDDHARTH Height/Weight Height: 5 ft 10 in Weight: 108.681 kg Allergies Allergy/AdvReac Type Severity Reaction Status Date / Time No Known Allergies Allergy Verified 10/09/23 17:36 Medications Home Medications Medication Instructions Recorded Confirmed Last Taken Glory Probiotic 1 tab PO DAILY 10/09/23 10/09/23 Unknown acetaminophen 500 mg tablet 1,000 mg PO Q6H PRN Pain 10/09/23 10/09/23 Unknown (Tylenol Extra Strength) amoxicillin 500 mg capsule 2,000 mg PO UD 10/09/23 10/09/23 Unknown apixaban 5 mg tablet (Eliquis) 5 mg PO BID 10/09/23 10/09/23 Unknown ascorbic acid (vitamin C) 500 mg 1,000 mg PO 2XWK 10/09/23 10/09/23 Unknown tablet (Vitamin C) aspirin 81 mg tablet,delayed 81 mg PO DAILY 10/09/23 10/09/23 Unknown release atorvastatin 40 mg tablet 40 mg PO HS 10/09/23 10/09/23 Unknown metoprolol succinate 100 mg 100 mg PO DAILY 10/09/23 10/09/23 Unknown tablet,extended release 24 hr multivitamin 1 tab PO DAILY 10/09/23 10/09/23 Unknown Active Medications Generic Name Dose Route Start Last Admin Trade Name Freq PRN Reason Stop Dose Admin Acetaminophen 1,000 mg 10/09/23 21:12 10/10/23 18:37 Acetaminophen 500 Mg Tab PO 11/08/23 21:11 1,000 mg Q6H PRN Administration Pain Ascorbic Acid 1,000 mg 10/10/23 09:00 10/13/23 09:47 Ascorbic Acid 500 Mg Tab PO 11/09/23 08:59 1,000 mg MoFr@0900 LANA Administration Aspirin 81 mg 10/10/23 09:00 10/15/23 07:56 Aspirin 81 Mg Ectab PO 11/09/23 08:59 81 mg DAILY LANA Administration Atorvastatin Calcium 40 mg 10/09/23 21:12 10/15/23 20:55 Atorvastatin 40 Mg Tab PO 11/08/23 21:11 40 mg HS LANA Administration Heparin Sodium/Dextrose 25,000 units in 500 mls @ 28 mls/hr 10/09/23 19:00 10/15/23 23:58 Heparin Sodium/Dextrose IV 11/08/23 18:59 Infused .[id number] LANA Titration Protocol 1,400 UNITS/HR Vancomycin HCl 1,750 mg/ 535 mls @ 200 mls/hr 10/13/23 10:00 10/15/23 23:46 Sodium Chloride IV 10/25/23 09:59 Infused Q12H LANA Infusion Lactobacillus Acidophilus 1,250 mg 10/11/23 17:15 10/15/23 07:56 Advanced Probiotic 625 Mg Capsule PO 11/10/23 17:14 1,250 mg DAILY LANA Administration Metoprolol Succinate 100 mg 10/10/23 09:00 10/15/23 07:56 Metoprolol Succ 50mg Ext Rel Tab PO 11/09/23 08:59 100 mg DAILY LANA Administration Multivitamins 1 tab 10/10/23 09:00 10/15/23 07:56 Multivitamin Tab PO 11/09/23 08:59 1 tab DAILY LANA Administration NPO Date Last Intake of Fluids: 10/10/23 Time Last Intake of Fluids: 07:00 Last Intake of Fluids Comment: Sips water Date Last Intake of Solids: 10/09/23 Time Last Intake of Solids: 20:00 Past Medical History Medical History (Updated 10/16/23 @ 07:51 by Boris Mandel MD) Bacteremia Scrotal abscess Paroxysmal atrial fibrillation s/p sync. DCCV (failed to convert on 07/24/20 ... startedon Amiodarone Hypertension Obesity Elevated troponin Acute pain of left thigh DVT of leg (deep venous thrombosis) Arterial embolism and thrombosis of lower extremity History of deviated nasal septum Past Family History Family History Other No pertinent family history Past Surgical History Surgical History History of heart valve replacement AVR w/ 25mm Anglin Inspiris valve, Ligation left atrial appendage with clip on 06/21/20 @ [facility] H/O cardiac catheterization History of inguinal hernia repair Social History Smoking Status: Never smoker Do You Dip or Chew Tobacco: No Hx Alcohol Use: Yes Alcohol type: beer alcohol intake frequency: holidays/special occasions only Hx Substance Use: No substance use type: does not use Physical Exam Vital Signs Last Vital Signs Temp 36.8 C 10/16/23 07:35 Pulse 73 10/16/23 07:35 Resp 18 10/16/23 07:35 BP 127/75 10/16/23 07:35 Pulse Ox 97 10/16/23 07:35 O2 Del Method Room Air 10/16/23 07:35 Testing Laboratory Results 10/16/23 06:02 10/16/23 06:02 PT 10.9 Seconds (9.0-12.0) 10/09/23 14:00 INR 1.0 (0.9-1.1) 10/09/23 14:00 APTT 31 Seconds (21-31) 10/09/23 14:00 Hemoglobin A1c 5.5 % (4.5-5.6) 10/10/23 02:05 Urine Color Yellow 10/11/23 04:15 Urine Appearance Clear (Clear) 10/11/23 04:15 Urine pH 5.5 (4.5-7.5) 10/11/23 04:15 Ur Specific Spring 1.020 (1.000-1.030) 10/11/23 04:15 Urine Protein Negative (Negative) 10/11/23 04:15 Urine Glucose (UA) Negative (Negative) 10/11/23 04:15 Urine Ketones Negative (Negative) 10/11/23 04:15 Urine Nitrite Negative (Negative) 10/11/23 04:15 Ur Leukocyte Esterase Negative (Negative) 10/11/23 04:15 10/12/23 05:59 Aerobic Blood Culture - Preliminary Blood Gram positive cocci clusters Anaerobic Blood Culture - Preliminary No growth in Anaerobic bottle after 48 hours. 10/11/23 09:59 Aerobic Blood Culture - Preliminary Blood Staphylococcus species Coag neg staph not lugdunensis Anaerobic Blood Culture - Preliminary No growth in Anaerobic bottle after 48 hours. 10/11/23 09:53 Aerobic Blood Culture - Preliminary Blood Staphylococcus species Coag neg staph not lugdunensis Anaerobic Blood Culture - Final 10/09/23 16:14 Aerobic Blood Culture - Preliminary Blood Staphylococcus species Coag neg staph not lugdunensis Anaerobic Blood Culture - Preliminary Staphylococcus species Gram positive cocci clusters 10/09/23 14:00 Aerobic Blood Culture - Preliminary Blood Staphylococcus species Coag neg staph not lugdunensis Anaerobic Blood Culture - Preliminary Staphylococcus species Coag neg staph not lugdunensis 10/12/23 05:59 Aerobic Blood Culture - Preliminary Blood No growth in Aerobic bottle after 48 hours. Anaerobic Blood Culture - Preliminary No growth in Anaerobic bottle after 48 hours. Electrocardiogram Date: 10/10/23 Findings: + NSR @ (70) Echocardiogram Date: 10/10/23 EF: 60-65% Valvular Disease: + MR (mild) bioprosthetic aortic valve with normal gradients
[2023-10-16] MEDS ORDERED: DEXAMETHASONE SOD INJ 4 MG/ML VIAL ONE (08:11)
[2023-10-16] MEDS ORDERED: fentaNYL citrate PF 100 MCG/2 ML VIAL ONE ×2 (08:11→09:49)
[2023-10-16] MEDS ORDERED: ROCURONIUM BROMIDE 10 MG/ML 5 ML VIAL IV ONE (08:11)
[2023-10-16] MEDS ORDERED: MIDAZOLAM HCL 1 MG/ML 2ML VIAL ONE (08:11)
[2023-10-16] MEDS ORDERED: LIDOCAINE 2% 2 ML VIAL/AMP(20MG/ML) INFIL ONE (08:11)
[2023-10-16] MEDS ORDERED: ONDANSETRON INJ 2 MG/ML 2 ML VIAL ONE (08:11)
[2023-10-16] MEDS ORDERED: PROPOFOL IV EMULSION 10 MG/ML 20 ML VIAL IV ONE (08:11)
[2023-10-16] MEDS: LACTATED RINGER'S 1,000 ML IV SCH (08:31)
[2023-10-16] MEDS ORDERED: DROPERIDOL 5 MG/2 ML VIAL IV PRN (08:38)
[2023-10-16] MEDS ORDERED: LABETALOL HCL IV 5 MG/ML 20ML IV PRN (08:38)
[2023-10-16] MEDS ORDERED: fentaNYL citrate PF 100 MCG/2 ML VIAL IV PRN (08:38)
[2023-10-16] MEDS ORDERED: ONDANSETRON INJ 2 MG/ML 2 ML VIAL IV PRN (08:38)
[2023-10-16] MEDS ORDERED: ATROPINE SULFATE 0.1 MG/ML 10ML SYR IV PRN (08:38)
[2023-10-16] MEDS ORDERED: KETOROLAC 30 MG/ML VIAL IV PRN (08:38)
--- NOTE | 2023-10-16 08:58 | History & Physical Bridge Note ---
Date of Service October 16, 2023 History & Physical Bridge Note I have examined the patient, reviewed the History & Physical and in the interval since the performance of the History & Physical I have noted the following changes of clinical significance: no changes noted
[2023-10-16] MEDS: CHLORHEXIDINE GLUCONATE 0.12% 480 ML MT ONE (09:26)
[2023-10-16] MEDS ORDERED: SUGAMMADEX SODIUM 200 MG/2 ML VIAL IV ONE (09:36)
[2023-10-16] MEDS: BUPIVACAINE/EPINEPHRINE 0.5% 1:200,000 1.8 ML CARP ONE (09:44)
--- NOTE | 2023-10-16 11:52 | Anesthesiology Progress Note ---
Date of Service October 16, 2023 Anesthesia Post Procedure Vital Signs Vital Signs: Temp Pulse Pulse Pulse Resp BP BP 10/16/23 11:04 74 18 134/76 10/16/23 10:42 36.7 C 78 18 111/71 10/16/23 10:25 75 14 122/85 10/16/23 10:15 75 15 117/83 10/16/23 10:05 76 19 122/88 10/16/23 09:55 36.2 C L 75 10 L 115/75 10/16/23 08:01 36.5 C 77 20 173/95 H 10/16/23 07:35 36.8 C 73 18 127/75 10/16/23 02:37 36.4 C L 71 18 123/83 10/15/23 22:38 36.7 C 73 18 123/79 10/15/23 22:00 72 10/15/23 19:47 36.6 C 72 18 132/88 10/15/23 15:03 36.8 C 70 18 117/73 10/15/23 14:23 66 Pulse Ox O2 Del Method 10/16/23 11:04 96 Room Air 10/16/23 10:42 96 Room Air 10/16/23 10:25 96 Room Air 10/16/23 10:15 95 Room Air 10/16/23 10:05 94 Room Air 10/16/23 09:55 93 Room Air 10/16/23 08:01 95 Room Air 10/16/23 07:35 97 Room Air 10/16/23 02:37 95 Room Air 10/15/23 22:38 94 Room Air 10/15/23 22:00 10/15/23 19:47 97 Room Air 10/15/23 15:03 96 Room Air 10/15/23 14:23 Pain Intensity Left Groin: Pain Intensity: 2 Transfer of Care Handoff Completed per policy Notes Mental Status: alert / awake / arousable Patient Amnestic to Procedure: Yes Nausea / Vomiting: adequately controlled Pain: adequately controlled Airway Patency, RR, SpO2: stable & adequate BP & HR: stable & adequate Hydration State: stable & adequate Anesthetic Complications: no major complications apparent
--- NOTE | 2023-10-16 14:24 | Cardiology Progress Note ---
Date of Service October 16, 2023 Assessment & Plan (1) Bacteremia: (2) Thigh pain: (3) Arterial occlusion: Plan 53-year-old male with past medical history of severe symptomatic bicuspid aortic valve stenosis for which he underwent surgical aortic valve replacement with a 25 mm Anglin Inspira's prosthesis 07/26/2020 with surgical clipping of the left atrial appendage with a 45 mm atrial clip. He subsequently underwent EP study/pulmonary vein isolation 10/10/2020. Transesophageal echocardiogram at that time revealed successful occlusion of the left atrial appendage with no residual flow. Transesophageal echocardiogram performed this admission due to concerns of endocarditis and embolism revealed no valvular vegetation. The left atrial appendage was not interrogated given past history. Patient has remained in sinus rhythm while on telemetry this hospital stay. 5/6 blood cultures positive for sensitive gram positive cocci in clusters/Staphylococcus species, coag negative staph not lugdunesis. 1/2 cultures obtained 10/12/23 now positive. Will obtain another set of cultures. Endocarditis is certainly consideration despite negative MARLENA. Clinically however patient appears well and patient describes feeling subjectively improved on IV antibiotics and heparin. Tooth extracted 10/16/2023. Zosyn now discontinued in favor of vancomycin. Resume heparin today at 3 PM, start first dose of Coumadin, 10 mg today, check PT/INR tomorrow. Given 1/2 cultures + from 10/12/23 , will proceed with repeat MARLENA on 10/16. Repeat cultures obtained on 10/15/23. Admission and Anticipated Discharge Date Admission Date: October 09, 2023 Subjective Patient seen in cardiology follow-up. Had extraction of his molars today by oral surgery and tolerated procedure well. Spouse is at the bedside. Ongoing sinus rhythm in the 70s noted. Physical Exam Constitutional: WD/WN, vitals as above Eyes: PERRL, conjunctivae normal, anicteric sclerae Respiratory: normal respiratory effort, lungs clear to auscultation Cardiovascular: RRR, no murmur, no edema Gastrointestinal (Abdomen): normal bowel sounds, soft, nontender, no hepatosplenomegaly Skin: no rashes, warm and dry Neurologic: PERRL, EOMI, accommodation nl, no face palsy, no dysarthria Results & Data Vital Signs (Past 12 Hours) Vital Signs Temp Pulse Pulse Resp BP BP Pulse Ox 10/16/23 12:15 77 18 149/93 H 96 10/16/23 11:04 74 18 134/76 96 10/16/23 10:42 36.7 C 78 18 111/71 96 10/16/23 10:25 75 14 122/85 96 10/16/23 10:15 75 15 117/83 95 10/16/23 10:05 76 19 122/88 94 10/16/23 09:55 36.2 C L 75 10 L 115/75 93 10/16/23 08:01 36.5 C 77 20 173/95 H 95 10/16/23 07:35 36.8 C 73 18 127/75 97 10/16/23 02:37 36.4 C L 71 18 123/83 95 O2 Del Method 10/16/23 12:15 Room Air 10/16/23 11:04 Room Air 10/16/23 10:42 Room Air 10/16/23 10:25 Room Air 10/16/23 10:15 Room Air 10/16/23 10:05 Room Air 10/16/23 09:55 Room Air 10/16/23 08:01 Room Air 10/16/23 07:35 Room Air 10/16/23 02:37 Room Air
[2023-10-16] MEDS: WARFARIN SOD 10 MG TAB PO ONE (15:00)
[2023-10-16] MEDS: ceFAZolin 2000MG 2,000 MG/15 ML SYR IV SCH (15:01)
--- NOTE | 2023-10-16 18:52 | Hospitalist Progress Note ---
Date of Service October 16, 2023 Assessment & Plan (1) Acute pain of left thigh: (2) Arterial occlusion: (3) DVT of leg (deep venous thrombosis): (4) Elevated troponin: (5) Paroxysmal atrial fibrillation: (6) Hypertension: (7) History of heart valve replacement: Plan per previous hospitalist notes with addendum: This is a 53yo M with a PMH of persistent atrial fibrillation s/p ablation, history of bicuspid aortic valve replacement at [facility] 2020, HTN, HLD, recent hospitalizations at [facility] for LLE arterial clot and RLE DVT in July of this year presents with L groin/medical thigh pain x 5 days. Bacteremia History of bicuspid aortic valve replacement at [facility] 2020 Acute pain of left thigh Blood cultx (10/08) - posit for GNB and GP cocci in clusters received 1 dose of cefepime overnight will cont. w/ vanco + zosyn for now repeat blood cultx hx of cracked molar (tooth)- since end of 2022 and hx of intermittent fevers also hx of post-op abscess R groin in 2019 MARLENA obtained by cardiology (10/09) -LV systolic function is normal. LVEF 60 to 65%. There is a bioprosthetic aortic valve. Bioprosthetic leaflets are thin and move normally. No prosthetic valve stenosis or regurg. There is no aortic valvular vegetation. The mitral valve anatomy is normal. There is mild mitral regurg. There is mild tricuspid regurg. Doppler findings do not suggest pulmonary hypertension. ID consulted, appreciate their recommendations Oral/dental surg. (Dr. Villeda) consulted for broken molar removal - to obtain poss. source control of bacteremia, likely procedure on 10/15 Discussed w/ cardiology at the bedside - cont. 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 ? Eliquis treatment failure so transitioned to SQ Lovenox by [facility], vasc surgery Transitioned back to Eliquis on 09/21 by [facility] vascular service Presenting now with L medial thigh pain - LLE well perfused, pulses intact, lactate WNL, no signs of infection or acute ischemic limb LLE venous doppler without evidence of DVT LLE arterial doppler with significantly dampened arterial waveforms in the calf within the posterior tibial and peroneal arteries, likely representing vascular compromise. There may be focal occlusion within the mid left peroneal artery ED faxed records from [facility] with similar read from July admission (will have copy uploaded into EMR) CT venogram with no acute infectious or inflammatory findings are identified in the abdomen or pelvis.There is no evidence of deep venous thrombosis in the inferior vena cava or iliac veins Transitioned to IV heparin in case intervention needed or Eliquis failure Consulted vacular surgery - not available until Friday -> Yesterday I contacted [facility] vascular - they did not have all the images to review but they had arterial doppler - from that they don't believe pt's thigh pain is due to a rterial compromise. Pt seen today (10/12) by [facility] vasc. surg. - no need for vasc. intervention at this time Pt is now found bacteremic, has hx of R groin hematoma and post op abscess in 2019 - no other recent surgeries or interventions Consult [facility] for snf anticoagulation recs given complicated hx of arterial clot, DVT on eliquis and now elevated troponin -> per hematology - failed eliquis and so recommend coumadin Pain control, vascular checks 10/15 Continue heparin drip for now Plan to transition to Coumadin when no other procedures are to be done Elevated troponin Chest pain Episode of CP yesterday that has not recurred, no acute EKG changes HS troponin 242.5 -> 321.7 -> 344.3 Holding eliquis, transitioned to IV heparin Considered PE- unremarkable CTA of the chest. No pulmonary emboli identified Trend troponin, tele Continue aspirin, statin, Toprol Cardiology consulted - echo obtained , as below LV systolic function is normal. LVEF 60 to 65%. LV wall motion is abnormal. There is a bioprosthetic aortic valve. The gradient is normal for this prosthetic aortic valve. Bioprosthetic leaflets are not well-visualized. There is mild mitral regurg. MARLENA also obtained , as above - seems without vegetation Planned for possible LHC - as pt is now found bacteremic, will postpone the procedure Atrial fibrillation S/p ablation, surgical clipping of left atrial appendage Continue Toprol DVT Ppx: IV heparin Code status: FULL PCP: Dr. Armenta Dispo: Lives at home Anticipate discharge to home medically stable Admission and Anticipated Discharge Date Admission Date: October 09, 2023 Subjective Follow-up for bacteremia, etc. Status post molar tooth extraction Seen resting in bed, sitting up, in good spirits Has mild pain over the tooth extraction site No bleeding No fevers or chills No chest pain, dizziness palpitations No other new symptom Review of Systems Review of Systems: all noted and negative except for above Physical Exam Physical Exam: General- oriented x 3, not in distress, speaks in sentences with no effort or accessory muscle use Face-no facial swelling, redness Eyes- anicteric Neck- no JVD Lungs- clear breath sounds bilaterally, no rales/wheezes Heart- normal rate, regular rhythm; no murmurs Abdomen- normal bowel sounds, nondistended, soft, nontender Extremities- no pretibial edema, no calf tenderness Neuro- alert, oriented x 3; no gross focal neurologic deficits Skin- warm & dry Results & Data Results & Data Vital Signs (Past 12 Hours) Vital Signs Temp Pulse Pulse Pulse Resp BP BP 10/16/23 17:57 64 10/16/23 15:50 36.7 C 79 18 140/88 10/16/23 12:15 77 18 149/93 H 10/16/23 11:04 74 18 134/76 10/16/23 10:42 36.7 C 78 18 111/71 10/16/23 10:25 75 14 122/85 10/16/23 10:15 75 15 117/83 10/16/23 10:05 76 19 122/88 10/16/23 09:55 36.2 C L 75 10 L 115/75 10/16/23 08:01 36.5 C 77 20 173/95 H 10/16/23 07:35 36.8 C 73 18 127/75 Pulse Ox O2 Del Method 10/16/23 17:57 10/16/23 15:50 96 Room Air 10/16/23 12:15 96 Room Air 10/16/23 11:04 96 Room Air 10/16/23 10:42 96 Room Air 10/16/23 10:25 96 Room Air 10/16/23 10:15 95 Room Air 10/16/23 10:05 94 Room Air 10/16/23 09:55 93 Room Air 10/16/23 08:01 95 Room Air 10/16/23 07:35 97 Room Air all noted and reviewed including below
[2023-10-16] MEDS: oxyCODONE HCL IR 5 MG TAB (IMMEDIATE RELEASE) PO PRN (20:08)
[2023-10-16 21:37] LABS: ANTI-Xa, UFH(UnfractionatedHep 0.25 IU/ml (0.3-0.7)
[2023-10-16] MEDS: CALCIUM CARBONATE 500 MG CHEWABLE TAB PO PRN (23:02)
[2023-10-17 06:46] LABS: ANTI-Xa, UFH(UnfractionatedHep 0.36 IU/ml (0.3-0.7); Prothrombin Time 10.9 Seconds (9.0-12.0)
--- NOTE | 2023-10-17 07:25 | History & Physical Bridge Note ---
Date of Service October 17, 2023 History & Physical Bridge Note I have examined the patient, reviewed the History & Physical and in the interval since the performance of the History & Physical I have noted the following changes of clinical significance: no changes noted. Patient has undergone oral surgery yesterday, the appearance of the mouth is stable this morning on my inspection with a flashlight. There is some expected postprocedural swelling, no packing is in place, patient is comfortable. Informed consent for transesophageal echocardiogram obtained patient elects to proceed.
--- NOTE | 2023-10-17 07:41 | Anesthesiology Consultation ---
Date of Service October 17, 2023 Assessment & Plan Chart Review Chart Review: Acceptable Risk for Surgery Consults Requested none History Surgery Operation Date: 10/10/23 08:00 Proposed Procedures p Cardiac Cath Procedure - Brody Johnson MD, PhD Operation Date: 10/10/23 11:15 Proposed Procedures p Trans-Esophageal Echo - Ilya Fleming DO Operation Date: 10/13/23 08:00 Proposed Procedures p Cardiac Cath Procedure - Brody Johnson MD, PhD Operation Date: 10/16/23 08:30 Proposed Procedures p Extraction Tooth #14, Sinus Drainage - Mitul Villeda, SIDDHARTH Operation Date: 10/17/23 07:30 Proposed Procedures p Transesophageal Echo w/Anesthesia - Brody Chávez, Height/Weight Height: 5 ft 10 in Weight: 109.769 kg Allergies Allergy/AdvReac Type Severity Reaction Status Date / Time No Known Allergies Allergy Verified 10/09/23 17:36 Medications Home Medications Medication Instructions Recorded Confirmed Last Taken Glory Probiotic 1 tab PO DAILY 10/09/23 10/09/23 Unknown acetaminophen 500 mg tablet 1,000 mg PO Q6H PRN Pain 10/09/23 10/09/23 Unknown (Tylenol Extra Strength) amoxicillin 500 mg capsule 2,000 mg PO UD 10/09/23 10/09/23 Unknown apixaban 5 mg tablet (Eliquis) 5 mg PO BID 10/09/23 10/09/23 Unknown ascorbic acid (vitamin C) 500 mg 1,000 mg PO 2XWK 10/09/23 10/09/23 Unknown tablet (Vitamin C) aspirin 81 mg tablet,delayed 81 mg PO DAILY 10/09/23 10/09/23 Unknown release atorvastatin 40 mg tablet 40 mg PO HS 10/09/23 10/09/23 Unknown metoprolol succinate 100 mg 100 mg PO DAILY 10/09/23 10/09/23 Unknown tablet,extended release 24 hr multivitamin 1 tab PO DAILY 10/09/23 10/09/23 Unknown Active Medications Generic Name Dose Route Start Last Admin Trade Name Freq PRN Reason Stop Dose Admin Acetaminophen 1,000 mg 10/09/23 21:12 10/17/23 06:09 Acetaminophen 500 Mg Tab PO 11/08/23 21:11 1,000 mg Q6H PRN Administration Pain Ascorbic Acid 1,000 mg 10/10/23 09:00 10/13/23 09:47 Ascorbic Acid 500 Mg Tab PO 11/09/23 08:59 1,000 mg [id number]@0900 LANA Administration Aspirin 81 mg 10/10/23 09:00 10/16/23 11:09 Aspirin 81 Mg Ectab PO 11/09/23 08:59 81 mg DAILY LANA Administration Atorvastatin Calcium 40 mg 10/09/23 21:12 10/16/23 20:09 Atorvastatin 40 Mg Tab PO 11/08/23 21:11 40 mg HS LANA Administration Calcium Carbonate 500 mg 10/16/23 22:27 10/16/23 23:02 Calcium Carbonate 500 Mg Chewable Tab PO 11/15/23 22:26 500 mg BID PRN Administration Indigestion Heparin Sodium/Dextrose 25,000 units in 500 mls @ 28 mls/hr 10/09/23 19:00 10/17/23 07:08 Heparin Sodium/Dextrose IV 11/08/23 18:59 1,400 units/hr .[id number] LANA 28 mls/hr Titration Protocol 1,400 UNITS/HR Cefazolin Sodium 2,000 mg in 15 mls @ 3.75 mls/min 10/16/23 14:30 10/17/23 06:09 Ancef 2000mg IV 11/27/23 14:29 3.75 mls/min Q8H LANA Administration Lactobacillus Acidophilus 1,250 mg 10/11/23 17:15 10/16/23 11:09 Advanced Probiotic 625 Mg Capsule PO 11/10/23 17:14 1,250 mg DAILY LANA Administration Metoprolol Succinate 100 mg 10/10/23 09:00 10/16/23 11:09 Metoprolol Succ 50mg Ext Rel Tab PO 11/09/23 08:59 100 mg DAILY LANA Administration Multivitamins 1 tab 10/10/23 09:00 10/16/23 11:09 Multivitamin Tab PO 11/09/23 08:59 1 tab DAILY LANA Administration Oxycodone HCl 5 mg 10/09/23 18:48 10/16/23 20:08 Oxycodone Hcl Ir 5 Mg Tab (Immediate Release) PO 10/23/23 18:47 5 mg Q6H PRN Administration Severe Pain (Scale 7, 8, 9,10) NPO Date Last Intake of Fluids: 10/15/23 Time Last Intake of Fluids: 22:00 Last Intake of Fluids Comment: Sips water Date Last Intake of Solids: 10/15/23 Time Last Intake of Solids: 19:30 Past Medical History Medical History (Updated 10/16/23 @ 07:51 by Boris Mandel MD) Bacteremia Scrotal abscess Paroxysmal atrial fibrillation s/p sync. DCCV (failed to convert on 07/24/20 ... startedon Amiodarone Hypertension Obesity Elevated troponin Acute pain of left thigh DVT of leg (deep venous thrombosis) Arterial embolism and thrombosis of lower extremity History of deviated nasal septum Past Family History Family History Other No pertinent family history Past Surgical History Surgical History History of heart valve replacement AVR w/ 25mm Anglin Inspiris valve, Ligation left atrial appendage with clip on 06/21/20 [place] [facility] [place] cardiac catheterization History of inguinal hernia repair Social History Smoking Status: Never smoker Do You Dip or Chew Tobacco: No Hx Alcohol Use: Yes Alcohol type: beer alcohol intake frequency: holidays/special occasions only Hx Substance Use: No substance use type: does not use Physical Exam Vital Signs Last Vital Signs Temp 36.6 C 10/17/23 03:07 Pulse 68 10/17/23 07:13 Resp 16 10/17/23 07:13 BP 129/73 10/17/23 07:13 Pulse Ox 96 10/17/23 07:13 O2 Del Method Room Air 10/17/23 07:13 Testing Laboratory Results 10/16/23 06:02 10/16/23 06:02 PT 10.9 Seconds (9.0-12.0) 10/17/23 05:46 INR 1.0 (0.9-1.1) 10/17/23 05:46 APTT 31 Seconds (21-31) 10/09/23 14:00 Hemoglobin A1c 5.5 % (4.5-5.6) 10/10/23 02:05 Urine Color Yellow 10/11/23 04:15 Urine Appearance Clear (Clear) 10/11/23 04:15 Urine pH 5.5 (4.5-7.5) 10/11/23 04:15 Ur Specific [place] 1.020 (1.000-1.030) 10/11/23 04:15 Urine Protein Negative (Negative) 10/11/23 04:15 Urine Glucose (UA) Negative (Negative) 10/11/23 04:15 Urine Ketones Negative (Negative) 10/11/23 04:15 Urine Nitrite Negative (Negative) 10/11/23 04:15 Ur Leukocyte Esterase Negative (Negative) 10/11/23 04:15 10/09/23 14:00 Aerobic Blood Culture - Preliminary Blood Coag neg staph not lugdunensis#2 Coag neg staph not lugdunensis Anaerobic Blood Culture - Preliminary Coag neg staph not lugdunensis#2 Coag neg staph not lugdunensis 10/12/23 05:59 Aerobic Blood Culture - Preliminary Blood Gram positive cocci clusters Anaerobic Blood Culture - Final No growth in Anaerobic bottle after 5 days. 10/12/23 05:59 Aerobic Blood Culture - Final Blood No growth in Aerobic bottle after 5 days. Anaerobic Blood Culture - Final No growth in Anaerobic bottle after 5 days. 10/15/23 14:19 Aerobic Blood Culture - Preliminary Blood No growth in Aerobic bottle after 24 hours. Anaerobic Blood Culture - Preliminary No growth in Anaerobic bottle after 24 hours. 10/15/23 14:27 Aerobic Blood Culture - Preliminary Blood No growth in Aerobic bottle after 24 hours. Anaerobic Blood Culture - Preliminary No growth in Anaerobic bottle after 24 hours. 10/11/23 09:59 Aerobic Blood Culture - Preliminary Blood Staphylococcus species Coag neg staph not lugdunensis Anaerobic Blood Culture - Final No growth in Anaerobic bottle after 5 days. 10/11/23 09:53 Aerobic Blood Culture - Preliminary Blood Staphylococcus species Coag neg staph not lugdunensis Anaerobic Blood Culture - Final 10/09/23 16:14 Aerobic Blood Culture - Preliminary Blood Staphylococcus species Coag neg staph not lugdunensis Anaerobic Blood Culture - Preliminary Staphylococcus species Gram positive cocci clusters
--- NOTE | 2023-10-17 08:27 | Anesthesiology Progress Note ---
Date of Service October 17, 2023 Anesthesia Post Procedure Vital Signs Vital Signs: Temp Pulse Pulse Pulse Resp BP BP 10/17/23 08:18 66 18 107/56 L 10/17/23 07:13 68 16 129/73 10/17/23 07:00 65 10/17/23 03:07 36.6 C 64 16 110/63 10/16/23 23:33 36.8 C 74 16 137/79 10/16/23 22:42 72 10/16/23 19:47 36.7 C 83 18 132/85 10/16/23 17:57 64 10/16/23 15:50 36.7 C 79 18 140/88 10/16/23 12:15 77 18 149/93 H 10/16/23 11:04 74 18 134/76 10/16/23 10:42 36.7 C 78 18 111/71 10/16/23 10:25 75 14 122/85 10/16/23 10:15 75 15 117/83 10/16/23 10:05 76 19 122/88 10/16/23 09:55 36.2 C L 75 10 L 115/75 Pulse Ox O2 Del Method O2 Flow Rate 10/17/23 08:18 98 Oxymask 6 10/17/23 07:13 96 Room Air 10/17/23 07:00 10/17/23 03:07 96 Room Air 10/16/23 23:33 95 Room Air 10/16/23 22:42 10/16/23 19:47 96 Room Air 10/16/23 17:57 10/16/23 15:50 96 Room Air 10/16/23 12:15 96 Room Air 10/16/23 11:04 96 Room Air 10/16/23 10:42 96 Room Air 10/16/23 10:25 96 Room Air 10/16/23 10:15 95 Room Air 10/16/23 10:05 94 Room Air 10/16/23 09:55 93 Room Air Pain Intensity Left Groin: Pain Intensity: 2 Transfer of Care Handoff Completed per policy Notes Mental Status: alert / awake / arousable and participated in evaluation Patient Amnestic to Procedure: Yes Nausea / Vomiting: adequately controlled Pain: adequately controlled Airway Patency, RR, SpO2: stable & adequate BP & HR: stable & adequate Hydration State: stable & adequate Anesthetic Complications: no major complications apparent
--- NOTE | 2023-10-17 08:58 | Post Operative Brief Note ---
Cardiology Brief Post Op Date of Surgery October 17, 2023 Pre & Post Diagnosis Operation Date: 10/17/23 07:30 Procedure Preprocedure diagnosis: Coag negative staph bacteremia, history of bioprosthetic aortic valve replacement Post procedure diagnosis: No evidence of valvular vegetation After informed consent was obtained and timeout was performed the patient was sedated with the assistance of the anesthesia service. The [place] mitral valve and tricuspid valve were well-visualized without evidence of vegetation. The pulmonic valve was suboptimally visualized however without any gross evidence of vegetation. The bioprosthetic aortic valve was well-visualized. The leaflets are adequately visualized and within with normal excursion evidence of vegetation There is a lucency of the posterior aspect of the aortic valve sewing ring which is unchanged compared to the previous MARLENA study performed on 10/10/2023 and is not felt to represent an abscess. Real Estate Le[employer] Manager DO Assistant Sania Garcia Estimated Blood Loss 3 Findings Consistent with Post-Op Diagnosis Specimens Specimen Description:
--- NOTE | 2023-10-17 09:20 | Oral/Maxillofacial Progress Nt ---
Date of Service October 17, 2023 Assessment & Plan Admission and Anticipated Discharge Date Admission Date: October 09, 2023 Subjective Victor Manuel is doing very this AM The surgical site looks great, no sinus problems. Less pain, no swelling, Sinus fistula is closed w/o any airflow. OK for D/C from oral surg point of view. I will Rx--Vicodin, Peridex and Amox 500 for future dental procedures. I will see Victor Manuel in my office for follow up in 10-14 days Results & Data Vital Signs (Past 12 Hours) Vital Signs Temp Pulse Pulse Pulse Resp BP Pulse Ox 10/17/23 08:57 36.4 C L 63 18 117/76 98 10/17/23 08:33 60 16 103/63 95 10/17/23 08:18 66 18 107/56 L 98 10/17/23 07:13 68 16 129/73 96 10/17/23 07:00 65 10/17/23 03:07 36.6 C 64 16 110/63 96 10/16/23 23:33 36.8 C 74 16 137/79 95 10/16/23 22:42 72 O2 Del Method O2 Flow Rate 10/17/23 08:57 Room Air 10/17/23 08:33 Room Air 10/17/23 08:18 Oxymask 6 10/17/23 07:13 Room Air 10/17/23 07:00 10/17/23 03:07 Room Air 10/16/23 23:33 Room Air 10/16/23 22:42 PG Care Time/CCT Total # of Minutes Spent Total Time Spent with Patient: Total time spent is greater than 50% in coordination of care (as documented) at patient's floor/unit and/or counseling patient: Coding Level of Care Code None
[2023-10-17] MEDS: BENZOCAINE/TETRACAIN/BUTAM 50 APPLN/5 GM CAN EXT ONE (10:21)
[2023-10-17] MEDS: PROPOFOL IV EMULSION 10 MG/ML 20 ML VIAL IV ONE ×2 (10:22→10:24)
--- NOTE | 2023-10-17 11:03 | Cardiology Progress Note ---
Date of Service October 17, 2023 Assessment & Plan (1) Bacteremia: (2) Thigh pain: (3) Arterial occlusion: Plan 53-year-old male with past medical history of severe symptomatic bicuspid aortic valve stenosis for which he underwent surgical aortic valve replacement with a 25 mm Anglin Inspira's prosthesis 07/26/2020 with surgical clipping of the left atrial appendage with a 45 mm atrial clip. He subsequently underwent EP study/pulmonary vein isolation 10/10/2020. Transesophageal echocardiogram at that time revealed successful occlusion of the left atrial appendage with no residual flow. Transesophageal echocardiogram performed this admission on 10/10/2023 due to concerns of endocarditis and embolism revealed no valvular vegetation. The left atrial appendage was not interrogated given past history. Patient has remained in sinus rhythm while on telemetry this hospital stay. 5/6 blood cultures positive for sensitive gram positive cocci in clusters/Staphylococcus species, coag negative staph not lugdunesis. 1/2 cultures obtained 10/12/23 now positive. Repeat cultures obtained 10/15/2027 negative thus far. Tooth extracted 10/16/2023. Zosyn now discontinued in favor of vancomycin. Repeat transesophageal echocardiogram performed today 10/17/2023 without vegetati on. Case discussed by phone with Dr Zavala Of infectious disease, [facility], for the purpose of coordination of care. 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 Will plan for repeat outpatient MARLENA after he completes his course of antibiotics. I will arrange this. With regards to anticoagulation, patient had recurrent lower extremity thrombosis despite Eliquis. Recommend transition to Coumadin, can be discharged with Lovenox bridge with follow-up with the [facility] anticoagulation clinic.Patient received a dose of Coumadin 10 mg on 10/16/2023, will receive second dose of 10 mg today, 10/17/2023. Admission and Anticipated Discharge Date Admission Date: October 09, 2023 Subjective Patient seen in cardiology follow up prior to, during, and after MARLENA today. Pt feeling well prior to MARLENA with exception of an expected degree of swelling where his oral surgery took place yesterday. His presenting chief complaint of left thigh pain has completely resolved. Physical Exam Physical Exam: General: no acute distress and stated age Eyes: conjunctiva are pink and non-injected, sclera clear Oral cavity: Mild erythema at left posterior molar surgical site, without drainage Neck: normal jugular venous pulse, no hepatojugular reflux Chest: normal shape and normal respiratory effort Lungs: clear to auscultation and percussion Cardiac Exam: - regular heart sounds, 1/6 systolic murmur, rubs, or gallops, no jugular venous distention Abdomen: abdomen soft, non-tender, no abnormal masses and no hepatosplenomegaly Musculoskeletal: no gait disturbance, no weakness Extremities: no edema and no cyanosis Neuro:awake, conversant, follows commands, no focal motor deficits Psych: appropriate affect and insight. Results & Data Vital Signs (Past 12 Hours) Vital Signs Temp Pulse Pulse Pulse Resp BP Pulse Ox 10/17/23 08:57 36.4 C L 63 18 117/76 98 10/17/23 08:33 60 16 103/63 95 10/17/23 08:18 66 18 107/56 L 98 10/17/23 08:00 10/17/23 07:13 68 16 129/73 96 10/17/23 07:00 65 10/17/23 03:07 36.6 C 64 16 110/63 96 10/16/23 23:33 36.8 C 74 16 137/79 95 O2 Del Method O2 Flow Rate 10/17/23 08:57 Room Air 10/17/23 08:33 Room Air 10/17/23 08:18 Oxymask 6 10/17/23 08:00 Room Air 10/17/23 07:13 Room Air 10/17/23 07:00 10/17/23 03:07 Room Air 10/16/23 23:33 Room Air
[2023-10-17] MEDS: WARFARIN SOD 10 MG TAB PO ONE (12:22)
--- NOTE | 2023-10-17 18:57 | Hospitalist Progress Note ---
Date of Service October 17, 2023 Assessment & Plan (1) Acute pain of left thigh: (2) Arterial occlusion: (3) DVT of leg (deep venous thrombosis): (4) Elevated troponin: (5) Paroxysmal atrial fibrillation: (6) Hypertension: (7) History of heart valve replacement: Plan per previous hospitalist notes with addendum: This is a 53yo M with a PMH of persistent atrial fibrillation s/p ablation, history of bicuspid aortic valve replacement at [facility] [place], HTN, HLD, recent hospitalizations at [facility] for LLE arterial clot and RLE DVT in July of this year presents with L groin/medical thigh pain x 5 days. Bacteremia History of bicuspid aortic valve replacement at [facility] [place] Acute pain of left thigh Blood cultx (10/08) - posit for GNB and GP cocci in clusters received 1 dose of cefepime overnight will cont. w/ vanco + zosyn for now repeat blood cultx hx of cracked molar (tooth)- since end of 2022 and hx of intermittent fevers also hx of post-op abscess R groin in 2019 MARLENA obtained by cardiology (10/09) -LV systolic function is normal. LVEF 60 to 65%. There is a bioprosthetic aortic valve. Bioprosthetic leaflets are thin and move normally. No prosthetic valve stenosis or regurg. There is no aortic valvular vegetation. The mitral valve anatomy is normal. There is mild mitral regurg. There is mild tricuspid regurg. Doppler findings do not suggest pulmonary hypertension. ID consulted, appreciate their recommendations Oral/dental surg. (Dr. Villeda) consulted for broken molar removal - to obtain poss. source control of bacteremia, likely procedure on 10/15 Discussed w/ cardiology at the bedside - cont. abx, pt may need repeat MARLENA in the future 10/14 For dental surgery tomorrow Will need 6 weeks of IV vancomycin per ID Repeat blood cultures obtained today Once documented negative, will proceed with placement of PICC line 10/15 Status post molar tooth extraction Discussed with ID service, transition from vancomycin to cefazolin given MSSA on blood cultures Repeat blood cultures 623 still positive, species pending Repeat blood culture 10/14 pending For repeat MARLENA tomorrow 10/16 Status post repeat MARLENA: No vegetation noted Discussion held by cardiology and ID services Decision made to continue with 6 course of IV cefazolin to treat for 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 ? Eliquis treatment failure so transitioned to SQ Lovenox by heme, vasc surgery Transitioned back to Eliquis on 09/21 by [facility] vascular service Presenting now with L medial thigh pain - LLE well perfused, pulses intact, lactate WNL, no signs of infection or acute ischemic limb LLE venous doppler without evidence of DVT LLE arterial doppler with significantly dampened arterial waveforms in the calf within the posterior tibial and peroneal arteries, likely representing vascular compromise. There may be focal occlusion within the mid left peroneal artery ED faxed records from [facility] with similar read from July admission (will have copy uploaded into EMR) CT venogram with no acute infectious or inflammatory findings are identified in the abdomen or pelvis.There is no evidence of deep venous thrombosis in the inferior vena cava or iliac veins Transitioned to IV heparin in case intervention needed or Eliquis failure Consulted vacular surgery - not available until Friday -> Yesterday I contacted [facility] vascular - they did not have all the images to review but they had arterial doppler - from that they don't believe pt's thigh pain is due to arterial compromise. Pt seen today (10/12) by [facility] vasc. surg. - no need for vasc. intervention at this time Pt is now found bacteremic, has hx of R groin hematoma and post op abscess in 2019 - no other recent surgeries or interventions Consult [facility] anticoagulation recs given complicated hx of arterial clot, DVT on eliquis and now elevated troponin -> per hematology - failed eliquis and so recommend coumadin Pain control, vascular checks 10/15 Continue heparin drip for now Plan to transition to Coumadin when no other procedures are to be done 10/16 Transition from heparin to Lovenox bridge tonight Coumadin 10 mg p.o. given today INR tomorrow Elevated troponin Chest pain Episode of CP yesterday that has not recurred, no acute EKG changes HS troponin 242.5 -> 321.7 -> 344.3 Holding eliquis, transitioned to IV heparin Considered PE- unremarkable CTA of the chest. No pulmonary emboli identified Trend troponin, tele Continue aspirin, statin, Toprol Cardiology consulted - echo obtained , as below LV systolic function is normal. LVEF 60 to 65%. LV wall motion is abnormal. There is a bioprosthetic aortic valve. The gradient is normal for this prosthetic aortic valve. Bioprosthetic leaflets are not well-visualized. There is mild mitral regurg. MARLENA also obtained , as above - seems without vegetation Planned for possible LHC - as pt is now found bacteremic, will postpone the procedure Atrial fibrillation S/p ablation, surgical clipping of left atrial appendage Continue Toprol DVT Ppx: IV heparin -- Lovenox Code status: FULL PCP: Dr. Armenta Dispo: Lives at home Anticipate discharge to home medically stable Admission and Anticipated Discharge Date Admission Date: October 09, 2023 Subjective Follow-up for bacteremia, etc. Seen resting in bed, comfortable, not in distress In good spirits, very pleasant States he feels fine overall Denies pain over the molar extraction area No problems with swallowing Denies fevers or chills, chest pain, shortness of breath No other new symptoms Review of Systems Review of Systems: all noted and negative except for above Physical Exam Physical Exam: General- oriented x 3, not in distress, speaks in sentences with no effort or accessory muscle use Eyes- anicteric Neck- no JVD Lungs- clear breath sounds bilaterally, no rales/wheezes Heart- normal rate, regular rhythm; no murmurs Abdomen- normal bowel sounds, nondistended, soft, nontender Extremities- no pretibial edema, no calf tenderness Neuro- alert, oriented x 3; no gross focal neurologic deficits Skin- warm & dry Results & Data Results & Data Vital Signs (Past 12 Hours) Vital Signs Temp Pulse Pulse Pulse Resp BP Pulse Ox 10/17/23 15:06 36.4 C L 66 18 112/68 97 10/17/23 14:58 83 10/17/23 11:30 36.4 C L 63 18 120/78 98 10/17/23 08:57 36.4 C L 63 18 117/76 98 10/17/23 08:33 60 16 103/63 95 10/17/23 08:18 66 18 107/56 L 98 10/17/23 08:00 10/17/23 07:13 68 16 129/73 96 10/17/23 07:00 65 O2 Del Method O2 Flow Rate 10/17/23 15:06 Room Air 10/17/23 14:58 10/17/23 11:30 Room Air 10/17/23 08:57 Room Air 10/17/23 08:33 Room Air 10/17/23 08:18 Oxymask 6 10/17/23 08:00 Room Air 10/17/23 07:13 Room Air 10/17/23 07:00 all noted and reviewed including below
[2023-10-17] MEDS: ENOXAPARIN INJ 120 MG/0.8 ML SYR SQ SCH (19:46)
[2023-10-18] MEDS ORDERED: ENOXAPARIN INJ 120 MG/0.8 ML SYR SQ SCH ×2
[2023-10-18 05:56] LABS: Basophils # (auto) 0.08 K/uL (0.00-0.20); Basophils % (auto) 0.6 %; Eosinophils # (auto) 0.11 K/uL (0.00-0.50); Eosinophils % (auto) 0.9 %; Hematocrit (blood only) 37.3 % (42.0-52.0); Hemoglobin 12.1 g/dl (14.0-18.0); Immature Granulocytes # (auto) 0.14 K/uL (0.01-0.20); Immature Granulocytes % (auto) 1.1 %; Lymphocytes # (auto) 3.75 K/uL (1.20-3.40); Lymphocytes % (auto) 30.4 %; Mean Corpuscular Hemoglobin 28.4 pg (25.0-34.0); Mean Corpuscular Hgb Conc 32.4 g/dL (32.0-36.0); Mean Corpuscular Volume 87.6 fL (80.0-100.0); Mean Platelet Volume 9.4 fL (9.4-12.4); Monocytes # (auto) 0.78 K/uL (0.11-0.59); Monocytes % (auto) 6.3 %; Neutrophils # (auto) 7.49 K/uL (1.40-6.50); Neutrophils % (auto) 60.7 %; Platelet Count 267 K/uL (130-400); RDW Coefficient of Variation 13.7 % (11.5-14.5); RDW Standard Deviation 43.4 fL (36.4-46.3); Red Blood Count 4.26 M/uL (4.70-6.10); White Blood Count 12.35 K/ul (4.8-10.8)
[2023-10-18 06:12] LABS: BUN Creatinine Ratio 17.5 (10-20); Calcium 9.3 mg/dl (8.6-10.3); Creatinine Clr Calc Pharmacy 107.8 ml/min; Est GFR (African American) 102.2 ml/min; Est GFR (Non-African American) 88.1 ml/min; Magnesium 2.1 mg/dl (1.7-2.4); Potassium 4.6 mmol/L (3.5-5.1)
[2023-10-18 06:16] LABS: INR 1.2 (0.9-1.1); Prothrombin Time 13.1 Seconds (9.0-12.0)
--- NOTE | 2023-10-18 08:14 | Hospitalist Progress Note ---
Date of Service October 18, 2023 Assessment & Plan (1) Acute pain of left thigh: (2) Arterial occlusion: (3) DVT of leg (deep venous thrombosis): (4) Elevated troponin: (5) Paroxysmal atrial fibrillation: (6) Hypertension: (7) History of heart valve replacement: Plan per previous hospitalist notes with addendum: This is a 53yo M with a PMH of persistent atrial fibrillation s/p ablation, history of bicuspid aortic valve replacement at [facility] 2020, HTN, HLD, recent hospitalizations at [facility] for LLE arterial clot and RLE DVT in July of this year presents with L groin/medical thigh pain x 5 days. Bacteremia History of bicuspid aortic valve replacement at [facility] 2020 Acute pain of left thigh Bacteremia, POA Blood cultx (10/08) - posit for GNB and GP cocci in clusters received 1 dose of cefepime overnight will cont. w/ vanco + zosyn for now repeat blood cultx hx of cracked molar (tooth)- since end of 2022 and hx of intermittent fevers also hx of post-op abscess R groin in 2019 MARLENA obtained by cardiology (10/09) -LV systolic function is normal. LVEF 60 to 65%. There is a bioprosthetic aortic valve. Bioprosthetic leaflets are thin and move normally. No prosthetic valve stenosis or regurg. There is no aortic valvular vegetation. The mitral valve anatomy is normal. There is mild mitral regurg. There is mild tricuspid regurg. Doppler findings do not suggest pulmonary hypertension. ID consulted, appreciate their recommendations Oral/dental surg. (Dr. Villeda) consulted for broken molar removal - to obtain poss. source control of bacteremia, likely procedure on 10/15 Discussed w/ cardiology at the bedside - cont. abx, pt may need repeat MARLENA in the future 10/14 For dental surgery tomorrow Will need 6 weeks of IV vancomycin per ID Repeat blood cultures obtained today Once documented negative, will proceed with placement of PICC line 10/15 Status post molar tooth extraction Discussed with ID service, transition from vancomycin to cefazolin given MSSA on blood cultures Repeat blood cultures 623 still positive, species pending Repeat blood culture 10/14 pending For repeat MARLENA tomorrow 10/16 repeat blood culture 10/14: negative Status post repeat MARLENA: No vegetation noted Discussion held by cardiology and ID services Decision made to continue with 6 course of IV cefazolin to treat for 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 ? Eliquis treatment failure so transitioned to SQ Lovenox by heme, vasc surgery Transitioned back to Eliquis on 09/21 by [facility] vascular service Presenting now with L medial thigh pain - LLE well perfused, pulses intact, lactate WNL, no signs of infection or acute ischemic limb LLE venous doppler without evidence of DVT LLE arterial doppler with significantly dampened arterial waveforms in the calf within the posterior tibial and peroneal arteries, likely representing vascular compromise. There may be focal occlusion within the mid left peroneal artery ED faxed records from [facility] with similar read from July admission (will have copy uploaded into EMR) CT venogram with no acute infectious or inflammatory findings are identified in the abdomen or pelvis.There is no evidence of deep venous thrombosis in the inferior vena cava or iliac veins Transitioned to IV heparin in case intervention needed or Eliquis failure Consulted vacular surgery - not available until Friday -> Yesterday I contacted [facility] vascular - they did not have all the images to review but they had arterial doppler - from that they don't believe pt's thigh pain is due to arterial compromise. Pt seen today (10/12) by MANUEL varelac. surg. - no need for vasc. intervention at this time Pt is now found bacteremic, has hx of R groin hematoma and post op abscess in 2019 - no other recent surgeries or interventions Consult [facility] for nursing home anticoagulation recs given complicated hx of arterial clot, DVT on eliquis and now elevated troponin -> per hematology - failed eliquis and so recommend coumadin Pain control, vascular checks 10/15 Continue heparin drip for now Plan to transition to Coumadin when no other procedures are to be done 10/16 Transition from heparin to Lovenox bridge tonight Coumadin 10 mg p.o. given today INR tomorrow 10/17 discharge with Coumadin 5mg daily + Lovenox BID will need INR check on Kvng, Coumadin clinic ff up Friday Elevated troponin Chest pain Episode of CP yesterday that has not recurred, no acute EKG changes HS troponin 242.5 -> 321.7 -> 344.3 Holding eliquis, transitioned to IV heparin Considered PE- unremarkable CTA of the chest. No pulmonary emboli identified Trend troponin, tele Continue aspirin, statin, Toprol Cardiology consulted - echo obtained , as below LV systolic function is normal. LVEF 60 to 65%. LV wall motion is abnormal. There is a bioprosthetic aortic valve. The gradient is normal for this prosthetic aortic valve. Bioprosthetic leaflets are not well-visualized. There is mild mitral regurg. MARLENA also obtained , as above - seems without vegetation Planned for possible LHC - as pt is now found bacteremic, will postpone the procedure Atrial fibrillation S/p ablation, surgical clipping of left atrial appendage Continue Toprol DVT Ppx: IV heparin -- Lovenox Code status: FULL PCP: Dr. Armenta Dispo: PCP in 1 week Cardiology in 2 weeks ID clinic in 2 weeks Admission and Anticipated Discharge Date Admission Date: October 09, 2023 Subjective Follow-up for bacteremia, etc. Seen resting in bed, comfortable, not in distress In good spirits States he feels fine overall no chest pain, dyspnea, palpitations, dizziness No new symptoms States he is ready for discharge today Review of Systems 2 Review of Systems: all noted and negative except for above Physical Exam Physical Exam: General- oriented x 3, not in distress, speaks in sentences with no effort or accessory muscle use Eyes- anicteric Neck- no JVD Lungs- clear breath sounds bilaterally, no rales/wheezes Heart- normal rate, regular rhythm; no murmurs Abdomen- normal bowel sounds, nondistended, soft, nontender Extremities- no pretibial edema, no calf tenderness Neuro- alert, oriented x 3; no gross focal neurologic deficits Skin- warm & dry Results & Data Results & Data Vital Signs (Past 12 Hours) Vital Signs Temp Pulse Pulse Resp BP Pulse Ox O2 Del Method 10/18/23 08:02 36.4 C L 62 16 124/81 96 Room Air 10/18/23 03:00 36.8 C 63 18 118/73 95 Room Air 10/17/23 23:03 36.5 C 64 18 112/71 95 Room Air 10/17/23 21:54 69 all noted and reviewed including below
[2023-10-18] MEDS: WARFARIN SOD 7.5 MG TAB PO SCH (15:44)
[2023-10-18] MEDS ORDERED: Nursing to Pharmacy Communication ONE (17:15)
--- NOTE | 2023-10-19 15:35 | Discharge Summary ---
Discharge Summary Date of Service October 19, 2023 delayed entry date of service 10/18/23 Principal Dx & Hospital Course #1 = Principal Diagnosis (1) Acute pain of left thigh: (2) Arterial occlusion: (3) DVT of leg (deep venous thrombosis): (4) Elevated troponin: (5) Paroxysmal atrial fibrillation: (6) Hypertension: (7) History of heart valve replacement: Plan per previous hospitalist notes with addendum: This is a 53yo M with a PMH of persistent atrial fibrillation s/p ablation, history of bicuspid aortic valve replacement at [facility] 2020, HTN, HLD, recent hospitalizations at [facility] [place] for LLE arterial clot and RLE DVT in July of this year presents with L groin/medical thigh pain x 5 days. Bacteremia History of bicuspid aortic valve replacement at [facility] 2020 Acute pain of left thigh Bacteremia, POA Blood cultx (10/08) - posit for GNB and GP cocci in clusters given Vanco + Zosyn hx of cracked molar (tooth)- since end of 2022 and hx of intermittent fevers also hx of post-op abscess R groin in 2019 MARLENA obtained by cardiology (10/09) -LV systolic function is normal. LVEF 60 to 65%. There is a bioprosthetic aortic valve. Bioprosthetic leaflets are thin and move normally. No prosthetic valve stenosis or regurg. There is no aortic valvular vegetation. The mitral valve anatomy is normal. There is mild mitral regurg. There is mild tricuspid regurg. Doppler findings do not suggest pulmonary hypertension. ID consulted, appreciate their recommendations Oral/dental surg. (Dr. Villeda) consulted for broken molar removal - to obtain poss. 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 ? Eliquis treatment failure so transitioned to SQ Lovenox by nichole summersc surgery Transitioned back to Eliquis on 09/21 by [facility] vascular service Presenting now with L medial thigh pain - LLE well perfused, pulses intact, lactate WNL, no signs of infection or acute ischemic limb LLE venous doppler without evidence of DVT LLE arterial doppler with significantly dampened arterial waveforms in the calf within the posterior tibial and peroneal arteries, likely representing vascular compromise. There may be focal occlusion within the mid left peroneal artery ED faxed records from [facility] [place] with similar read from July admission (will have copy uploaded into EMR) CT venogram with no acute infectious or inflammatory findings are identified in the abdomen or pelvis.There is no evidence of deep venous thrombosis in the inferior vena cava or iliac veins Transitioned to IV heparin in case intervention needed or Eliquis failure Consulted vacular surgery - not available until Friday -> Yesterday I contacted [facility] vascular - they did not have all the images to review but they had arterial doppler - from that they don't believe pt's thigh pain is due to arterial compromise. Pt seen today (10/12) by MANUEL vasc. surg. - no need for vasc. intervention at this time Pt is now found bacteremic, has hx of R groin hematoma and post op abscess in 2019 - no other recent surgeries or interventions Consult [facility] for intermediate anticoagulation recs given complicated hx of arterial clot, DVT on eliquis and now elevated troponin -> per hematology - failed eliquis and so recommend coumadin Pain control, vascular checks 10/15 Continue heparin drip for now Plan to transition to Coumadin when no other procedures are to be done 10/16 Transition from heparin to Lovenox bridge tonight Coumadin 10 mg p.o. given today INR tomorrow 10/17 discharge with Coumadin 5mg daily + Lovenox BID will need INR check on Friday, Coumadin clinic ff up Friday Elevated troponin Chest pain Episode of CP yesterday that has not recurred, no acute EKG changes HS troponin 242.5 -> 321.7 -> 344.3 Holding eliquis, transitioned to IV heparin Considered PE- unremarkable CTA of the chest. No pulmonary emboli identified Trend troponin, tele Continue aspirin, statin, Toprol Cardiology consulted - echo obtained , as below LV systolic function is normal. LVEF 60 to 65%. LV wall motion is abnormal. There is a bioprosthetic aortic valve. The gradient is normal for this prosthetic aortic valve. Bioprosthetic leaflets are not well-visualized. There is mild mitral regurg. MARLENA also obtained , as above - novegetation Atrial fibrillation S/p ablation, surgical clipping of left atrial appendage Continue Toprol DVT Ppx: IV heparin -- Lovenox Code status: FULL PCP: Dr. Armenta Dispo: PCP in 1 week Cardiology in 2 weeks ID clinic in 2 weeks Notes For Next Care Provider Medication Changes From Visit Cefazolin-intravenous antibiotic for infective endocarditis Take a probiotic daily while on the antibiotic course and at least 1 month after. Lovenox-blood thinner injection, to be taken until INR is within therapeutic range Coumadin-blood thinner tablet Admission HPI Per Admitting Provider This is a 53yo M with a PMH of persistent atrial fibrillation s/p ablation, history of bicuspid aortic valve replacement at [facility] 2020, HTN, HLD, [place], recent hospitalizations at [facility] [place] for LLE arterial clot and RLE DVT in July of this year presents with L groin/medical thigh pain x 5 days. Does not have pain at rest but with any exertion or bending, he feels a jolt of pain to that area. No numbness or tingling. Low grade fever last night. Feels similar to the aching, jolt-like pain of L arterial clot in calf diagnosed during July 2023 admission to [facility] [place] discharged on Eliquis. Five days later, patient developed pain and swelling in R ankle and had an outpatient venous doppler that showed RLE DVT and was readmitted to [facility] [place]. Was transitioned from Eliquis to SQ Lovenox, which he continued for 39 days until he was transitioned back to Eliquis on 09/21. In addition to L groin/thigh pain, developed chest tightness and SOB yesterday when staining his deck that lasted for a few minutes and then resolved with rest. Has not recurred since. No chills, headache, palpitations, N/V, and pain, dysuria, diarrhea or constipation. History of cracked tooth at the end of last month awaiting dental implant surgery. Was seen in ED on 2 days ago and had a negative venous doppler. Concern for muscular etiology and has been icing without any relief. 2D echo from July 2023 with EF 60 to 65%, mildly increased LV wall thickness, no LV thrombus detected. Admission Exam Per Admitting Provider Cefazolin-intravenous antibiotic for infective endocarditis Take a probiotic daily while on the antibiotic course and at least 1 month after. Lovenox-blood thinner injection, to be taken until INR is within therapeutic range Coumadin-blood thinner tablet Discharge Exam General- oriented x 3, not in distress, speaks in sentences with no effort or accessory muscle use Eyes- anicteric Neck- no JVD Lungs- clear breath sounds bilaterally, no rales/wheezes Heart- normal rate, regular rhythm; no murmurs Abdomen- normal bowel sounds, nondistended, soft, nontender Extremities- no pretibial edema, no calf tenderness Neuro- alert, oriented x 3; no gross focal neurologic deficits Skin- warm & dry Updated Medication List Medication Instructions Recorded Confirmed Type Glory Probiotic 1 tab PO DAILY 10/09/23 10/09/23 History acetaminophen 500 mg tablet 1,000 mg PO Q6H PRN Pain 10/09/23 10/09/23 History (Tylenol Extra Strength) amoxicillin 500 mg capsule 2,000 mg PO UD 10/09/23 10/09/23 History ascorbic acid (vitamin C) 500 mg 1,000 mg PO 2XWK 10/09/23 10/09/23 History tablet (Vitamin C) aspirin 81 mg tablet,delayed 81 mg PO DAILY 10/09/23 10/09/23 History release atorvastatin 40 mg tablet 40 mg PO HS 10/09/23 10/09/23 History metoprolol succinate 100 mg 100 mg PO DAILY 10/09/23 10/09/23 History tablet,extended release 24 hr multivitamin 1 tab PO DAILY 10/09/23 10/09/23 History amoxicillin 500 mg capsule 500 mg PO ONCE Before dental 10/17/23 Rx procedures #20 caps hydrocodone 5 mg-acetaminophen 325 1 tab PO Q4H PRN pain #10 tabs 10/17/23 Rx mg tablet L.acidop,casei,lactis,rham-B.lact,shasha 1 cap PO DAILY #60 caps 10/18/23 Rx 625 mg (10 billion cell) capsule (Advanced Probiotic) cefazolin 2 gram intravenous 2 g IV Q8H 6 weeks 10/18/23 Rx solution enoxaparin 120 mg/0.8 mL 105 mg (0.7 mL) subcut Q12H 2 10/18/23 Rx subcutaneous syringe (Lovenox) weeks #19.6 mL warfarin 5 mg tablet 5 mg PO DAILY 30 days #30 tabs 10/18/23 Rx Hospital Stay Data Consultations 10/09/23 17:05 ED Decision to Admit Stat 10/09/23 19:04 Consult Vascular Surgery Routine 10/09/23 20:20 Consult Cardiology Routine 10/10/23 08:00 Consult Hematology Routine 10/10/23 10:30 Consult Anesthesiology Routine 10/11/23 05:00 Consult Infectious Diseases Routine 10/13/23 15:09 Consult Oromaxillofacial Surgery Routine 10/16/23 14:23 Consult Anesthesiology Routine Procedures Performed Operation Date: 10/17/23 07:30 Actual Procedures p Echo Transesophageal - Brody Chávez DO s Echo Color Flow - DO tita Garcia Echo Doppler Complete - Brody Chávez DO Diagnostic Imagining Performed Laboratory Results WBC 12.35 K/ul (4.8-10.8) H 10/18/23 05:13 RBC 4.26 M/uL (4.70-6.10) L 10/18/23 05:13 Hgb 12.1 g/dl (14.0-18.0) L 10/18/23 05:13 Hct 37.3 % (42.0-52.0) L 10/18/23 05:13 MCV 87.6 fL (80.0-100.0) 10/18/23 05:13 MCH 28.4 pg (25.0-34.0) 10/18/23 05:13 MCHC 32.4 g/dL (32.0-36.0) 10/18/23 05:13 RDW Std Deviation 43.4 fL (36.4-46.3) 10/18/23 05:13 RDW Coeff of Solomon 13.7 % (11.5-14.5) 10/18/23 05:13 Plt Count 267 K/uL (130-400) 10/18/23 05:13 MPV 9.4 fL (9.4-12.4) 10/18/23 05:13 Immature Gran % (Auto) 1.1 % 10/18/23 05:13 Neut % (Auto) 60.7 % 10/18/23 05:13 Lymph % (Auto) 30.4 % 10/18/23 05:13 [place] % (Auto) 6.3 % 10/18/23 05:13 Eos % (Auto) 0.9 % 10/18/23 05:13 Baso % (Auto) 0.6 % 10/18/23 05:13 Neut # (Auto) 7.49 K/uL (1.40-6.50) H 10/18/23 05:13 Lymph # (Auto) 3.75 K/uL (1.20-3.40) H 10/18/23 05:13 [place] # (Auto) 0.78 K/uL (0.11-0.59) H 10/18/23 05:13 Eos # (Auto) 0.11 K/uL (0.00-0.50) 10/18/23 05:13 Baso # (Auto) 0.08 K/uL (0.00-0.20) 10/18/23 05:13 Immature Gran # (Auto) 0.14 K/uL (0.01-0.20) 10/18/23 05:13 PT 13.1 Seconds (9.0-12.0) H 10/18/23 05:13 INR 1.2 (0.9-1.1) H 10/18/23 05:13 APTT 31 Seconds (21-31) 10/09/23 14:00 PTT Ratio 1.2 10/09/23 14:00 Heparin Anti-Xa, Unfract 0.36 IU/ml (0.3-0.7) 10/17/23 05:46 Sodium 138 mmol/L (136-145) 10/18/23 05:13 Potassium 4.6 mmol/L (3.5-5.1) 10/18/23 05:13 Chloride 105 mmol/L (98-107) 10/18/23 05:13 Carbon Dioxide 27 mmol/L (21-32) 10/18/23 05:13 Anion Gap 6 (3-11) 10/18/23 05:13 BUN 17 mg/dl (6-23) 10/18/23 05:13 Creatinine 0.97 mg/dl (0.6-1.4) 10/18/23 05:13 Est Cr Clr Drug Dosing 107.8 ml/min 10/18/23 05:13 Est GFR ( Amer) 102.2 ml/min 10/18/23 05:13 Est GFR (Non-Af Amer) 88.1 ml/min 10/18/23 05:13 BUN/Creatinine Ratio 17.5 (10-20) 10/18/23 05:13 Glucose 97 mg/dl (70-99(Fasting)) 10/18/23 05:13 Estimat Average Glucose 111 mg/dl 10/10/23 02:05 Hemoglobin A1c 5.5 % (4.5-5.6) 10/10/23 02:05 Lactate 1.0 mmol/L (0.4-2.0) 10/09/23 14:05 Calcium 9.3 mg/dl (8.6-10.3) 10/18/23 05:13 Phosphorus 4.0 mg/dl (2.5-4.9) 10/16/23 06:02 Magnesium 2.1 mg/dl (1.7-2.4) 10/18/23 05:13 Total Bilirubin 1.0 mg/dl (0.2-1.0) 10/09/23 14:00 AST 17 U/L (13-39) 10/09/23 14:00 ALT 17 U/L (7-52) 10/09/23 14:00 Alkaline Phosphatase 85 U/L (34-104) 10/09/23 14:00 Total Creatine Kinase 93 U/L (30-223) 10/09/23 14:00 Troponin I High Sens 173.7 pg/ml (0-20) H* D 10/10/23 08:04 C-Reactive Protein 8.25 mg/dl (0-0.5) H 10/10/23 08:04 Total Protein 7.8 gm/dl (6.0-8.3) 10/09/23 14:00 Albumin 4.1 gm/dl (3.4-5.0) 10/09/23 14:00 Globulin 3.7 gm/dl (2.5-4.0) 10/09/23 14:00 Albumin/Globulin Ratio 1.1 (0.9-2) 10/09/23 14:00 Triglycerides 134 mg/dl (0-150) 10/10/23 02:05 Cholesterol 145 mg/dl (0-200) 10/10/23 02:05 LDL Cholesterol, Calc 85 mg/dl 10/10/23 02:05 VLDL Cholesterol, Calc 27 mg/dl (0-30) 10/10/23 02:05 HDL Cholesterol 33 mg/dl 10/10/23 02:05 Cholesterol/HDL Ratio 4.4 (0-5) 10/10/23 02:05 Procalcitonin 0.08 ng/ml (0-0.5) 10/09/23 14:00 TSH 1.230 uIu/ml (0.300-4.500) 10/09/23 14:00 Urine Color Yellow 10/11/23 04:15 Urine Appearance Clear (Clear) 10/11/23 04:15 Urine pH 5.5 (4.5-7.5) 10/11/23 04:15 Ur Specific [place] 1.020 (1.000-1.030) 10/11/23 04:15 Urine Protein Negative (Negative) 10/11/23 04:15 Urine Glucose (UA) Negative (Negative) 10/11/23 04:15 Urine Ketones Negative (Negative) 10/11/23 04:15 Urine Blood Negative (Negative) 10/11/23 04:15 Urine Nitrite Negative (Negative) 10/11/23 04:15 Urine Bilirubin Negative (Negative) 10/11/23 04:15 Urine Urobilinogen Negative (Negative) 10/11/23 04:15 Ur Leukocyte Esterase Negative (Negative) 10/11/23 04:15 Random Vancomycin 15.8 mcg/ml (10-20) 10/15/23 06:13 Staphylococcus sp PCR DETECTED (NotDetected) A 10/09/23 16:14 mecA/C-Methicil Resis Gene Not Detected (NotDetected) 10/09/23 16:14 Staph epidermidis (PCR) DETECTED (NotDetected) A 10/09/23 16:14 Bld Cult ID Panel PCR See PCR Comment (NotDetected) 10/09/23 16:14 Impressions Chest CTA 10/09/23 13:45 CT angio chest PE protocol CT DOSE: 2392.47 mGy.cm HISTORY: 53 years-old Male with chest pain, hx of DVT. Acute chest pain TECHNIQUE: Multiple CTA images of the chest were obtained after the intravenous administration of 119 ml Optiray. Coronal and sagittal MIPS were obtained from the axial data set and were submitted for review. All measurements were obtained according to NASCET criteria. A dose lowering technique was utilized adhering to the principles of ALARA. COMPARISON: CT abdomen and pelvis of same day, CTA chest 06/24/2017 FINDINGS: CTA: Mild cardiomegaly. Median sternotomy. Atrial appendage occlusion device. Aortic valvular prosthesis. No thoracic aortic aneurysm or dissection. No pulmonary emboli identified. The segmental and subsegmental branches are suboptimally evaluated secondary to respiratory motion. CT CHEST: Unremarkable thyroid. No lymphadenopathy. No pneumothorax, pleural effusion, airspace consolidation or pulmonary edema. No suspicious pulmonary nodules or masses. No acute upper abdominal abnormality. Central airways are patent. Likely benign 2 mm fissural nodule at the right lung on image 120. Unremarkable soft tissues. No acute fracture. IMPRESSION: 1. Unremarkable CTA of the chest. No pulmonary emboli identified. 2. No pleural effusion or airspace consolidation. ACT 112: Negative or not required by law. The above report was generated using voice recognition software. It may contain grammatical, syntax or spelling errors. Electronically signed by: Jovon Hirsch M.D. 10/09/2023 3:46 PM Duplex Scan Lower Extremity Artery 10/09/23 13:48 ULTRASOUND LEFT LOWER EXTREMITY ARTERIAL CLINICAL HISTORY: Left leg pain. History of arterial clot. COMPARISON STUDY: No priors. TECHNIQUE: Real-time grayscale and color Doppler sonography of the arteries of the left lower extremity is performed from the inguinal crease to the foot. FINDINGS: No significant atherosclerotic plaque is identified throughout the arteries of the left lower extremity. There are triphasic arterial waveforms in the common femoral artery with velocities measuring up to 130 cm/s. The profunda femoris artery is patent with velocities measuring up to 69 cm/s. There are triphasic waveforms throughout the superficial, femoral and popliteal arteries. Velocities in the superficial femoral artery measure up to 119 cm/s and velocities in the popliteal artery measure up to 61 cm per second. The anterior tibial artery is patent with triphasic arterial waveforms and velocities measuring up to 102 cm/s. The dorsalis pedis artery is patent with velocities measuring up to 120 cm/s. There are blunted arterial waveforms in the peroneal and posterior tibial arteries. Velocities in the posterior tibial artery measure up to 25 cm per second and velocities in the peroneal artery measure up to 26 cm per second. There may be a focal vessel occlusion within the left peroneal artery. IMPRESSION: 1. There are significantly dampened arterial waveforms in the calf within the posterior tibial and peroneal arteries, likely representing vascular compromise. There may be focal occlusion within the mid left peroneal artery. 2. The remaining arteries of the left lower extremity are patent with normal arterial waveforms. Dictated: 10/09/2023 5:34 PM Transcribed: 10/09/2023 5:46 PM Serg [id number] [email or web address] Electronically signed by: Earnest Benitez M.D. 10/09/2023 6:00 PM Venous Doppler Study 10/09/23 13:48 ULTRASOUND LEFT LOWER EXTREMITY VENOUS CLINICAL HISTORY: Left leg pain. History of recent DVT. COMPARISON STUDY: Left lower extremity venous ultrasound dated 10/07/2023. TECHNIQUE: Real-time, grayscale, and color Doppler sonography of the deep veins of the left lower extremity was performed from the inguinal crease to the calf. Compression and augmentation were utilized. FINDINGS: There is no sonographic evidence of deep venous thrombosis identified in the left lower extremity. The common femoral, superficial femoral, and popliteal veins are patent and normally compressible. The greater saphenous vein and the profunda femoris vein at the junction with the common femoral vein are clear. The visualized calf veins are patent. IMPRESSION: There is no sonographic evidence of deep venous thrombosis identified in the left lower extremity. ACT 112: Negative or not required by law. Electronically signed by: Earnest Benitez M.D. 10/09/2023 5:[address] 10/09/23 14:17 CT VENOGRAM OF THE ABDOMEN AND PELVIS CLINICAL HISTORY: Atypical chest pain. Dyspnea. The venous thrombosis. Groin/thigh pain. COMPARISON STUDY: Abdominal CT dated 01/08/2020. TECHNIQUE: Following the IV administration of 119 cc of Optiray 320, CT venogram of the abdomen and pelvis is performed from the lung bases to the proximal femora. Images are reviewed in the axial, sagittal, and coronal planes. IV contrast was administered without complication. A dose lowering technique was utilized adhering to the principles of ALARA. FINDINGS: Lung bases: The patient is status post midline sternotomy and aortic valve surgery. The heart is enlarged and without pericardial effusion. The lung bases are clear. A small hiatal hernia is noted. Liver: The contrast-enhanced liver is normal in size, contour, and attenuation. There is no intrahepatic biliary ductal dilatation. The hepatic veins and portal veins are patent. Gallbladder: Unremarkable. Spleen: Normal in size and attenuation. Pancreas: Unremarkable. Adrenal glands: Unremarkable. Kidneys: The contrast enhanced kidneys are normal in size and without hydronephrosis. The kidneys enhance and excrete symmetrically. Abdominal vasculature: The abdominal aorta is normal in course and caliber. The inferior vena cava and iliac veins are patent. There is no evidence of deep venous thrombosis in the abdomen or pelvis. Bowel: The small bowel and colon are normal in course and caliber. The appendix is well-visualized and normal. Peritoneum: There is no intraperitoneal free air or abdominal ascites. There is a fat-containing umbilical hernia. Lymphadenopathy: None. Pelvic viscera: The bladder, prostate, and seminal vesicles are normal as visualized. Skeletal structures: No lytic or blastic lesions are seen. IMPRESSION: 1. No acute infectious or inflammatory findings are identified in the abdomen or pelvis. 2. There is no evidence of deep venous thrombosis in the inferior vena cava or iliac veins. 3. Cardiomegaly. 4. Additional findings as above. ACT 112: Negative or not required by law. Electronically signed by: Earnest Benitez M.D. 10/09/2023 3:[address] 10/09/23 20:20 Exam(s): CT EXTREMITY LEFT LOWER Without Contrast EXAM: CT Left Lower Extremity Without Intravenous Contrast CLINICAL HISTORY: Reason for exam: medial thigh pain. TECHNIQUE: Axial computed tomography images of the left lower extremity without intravenous contrast. CTDI is 24.91 mGy and DLP is 1218.08 mGy-cm. Automated exposure control was utilized for the study. A dose lowering technique was utilized adhering to the principles of ALARA. COMPARISON: No relevant prior studies available. FINDINGS: Bones/joints: The osseous structures appear intact and normally aligned. No acute fracture or dislocation is seen. Minimal narrowing and osteophytosis of the hip joints consistent with early osteoarthritic changes. Soft tissues: Unremarkable. Vasculature: Mild diffuse arterial calcification. Small amount of edema in the medial upper thigh. This is most closely associated with the adductor musculature and deep femoral artery and vein but is nonspecific. IMPRESSION: Small amount of edema in the medial upper thigh. This is most closely associated with the adductor musculature and deep femoral artery and vein but is nonspecific. No abnormal fluid collection is seen. Electronically signed by: Rudolph Walsh MD 10/10/23 00:[address] 10/14/23 16:04 CT facial bones wo con CLINICAL HISTORY: Infected tooth with roots in left maxillar sinus - TECHNIQUE: Multidetector row helical CT of the maxillofacial bones was performed without administration of intravenous contrast, and processed with bone and soft tissue algorithms. Coronal and sagittal reformations were obtained. Automated dose lowering techniques and/or adjustment according to patient size were utilized for this exam. Comparison: None available at the time of this dictation. FINDINGS: Nasal bones are normal. The mandible is intact. The temporomandibular joints are anatomically aligned. Pterygoid plates are intact. Zygomatic arches are intact. The roots of the left maxillary first molar about the left maxillary sinus. There is a small amount of sinus thickening. The globes are normal and symmetric, without proptosis, obvious disruption or lens dislocation. There is no orbital radiopaque foreign body. The orbital higgins are intact. The retrobulbar fat is without evidence of disruption. Extraocular muscles are normal and symmetric. Optic nerve sheath complexes are normal in course and caliber. Imaged portions of the paranasal sinuses and mastoid air cells are clear. IMPRESSION: Roots of the left maxillary first molar about the left maxillary sinus with mild sinus thickening. ACT 112: Negative or not required by law. Electronically signed by: Onel Palomares M.D. 10/14/2023 7:21 PM Pending Results Patient Have Any Pending Studies at Discharge: No Discharge Instructions Given to Patient (Per Discharging Provider) PLEASE REFER TO YOUR NEW MEDICATION LIST AND FOLLOW INSTRUCTIONS CAREFULLY. YOUR NEW MEDICATIONS INCLUDE: Cefazolin-intravenous antibiotic for infective endocarditis Take a probiotic daily while on the antibiotic course and at least 1 month after. Lovenox-blood thinner injection, to be taken until INR is within therapeutic range Coumadin-blood thinner tablet PLEASE CALL YOUR PRIMARY CARE PHYSICIAN OR RETURN TO THE ER IF WITH WORSENING OF SYMPTOMS, INCLUDING Fevers or chills, chest pain, shortness of breath, palpitations, dizziness, Leg pain, swelling, tenderness, redness, etc. FOLLOW UP WITH PRIMARY CARE PHYSICIAN OUTLINED ABOVE. Follow-up with cardiology clinic [facility] as outlined above. Follow-up with maxillofacial surgeon Dr. Mitul Villeda in 1 week. Follow-up with [facility] clinic in 2 weeks. The clinic will be calling you soon for the appointment schedule. Total Time Total Time Spent Total Time Spent (In Minutes): 50 minutes
--- NOTE | 2023-10-25 17:22 | Operative Report ---
VAIBHAV Post Operative Report Pre & Post Diagnosis Operation Date: 10/16/23 08:30 <No data on this case meets the specified criteria> I identified the patient and participated in the time-out.: Yes Procedure Operation Date: 10/16/23 08:30 Actual Procedures Extraction of infected tooth # 14 Closure of large oral sinus opening with collagen graft Irrigation left maxillary sinus Surgeon Mitul Villeda DMD Buckler And Lacer none Estimated Blood Loss 3 Findings Consistent with Post-Op Diagnosis Specimens none Drains none Anesthesia Type General Complications none Disposition Accompanied Patient To Recovery: Yes Description of Procedure Pre-Op Diagnosis: Infected # 14 with drainage from sinus Fistula of maxillary sinus; Sinus pressure Pneumatization of maxillary sinus Possible source of ongoing infection -Infectious dx strongly suggested removal ELIUD Post-Op Diagnosis: Abscessed fracture/infected # 14 resulting in fistula of maxillary sinus; Sinus infection and pressure; Pneumatization of maxillary sinus CPT Codes EXPLORE SINUS REMOVE POLYPS CPT 38093 ([id number]) REPAIR ORAL MAXILLARY FISTULA CPT 19211 SURGICAL EXTRACTION OF TOOTH 14 D7210 X 1 I identified the patient and participated in the time-out.: Yes Actual Procedures p Tenorio Jose C of left sinus, curetment of polyp and Collagen plug graft to close large oral sinus opening Extraction infected/fractured # 14 irrigation of left sinus Repair of Oral Maxillary Fistula with collagen plug graft---Mitul Villeda DMD Actual Procedures p Tenorio Jose C Left Side to Drain Infection and Close Fistula - Mitul Villeda DMD s Extraction of Teeth #14- Mitul Vilelda DMD Surgeon Mitul Villeda DMD Once cleared for surgery general anesthesia was achieved, the eyes were protected by the anesthesia dept criteria.A time out was take for patient ID, antibiotics, equipment and position verification once all agreed the procedure began.Local anesthesia was given into each area using Marcaine with a vasoconstrictor ( 1.8 ml per site).A throat pack was placed after the oral cavity was irrigated with saline. Once a surgical level of anesthesia was obtained and the local anesthesia was given time for the blocks the surgery was started. Diagnoses Chronic maxillary sinusitis J32.0 / J34.89 Acute sinusitis treated with antibiotics in the past 60 days J01.90 Cyst of maxillary sinus J34.1 Infected tooth K04.6 # 14 CPT Codes EXPLORE SINUS REMOVE POLYPS CPT 05524 ([id number]) REPAIR ORAL MAXILLARY FISTULA CPT 42811 SURGICAL EXTRACTION OF TOOTH 14 D7210 X 1 Tenorio Jose C of left sinus, curetment of polyp and buccal fat graft to close large oral sinus opening Upper Left sinus fistula and infected tooth #14 CPT 33468 ([id number] I turned my attention to the upper left side. A draining fistula was present with pus from the left maxillary sinus. As the result of periodontal disease, bone loss and extremely large maxillary sinus this patient developed a perforation of the interproximal space between teeth 14-15 which developed after # 14 fractured to the gum line. He noted that pus was draining from this area and was treated with antibiotics by his dentist. He was referred to see an oral surgeon in [place] but due to his past Medical history and current issues the surgery was not set up. The problem did not resolve, while this was going on he developed other issues with pain in his legs which prompted admission to [facility]. An infection developed and I was consulted to see if the upper left tooth was the problem. Probing of the 14 area confirmed the diagnosis of infection of the tooth and sinus and need for removal of 14 with sinus closure. I raised a mucoperiosteal flap from the tuberosity anterior to area 12. I scored the periosteum to allow for flap relaxation and a water tight tension free closure. I was able to relax the tissue enough to allow for a tension free closure. Upon raising the flap the fistula in to the sinus was noted. I need turned my attention to remove the fractured / infected # 14 tooth. Upper teeth #14 To insure not to make the already sinus opening large I used a drill and the 3 roots. The sinus bone was so thin and the sinus was so large that dispute the roots the sinus opening became larger. I now removed the infected # 14 roots which eroded into the sinus floor and lateral bone. Upon removal a very large opening was encountered into the left sinus despite cutting the teeth into multiple segments to remove each root separately. Left sinus fistula closure with large collagen plug CPT 72825 The sinus fistula was now debrided and prepared for closure. The buccal wall of the sinus was exposed. A window opening into the sinus was made and the infected polyps were curetted out-- the sinus was filled with a significant amount of infected tissues. The sinus was irrigated and found to be devoid of any infected or hyperplastic lining. I now adjusted the collagen plug and snugly fitted it into the socket. Because the plug will expand it was a very tight fit with closed not only the large apical opening but also the lateral window. I now advanced the large buccal flap and with a double layered closure using 4-0 Vicryl suture and 2-0 Chromic. The sinus opening was closed with the intervening collagen plug graft --primary closure tension free flap closure over the large sinus opening was achieved. A water tight closure was obtained. I inspected the sites to insure all bleeding was controlled. I removed the throat pack and suctioned the throat. An oral gastric tube was passed. A gauze pressure dressings was placed. All instrument and sponge count was correct. The patient was allowed to awake from the anesthesia. Once full awake the anesthesia tube was removed and the patient was taken to the recovery room with all vital sign stable. The patient tolerated the surgery very well. I will follow the patient in my office, Rx and sinus instructions will be given upon discharge. I attest to the content of the Intraoperative Record and any orders documented therein. Any exceptions are noted below.
== END 2023-10-18 18:10 | disposition home health service (06) | DRG 982 ==
LOC: ED 13:07 → 4W 18:37 → SUATTDRO 18:37 → 4W 20:46

== ENCOUNTER 2025-04-01 12:32 | Inpatient (IN) ==
--- NOTE | 2025-04-01 13:17 | XRay Report ---
XR chest 1V portable CLINICAL HISTORY: Chest pain, nonspecific COMPARISON STUDY: Chest radiograph January 08, 2020. Chest CT October 09, 2023. FINDINGS: There are median sternotomy wires, prosthetic aortic valve and left atrial appendage occlud er device. Moderate cardiomegaly is unchanged. No evidence for pulmonary edema. No pneumothorax or pl eural effusion. No consolidation to suggest pneumonia. IMPRESSION: No acute cardiopulmonary findings. No change in appearance of the chest. ACT 112: Negative or not required by law. Electronically signed by: Jose Daley M.D. 04/01/2025 1:16 PM
[2025-04-01 13:48] LABS: Alanine Aminotransferase 36.0 U/L (7-52); Albumin Globulin Ratio 1.3 (0.9-2); Albumin Level 4.4 gm/dl (3.4-5.0); Alkaline Phosphatase 91.0 U/L (34-104); Anion Gap 7.0 (3-11); Bilirubin,Total 0.9 mg/dl (0.2-1.0); Blood Urea Nitrogen 13.0 mg/dl (6-23); Calcium 9.6 mg/dl (8.6-10.3); Carbon Dioxide 28.0 mmol/L (21-32); Chloride 103.0 mmol/L (98-107); Creatinine Clr Calc Pharmacy 131.3 ml/min; Globulin 3.4 gm/dl (2.5-4.0); Glucose 75.0 mg/dl (70-99(Fasting)); Lipase 12.0 U/L (11-82); Potassium 3.9 mmol/L (3.5-5.1); Sodium 138.0 mmol/L (136-145); Total Protein 7.8 gm/dl (6.0-8.3)
[2025-04-01 14:00] LABS: Hematocrit (blood only) 44.9 % (42.0-52.0); Hemoglobin 15.5 g/dL (14.0-18.0); Mean Corpuscular Hemoglobin 29.5 pg (25.0-34.0); Mean Corpuscular Volume 85.5 fL (80.0-100.0); Platelet Count 240 K/uL (130-400); RDW Standard Deviation 39.0 fL (36.4-46.3); Red Blood Count 5.25 M/uL (4.70-6.10); White Blood Count 10.64 K/ul (4.8-10.8)
[2025-04-01 14:02] LABS: Immature Granulocytes # (auto) 0.04 K/uL (0.01-0.20); Immature Granulocytes % (auto) 0.4 %
--- NOTE | 2025-04-01 14:22 | Emergency Department Note ---
Impression & Plan Chest pain, Malaise ED Provider Note NAME: BENIGNO BERMUDEZ AGE: 54 SEX: M : 1970 ARRIVES VIA: Walk-In INFORMANT: Patient, ED PROVIDER(S): Henrietta Rueda MD CHIEF COMPLAINT: Chest pressure, shortness of breath HPI: This is a 54-year-old male presenting for chest pressure/shortness of breath. Patient over the past few days he has felt body aches, chills as well as chest pressure and shortness of breath. He notes he feels just off and not himself. He states he was somewhat similar when he had sepsis about a year ago. He reports he had a dental procedure about 4 weeks ago. ROS: See above HPI for pertinent positives & negatives. A total of 10 systems reviewed and were otherwise negative. PAST MEDICAL HISTORY: See Below PAST SURGICAL HISTORY: See Below FAMILY HISTORY: See Below SOCIAL HISTORY: See Below HOME MEDICATIONS: See Below ALLERGIES: See Below VITALS: See Below PHYSICAL EXAMINATION: General: resting comfortably in no acute distress Head: Normocephalic and atraumatic Eyes: Normal inspection, extraocular muscles intact Ear, nose, throat: Normal external exam Neck: Normal range of motion Respiratory: lungs clear to auscultation bilaterally Cardiovascular: Regular rate/rhythm, significant holosystolic murmur GI: soft, nontender, no guarding or rebound Extremities: nontender, moves all extremities Neuro: The patient awake and alert, appropriately conversive, no focal deficits, symmetric faces Skin: Warm, dry, and intact MEDICAL DECISION MAKING: This is a 54 remembrance of chest pressure/shortness of breath. Consider sepsis, pneumonia, PE, CHF, ACS - ECG independently interpreted by me with normal sinus rhythm, rate of 83, normal axis, normal NJ, normal QRS, normal QTc, no ST segment elevations consistent with STEMI criteria - Bloodwork is reviewed showing no significant leukocytosis, anemia, electrolyte or creatinine abnormality. Negative troponin - Chest Xray independently interpreted by me showing no pneumothorax, focal opacity, or pleural effusions. -CT imaging of the chest reveals no signs of PE, dissection, pneumonia. Does reveal cardiomegaly with a pleural effusion -At this time there is no clear cause for patient's chest pain and feeling unwell. Due to history of aortic valve replacement, persistent chest pain, cardiomegaly, will admit. At this time low concern for endocarditis clinically. - Discussed with Dr. Dunn for admission Differential diagnosis: Sepsis, pneumonia, PE, CHF, ACS, endocarditis Diagnostics interpreted by me: ECG: See above Cardiac Monitoring: An order was placed for continuous cardiac monitoring. The monitor shows a rate of 88 with sinus rhythm. Past Med/Surg History Problem List (Updated 04/02/25 @ 14:19 by Henrietta Rueda MD) Arthralgia Malaise (Acute) Chest pain (Acute) Sinus mucosal thickening Fractured tooth Failing root canal Congenital bicuspid aortic valve s/p AVR and RAUL clip 07/18/2020 Atrial fibrillation with RVR (Acute) Thigh pain Arterial occlusion (Acute) Postoperative abscess (Acute) Wrist fracture (Acute) Radial head fracture (Acute) Nasal bone fractures (Acute) Medical History Bacteremia Scrotal abscess Paroxysmal atrial fibrillation s/p sync. DCCV (failed to convert on 07/24/20 ... startedon Amiodarone Hypertension Obesity Elevated troponin Acute pain of left thigh DVT of leg (deep venous thrombosis) Arterial embolism and thrombosis of lower extremity History of deviated nasal septum Surgical History History of heart valve replacement AVR w/ 25mm Anglin Inspiris valve, Ligation left atrial appendage with [place] [facility] [place] History of inguinal hernia repair Family History Other No pertinent family history Social History Smoking Status: Never smoker Second Hand Exposure: No; Do You Dip or Chew Tobacco: No; Hx Alcohol Use: Yes Alcohol type: beer Hx Substance Use: No Preferred Language: Tamazight Communication Ability: Effective Visual Impairment: No Limitations 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 Required: No Beliefs That Will Affect Care: None marital status: Single Current Living Situation: Spouse Current Living Situation Comment: home w/ & dog 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 Other Information That Helps Us Care for You: No Feels Safe at Home: Yes Safety Concerns: Feels Safe At This Time Assistive Devices: CPAP Allergies Allergies Allergy/AdvReac Type Severity Reaction Status Date / Time cefazolin Allergy Intermediate Hives Verified 11/19/23 09:04 Home Meds Home Medications Medication Instructions Recorded Confirmed acetaminophen 500 mg tablet 1,000 mg PO Q6H PRN Pain 10/09/23 04/01/25 (Tylenol Extra Strength) ascorbic acid (vitamin C) 500 mg 1,000 mg PO 2XWK 10/09/23 04/01/25 tablet (Vitamin C) aspirin 81 mg tablet,delayed 81 mg PO DAILY 10/09/23 04/01/25 release atorvastatin 40 mg tablet 40 mg PO HS 10/09/23 04/01/25 metoprolol succinate 100 mg 100 mg PO DAILY 10/09/23 04/01/25 tablet,extended release 24 hr multivitamin 1 tab PO DAILY 10/09/23 04/01/25 apixaban 2.5 mg tablet (Eliquis) 2.5 mg PO BID 04/01/25 04/01/25 ergocalciferol (vitamin D2) 10 mcg 10 mcg PO DAILY 04/01/25 04/01/25 (400 unit) tablet magnesium oxide 500 mg capsule 500 mg PO DAILY 04/01/25 04/01/25 Previous Rx's Medication Instructions Recorded L.acidop,casei,lactis,rham-B.lact,shasha 1 cap PO DAILY #60 caps 10/18/23 625 mg (10 billion cell) capsule (Advanced Probiotic) colchicine 0.6 mg tablet (Colcrys) 0.6 mg PO BID 90 days #179 tabs 04/02/25 Results & Data (ED) Vital Signs Vital Signs - 24 hr 04/01/25 14:21 04/01/25 14:30 04/01/25 14:48 Pulse Rate 79 83 Pulse Rate from SpO2 Sensor 79 83 Respiratory Rate 23 24 Blood Pressure 153/91 H Blood Pressure Mean 108 Pulse Oximetry 99 99 04/01/25 14:48 04/01/25 14:48 04/01/25 14:48 Pulse Rate Pulse Rate from SpO2 Sensor Respiratory Rate Blood Pressure 153/91 H 153/91 H 153/91 H Blood Pressure Mean 108 108 108 Pulse Oximetry 04/01/25 14:48 04/01/25 14:48 04/01/25 14:51 Pulse Rate 85 85 Pulse Rate from SpO2 Sensor 84 86 Respiratory Rate 27 H 28 H Blood Pressure 153/91 H Blood Pressure Mean 108 Pulse Oximetry 98 99 04/01/25 15:00 04/01/25 15:01 04/01/25 15:01 Pulse Rate 83 Pulse Rate from SpO2 Sensor 83 Respiratory Rate 28 H Blood Pressure 132/84 132/84 Blood Pressure Mean 101 101 Pulse Oximetry 99 04/01/25 15:01 04/01/25 15:01 04/01/25 15:01 Pulse Rate Pulse Rate from SpO2 Sensor Respiratory Rate Blood Pressure 132/84 132/84 132/84 Blood Pressure Mean 101 101 101 Pulse Oximetry 04/01/25 15:12 04/01/25 15:21 04/01/25 15:30 Pulse Rate 82 83 82 Pulse Rate from SpO2 Sensor 83 83 85 Respiratory Rate 26 H 18 27 H Blood Pressure Blood Pressure Mean Pulse Oximetry 98 98 97 04/01/25 15:30 04/01/25 15:30 04/01/25 15:30 Pulse Rate Pulse Rate from SpO2 Sensor Respiratory Rate Blood Pressure 132/84 132/84 132/84 Blood Pressure Mean 102 102 102 Pulse Oximetry 04/01/25 15:30 04/01/25 15:30 04/01/25 15:42 Pulse Rate 83 Pulse Rate from SpO2 Sensor 83 Respiratory Rate 25 H Blood Pressure 132/84 132/84 Blood Pressure Mean 102 102 Pulse Oximetry 97 04/01/25 15:51 04/01/25 16:00 04/01/25 16:00 Pulse Rate 84 Pulse Rate from SpO2 Sensor 85 Respiratory Rate 22 Blood Pressure 110/92 110/92 Blood Pressure Mean 95 95 Pulse Oximetry 98 04/01/25 16:00 04/01/25 16:00 04/01/25 16:00 Pulse Rate Pulse Rate from SpO2 Sensor Respiratory Rate Blood Pressure 110/92 110/92 110/92 Blood Pressure Mean 95 95 95 Pulse Oximetry 04/01/25 16:00 04/01/25 16:12 Pulse Rate 83 83 Pulse Rate from SpO2 Sensor 83 83 Respiratory Rate 23 21 Blood Pressure Blood Pressure Mean Pulse Oximetry 97 96 Laboratory Data 04/02/25 06:01 04/02/25 06:01 Lab Results 04/01/25 Range/Units 13:05 WBC 10.64 (4.8-10.8) K/ul RBC 5.25 (4.70-6.10) M/uL Hgb 15.5 (14.0-18.0) g/dL Hct 44.9 (42.0-52.0) % MCV 85.5 (80.0-100.0) fL MCH 29.5 (25.0-34.0) pg MCHC 34.5 (32.0-36.0) g/dL RDW Std Deviation 39.0 (36.4-46.3) fL RDW Coeff of Solomon 12.7 (11.5-14.5) % Plt Count 240 (130-400) K/uL MPV 9.0 L (9.4-12.4) fL Immature Gran % (Auto) 0.4 % Neut % (Auto) 68.1 % Lymph % (Auto) 17.9 % Bacon % (Auto) 12.8 % Eos % (Auto) 0.4 % Baso % (Auto) 0.4 % Neut # (Auto) 7.26 H (1.40-6.50) K/uL Lymph # (Auto) 1.90 (1.20-3.40) K/uL Bacon # (Auto) 1.36 H (0.11-0.59) K/uL Eos # (Auto) 0.04 (0.00-0.50) K/uL Baso # (Auto) 0.04 (0.00-0.20) K/uL Immature Gran # (Auto) 0.04 (0.01-0.20) K/uL Sodium 138 (136-145) mmol/L Potassium 3.9 (3.5-5.1) mmol/L Chloride 103 (98-107) mmol/L Carbon Dioxide 28 (21-32) mmol/L Anion Gap 7 (3-11) BUN 13 (6-23) mg/dl Creatinine 0.82 (0.6-1.4) mg/dl Est Cr Clr Drug Dosing 131.3 ml/min eGFR 103.74 BUN/Creatinine Ratio 15.9 (10-20) Glucose 75 (70-99(Fasting)) mg/dl Calcium 9.6 (8.6-10.3) mg/dl Total Bilirubin 0.9 (0.2-1.0) mg/dl AST 22 (13-39) U/L ALT 36 (7-52) U/L Alkaline Phosphatase 91 (34-104) U/L Troponin I High Sens 6.5 (0-20) pg/ml C-Reactive Protein 3.32 H (0-0.5) mg/dl Total Protein 7.8 (6.0-8.3) gm/dl Albumin 4.4 (3.4-5.0) gm/dl Globulin 3.4 (2.5-4.0) gm/dl Albumin/Globulin Ratio 1.3 (0.9-2) Lipase 12 (11-82) U/L Adenovirus (PCR) Not Detected (NotDetected) B. pertussis DNA (PCR) Not Detected (NotDetected) B.parapertussis DNA PCR Not Detected (NotDetected) Lyme Disease Screen Negative (Negative) C. pneumoniae DNA (PCR) Not Detected (NotDetected) Coronavirus OC43 (PCR) Not Detected (NotDetected) Coronavirus HKU1 (PCR) Not Detected (NotDetected) Coronavirus 229E (PCR) Not Detected (NotDetected) SARS-CoV-2 (PCR) Not Detected (NotDetected) Coronavirus NL63 (PCR) Not Detected (NotDetected) Human Metapneumovir PCR Not Detected (NotDetected) Influenza Type A (PCR) Not Detected (NotDetected) Influenza Type B (PCR) Not Detected (NotDetected) M. pneumoniae (PCR) Not Detected (NotDetected) Parainfluenza 1 (PCR) Not Detected (NotDetected) Parainfluenza 2 (PCR) Not Detected (NotDetected) Parainfluenza 3 (PCR) Not Detected (NotDetected) Parainfluenza 4 (PCR) Not Detected (NotDetected) RSV (PCR) Not Detected (NotDetected) Entero/Rhino (PCR) Not Detected (NotDetected) Administered Medications Apixaban (Apixaban 2.5 Mg Tab) 2.5 mg PO BID LANA Stop: 05/01/25 20:59 Last Admin: 04/02/25 10:35 Dose: 2.5 mg Documented By: rar Admin: 04/01/25 22:21 Dose: 2.5 mg Documented By: EMILY Aspirin (Aspirin 81 Mg Ectab) 81 mg PO DAILY LANA Stop: 05/02/25 08:59 Last Admin: 04/02/25 10:35 Dose: 81 mg Documented By: dannie Atorvastatin Calcium (Atorvastatin 40 Mg Tab) 40 mg PO HS LANA Stop: 05/01/25 20:59 Last Admin: 04/01/25 22:21 Dose: 40 mg Documented By: EMILY Doxycycline Hyclate (Doxycycline Hyclate 100 Mg Cap) 100 mg PO BID LANA Stop: 04/16/25 08:59 Last Admin: 04/02/25 10:35 Dose: 100 mg Documented By: dannie Lactobacillus Acidophilus (Advanced Probiotic 625 Mg Capsule) 1,250 mg PO DAILY LANA Stop: 05/01/25 08:59 Last Admin: 04/02/25 10:35 Dose: 1,250 mg Documented By: dannie Admin: 04/01/25 18:14 Dose: Not Given Documented By: RAFAEL Magnesium Oxide (Magnesium Oxide 400 Mg Tab) 400 mg PO DAILY LANA Stop: 05/02/25 08:59 Last Admin: 04/02/25 10:36 Dose: 400 mg Documented By: dannie Metoprolol Succinate (Metoprolol Succ 50mg Ext Rel Tab) 100 mg PO DAILY LANA Stop: 05/02/25 08:59 Last Admin: 04/02/25 10:36 Dose: 100 mg Documented By: dannie Multivitamins (Multivitamin Tab) 1 tab PO DAILY LANA Stop: 05/02/25 08:59 Last Admin: 04/02/25 10:36 Dose: 1 tab Documented By: dannie Vitamin D (Cholecalciferol 10 Mcg (400 Units) Tab) 10 mcg PO DAILY LANA Stop: 05/02/25 08:59 Last Admin: 04/02/25 10:35 Dose: 10 mcg Documented By: dannie Discontinued Medications Colchicine (Colchicine 0.6 Mg Tab) 0.6 mg PO NOW ONE Stop: 04/02/25 08:53 Last Admin: 04/02/25 10:34 Dose: 0.6 mg Documented By: dannie Doxycycline Hyclate (Doxycycline Hyclate 100 Mg Cap) 100 mg PO ONE ONE Stop: 04/01/25 17:01 Last Admin: 04/01/25 17:18 Dose: 100 mg Documented By: ashlyn Ioversol (Optiray 320 125ml) 115 ml IV ONCE ONE Stop: 04/01/25 14:46 Last Admin: 04/01/25 14:45 Dose: 115 ml Documented By: DELL Imaging Data Radiologist's Impression: Chest X-Ray 04/01/25 12:40 XR chest 1V portable CLINICAL HISTORY: Chest pain, nonspecific COMPARISON STUDY: Chest radiograph January 08, 2020. Chest CT October 09, 2023. FINDINGS: There are median sternotomy wires, prosthetic aortic valve and left atrial appendage occluder device. Moderate cardiomegaly is unchanged. No evidence for pulmonary edema. No pneumothorax or pleural effusion. No consolidation to suggest pneumonia. IMPRESSION: No acute cardiopulmonary findings. No change in appearance of the chest. ACT 112: Negative or not required by law. Electronically signed by: Jose Daley M.D. 04/01/2025 1:16 PM Chest CTA 04/01/25 14:13 CT ANGIOGRAM OF THE CHEST CLINICAL HISTORY: Chest pain. COMPARISON STUDY: Chest CT October 09, 2023. Chest radiograph performed earlier today. TECHNIQUE: Following the IV administration of 115 cc of Optiray 320, CT angiogram of the chest was performed from the upper abdomen to the thoracic inlet utilizing the pulmonary embolus protocol. Images are reviewed in the axial, sagittal, and coronal planes. 3-D MIPS images are created and assessed. IV contrast was administered without complication. A dose lowering technique was utilized adhering to the principles of ALARA. CT DOSE: 960.92 mGy.cm FINDINGS: No pulmonary emboli are identified. There is no thoracic aortic dissection. Cardiomegaly is again noted. There is a prosthetic aortic valve and left atrial appendage occluder device. There is no thoracic lymphadenopathy. There is no pericardial effusion. There is a trace right pleural effusion. No pneumothorax. No consolidation to suggest pneumonia. There are no suspicious pulmonary nodules. Visualized portions of the upper abdomen are unremarkable. IMPRESSION: 1. No pulmonary emboli identified. 2. Trace right pleural effusion. 3. Cardiomegaly. 4. No consolidation to suggest pneumonia. ACT 112: Negative or not required by law. Electronically signed by: Jose Daley M.D. 04/01/2025 3:01 PM Discharge Plan Visit Data Chief Complaint: Chest Pain Stated Complaint: CHEST PAIN, HAS PIG VALVE ED Provider: Henrietta Rueda Discharge Problem: Chest pain, Malaise Patient Disposition: Admitted As Inpatient Condition: Fair Discharge Instructions Interventions: ED Discharge Assessment Last Done: 04/01/25 21:43
[2025-04-01] MEDS: OPTIRAY 320 125ml IV ONE (14:45)
--- NOTE | 2025-04-01 15:02 | CT Scan Report ---
CT ANGIOGRAM OF THE CHEST CLINICAL HISTORY: Chest pain. COMPARISON STUDY: Chest CT October 09, 2023. Chest radiograph performed earlier today. TECHNIQUE: Following the IV administration of 115 cc of Optiray 320, CT angiogram of the chest was pe rformed from the upper abdomen to the thoracic inlet utilizing the pulmonary embolus protocol. Images are reviewed in the axial, sagittal, and coronal planes. 3-D MIPS images are created and assessed. I V contrast was administered without complication. A dose lowering technique was utilized adhering to the principles of ALARA. CT DOSE: 960.92 mGy.cm FINDINGS: No pulmonary emboli are identified. There is no thoracic aortic dissection. Cardiomegaly is again noted. There is a prosthetic aortic valve and left atrial appendage occluder device. There is no thoracic lymphadenopathy. There is no pericardial effusion. There is a trace right pleural effusio n. No pneumothorax. No consolidation to suggest pneumonia. There are no suspicious pulmonary nodules. Visualized portions of the upper abdomen are unremarkable. IMPRESSION: 1. No pulmonary emboli identified. 2. Trace right pleural effusion. 3. Cardiomegaly. 4. No consolidation to suggest pneumonia. ACT 112: Negative or not required by law. Electronically signed by: Jose Daley M.D. 04/01/2025 3:01 PM
[2025-04-01 15:30] LABS: Chlamydia pneumoniae PCR Not Detected (NotDetected); Coronavirus 229E PCR Not Detected (NotDetected); Coronavirus CoV-2 (COVID19)PCR Not Detected (NotDetected); Coronavirus HKU1 PCR Not Detected (NotDetected); Coronavirus NL63 PCR Not Detected (NotDetected); Coronavirus OC43PCR Not Detected (NotDetected); Human Metapneumovirus PCR Not Detected (NotDetected); Parainfluenza Virus 1 PCR Not Detected (NotDetected); Parainfluenza Virus 2 PCR Not Detected (NotDetected); Parainfluenza Virus 3 PCR Not Detected (NotDetected); Parainfluenza Virus 4 PCR Not Detected (NotDetected); Respiratory Syncytial VirusPCR Not Detected (NotDetected); Rhinovirus/Enterovirus PCR Not Detected (NotDetected)
--- NOTE | 2025-04-01 15:51 | Electrocardiogram Report ---
Test Reason : Blood Pressure : */* mmHG Vent. Rate : 83 BPM Atrial Rate : 83 BPM P-R Int : 180 ms QRS Dur : 96 ms QT Int : 360 ms P-R-T Axes : 25 -1 25 degrees QTcB Int : 423 ms Normal sinus rhythm Normal ECG When compared with ECG of 10-Oct-2023 06:01, MN interval has decreased Confirmed by Roberth Solomon ([id number]) on 04/01/2025 3:51:27 PM Referred By: REFERRED SELF Confirmed By: Roberth Solomon
--- NOTE | 2025-04-01 17:00 | History & Physical Report ---
Date of Service April 01, 2025 Assessment & Plan (1) Chest pain: (2) Malaise: (3) Arthralgia: (4) Congenital bicuspid aortic valve: Plan: 54 year old male with history of aortic valve replacement, on Eliquis, Paroxysmal Atrial fibrillation, HTN, GASTON, Arterial thrombosis presenting with chest pain, malaise, arthralgias x 2 days. CHEST PAIN, MALAISE, ARTHRALGIAS, FEVER HISTORY OF AORTIC VALVE REPLACEMENT IN 2020, ON ELIQUIS r/o pericarditis check ESR, Echo, 2nd troponin r/o tick borne illness Lyme screen negative, Anaplasmosis and Babesiosis pending empiric Doxycycline 100mg po BID r/o bacteremia blood cultures pending CT angio chest: unrevealing if above work up negative, possible pleurisy? other chronic medical problems: s/p aortic valve replacement 2020 - continue Eliquis Paroxysmal Atrial Fibrillation - currently in sinus rhythm, rate controlled continue Toprol XL HTN - mildly elevated continue Toprol XL GASTON DVT prophylaxis already on Eliquis FULL CODE Disposition admit to med/surg tele plan of care discussed with patient in detail and at length all questions answered he is understanding, agreeable, comfortable with the plan of care total time spent 50 minutes including discussion with ER provider, review of outpatient and inpatient records, history taking and physical examination,formulation of plan of care, etc. History of Present Illness Chief Complaint: chest pain, malaise, arthralgias, x 2 days Primary Care Provider: Jeff Armenta MD 54 year old male with history of aortic valve replacement, on Eliquis, Paroxysmal Atrial fibrillation, HTN, GASTON, Arterial thrombosis presenting with chest pain, malaise, arthralgias x 2 days. Patient reports he had a root canal and crown placement ~4 weeks ago. He was able to take a course of Amoxicillin for the procedure. No issues after. He also notes that he had a tick bite after hunting ~2 weeks ago. He was able to remove the tick off his scalp. He also had a day of cold symptoms a few weeks ago. 2 days ago, he started to have central chest pain, pressure like, constant, moderate, non radiating without shortness of breath, nausea, dizziness. Chest pain is not related to inspiration or exertion. He has also had fatigue/malaise, and joint pains in the hands, knees and feet. He reports 1 episode of fever 2 days ago. 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 At the ER, BP 170/92--> 154/103, HR 82, RR 18, afebrile 97% on room air. trop x 1 negative EKG No acute ischemia or infarct CT chest no PE or pneumonia On exam, patient seen resting in bed, not in distress, very pleasant Reports ongoing central chest discomfort, mild, no radiation no dyspnea, palpitations, dizziness Allergies Allergy/AdvReac Type Severity Reaction Status Date / Time cefazolin Allergy Intermediate Hives Verified 11/19/23 09:04 Home Medications Medication Instructions Recorded Confirmed Type acetaminophen 500 mg tablet 1,000 mg PO Q6H PRN Pain 10/09/23 04/01/25 History (Tylenol Extra Strength) ascorbic acid (vitamin C) 500 mg 1,000 mg PO 2XWK 10/09/23 04/01/25 History tablet (Vitamin C) aspirin 81 mg tablet,delayed 81 mg PO DAILY 10/09/23 04/01/25 History release atorvastatin 40 mg tablet 40 mg PO HS 10/09/23 04/01/25 History metoprolol succinate 100 mg 100 mg PO DAILY 10/09/23 04/01/25 History tablet,extended release 24 hr multivitamin 1 tab PO DAILY 10/09/23 04/01/25 History L.acidop,casei,lactis,rham-B.lact,shasha 1 cap PO DAILY #60 caps 10/18/23 04/01/25 Rx 625 mg (10 billion cell) capsule (Advanced Probiotic) apixaban 2.5 mg tablet (Eliquis) 2.5 mg PO BID 04/01/25 04/01/25 History ergocalciferol (vitamin D2) 10 mcg 10 mcg PO DAILY 04/01/25 04/01/25 History (400 unit) tablet magnesium oxide 500 mg capsule 500 mg PO DAILY 04/01/25 04/01/25 History Past Med/Surg History Problem List (Updated 04/01/25 @ 16:54 by Daniel Dunn MD) Arthralgia Malaise Chest pain Sinus mucosal thickening Fractured tooth Failing root canal Congenital bicuspid aortic valve s/p AVR and RAUL clip 07/18/2020 Atrial fibrillation with RVR (Acute) Thigh pain Arterial occlusion (Acute) Postoperative abscess (Acute) Wrist fracture (Acute) Radial head fracture (Acute) Nasal bone fractures (Acute) Medical History Bacteremia Scrotal abscess Paroxysmal atrial fibrillation s/p sync. DCCV (failed to convert on 07/24/20 ... startedon Amiodarone Hypertension Obesity Elevated troponin Acute pain of left thigh DVT of leg (deep venous thrombosis) Arterial embolism and thrombosis of lower extremity History of deviated nasal septum Surgical History History of heart valve replacement AVR w/ 25mm Anglin Inspiris valve, Ligation left atrial appendage with clip on 06/21/20 @ [facility] [place] cardiac catheter[place] History of inguinal hernia repair Family History Other No pertinent family history Social History Smoking Status: Never smoker Second Hand Exposure: No; Do You Dip or Chew Tobacco: No; Hx Alcohol Use: Yes Alcohol type: beer Hx Substance Use: No Preferred Language: Faroese Communication Ability: Effective Visual Impairment: No Limitations Scientific Affairs Manager Required: No Beliefs That Will Affect Care: None marital status: Single Current Living Situation: Significant 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 Feels Safe at Home: Yes Assistive Devices: CPAP Review of Systems Review of Systems: all noted and negative except for above Physical Exam Physical Exam: General- oriented x 3, not in distress, speaks in sentences with no effort or accessory muscle use Eyes- anicteric Neck- no JVD Lungs- clear breath sounds bilaterally, no rales/wheezes Heart- normal rate, regular rhythm; (+) grade 2 holosystolic murmur Abdomen- normal bowel sounds, nondistended, soft, nontender Extremities- no pretibial edema, no calf tenderness Neuro- alert, oriented x 3; no gross focal neurologic deficits Skin- warm & dry, no rashes Results & Data Results & Data Vital Signs (Past 12 Hours) Vital Signs Temp Pulse Pulse Resp BP BP Pulse Ox 04/01/25 12:53 83 04/01/25 12:51 76 24 154/103 H 98 04/01/25 12:40 97 04/01/25 12:33 36.8 C 82 18 170/92 H 98 O2 Del Method 04/01/25 12:53 04/01/25 12:51 Room Air 04/01/25 12:40 Room Air 04/01/25 12:33 Room Air all noted and reviewed including below Code Status & VTE Plan VTE Prophylaxis Plan VTE Prophylaxis will be ordered: Yes
[2025-04-01] MEDS: DOXYCYCLINE HYCLATE 100 MG CAP PO ONE (17:18)
[2025-04-01] MEDS ORDERED: ACETAMINOPHEN 325 MG TAB PO PRN (17:30)
[2025-04-01] MEDS: ADVANCED PROBIOTIC 625 MG CAPSULE PO SCH (18:14)
[2025-04-01 19:07] LABS: INR 1.0 (0.9-1.1); Prothrombin Time 10.2 Seconds (9.0-12.0)
[2025-04-01] MEDS: ATORVASTATIN 40 MG TAB PO SCH (22:21)
[2025-04-01] MEDS: APIXABAN 2.5 MG TAB PO SCH (22:21)
[2025-04-02 07:14] LABS: Hematocrit (blood only) 45.4 % (42.0-52.0); Hemoglobin 15.2 g/dL (14.0-18.0); Immature Granulocytes # (auto) 0.04 K/uL (0.01-0.20); Immature Granulocytes % (auto) 0.4 %; Mean Corpuscular Hemoglobin 29.2 pg (25.0-34.0); Mean Corpuscular Volume 87.1 fL (80.0-100.0); Platelet Count 235 K/uL (130-400); RDW Standard Deviation 40.2 fL (36.4-46.3); Red Blood Count 5.21 M/uL (4.70-6.10); White Blood Count 11.33 K/ul (4.8-10.8)
[2025-04-02 07:54] LABS: Alanine Aminotransferase 30.0 U/L (7-52); Albumin Globulin Ratio 1.2 (0.9-2); Albumin Level 4.1 gm/dl (3.4-5.0); Alkaline Phosphatase 90.0 U/L (34-104); Anion Gap 9.0 (3-11); Bilirubin,Total 1.3 mg/dl (0.2-1.0); Blood Urea Nitrogen 14.0 mg/dl (6-23); Calcium 9.3 mg/dl (8.6-10.3); Carbon Dioxide 25.0 mmol/L (21-32); Chloride 102.0 mmol/L (98-107); Creatinine Clr Calc Pharmacy 127.8 ml/min; Globulin 3.5 gm/dl (2.5-4.0); Glucose 104.0 mg/dl (70-99(Fasting)); Potassium 4.2 mmol/L (3.5-5.1); Sodium 136.0 mmol/L (136-145); Total Protein 7.6 gm/dl (6.0-8.3)
--- NOTE | 2025-04-02 08:22 | XCELERA ---
[id number]
[2025-04-02] MEDS: COLCHICINE 0.6 MG TAB PO ONE (10:34)
[2025-04-02] MEDS: CHOLECALCIFEROL 10 MCG (400 UNITS) TAB PO SCH (10:35)
[2025-04-02] MEDS: DOXYCYCLINE HYCLATE 100 MG CAP PO SCH (10:35)
[2025-04-02] MEDS: ASPIRIN 81 MG ECTAB PO SCH (10:35)
[2025-04-02] MEDS: METOPROLOL SUCC 50MG EXT REL TAB PO SCH (10:36)
[2025-04-02] MEDS: MAGNESIUM OXIDE 400 MG TAB PO SCH (10:36)
[2025-04-02] MEDS: MULTIVITAMIN TAB PO SCH (10:36)
--- NOTE | 2025-04-02 11:55 | Discharge Summary ---
Discharge Summary Date of Service April 02, 2025 Principal Dx & Hospital Course #1 = Principal Diagnosis (1) Chest pain: (2) Malaise: (3) Arthralgia: (4) Congenital bicuspid aortic valve: Mr. Umanzor is a 54 year old male with history of aortic valve replacement, on Eliquis, Paroxysmal Atrial fibrillation, HTN, GASTON, Arterial thrombosis admitted for evaluation of with chest pain, malaise, arthralgias x 2 days. Patient reports that he was hiking up a hill a few days ago for hunting and otherwise felt fine and also reports tick exposure 2+ weeks ago. Labs revealed normal troponin, stable EKG with out ST changes, negative biofire and lyme/anaplas mosis/babesosis panel. CTA negative for pulm emboli. Labs did note mildly elevated inflammatory markers. Patient was initially started on doxy given concern of tick disease, however, this was discontinued given negative panel. ECHO was reviewed and did not reveal pericardial effusion. Overall, patient reports symptoms improved this am, mostly arthralgias, noting that he just feels like he is "bruised" over his left chest. None of his symptoms are similar to prior heart events. Discussion offline had with Dr. Chávez,, given cardiovascular benefits reported in literature and inflammatory/MSK like nature of symptoms, patient was started on colchicine 0.6mg bid for 3 months. On day of discharge, patient appeared well, denied any concerns outside of that continued sensation of "bruising" but overall reports feeling well for follow up as an op/ #Atypical chest pain suspicious for MSK #MALAISE, ARTHRALGIAS #HISTORY OF AORTIC VALVE REPLACEMENT IN 2020 suspect MSK in nature, given viral prodrome and mild ESR.CRP elevation, will start colcichine 0.6mg bid ESR 30, CRP 3.32 encouraged follow up with cardiology #Paroxysmal Atrial Fibrillation #Superficial thrombosis - currently in sinus rhythm, rate controlled continue Toprol XL -on DVT dose eliquis 2/2 superficial thrombosis, not for PAF or valve necessarily, discussed with Dr. Chávez #HTN - mildly elevated continue Toprol XL #GASTON continue cpap Plan for follow up with PCP and Cards Notes For Next Care Provider Medication Changes From Visit colchicine 0.6mg bid [id number] Admission HPI Per Admitting Provider 54 year old male with history of aortic valve replacement, on Eliquis, Paroxysmal Atrial fibrillation, HTN, GASTON, Arterial thrombosis presenting with chest pain, malaise, arthralgias x 2 days. Patient reports he had a root canal and crown placement ~4 weeks ago. He was able to take a course of Amoxicillin for the procedure. No issues after. He also notes that he had a tick bite after hunting ~2 weeks ago. He was able to remove the tick off his scalp. He also had a day of cold symptoms a few weeks ago. 2 days ago, he started to have central chest pain, pressure like, constant, moderate, non radiating without shortness of breath, nausea, dizziness. Chest pain is not related to inspiration or exertion. He has also had fatigue/malaise, and joint pains in the hands, knees and feet. He reports 1 episode of fever 2 days ago. 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 At the ER, BP 170/92--> 154/103, HR 82, RR 18, afebrile 97% on room air. trop x 1 negative EKG No acute ischemia or infarct CT chest no PE or pneumonia On exam, patient seen resting in bed, not in distress, very pleasant Reports ongoing central chest discomfort, mild, no radiation no dyspnea, palpitations, dizziness Admission Exam Per Admitting Provider General- oriented x 3, not in distress, speaks in sentences with no effort or accessory muscle use Eyes- anicteric Neck- no JVD Lungs- clear breath sounds bilaterally, no rales/wheezes Heart- normal rate, regular rhythm; (+) grade 2 holosystolic murmur Abdomen- normal bowel sounds, nondistended, soft, nontender Extremities- no pretibial edema, no calf tenderness Neuro- alert, oriented x 3; no gross focal neurologic deficits Skin- warm & dry, no rashes Discharge Exam Constitutional WD/WN, vitals as above Respiratory normal respiratory effort, lungs clear to auscultation Cardiovascular RRR, +FREDIS Gastrointestinal (Abdomen) normal bowel sounds, soft, nontender, no hepatosplenomegaly Updated Medication List Medication Instructions Recorded Confirmed Type acetaminophen 500 mg tablet 1,000 mg PO Q6H PRN Pain 10/09/23 04/01/25 History (Tylenol Extra Strength) ascorbic acid (vitamin C) 500 mg 1,000 mg PO 2XWK 10/09/23 04/01/25 History tablet (Vitamin C) aspirin 81 mg tablet,delayed 81 mg PO DAILY 10/09/23 04/01/25 History release atorvastatin 40 mg tablet 40 mg PO HS 10/09/23 04/01/25 History metoprolol succinate 100 mg 100 mg PO DAILY 10/09/23 04/01/25 History tablet,extended release 24 hr multivitamin 1 tab PO DAILY 10/09/23 04/01/25 History L.acidop,casei,lactis,rham-B.lact,shasha 1 cap PO DAILY #60 caps 10/18/23 04/01/25 Rx 625 mg (10 billion cell) capsule (Advanced Probiotic) apixaban 2.5 mg tablet (Eliquis) 2.5 mg PO BID 04/01/25 04/01/25 History ergocalciferol (vitamin D2) 10 mcg 10 mcg PO DAILY 04/01/25 04/01/25 History (400 unit) tablet magnesium oxide 500 mg capsule 500 mg PO DAILY 04/01/25 04/01/25 History colchicine 0.6 mg tablet (Colcrys) 0.6 mg PO BID 90 days #179 tabs 04/02/25 Rx Hospital Stay Data Consultations 04/01/25 16:05 ED Decision to Admit Stat Diagnostic Imagining Performed 04/01/25 14:13 CT for pulmonary embolism PE [CT angio chest PE protocol] Stat Pending Results Patient Have Any Pending Studies at Discharge: No Discharge Instructions Given to Patient (Per Discharging Provider) You have chest pain because it is suspected the cartilage of your rib cage is inflamed. This problem is called costochondritis. This type of chest wall pain may last from days to weeks. It is not a heart problem. Sometimes costochondritis occurs with a cold or influenza (flu), and other times the exact cause is not known. Follow-up care is a mayo part of your treatment and safety.Be sure to make and go to all appointments. You will be called on Friday for post-discharge follow up. How can you care for yourself at home? Take medicines for pain and inflammation exactly as directed. Please take colchichine 0.6 mg two times a day for three months. Please continue this regimen unless directed by a physician to discontinue. You can take tylenol 1000mg every 8 hours as needed for discomfort. It may help to use a warm compress or heating pad (set on low) on your chest. You can also try alternating heat and ice. Put ice or a cold pack on the area for 10 to 20 minutes at a time. Put a thin cloth between the ice and your skin.Avoid any activity that strains the chest area. As your pain gets better, you can slowly return to your normal activities.Do not use tape, an elastic bandage, a "rib belt," or anything else that restricts your chest wall motion. When should you call for help? [id number] you think you may need emergency care. For example, call if: You have new or different chest pain or pressure. This may occur with: Sweating. Shortness of breath. Nausea or vomiting. Pain that spreads from the chest to the neck, jaw, or one or both shoulders or arms. Dizziness or light-headedness. A fast or uneven pulse.After you [id number], chew 1 adult-strength or 2 to 4 low-dose aspirin. Wait for an ambulance. Do not try to drive yourself.You have severe trouble breathing. Call your doctor or nurse advice line nowor seek immediate medical care if: You have a fever or cough.You have any trouble breathing.Your chest pain gets worse. Watch closely for changes in your health, and be sure to contact your doctor or nurse advice line if: Your chest pain continues even though you are taking anti-inflammatory medicine.Your chest wall pain has not improved after 5 to 7 days. Total Time Total Time Spent Total Time Spent (In Minutes): 45
[2025-04-02] MEDS ORDERED: STAT IV Infusion **Titration per Protocol STA (15:28)
[2025-04-02] MEDS ORDERED: 0.2 MICRON FILTER SET 1 EACH IV STA (15:28)
[2025-04-02] MEDS ORDERED: VANCOMYCIN CONSULT ACTIVE PRN (15:32)
[2025-04-02] MEDS: ACETAMINOPHEN 500 MG TAB PO PRN (15:37)
--- NOTE | 2025-04-02 15:58 | Hospitalist Progress Note ---
Date of Service April 02, 2025 Assessment & Plan (1) Chest pain: (2) Malaise: (3) Arthralgia: (4) Congenital bicuspid aortic valve: Plan: Mr. Umanzor is a 54 year old male with history of aortic valve replacement, on Eliquis, Paroxysmal Atrial fibrillation, HTN, GASTON, Arterial thrombosis admitted for evaluation of with chest pain, malaise, arthralgias x 2 days. Patient reports that he was hiking up a hill a few days ago for hunting and otherwise felt fine and also reports tick exposure 2+ weeks ago. Labs revealed normal troponin, stable EKG with out ST changes, negative biofire and lyme/anaplasmosis/babesosis panel. CTA negative for pulm emboli. Labs did note mildly elevated inflammatory markers. Sat with patient to discuss recent exposures and history in depth. Patient recalls cracked tooth in February that was fixed, not dissimilar to prior when he had an extraction during his last episode of bacteremia. He reports the tick bite two weeks prior, with negative tick bourne pathologies. ECHO was reviewed and did not reveal pericardial effusion. Patient reported symptoms improved this am, mostly arthralgias, noting that he just feels like he is "bruised" over his left chest; however, this afternoon he reports fevers and noted to be in a fib. Discharge discontinued given the change in status. #A Fib RVR #PAF s/p PVI in 2020, s/p watchman device initially NSR on admission, however, around 1430 converted to a fib RVR continue metoprolol daily Discussed with Cards: start amiodarone drip, transfer pcu increased Eliquis to 5mg bid follow infectious work up as likely underlying precipitating factor #History of CoNS Bacteremia #Atypical chest pain suspicious for MSK #MALAISE, ARTHRALGIAS #HISTORY OF AORTIC VALVE REPLACEMENT IN 2020 suspect MSK in nature, given viral prodrome and mild ESR.CRP elevation, started on colcichine 0.6mg bid, held iso amio ESR 30, CRP 3.32 biofire negative, lyme screen negative Patient febrile this afternoon Blood CX with NGTD Given fevers, rapid a fib, and decline will broaden spectrum of abx No clear localizing source outside of reported crack tooth over a month ago, which has since been fixed ordered face ct given recent cracked molar, though repaired has history of molar with subsequent infection into sinuses #Paroxysmal Atrial Fibrillation #Superficial thrombosis - currently in sinus rhythm, rate controlled continue Toprol XL -on DVT dose eliquis 2/2 superficial thrombosis, not for PAF or valve necessarily, discussed with Dr. Chávez #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 DVT dosing 2/ this #HTN - mildly elevated continue Toprol XL #GASTON continue cpap DVT eliquis Admission and Anticipated Discharge Date Admission Date: April 01, 2025 Subjective Initially patient was doing well this am, with report of bruise like sensation on chest, but remained afebrile and NSR on tele Plan was for discharge However into afternoon, patient with a fib RVR into 160s and febrile to 38.4 at that time, he reports noted change of status--stating that he feels a bit achy and with subjective fever He has no localizing signs of infection--denies diarrhea, denies urinary symptoms, denies respiratory symptoms Reports that 4 weeks ago he did have a cracked tooth which was capped He states this is not dissimilar to when he had his last cracked tooth, at the same time he had bacteremia--except that he was more prompt to get this tooth fixed and he was taking Augmentin until it was capped Physical Exam Constitutional: diaphoretic, but calm, does not appear toxic Respiratory: normal respiratory effort, lungs clear to auscultation Cardiovascular: FREDIS+ irregularly irregular Gastrointestinal (Abdomen): normal bowel sounds, soft, nontender, no hepatosplenomegaly Results & Data Results & Data Vital Signs (Past 12 Hours) Vital Signs Temp Pulse Pulse Resp BP Pulse Ox O2 Del Method 04/02/25 15:30 38.4 C H 114 H 20 154/108 H 93 Room Air 04/02/25 12:01 88 04/02/25 11:08 36.8 C 80 18 134/97 94 Room Air 04/02/25 07:47 37.2 C 86 18 138/88 95 Nasal Cannula O2 Flow Rate 04/02/25 15:30 04/02/25 12:01 04/02/25 11:08 04/02/25 07:47 2 Laboratory Results Short CBC 04/02/25 Range/Units 06:01 WBC 11.33 H (4.8-10.8) K/ul Hgb 15.2 (14.0-18.0) g/dL Hct 45.4 (42.0-52.0) % Plt Count 235 (130-400) K/uL BMP 04/02/25 06:01 Sodium 136 Potassium 4.2 Chloride 102 Carbon Dioxide 25 BUN 14 Creatinine 0.82 Glucose 104 H Calcium 9.3 Liver Function 04/02/25 Range/Units 06:01 Total Bilirubin 1.3 H (0.2-1.0) mg/dl AST 19 (13-39) U/L ALT 30 (7-52) U/L Alkaline Phosphatase 90 (34-104) U/L Albumin 4.1 (3.4-5.0) gm/dl Medications Administered Home Medications Medication Instructions Recorded Confirmed Last Taken acetaminophen 500 mg tablet 1,000 mg PO Q6H PRN Pain 10/09/23 04/01/25 Unknown (Tylenol Extra Strength) ascorbic acid (vitamin C) 500 mg 1,000 mg PO 2XWK 10/09/23 04/01/25 Unknown tablet (Vitamin C) aspirin 81 mg tablet,delayed 81 mg PO DAILY 10/09/23 04/01/25 10/23/23 release atorvastatin 40 mg tablet 40 mg PO HS 10/09/23 04/01/25 10/22/23 metoprolol succinate 100 mg 100 mg PO DAILY 10/09/23 04/01/25 10/23/23 tablet,extended release 24 hr multivitamin 1 tab PO DAILY 10/09/23 04/01/25 10/23/23 L.acidop,casei,lactis,rham-B.lact,shasha 1 cap PO DAILY #60 caps 10/18/23 04/01/25 10/23/23 625 mg (10 billion cell) capsule (Advanced Probiotic) apixaban 2.5 mg tablet (Eliquis) 2.5 mg PO BID 04/01/25 04/01/25 Unknown ergocalciferol (vitamin D2) 10 mcg 10 mcg PO DAILY 04/01/25 04/01/25 Unknown (400 unit) tablet magnesium oxide 500 mg capsule 500 mg PO DAILY 04/01/25 04/01/25 Unknown colchicine 0.6 mg tablet (Colcrys) 0.6 mg PO BID 90 days #179 tabs 04/02/25 Unknown Active Medications Generic Name Dose Route Start Last Admin Trade Name Freq PRN Reason Stop Dose Admin Acetaminophen 1,000 mg 04/01/25 17:04 04/02/25 15:37 Acetaminophen 500 Mg Tab PO 05/01/25 17:14 1,000 mg Q8H PRN Administration pain/fever Aspirin 81 mg 04/02/25 09:00 04/02/25 10:35 Aspirin 81 Mg Ectab PO 05/02/25 08:59 81 mg DAILY LANA Administration Atorvastatin Calcium 40 mg 04/01/25 21:00 04/01/25 22:21 Atorvastatin 40 Mg Tab PO 05/01/25 20:59 40 mg HS LANA Administration Doxycycline Hyclate 100 mg 04/02/25 09:00 04/02/25 10:35 Doxycycline Hyclate 100 Mg Cap PO 04/16/25 08:59 100 mg BID LANA Administration Lactobacillus Acidophilus 1,250 mg 04/01/25 09:00 04/02/25 10:35 Advanced Probiotic 625 Mg Capsule PO 05/01/25 08:59 1,250 mg DAILY LANA Administration Magnesium Oxide 400 mg 04/02/25 09:00 04/02/25 10:36 Magnesium Oxide 400 Mg Tab PO 05/02/25 08:59 400 mg DAILY LANA Administration Metoprolol Succinate 100 mg 04/02/25 09:00 04/02/25 10:36 Metoprolol Succ 50mg Ext Rel Tab PO 05/02/25 08:59 100 mg DAILY LANA Administration Multivitamins 1 tab 04/02/25 09:00 04/02/25 10:36 Multivitamin Tab PO 05/02/25 08:59 1 tab DAILY LANA Administration Vitamin D 10 mcg 04/02/25 09:00 04/02/25 10:35 Cholecalciferol 10 Mcg (400 Units) Tab PO 05/02/25 08:59 10 mcg DAILY LANA Administration
--- NOTE | 2025-04-02 16:04 | Pharmacy Report ---
Pharmacy PK ABX Note - Date of Service April 02, 2025 - Assessment and Plan Assessment 54 year old M receiving vancomycin and piperacillin/tazobactam for empiric coverage. Pertinent microbiologic data includes: blood cultures x2 pending. * Patient presented 04/01 with chest pain and shortness of breath * Root canal and crown placement ~4 weeks ago, tick bit from hunting ~2 weeks ago * Fever of 38.4 C today * WBC 11.33 from 10.64 yesterday * SCr 0.82 (estimated CrCl 127.8 mL/min) * Last SCr values in 2023 ~07.-0.9 so appears patient is at baseline SCr Day #1 of antimicrobial therapy. Plan Vancomycin * Loading dose: 2250 mg IV x 1 (given 04/02 @1630) * Maintenance dose: 1500 mg IV every 12 hours * Regimen is predicted to achieve target AUC/JOHN of 400-600 mg/L.hr * Level will be ordered if continuing past 48 hours Pharmacy will continue to follow and will adjust dose/frequency as necessary. Thank you. Pharmacy has transitioned to AUC monitoring for vancomycin. AUC/OJHN is the preferred PK/PD target and is associated with decreased risk of nephrotoxicity compared to traditional trough targets.
[2025-04-02] MEDS: AMIODARONE / D5W 150 MG/100 ML BAG IV STA (16:12)
[2025-04-02] MEDS: METOPROLOL TARTRATE 1 MG/ML VIAL IV STA (16:16)
[2025-04-02] MEDS: AMIODARONE / D5W 360 MG/200 ML BAG IV ONE (16:23)
[2025-04-02] MEDS: VANCOMYCIN HCL 2,250 MG in SODIUM CHLORIDE 0.9% 500 ML IV ONE (16:24)
[2025-04-02 16:34] LABS: Thyroid Stimulating Hormone 0.844 uIu/ml (0.300-4.500)
[2025-04-02] MEDS: PIPERACILLIN/TAZOBACTAM 4.5 GM/100 ML BAG IV ONE (16:50)
[2025-04-02] MEDS: AMIODARONE IV BOLUS & DRIP IV STA (17:20)
[2025-04-02] MEDS: METOPROLOL TARTRATE 50 MG TAB PO STA (19:41)
[2025-04-02] MEDS: APIXABAN 5 MG TABLET PO SCH (20:42)
[2025-04-02] MEDS ORDERED: METOPROLOL SUCC 25MG EXT REL TAB PO SCH (21:00)
[2025-04-02] MEDS: PIPERACILLIN/TAZOBACTAM 4.5 GM/100 ML BAG IV SCH (21:47)
[2025-04-02] MEDS: AMIODARONE / D5W 360 MG/200 ML BAG IV SCH (21:51)
--- NOTE | 2025-04-02 21:52 | CT Scan Report ---
CT of the facial bones without contrast Technique: Noncontrast axial images of facial bones. Coronal and sagittal reformatted images made available for review Comparison made to prior exam dated 10/14/2023 Findings: Chronic nasal bone fracture. No acute fractures or dislocation identified on this exam. Intraorbital contents are unremarkable. Paranasal sinuses demonstrate mild inflammatory changes. Impression No acute os pathology. Electronically signed by Jefferson Eden 04-02-2025 9:52 PM
[2025-04-03] MEDS: VANCOMYCIN HCL 1,500 MG in SODIUM CHLORIDE 0.9% 500 ML IV SCH (01:32)
[2025-04-03 05:58] LABS: Anion Gap 8.0 (3-11); Blood Urea Nitrogen 13.0 mg/dl (6-23); Calcium 8.9 mg/dl (8.6-10.3); Carbon Dioxide 24.0 mmol/L (21-32); Chloride 104.0 mmol/L (98-107); Creatinine Clr Calc Pharmacy 113.9 ml/min; Glucose 125.0 mg/dl (70-99(Fasting)); Magnesium 2.0 mg/dl (1.7-2.4); Potassium 3.9 mmol/L (3.5-5.1); Sodium 136.0 mmol/L (136-145)
[2025-04-03 06:05] LABS: Hematocrit (blood only) 43.1 % (42.0-52.0); Hemoglobin 14.9 g/dL (14.0-18.0); Mean Corpuscular Hemoglobin 29.7 pg (25.0-34.0); Mean Corpuscular Volume 86.0 fL (80.0-100.0); Platelet Count 234 K/uL (130-400); RDW Standard Deviation 39.7 fL (36.4-46.3); Red Blood Count 5.01 M/uL (4.70-6.10); White Blood Count 10.80 K/ul (4.8-10.8)
--- NOTE | 2025-04-03 11:32 | Cardiology Consultation ---
Date of Consultation April 03, 2025 Assessment & Plan (1) Chest pain: (2) Malaise: (3) Arthralgia: (4) Atrial fibrillation with RVR: Chest pain, atypical for angina Malaise Arthralgias - 54-year-old male with history of bicuspid aortic valve and surgical aortic valve replacement with a bioprosthetic valve in 2020 (left atrial appendage surgically ligated with 45 mm atrial clip) - Patient with history of coag negative staph bacteremia in 2023 in the setting of dental infection. Completed 6 weeks of antibiotics with vancomycin at that time. -Blood cultures obtained on 04/02/2025. Negative thus far. -ESR elevated at 58 mm/h, C-reactive protein elevated at 11.23 mg/dL - Clinical findings concerning for subacute bacterial endocarditis versus tickborne illness. Initial findings on tickborne illness panel negative thus far - Continue antibiotic therapy including doxycycline and Zosyn - Continue colchicine for potential inflammatory chest pain. -N.p.o. after midnight for determination tomorrow with regards to need/timing of transesophageal echocardiogram. Atrial fibrillation with rapid ventricular response - Patient has converted back to sinus rhythm. -TSH within normal limits. Transaminases normal. -Discontinue IV amiodarone for now, but would have low threshold for resuming if he has recurrence of atrial fibrillation. -This has been his first recent relapse of atrial fibrillation since pulmonary vein isolation/ablation in 2020. - Does have a history of surgical left atrial appendage clipping, with successful appendage occlusion noted time of transesophageal echocardiogram in 2023. Had been on DVT prophylaxis dose of Eliquis 2.5 mg twice daily due to past venous/arterial embolism noted in 2023, however at that time there was suspicion that perhaps recurrent atrial fibrillation may have been the culprit for the arterial embolism to his leg. -For now Eliquis dose has been increased to 5 mg twice daily for anticoagulation in the setting of atrial fibrillation. If determined to have endocarditis however would hold anticoagulation due to risk of septic embolism to the brain and hemorrhagic conversion. -Given concern of history past arterial embolism to the leg, benefits of anticoagulation felt to outweigh risk at present -Increase prior to hospital treatment with metoprolol succinate 100 mg daily in the morning to 100 mg in a.m., 50 mg p.m. I spent a total of 80 minutes on the date of service in preparation, delivery, and documentation of the care provided to this patient, excluding any time spent in the performance of separately billed services. Remigio Chávez DO History of Present Illness Reason for Consultation: atrial fibrillation with rapid ventricular response, chest discomfort Requesting Physician: Betty Gamboa MD Attending Physician: Betty Gamboa MD History of Present Illness Mr Umanzor is a 54 year old [facility] [employer] who is well known to our cardiology service. He describes that approximately 5 days ago on Friday he began to experience f ocal left-sided chest discomfort. It did not seem to occur with aerobic exertion and was somewhat persistent. By he had the chest discomfort as well as pain in his hands bilaterally his joints in general and felt tired. Due to ongoing symptoms he presented to the emergency department. Recent history notable for a tick bite around 2 weeks ago with tick removal from his scalp after hunting. He also notes having a recent broken tooth 4 weeks ago. He was seen by his dentist and was prescribed a course of amoxicillin which he took until he ultimately had a root canal and crown placed. He notes symptoms of a mild subjective fever type symptom 2 days before hospital presentation. He had 1 elevated temperature reading demonstrates mildly elevated 38.4 C on 04/02/2025 at 1530, otherwise afebrile. He was admitted via the emergency room 2 days ago on 04/01/2025. Blood cultures were obtained. Empiric antibiotics initiated and treatment with colchicine was initiated. Yesterday 04/02/2025 he reverted from sinus rhythm to atrial fibrillation with rapid ventricular response, ventricular rate up to 150 bpm at 1352. He was placed on an amiodarone infusion and received an extra dose of metoprolol tartrate last evening with subsequent conversion to sinus rhythm as observed on telemetry, 04/03/2025 at 5:27 AM. Currently sinus rhythm in the 60s noted. During my assessment in room 206 patient states feeling well. He states his chest discomfort completely went away overnight last night. Past Medical History: 1.Severe congenital bicuspid aortic valve stenosis s/p aortic valve replacement (bioprothetic valve) 07/18/20 (left atrial appendage surgically ligated with 45 mm atrial clip) -Preoperative cardiac catheterization took place at [facility] 07/13/2020 with angiographically normal coronary arteries at that time 2.Atrial fibrillation s/p pulmonary vein isolation 10/10/20 3.LLE arterial clot and RLE DVT 07/2023 ([facility] [address]) 4.HTN 5.Dyslipidemia 6.Admission September 2023 with L groin/medical thigh pain x 5 days, chest tightness, SOB. Blood cultures positive. MARLENA performed 10/10/23 due to concerns of endocarditis and embolism revealed no valvular vegetation. Repeat MARLENA 10/17/23 without vegetation. Cracked molar thought to be possible source of infection, tooth extracted. Infectious disease consulted and recommended 6 weeks of IV cef azolin for suspected underlying prosthetic valve endocarditis. Discharged on coumadin and Lovenox bridge. Allergies Allergy/AdvReac Type Severity Reaction Status Date / Time cefazolin Allergy Intermediate Hives Verified 11/19/23 09:04 Home Medications Medication Instructions Recorded Confirmed Type acetaminophen 500 mg tablet 1,000 mg PO Q6H PRN Pain 10/09/23 04/01/25 History (Tylenol Extra Strength) ascorbic acid (vitamin C) 500 mg 1,000 mg PO 2XWK 10/09/23 04/01/25 History tablet (Vitamin C) aspirin 81 mg tablet,delayed 81 mg PO DAILY 10/09/23 04/01/25 History release atorvastatin 40 mg tablet 40 mg PO HS 10/09/23 04/01/25 History metoprolol succinate 100 mg 100 mg PO DAILY 10/09/23 04/01/25 History tablet,extended release 24 hr multivitamin 1 tab PO DAILY 10/09/23 04/01/25 History L.acidop,casei,lactis,rham-B.lact,shasha 1 cap PO DAILY #60 caps 10/18/23 04/01/25 Rx 625 mg (10 billion cell) capsule (Advanced Probiotic) apixaban 2.5 mg tablet (Eliquis) 2.5 mg PO BID 04/01/25 04/01/25 History ergocalciferol (vitamin D2) 10 mcg 10 mcg PO DAILY 04/01/25 04/01/25 History (400 unit) tablet magnesium oxide 500 mg capsule 500 mg PO DAILY 04/01/25 04/01/25 History colchicine 0.6 mg tablet (Colcrys) 0.6 mg PO BID 90 days #179 tabs 04/02/25 Rx Patient History Medical History Bacteremia Scrotal abscess Paroxysmal atrial fibrillation s/p sync. DCCV (failed to convert on 07/24/20 ... startedon Amiodarone Hypertension Obesity Elevated troponin Acute pain of left thigh DVT of leg (deep venous thrombosis) Arterial embolism and thrombosis of lower extremity History of deviated nasal septum Surgical History History of heart valve replacement AVR w/ 25mm Anglin Inspiris valve, Ligation left atrial appendage with clip on 06/21/20 @ [facility] H/O cardiac catheterization History of inguinal hernia repair Family History Other No pertinent family history Social History Smoking Status: Never smoker Second Hand Exposure: No; Do You Dip or Chew Tobacco: No; Hx Alcohol Use: Yes Alcohol type: beer Hx Substance Use: No Preferred Language: Malaysian Communication Ability: Effective Visual Impairment: No Limitations Retail Event Coordinator Required: No Beliefs That Will Affect Care: None marital status: Single Current Living Situation: Spouse Current Living Situation Comment: home w/ & dog current occupation: [employer] Feels Safe at Home: Yes Assistive Devices: CPAP Review of Systems Review of Systems: All systems reviewed & are unremarkable except as noted in HPI & below Physical Exam Physical Exam: Temp Pulse Resp BP Pulse Ox O2 Del Method O2 Flow Rate 36.8 C 78 18 118/58 L 98 Room Air 2 04/03/25 08:06 04/03/25 08:06 04/03/25 08:06 04/03/25 08:06 04/03/25 08:06 04/03/25 08:06 04/02/25 17:30 Constitutional: well developed; no acute distress Eyes: PERRL, conjunctivae normal, anicteric sclerae Respiratory: normal respiratory effort, lungs clear to auscultation Cardiovascular: RRR, no murmur, no edema Vessels: no JVD Chest (Breasts): Additional Comments: Well-healed midline sternotomy incision Gastrointestinal (Abdomen): normal bowel sounds, soft, nontender, no hepatosplenomegaly Musculoskeletal: no cyanosis or clubbing, extremities motor strength 5/5 Neurologic: PERRL, EOMI, accommodation nl, no face palsy, no dysarthria Psychiatric: A+Ox3, euthymic affect Results & Data Vital Signs (Past 12 Hours) Vital Signs Temp Pulse Pulse Resp BP BP Pulse Ox 04/03/25 08:06 36.8 C 78 18 118/58 L 98 04/03/25 07:00 66 04/03/25 03:56 36.8 C 79 18 124/81 93 04/03/25 00:22 36.5 C 78 17 110/72 92 04/02/25 23:31 79 O2 Del Method 04/03/25 08:06 Room Air 04/03/25 07:00 04/03/25 03:56 Room Air 04/03/25 00:22 Room Air 04/02/25 23:31 Laboratory Results CBC 04/03/25 Range/Units 05:15 WBC 10.80 (4.8-10.8) K/ul RBC 5.01 (4.70-6.10) M/uL Hgb 14.9 (14.0-18.0) g/dL Hct 43.1 (42.0-52.0) % Plt Count 234 (130-400) K/uL Comprehensive Metabolic Panel 04/02/25 04/03/25 Range/Units 06:01 05:15 Sodium 136 (136-145) mmol/L Potassium 3.9 (3.5-5.1) mmol/L Chloride 104 (98-107) mmol/L Carbon Dioxide 24 (21-32) mmol/L BUN 13 (6-23) mg/dl Creatinine 0.92 (0.6-1.4) mg/dl Glucose 125 H (70-99(Fasting)) mg/dl Calcium 8.9 (8.6-10.3) mg/dl Direct Bilirubin 0.3 H (0-0.2) mg/dl Diagnostic Findings EKG performed at 04/03/2025 at 9:23 AM and reviewed/interpreted independently reveals sinus rhythm at 68 bpm. T wave inversion noted in the precordial leads V2, V3. - Compared to the previous tracing 04/02/2025 at 1519, sinus rhythm has replaced atrial fibrillation with rapid ventricular response. - Compared to 04/01/2025 at 1242, T wave inversion noted in lead V2 V3. Echocardiogram performed 04/02/2025: Sinus rhythm present during the exam There is mild concentric left ventricular hypertrophy No regional wall motion abnormalities LVEF normal range of 6065% There is a bioprosthetic aortic valve with normal prosthetic valve gradients, no evidence of prosthetic valve regurgitation, no pericardial effusion CT chest 04/01/2025, no pulmonary emboli, trace right pleural effusion, no pneumonia as per radiology report Face CT 04/02/2025: Chronic nasal bone fracture, no acute pathology PG Care Time/CCT Total # of Minutes Spent Total Time Spent with Patient: Total time spent is greater than 50% in coordination of care (as documented) at patient's floor/unit and/or counseling patient: Coding Level of Care Code 62141 IN/OBS CONSULT LVL 5,80M Diagnoses Chest pain R07.9 Malaise R53.81 Arthralgia M25.50 Atrial fibrillation with RVR I48.91
--- NOTE | 2025-04-03 12:54 | Hospitalist Progress Note ---
Date of Service April 03, 2025 Assessment & Plan (1) Chest pain: (2) Malaise: (3) Arthralgia: (4) Congenital bicuspid aortic valve: Plan: Mr. Umanzor is a 54 year old male with history of aortic valve replacement, on Eliquis, Paroxysmal Atrial fibrillation, HTN, GASTON, Arterial thrombosis admitted for evaluation of with chest pain, malaise, arthralgias x 2 days. Patient reports that he was hiking up a hill a few days ago for hunting and otherwise felt fine and also reports tick exposure 2+ weeks ago. Labs revealed normal troponin, stable EKG with out ST changes, negative biofire and lyme/anaplasmosis/babesosis panel. CTA negative for pulm emboli. Labs did note mildly elevated inflammatory markers. Given report of cracked tooth, CT Face was ordered and unrevealing; patient with no pain in sinuses, no pain in mouth Tick bourne remains negative Blood cultures NGTD #A Fib RVR *converted NSR 04/03 #PAF s/p PVI in 2020, s/p watchman device initially NSR on admission, however, around 1430 converted to a fib RVR continue metoprolol daily Discussed with Cards: started amiodarone drip, discontinued this am Continue increased Eliquis to 5mg bid follow infectious work up as likely underlying precipitating factor Continue metoprolol 100mg qam added qhs dosing of metoprolol, increased to 50mg qhs NPO incase need for MARLENA arises based on cultures Continue colchicine for chest discomfort #History of CoNS Bacteremia #Atypical chest pain suspicious for MSK #MALAISE, ARTHRALGIAS #HISTORY OF AORTIC VALVE REPLACEMENT IN 2020 suspect MSK in nature, given viral prodrome and mild ESR.CRP elevation, started on colcichine 0.6mg bid, held iso amio ESR 30, CRP 3.32 Uptrending ESR and CRP biofire negative, lyme screen negative Patient febrile this afternoon Blood CX with NGTD Given fevers, rapid a fib, and decline will broaden spectrum of abx -MRSA nare negative Continue with zosyn and doxy at this time #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 DVT dosing 2/2 this #HTN - mildly elevated continue Toprol XL #GASTON continue cpap DVT eliquis Admission and Anticipated Discharge Date Admission Date: April 01, 2025 Subjective Converted to NSR this am at around 530 am Reports significantly feeling better overall, resolution of chest discomfort, and near resolution of joint pains he states he feels achy, but attributes that more to blood draws and being in the hospital denies chest pain, palpitations, sob or other symptoms remains afebrile since 1529 yesterday Physical Exam Constitutional: WD/WN, vitals as above Respiratory: normal respiratory effort, lungs clear to auscultation Cardiovascular: RRR, FREDIS+ Gastrointestinal (Abdomen): normal bowel sounds, soft, nontender, no hep atosplenomegaly Results & Data Results & Data Vital Signs (Past 12 Hours) Vital Signs Temp Pulse Pulse Resp BP Pulse Ox O2 Del Method 04/03/25 11:39 36.8 C 68 18 147/91 H 97 Room Air 04/03/25 08:06 36.8 C 78 18 118/58 L 98 Room Air 04/03/25 07:00 66 04/03/25 03:56 36.8 C 79 18 124/81 93 Room Air Laboratory Results Short CBC 04/03/25 Range/Units 05:15 WBC 10.80 (4.8-10.8) K/ul Hgb 14.9 (14.0-18.0) g/dL Hct 43.1 (42.0-52.0) % Plt Count 234 (130-400) K/uL BMP 04/03/25 05:15 Sodium 136 Potassium 3.9 Chloride 104 Carbon Dioxide 24 BUN 13 Creatinine 0.92 Glucose 125 H Calcium 8.9 Liver Function 04/02/25 Range/Units 06:01 Direct Bilirubin 0.3 H (0-0.2) mg/dl Medications Administered Home Medications Medication Instructions Recorded Confirmed Last Taken acetaminophen 500 mg tablet 1,000 mg PO Q6H PRN Pain 10/09/23 04/01/25 Unknown (Tylenol Extra Strength) ascorbic acid (vitamin C) 500 mg 1,000 mg PO 2XWK 10/09/23 04/01/25 Unknown tablet (Vitamin C) aspirin 81 mg tablet,delayed 81 mg PO DAILY 10/09/23 04/01/25 10/23/23 release atorvastatin 40 mg tablet 40 mg PO HS 10/09/23 04/01/25 10/22/23 metoprolol succinate 100 mg 100 mg PO DAILY 06/04/01/25 10/23/23 tablet,extended release 24 hr multivitamin 1 tab PO DAILY 10/09/23 04/01/25 10/23/23 L.acidop,casei,lactis,rham-B.lact,shasha 1 cap PO DAILY #60 caps 10/18/23 04/01/25 10/23/23 625 mg (10 billion cell) capsule (Advanced Probiotic) apixaban 2.5 mg tablet (Eliquis) 2.5 mg PO BID 04/01/25 04/01/25 Unknown ergocalciferol (vitamin D2) 10 mcg 10 mcg PO DAILY 04/01/25 04/01/25 Unknown (400 unit) tablet magnesium oxide 500 mg capsule 500 mg PO DAILY 04/01/25 04/01/25 Unknown colchicine 0.6 mg tablet (Colcrys) 0.6 mg PO BID 90 days #179 tabs 04/02/25 Unknown Active Medications Generic Name Dose Route Start Last Admin Trade Name Freq PRN Reason Stop Dose Admin Acetaminophen 1,000 mg 04/01/25 17:04 04/02/25 15:37 Acetaminophen 500 Mg Tab PO 05/01/25 17:14 1,000 mg Q8H PRN Administration pain/fever Apixaban 5 mg 04/02/25 21:00 04/03/25 08:39 Apixaban 5 Mg Tablet PO 05/02/25 20:59 5 mg BID LANA Administration Aspirin 81 mg 04/02/25 09:00 04/03/25 08:40 Aspirin 81 Mg Ectab PO 05/02/25 08:59 81 mg DAILY LANA Administration Atorvastatin Calcium 40 mg 04/01/25 21:00 04/02/25 20:42 Atorvastatin 40 Mg Tab PO 05/01/25 20:59 40 mg HS LANA Administration Doxycycline Hyclate 100 mg 04/02/25 09:00 04/03/25 08:40 Doxycycline Hyclate 100 Mg Cap PO 04/16/25 08:59 100 mg BID LANA Administration Piperacillin Sod/Tazobactam Sod 4.5 gm in 100 mls @ 25 mls/hr 04/02/25 22:00 04/03/25 10:07 Zosyn IV 04/04/25 21:59 Infused Q8H LANA Infusion Protocol Lactobacillus Acidophilus 1,250 mg 04/01/25 09:00 04/03/25 08:40 Advanced Probiotic 625 Mg Capsule PO 05/01/25 08:59 1,250 mg DAILY LANA Administration Magnesium Oxide 400 mg 04/02/25 09:00 04/03/25 08:58 Magnesium Oxide 400 Mg Tab PO 05/02/25 08:59 400 mg DAILY LANA Administration Metoprolol Succinate 100 mg 04/02/25 09:00 04/03/25 08:40 Metoprolol Succ 50mg Ext Rel Tab PO 05/02/25 08:59 100 mg DAILY LANA Administration Multivitamins 1 tab 04/02/25 09:00 04/03/25 08:40 Multivitamin Tab PO 05/02/25 08:59 1 tab DAILY LANA Administration Vitamin D 10 mcg 04/02/25 09:00 04/03/25 08:40 Cholecalciferol 10 Mcg (400 Units) Tab PO 05/02/25 08:59 10 mcg DAILY LANA Administration
[2025-04-03] MEDS: COLCHICINE 0.6 MG TAB PO SCH (20:15)
[2025-04-03] MEDS: METOPROLOL SUCC 50MG EXT REL TAB PO SCH (20:16)
--- NOTE | 2025-04-04 06:12 | Electrocardiogram Report ---
Test Reason : Blood Pressure : */* mmHG Vent. Rate : 118 BPM Atrial Rate : * BPM P-R Int : * ms QRS Dur : 86 ms QT Int : 286 ms P-R-T Axes : * -5 33 degrees QTcB Int : 400 ms Atrial fibrillation with rapid ventricular response Abnormal ECG When compared with ECG of 01-Apr-2025 12:42, Atrial fibrillation has replaced Sinus rhythm Confirmed by Edi Gallardo ([id number]) on 04/04/2025 6:12:15 AM Referred By: REFERRED SELF Confirmed By: Edi Gallardo
--- NOTE | 2025-04-04 06:13 | Electrocardiogram Report ---
Test Reason : Blood Pressure : */* mmHG Vent. Rate : 68 BPM Atrial Rate : 68 BPM P-R Int : 178 ms QRS Dur : 92 ms QT Int : 426 ms P-R-T Axes : 48 -3 25 degrees QTcB Int : 452 ms Normal sinus rhythm T wave abnormality, consider anterior ischemia Abnormal ECG When compared with ECG of 02-Apr-2025 15:19, Sinus rhythm has replaced Atrial fibrillation Vent. rate has decreased by 50 bpm T wave inversion now evident in Anterior leads Confirmed by Edi Gallardo ([id number]) on 04/04/2025 6:13:34 AM Referred By: REFERRED SELF Confirmed By: Edi Gallardo
[2025-04-04 07:46] LABS: Creatinine Clr Calc Pharmacy 102.3 ml/min
[2025-04-04 07:56] VITALS: RESP 21; TEMP 97.5; O2SAT 94
--- NOTE | 2025-04-04 11:40 | Cardiology Progress Note ---
Date of Service April 04, 2025 Assessment & Plan (1) Chest pain: (2) Malaise: (3) Arthralgia: (4) Atrial fibrillation with RVR: Plan: Chest pain, atypical for angina Malaise Arthralgias - 54-year-old male with history of bicuspid aortic valve and surgical aortic valve replacement with a bioprosthetic valve in 2020 (left atrial appendage surgically ligated with 45 mm atrial clip) - Patient with history of coag negative staph bacteremia in 2023 in the setting of dental infection. Completed 6 weeks of antibiotics with vancomycin at that time. -Blood cultures obtained on 04/02/2025. Negative thus far. -ESR elevated at 58 mm/h, C-reactive protein elevated at 11.23 mg/dL - Clinical findings concerning for subacute bacterial endocarditis versus tickborne illness. Initial findings on tickborne illness panel negative thus far - Continue antibiotic therapy including doxycycline and Zosyn - Continue colchicine for potential inflammatory chest pain. -N.p.o. after midnight for determination tomorrow with regards to need/timing of transesophageal echocardiogram. Atrial fibrillation with rapid ventricular response - Patient has converted back to sinus rhythm. -TSH within normal limits. Transaminases normal. -Discontinue IV amiodarone for now, but would have low threshold for resuming if he has recurrence of atrial fibrillation. -This has been his first recent relapse of atrial fibrillation since pulmonary vein isolation/ablation in 2020. - Does have a history of surgical left atrial appendage clipping, with successful appendage occlusion noted time of transesophageal echocardiogram in 2 024. Had been on DVT prophylaxis dose of Eliquis 2.5 mg twice daily due to past venous/arterial embolism noted in 2023, however at that time there was suspicion that perhaps recurrent atrial fibrillation may have been the culprit for the arterial embolism to his leg. -For now Eliquis dose has been increased to 5 mg twice daily for anticoagulation in the setting of atrial fibrillation. If determined to have endocarditis however would hold anticoagulation due to risk of septic embolism to the brain and hemorrhagic conversion. -Given concern of history past arterial embolism to the leg, benefits of anticoagulation felt to outweigh risk at present -Increase prior to hospital treatment with metoprolol succinate 100 mg daily in the morning to 100 mg in a.m., 50 mg p.m. I spent a total of 80 minutes on the date of service in preparation, delivery, and documentation of the care provided to this patient, excluding any time spent in the performance of separately billed services. Remigio Chávez DO Plan 04/04/2025 Clinically improved no further chest pain or shortness of breath no fevers or chills. Ambulatory in room. Blood cultures negative for infection. No further arrhythmias Plan: 1. Chest pain, malaise, arthralgia: Blood cultures negative at 48 hours elevated sed rate and C-reactive protein. Cardiac enzymes are negative 2. Paroxysmal atrial fibrillation 3. Status post AVR 2020. Recommendations: Currently no indications for transesophageal echocardiogram. May reconsider if symptoms, febrile illness returns Continue colchicine until seen as outpatient Continue full dose of Eliquis 5 mg twice per day given paroxysmal atrial fibrillation. Plan at least 1 month (prior left atrial appendage ligation) Continue increased dose of metoprolol succinate Close clinical follow-up with cardiology in the next month, patient return with any recurrent illness or complaints Admission and Anticipated Discharge Date Admission Date: April 01, 2025 Subjective Patient was seen and examined, chart, medications, telemetry reviewed. Overall feeling well today ambulatory in room. No further fevers or chills. No discomfort chest arthralgias. Generalized malaise has resolved. No arrhythmias on telemetry, no further atrial fibrillation. Blood cultures and serologies remain negative to date Review of Systems Review of Systems: All systems reviewed & are unremarkable except as noted in Subjective Physical Exam Constitutional: well developed and well nourished; no acute distress Eyes: PERRL, conjunctivae normal, anicteric sclerae Neck: trachea midline, no thyromegaly + thick neck Respiratory: normal respiratory effort, lungs clear to auscultation Cardiovascular: Rate/Rhythm: regular rate and regular rhythm Heart Sounds: normal S1, normal S2 and + murmur (Grade 2 or 6 systolic, no diastolic) Gastrointestinal (Abdomen): normal bowel sounds, soft, nontender, no hepatosplenomegaly Musculoskeletal: no cyanosis or clubbing, extremities motor strength 5/5 Skin: no rashes, warm and dry Results & Data Vital Signs (Past 12 Hours) Vital Signs Temp Pulse Pulse Pulse Resp BP BP 04/04/25 11:07 36.4 C L 66 21 131/93 04/04/25 09:00 78 04/04/25 07:56 36.4 C L 62 21 124/73 04/04/25 03:51 36.8 C 67 18 106/65 Pulse Ox O2 Del Method 04/04/25 11:07 94 Room Air 04/04/25 09:00 04/04/25 07:56 94 Room Air 04/04/25 03:51 95 Room Air Laboratory Results Laboratory Results - last 24 hr 04/04/25 07:14 Creatinine 1.04 Est Cr Clr Drug Dosing 102.3 eGFR 84.80 PG Care Time/CCT Total # of Minutes Spent Total Time Spent with Patient: Total time spent is greater than 50% in coordination of care (as documented) at patient's floor/unit and/or counseling patient: Coding Level of Care Code 70221 SUB INP/OBS CARE 3/50MIN Diagnoses Chest pain R07.9 Malaise R53.81 Arthralgia M25.50 Atrial fibrillation with RVR I48.91
--- NOTE | 2025-04-04 12:11 | Discharge Summary ---
Discharge Summary Date of Service April 04, 2025 Principal Dx & Hospital Course #1 = Principal Diagnosis (1) Atypical chest pain: (2) Viral syndrome: (3) Paroxysmal atrial fibrillation: (4) Hypertension: (5) Congenital bicuspid aortic valve: Plan Patient 54-year-old gentleman presented to the emergency room with approximately 2 days of central chest pain and pressure. He was also complaining of some fatigue, malaise, and generalized joint pains. Initial evaluation in the emergency room was unremarkable for acute coronary event, however due to his ongoing symptoms was referred for further evaluation. Patient was monitored in the hospital. Troponins were trended were negative times all sets. Cardiology consultation was obtained. Initially his felt that patient was having some costochondritis. Started some colchicine. He seemed to be improving and was anticipating being discharged over the weekend. However, patient had acute onset of fever. With the fever he also converted into atrial fibrillation with rapid ventricular response. Patient has remote history of previous bacteremia. Blood cultures were obtained. He was started empirically on antibiotics. Transthoracic echocardiogram was performed. There was no definite evidence of any vegetation or endocarditis. No pericardial effusion. Ejection fraction was normal. Patient continued to be monitored. His metoprolol was increased. He was increased to full dose Eliquis. Patient has had previous left atrial appendage closure, however, was on low-dose Eliquis for VTE prophylaxis which he had since his atrial fibrillation. He also had previous ablation. Has not had issues with atrial fibrillation since then. As his fever resolved, patient returned to normal sinus rhythm and remained in sinus rhythm. Cardiology recommended continuing the metoprolol and the higher dose Eliquis. Cultures were sterile with no evidence of bacteremia. MARLENA was considered, however, due to the fact that he had not sterile blood cultures, no persistent fevers and started to clinically feel much improved did not proceed with MARLENA. The day of discharge she has been afebrile for greater than 36 hours. Blood cultures are sterile. Patient's chest pain is resolved. His other arthralgias and myalgias have resolved. He did end up having a little bit of loose stool. Also had a little bit of congestion. Patient's overall clinical picture appears to be most consistent with acute viral syndrome which is improving on its own. Patient to be discharged home to follow-up with his outpatient providers with these medication adjustments as mentioned above. Notes For Next Care Provider Follow-up with cardiology Medication Changes From Visit Eliquis dose increased to 5 mg twice daily Metoprolol succinate 50 mg added at bedtime to his morning dose Admission HPI Per Admitting Provider 54 year old male with history of aortic valve replacement, on Eliquis, Paroxysmal Atrial fibrillation, HTN, GASTON, Arterial thrombosis presenting with chest pain, malaise, arthralgias x 2 days. Patient reports he had a root canal and crown placement ~4 weeks ago. He was able to take a course of Amoxicillin for the procedure. No issues after. He also notes that he had a tick bite after hunting ~2 weeks ago. He was able to remove the tick off his scalp. He also had a day of cold symptoms a few weeks ago. 2 days ago, he started to have central chest pain, pressure like, constant, mod erate, non radiating without shortness of breath, nausea, dizziness. Chest pain is not related to inspiration or exertion. He has also had fatigue/malaise, and joint pains in the hands, knees and feet. He reports 1 episode of fever 2 days ago. 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 At the ER, BP 170/92--> 154/103, HR 82, RR 18, afebrile 97% on room air. trop x 1 negative EKG No acute ischemia or infarct CT chest no PE or pneumonia On exam, patient seen resting in bed, not in distress, very pleasant Reports ongoing central chest discomfort, mild, no radiation no dyspnea, palpitations, dizziness Admission Exam Per Admitting Provider See H&P Discharge Exam Constitutional: Alert, nontoxic, up and ambulatory in his room HEENT: Mucous membranes moist. Lungs: Clear to auscultation, decreased, no wheezes rales or rhonchi CV: S1-S2, regular Abdomen: Soft, nontender, nondistended Extremities: No significant edema Neuro: No focal deficits Psych: Cooperative, normal mood Updated Medication List Medication Instructions Recorded Confirmed Type acetaminophen 500 mg tablet 1,000 mg PO Q6H PRN Pain 10/09/23 04/01/25 History (Tylenol Extra Strength) ascorbic acid (vitamin C) 500 mg 1,000 mg PO 2XWK 10/09/23 04/01/25 History tablet (Vitamin C) aspirin 81 mg tablet,delayed 81 mg PO DAILY 10/09/23 04/01/25 History release atorvastatin 40 mg tablet 40 mg PO HS 10/09/23 04/01/25 History metoprolol succinate 100 mg 100 mg PO DAILY 10/09/23 04/01/25 History tablet,extended release 24 hr multivitamin 1 tab PO DAILY 10/09/23 04/01/25 History L.acidop,casei,lactis,rham-B.lact,shasha 1 cap PO DAILY #60 caps 10/18/23 04/01/25 Rx 625 mg (10 billion cell) capsule (Advanced Probiotic) ergocalciferol (vitamin D2) 10 mcg 10 mcg PO DAILY 04/01/25 04/01/25 History (400 unit) tablet magnesium oxide 500 mg capsule 500 mg PO DAILY 04/01/25 04/01/25 History colchicine 0.6 mg tablet (Colcrys) 0.6 mg PO BID 90 days #179 tabs 04/02/25 Rx apixaban 5 mg tablet (Eliquis) 5 mg PO BID #60 tabs 04/04/25 Rx doxycycline hyclate 100 mg capsule 100 mg PO BID #10 caps 04/04/25 Rx metoprolol succinate 50 mg 50 mg PO HS #30 tabs 04/04/25 Rx tablet,extended release 24 hr Hospital Stay Data Consultations 04/01/25 16:05 ED Decision to Admit Stat 04/02/25 15:12 Consult Cardiology Routine Diagnostic Imagining Performed 04/01/25 14:13 CT for pulmonary embolism PE [CT angio chest PE protocol] Stat 04/02/25 16:17 CT face [CT facial bones wo con] Routine Reviewed imaging, laboratory and diagnostic studies. Pertinent findings as below. Echocardiogram: Ejection fraction 6065%, bioprosthetic aortic valve functioning normally, no other significant abnormalities, I refer to the full report for details. WBCs 10.8 Hemoglobin 14.9 Platelets 234 ESR 58 Electrolytes within normal range Creatinine 1.04 CRP 11.2 TSH 0.84 MRSA screen negative Tickborne testing negative, Lyme screen negative Final report still pending on some tickborne diseases Respiratory viral panel negative Facial CT no acute abnormalities CTA of the chest: No PE, trace right pleural effusion, no consolidations Pending Results Patient Have Any Pending Studies at Discharge: No Discharge Instructions Given to Patient (Per Discharging Provider) You have chest pain because it is suspected the cartilage of your rib cage is inflamed. This problem is called costochondritis. This type of chest wall pain may last from days to weeks. It is not a heart problem. Sometimes costochondritis occurs with a cold or influenza (flu), and other times the exact cause is not known. Follow-up care is a mayo part of your treatment and safety.Be sure to make and go to all appointments. You will be called on Friday for post-discharge follow up. How can you care for yourself at home? Take medicines for pain and inflammation exactly as directed. Please take colchichine 0.6 mg two times a day for three months. Please continue this regimen unless directed by a physician to discontinue. You can take tylenol 1000mg every 8 hours as needed for discomfort. It may help to use a warm compress or heating pad (set on low) on your chest. You can also try alternating heat and ice. Put ice or a cold pack on the area for 10 to 20 minutes at a time. Put a thin cloth between the ice and your skin.Avoid any activity that strains the chest area. As your pain gets better, you can slowly return to your normal activities.Do not use tape, an elastic bandage, a "rib belt," or anything else that restricts your chest wall motion. When should you call for help? [id number] you think you may need emergency care. For example, call if: You have new or different chest pain or pressure. This may occur with: Sweating. Shortness of breath. Nausea or vomiting. Pain that spreads from the chest to the neck, jaw, or one or both shoulders or arms. Dizziness or light-headedness. A fast or uneven pulse.After you [id number], chew 1 adult-strength or 2 to 4 low-dose aspirin. Wait for an ambulance. Do not try to drive yourself.You have severe trouble breathing. Call your doctor or nurse advice line nowor seek immediate medical care if: You have a fever or cough.You have any trouble breathing.Your chest pain gets worse. Watch closely for changes in your health, and be sure to contact your doctor or nurse advice line if: Your chest pain continues even though you are taking anti-inflammatory medicine.Your chest wall pain has not improved after 5 to 7 days. Total Time Total Time Spent Total Time Spent (In Minutes): 33
[2025-04-04 12:33] VITALS: BP 106/65; PULSE 76
== END 2025-04-04 13:26 | disposition home or self-care (01) | DRG 206 ==
LOC: ED 12:32 → SUATTDRO 16:14 → EDINP 16:14 → 2N 17:32 → 2E 04-02 16:04